=== PATIENT | male | born 1945 | race Caucasian/White ===

== ENCOUNTER → 2019-01-27 08:14 | Outpatient (CLI) | payer MEDICARE, SELFPAY ==
[2019-01-27 09:29] LABS: Hemoglobin A1c 5.3 % (4.2-6.3)
[2019-01-27 09:33] LABS: Anion Gap 7 (5-15); BUN 25 mg/dL (7-18); BUN/Creat Ratio 20.3 RATIO (10-20); Calcium,Total 8.4 mg/dL (8.5-10.1); Chloride 108 mmol/L (98-107); Cholesterol 182 mg/dL (200); Creatinine, Serum 1.23 mg/dL (0.70-1.30); EST Glomerular Filtration Rate 61 mL/min (>60); Est Glom Filt Rate - Afr Amer 74 mL/min (>60); Glucose 118 mg/dL (74-106); High Density Lipoprotein 39 mg/dL; Sodium Level 139 mmol/L (136-145); Triglycerides 91 mg/dL; Very Low Density Lipoprotein 18 mg/dL (5-40)
== END ==
DX: E11.9 Type 2 diabetes mellitus without complications (principal); Z86.39 Personal history of other endocrine, nutritional and metabolic disease
CPT/HCPCS: 36415; 80048; 80061; 83036; 84443

== ENCOUNTER 2020-01-03 05:49 | Day surgery (SDC) | payer MEDICARE, SELFPAY ==
[2019-12-12 13:07] VITALS: BMI 30.9
--- NOTE | 2020-01-02 08:57 | EKG12_ITS ---
Test Reason : PRE OP Blood Pressure : / mmHG Vent. Rate : 052 BPM Atrial Rate : 052 BPM P-R Int : 208 ms QRS Dur : 128 ms QT Int : 418 ms P-R-T Axes : 057 018 035 degrees QTc Int : 388 ms Sinus bradycardia Right bundle branch block Abnormal ECG Confirmed by WILLIAM LAFLEUR, JAJA ([id number]), editor index BETSY FLEMING ([id number]) on 01/03/2020 8:57:03 AM Referred By: Messi Dumont Confirmed By:JAJA THOMAS MD
[2020-01-03] VITALS (24 sets, daily range): BP systolic 62–155; BP diastolic 45–82; PULSE 36–73; RESP 16–18; TEMP 35.8–36.7; O2SAT 94–100; BMI 33.5
[2020-01-03] MEDS: Lactated Ringers 1,000 ML 100 ML IV ×4 (06:38→12:42)
--- NOTE | 2020-01-03 07:07 | PCM.HP.BLA ---
Problem List (1) Bilateral inguinal hernia without obstruction or gangrene Status: Acute Qualifiers: History and Physical Date of Admission: 01/03/20 Intake Visit Reasons: Hernia Chief Complaint: BIH, LT>RT Mud Jack Nozzleman Required: No Is patient in pain?: No Allergies No Known Allergies Allergy (Verified 12/12/19 13:08) Medications NK 12/12/19 [History Confirmed 12/12/19] tamsulosin 0.4 mg capsule 0.4 mg PO DAILY #30 cap 12/12/19 [Rx Confirmed 12/12/19] PFSH Medical History (Updated 12/12/19 @ 13:[address] Messi Dumont MD) Bilateral inguinal hernia without obstruction or gangrene (Acute) Osteoarthritis (Acute) Surgical History (Updated 12/12/19 @ 13:06 by Sharla Ho) History of arthroscopic knee surgery (Acute) History of cholecystectomy (Acute) History of colonoscopy (Acute ~2019) Family History (Updated 12/12/19 @ 13:07 by Sharla Ho) Father Heart disease Social History (Updated 12/12/19 @ 13:[address] Messi Dumont MD) Smoking Status: Former smoker HPI HPI HPI: YARIEL SANCHEZ, is a 74 M who presents to the office today for surgical consultation regarding left greater than right inguinal hernia. The patient is referred by Dr. Samir Quevedo and a written copy my surgical consult recommendations will be referred to him. For several years the patient is known he has had a right inguinal hernia. The left inguinal hernia seems to be more recent. He has been doing still significant bout of work. More recently he had put on some barn siding. His has a degenerative disease. 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 Because of this Dr. Samir Quevedo correctly assessed that the patient should proceed with repair so that he is physically better able to manage his the tasks ahead of him. He otherwise enjoys good health. He is not on any chronic medications. He has not had any abdominal surgery other than a very remote cholecystectomy through a right subcostal incision. He denies exposure to Covid. He does have nocturia 1-2 times nightly. HPI HPI HPI: YARIEL SANCHEZ, is a 74 M who presents to the office today for ROS General General: No weight change, appetite, fatigue, colon cancer, breast cancer or weakness HEENT HEENT: No difficulty swallowing, eye injury, eye surgery, swollen glands or hoarseness Endo Endocrine: No thyroid disease, diabetes mellitus, thyroid cancer, Hair loss, heat intolerance or cold intolerance Musc Musculoskeletal: Yes arthritis; no back problems, rheumatoid arthritis, gout or joint pain Cardio Cardiovascular: No murmur, pacemaker, heart disease, atrial fibrillation, high blood pressure, heart attack, heart stent, palpitations, shortness of breat with exertion or chest pain Psych Psychiatric: No depression, anxiety or hearing voices Resp Respiratory: No shortness of breath, No sleep apnea, No cough, No COPD, No asthma, No emphysema, No wheezing Gastro Gastrointestinal: No abdominal pain, No nausea or vomiting, No diarrhea, No constipation, No blood in stool, No acid reflux, No hemorrhoids, No ulcers, No gallbladder problem, No black,tarry stools Tony Hematologic: No blood thinners, No blood disorders, No bleeding, No anemia, No blood clots Neuro Neurologic: No weakness Exam Const General: cooperative, healthy appearing, comfortable, no acute distress Nutritional Appearance: obese Orientation: alert, awake HENLA Head: normal to inspection Neck Neck: normal visual inspection Chest Chest palpation & inspection: normal inspection of the chest Resp Effort & Inspection: normal respiratory effort Auscultation: clear to auscultation bilaterally Cardio Rate: regular rate Rhythm: regular rhythm Heart Sounds: no murmurs GI Inspection: obesity Palpation: soft, no hepatosplenomegaly Auscultation: normal bowel sounds Other: Large left inguinal hernia with probable sigmoid colon involvement that requires effort for manual reduction, slightly smaller but still significant right inguinal hernia also reducible Atrophic bilateral testicles Musc Cervical Spine: normal cervical lordosis Skin General: no rashes or lesions noted Neuro Cognition: normal cognition Extrem General: no calf tenderness Psych Affect: normal affect Assessment & Plan Problems 1. Non-recurrent bilateral inguinal hernia without obstruction or gangrene K40.20 Plan Bilateral inguinal hernias, left greater than right but both sizable. Nocturia I recommend the patient initiate Flomax 0.4 mg nightly. This should be initiated preoperatively. I recommended the patient a laparoscopic bilateral inguinal hernia repair. I discussed the technique, benefit, risk and alternatives. He is aware that this utilizes mesh. I believe that this is preferable for him based upon his body habitus and based upon the need of expediting his recovery so he can continue with caretaking his . He has had an opportunity to ask and have questions answered. He is aware that there are no guarantees of success and that recurrence is a possibility. He is aware that he will be limited postoperatively during the recovery period. We will schedule and proceed at his discretion. I very much appreciate the kind opportunity of assisting with his surgical care. Copy: Dr. Samir Dumont M.D., F.A.C.S. Medications New: tamsulosin (Flomax) 0.4 mg PO DAILY 30 caps 0RF Coding Level of Care Code 84906 Diagnoses Non-recurrent bilateral inguinal hernia without obstruction or gangrene K40.20 ??Recurrence: non-recurrent I have re-examined the patient. There are no clinical changes since date of exam. Procedure Criteria Procedure Type: Elective COVID Risk Discussion: The surgeon/proceduralist and patient have discussed in detail the risk of exposure to and/or potential harm posed by the COVID-19 virus with having a surgery/procedure at this time versus the risk of delaying the surgery/procedure. It is not possible to know either the risk of delaying the surgery or procedure or chance of getting an infection with perfect accuracy, but a joint decision was made between the patient and the surgeon/proceduralist to proceed at this time with the scheduled surgery/procedure as indicated on the consent form.
--- NOTE | 2020-01-03 07:09 | DCINST_ITS ---
Discharge Diet: Light diet - advance as tolerated - if you have questions about your diet instructions, please talk to you doctor. Discharge Activity: May Not Drive - for 1 week or while taking narcotic pain medicine. May shower in (days): 1 Lifting Restrictions: 10 pounds Call your doctor if your incision/area has: Continuous Slow Oozing, Sudden Increased Bleeding, Increased Pain/ Swelling, Increased Redness, Foul Smelling Discharge Call your doctor if you observe: Fever of 101 or Higher Suture Line Care: Avoid Pulling/Pushing, Avoid Pinching/Bending Additional Dressing/Incision Instructions:: Change or remove dressing in 4 days. Leave steri-strips in place for 1 week. Allergies/Adverse Reactions: Allergies No Known Allergies Allergy (Verified 01/03/20 06:03) Medications to take at Discharge tamsulosin 0.4 mg capsule 0.4 mg PO DAILY #30 cap 12/12/19 Primary Care Physician: Samir Quevedo MD [Primary Care Provider] - Test Results: Test results from this visit will be discussed in further detail at your follow- up appointment, if applicable. Please Follow Up With: Messi Dumont MD - [phone] When: Call to make an appointment to be seen in about 10 days.
[2020-01-03] MEDS: Bupivacaine 0.5% PF 10 ML VIAL (07:30)
[2020-01-03] MEDS: Cefazolin 2 GM in 0.9% Normal Saline 100 ML IV (07:56)
[2020-01-03] MEDS: Bupivacaine Mpf 0.5% 30 ML VIAL (09:00)
--- NOTE | 2020-01-03 09:17 | OP.PCM_ITS ---
Problem List (1) Bilateral inguinal hernia without obstruction or gangrene Status: Acute Qualifiers: Report of Operation Date of Procedure: 01/03/20 Pre-Operative Diagnosis: Recurrent left inguinal hernia. Indirect right inguinal hernia Post-Operative Diagnosis: Same Surgery/Procedure Performed:: Laparoscopic bilateral inguinal herniorrhaphy. Left extra-large reference [id number], lot number [id number], expiry date 04/21/2024. Right extra-large, reference #[id number], lot number [id number], expiry date 03/21/2024 Description of Surgical Findings:: Timeout and informed consent was obtained. 74-year-old gentleman was taken the operating place upon the table underwent general endotracheal intubation esthesia. Ancef 2 g were given intravenously. 0.5% Marcaine was used as a local anesthetic. Throughout the procedure total 30 cc was used. Skin sites were preanesthetized. Clean procedure. A vertical infraumbilical incision was created holding sutures of 0 Vicryl placed varies needle inserted saline drop test performed the abdomen was insufflated with CO2 to a pressure of 10 mmHg pressure. 12 mm trocar inserted. 10 mm laparoscope inserted. Under acqui sition 5 mm ports were placed in the right left lower quadrants. Under laparoscopic visualization bilateral ileal inguinal nerve blocks were performed with a local. There were very large bilateral indirect inguinal hernias identified. This represented a recurrence on the left. The peritoneum superior lateral to the internal ring on the left was incised carried medially tediously the very large sac was bluntly dissected free. Where needed hemostasis was obtained with hemolock clips. The sac was completely inverted and the direct and indirect space completely dissected free. The retropubic area nicely dissected. Subsequently the peritoneum superior lateral to the right indirect inguinal hernia was incised in a similar fashion as on the left the peritoneum was completely dissected free and the sac completely inverted. Access was gained retropubically to the dissection from the left. I then placed extra-large Bard 3D max mesh on the right and subsequently on the left. I placed it so it nicely cover the defect areas. The mesh was secured laterally superiorly and medially with secure strap. The mesh overlapped each other midline. Excellent positioning was achieved. The peritoneum was then approximated to itself bilaterally with secure strap. Complete obliteration to the mesh was achieved. There is been essentially no blood loss during the procedure. The abdomen was allowed to deflate of the CO2 through the antiviral valve. Trochars were removed. The fascia at the umbilicus approximated with interrupted 0 Vicryl [id number] suture. Skin edges approximated opted for Monocryl subdermal stitches. Steri-Strips and Telfa and OpSite dressings applied. Sponge and instrument and needle counts were reported to the surgeon to be correct. Specimens none. Drains none. Blood loss minimal. Messi Dumont M.D., F.A.C.S. Type of Anesthesia:: General Anesthesiologist: Ba Ahmadi
--- NOTE | 2020-01-03 09:51 | EKG12_ITS ---
Test Reason : POST OP Blood Pressure : / mmHG Vent. Rate : 048 BPM Atrial Rate : 048 BPM P-R Int : 204 ms QRS Dur : 128 ms QT Int : 494 ms P-R-T Axes : 067 050 055 degrees QTc Int : 441 ms Sinus bradycardia with sinus arrhythmia Right bundle branch block Abnormal ECG Confirmed by ALDO LAFLEUR, FLORENTIN ([id number]), makeup editor BOSTON HOOKER ([id number]) on 01/08/2020 1:18:15 PM Referred By: Messi Dumont Confirmed By:TATIANNA CARLSON MD
[2020-01-03 11:02] LABS: Absolute Lymphocyte Count 0.94 X10^3/uL (0.83-4.51); Absolute Neutrophil Count 8.4 X10^3/uL (2.0-7.7); Basophil# 0.02 X10^3/uL; Basophil% 0.2 % (0-1); Eosinophil# 0.03 X10^3/uL; Eosinophils% 0.3 % (0-5); Hematocrit 41.9 % (40-54); Hemoglobin 14.3 g/dL (13.0-16.5); Lymphocyte # 0.94 X10^3/ul (4.0); Lymphocyte % 9.8 % (19-41); Mean Corp Hgb Conc 34.1 g/dL (32-36); Mean Corpuscular Hgb 28.9 pg (27.0-32.0); Mean Corpuscular Volume 84.8 fL (80-94); Mean Platelet Vol. 10.4 fl (6.2-12.0); Monocyte# 0.15 X10^3/uL; Monocyte% 1.6 % (0-10); NRBC Flagged by Analyzer 0 % (0-5); Neutrophil # 8.42 X10^3/uL (2.7-7.7); Neutrophil % 87.5 % (47-70); Platelet Count 156 K/mm3 (150-450); RBC Distribution Width CV 13.2 % (11.6-14.6); RBC Distribution Width SD 40.8 fl (35.1-43.9); Red Blood Count 4.94 M/mm3 (4.6-6.2); White Blood Count 9.6 K/mm3 (4.4-11.0)
[2020-01-03] MEDS: HYDROcodone Bitartrate/Apap 5/325 Tablet PO (12:30)
== END 2020-01-03 14:15 | disposition home or self-care (01) ==
LOC: SDC 05:49 → AC 05:51
PROVIDERS: PCP Family Medicine; Referring Provider Surgery; Visit Provider Surgery
PROC: (CPT 49650; principal; 2020-01-03 07:40)
DX: K40.91 Unilateral inguinal hernia, without obstruction or gangrene, recurrent (principal); K40.90 Unilateral inguinal hernia, without obstruction or gangrene, not specified as recurrent; M19.90 Unspecified osteoarthritis, unspecified site; E66.9 Obesity, unspecified; Z68.33 Body mass index [BMI] 33.0-33.9, adult; Z87.891 Personal history of nicotine dependence
CPT/HCPCS: 00840; 49650; 36415; 85025; 87426; 93005; C9803; J7120; C1781; J2405

== ENCOUNTER → 2020-02-19 | Outpatient (CLI) | payer MEDICARE, SELFPAY ==
[2020-01-03 06:32] VITALS: BMI 33.5
== END | disposition home or self-care (01) ==
LOC: LABSPEC 13:23
PROVIDERS: PCP Family Medicine; Referring Provider Family Medicine; Visit Provider Family Medicine
DX: N20.0 Calculus of kidney (principal)
CPT/HCPCS: 82360

== ENCOUNTER → 2020-02-27 15:43 | Outpatient (CLI) | payer MEDICARE, SELFPAY ==
[2020-01-03 06:32] VITALS: BMI 33.5
--- NOTE | 2020-02-27 15:45 | CT_ITS ---
STUDY: CT ABDOMEN AND PELVIS WITHOUT CONTRAST REASON FOR EXAM: Male, 74 years old. KIDNEY STONES. RADIATION DOSAGE (If Supplied By Facility): CTDIvol = ( 17.21 ) mGy, DLP = ( 967.51 ) mGycm TECHNIQUE: Transaxial images were obtained from the dome of the diaphragm to the symphysis pubis without oral contrast, and without intravenous contrast. Sagittal and coronal images were reconstructed. Individualized dose optimization techniques were used for this CT. COMPARISON: None. FINDINGS: The visualized lung bases are unremarkable. The visualized portions of the heart are within normal limits. Normal liver. There are surgical clips in the gallbladder fossa consistent with a prior cholecystectomy. Normal spleen. Normal pancreas. Normal bilateral adrenal glands. Bilateral small nonobstructing renal stones. No hydronephrosis, ureteral stone, or ureteral dilatation. Normal visualized stomach. Normal small intestine. Normal colon. There is non-visualization of the appendix. Normal abdominal aorta. Normal inferior vena cava. Normal retroperitoneum. Normal urinary bladder. There is enlargement of the prostate gland. Small bilateral hernias containing fat and fluid. Normal osseous structures. CT/Abdomen/Pelvis without Cont IMPRESSION: Bilateral small nonobstructing renal stones. Electronically Signed: Reza Crowe MD at 16:39 EST Tel , Service support ,
== END ==
PROVIDERS: PCP Family Medicine; Referring Provider Family Medicine; Visit Provider Family Medicine
DX: N20.0 Calculus of kidney (principal)
CPT/HCPCS: 74176

== ENCOUNTER → 2020-05-20 08:04 | Outpatient (CLI) | payer MEDICARE, SELFPAY ==
[2020-01-03 06:32] VITALS: BMI 33.5
[2020-05-20 10:47] LABS: ALB/GLOB Ratio 1.4 RATIO (0.9-2.4); AST(SGOT) 22 U/L (15-37); Alanine Aminotransfer ALT/SGPT 33 U/L (16-61); Alkaline Phosphatase 58 U/L (45-117); Anion Gap 7 (5-15); BUN 25 mg/dL (7-18); BUN/Creat Ratio 20.8 RATIO (10-20); Calcium,Total 8.6 mg/dL (8.5-10.1); Chloride 106 mmol/L (98-107); Cholesterol 191 mg/dL (200); EST Glomerular Filtration Rate 63 mL/min (>60); Est Glom Filt Rate - Afr Amer 76 mL/min (>60); Globulin 2.9 g/dL (2.2-4.2); Glucose 122 mg/dL (74-106); High Density Lipoprotein 40 mg/dL; PSA,Total- Diagnostic 2.24 ng/mL (0.0-4.0); Potassium 3.9 mmol/L (3.5-5.1); Protein, Total 6.9 g/dL (6.4-8.2); Sodium Level 138 mmol/L (136-145); Triglycerides 108 mg/dL; Very Low Density Lipoprotein 22 mg/dL (5-40)
== END ==
PROVIDERS: PCP Family Medicine; Referring Provider Family Medicine; Visit Provider Family Medicine
DX: N40.0 Benign prostatic hyperplasia without lower urinary tract symptoms (principal); Z13.220 Encounter for screening for lipoid disorders
CPT/HCPCS: 36415; 80053; 80061; 84153

== ENCOUNTER 2021-03-06 08:05 | Outpatient (CLI) | payer MEDICARE, OTHER, SELFPAY ==
[2021-03-06 10:36] LABS: Microalbumin,Random Urine 23.1 mg/L (NO RANGE EST.)
[2021-03-06 10:38] LABS: AST(SGOT) 14 U/L (15-37); Alanine Aminotransfer ALT/SGPT 34 U/L (16-61); Albumin, Serum 3.6 g/dL (3.2-5.0); Alkaline Phosphatase 70 U/L (45-117); Anion Gap 8 (5-15); BUN 29 mg/dL (7-18); BUN/Creat Ratio 25.7 RATIO (10-20); Calcium,Total 8.9 mg/dL (8.5-10.1); Chloride 105 mmol/L (98-107); Cholesterol 158 mg/dL (200); Creatinine, Serum 1.13 mg/dL (0.70-1.30); EST Glomerular Filtration Rate 67 mL/min (>60); Est Glom Filt Rate - Afr Amer 81 mL/min (>60); Globulin 3.6 g/dL (2.2-4.2); Glucose 131 mg/dL (74-106); High Density Lipoprotein 29 mg/dL; Potassium 3.9 mmol/L (3.5-5.1); Protein, Total 7.2 g/dL (6.4-8.2); Sodium Level 139 mmol/L (136-145); Triglycerides 100 mg/dL; Very Low Density Lipoprotein 20 mg/dL (5-40)
== END 2021-03-06 23:59 | disposition short-term general hospital (02) ==
LOC: MFPLAB 08:08
PROVIDERS: PCP Family Medicine; Referring Provider Family Medicine; Visit Provider Family Medicine
DX: I10 Essential (primary) hypertension (principal)
CPT/HCPCS: 36415; 80053; 80061; 82043; 82570

== ENCOUNTER 2021-03-24 08:12 | Outpatient (CLI) | payer MEDICARE, OTHER, SELFPAY ==
[2021-03-24 10:18] LABS: Hemoglobin A1c 5.6 % (3.8-5.6)
== END 2021-03-24 23:59 | disposition short-term general hospital (02) ==
LOC: MFPLAB 08:15
PROVIDERS: PCP Family Medicine; Visit Provider Family Medicine
DX: R73.09 Other abnormal glucose (principal)
CPT/HCPCS: 36415; 83036

== ENCOUNTER 2021-04-08 08:25 | Outpatient (CLI) | payer MEDICARE, OTHER, SELFPAY | END 2021-04-08 23:59 | disposition home or self-care (01) | LOC: LABSPEC 08:30 | PROVIDERS: PCP Family Medicine; Referring Provider Family Medicine; Visit Provider Family Medicine | DX: J32.9 Chronic sinusitis, unspecified (principal) | CPT/HCPCS: 87070; 87077; 87205 ==

== ENCOUNTER 2021-04-09 14:12 | Emergency (ER) | payer MEDICARE, OTHER, SELFPAY ==
[2021-04-09 14:16] VITALS: BP 162/92; PULSE 104; RESP 14; TEMP 35.6; O2SAT 98; BMI 35.3
[2021-04-09 14:48] VITALS: BP 149/96; PULSE 104; RESP 16; O2SAT 99
[2021-04-09 15:14] VITALS: BP 133/91; PULSE 99; RESP 12; O2SAT 98
--- NOTE | 2021-04-09 15:21 | CT_ITS ---
STUDY: CT BRAIN WITHOUT CONTRAST REASON FOR EXAM: Male, 75 years old. Dizziness RADIATION DOSAGE (If Supplied By Facility): CTDIvol = ( 47.06 ) mGy, DLP = ( 872.68 ) mGycm TECHNIQUE: Transaxial CT imaging of the brain was performed without administration of intravenous contrast material. Individualized dose optimization techniques were used for this CT. COMPARISON: No relevant priors. FINDINGS: Normal soft tissue structures. Normal calvarium. Normal size ventricles and extra-axial spaces for the patient''s age. Normal white matter tracts of the cerebral hemispheres. Normal basal ganglia and thalami. Normal brainstem. Normal cerebellum. There is no intracranial hemorrhage. There are no findings of an acute ischemic infarction. 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 No acute hemorrhage Chronic inspissated right maxillary sinusitis Electronically Signed: Armando Cannon MD at 16:40 EST ,
--- NOTE | 2021-04-09 15:21 | EKG12_ITS ---
Test Reason : SYNCOPE Blood Pressure : / mmHG Vent. Rate : 092 BPM Atrial Rate : 092 BPM P-R Int : 160 ms QRS Dur : 128 ms QT Int : 376 ms P-R-T Axes : 000 -18 007 degrees QTc Int : 464 ms Normal sinus rhythm Right bundle branch block Abnormal ECG Confirmed by ALDO LAFLEUR, FLORENTIN ([id number]), society editor BETSY FLEMING ([id number]) on 04/10/2021 10:22:13 A M Referred By: ALEM Confirmed By:TATIANNA CARLSON MD
[2021-04-09] MEDS: Metoclopramide 10 MG/2 ML Vial 5 MG IV (15:26)
[2021-04-09 15:38] LABS: Absolute Lymphocyte Count 1.13 X10^3/uL (0.83-4.51); Basophil# 0.04 X10^3/uL; Basophil% 0.5 % (0-1); Eosinophil# 0.04 X10^3/uL; Eosinophils% 0.5 % (0-5); Hematocrit 42.7 % (40-54); Hemoglobin 15.9 g/dL (13.0-16.5); Lymphocyte # 1.13 X10^3/ul (0.83-4.51); Mean Corp Hgb Conc 37.2 g/dL (32-36); Mean Corpuscular Hgb 29.6 pg (27.0-32.0); Mean Corpuscular Volume 79.4 fL (80-94); Mean Platelet Vol. 10.3 fl (6.2-12.0); Monocyte# 0.48 X10^3/uL; Monocyte% 5.5 % (0-10); NRBC Flagged by Analyzer 0 % (0-5); Neutrophil # 6.95 X10^3/uL (2.7-7.7); Neutrophil % 79.7 % (47-70); Platelet Count 185 K/mm3 (150-450); RBC Distribution Width CV 13.6 % (11.6-14.6); RBC Distribution Width SD 39.1 fl (35.1-43.9); Red Blood Count 5.38 M/mm3 (4.6-6.2); White Blood Count 8.7 K/mm3 (4.4-11.0)
[2021-04-09 15:58] LABS: ALB/GLOB Ratio 1.1 RATIO (0.9-2.4); AST(SGOT) 22 U/L (15-37); Alanine Aminotransfer ALT/SGPT 35 U/L (16-61); Albumin, Serum 3.9 g/dL (3.2-5.0); Alkaline Phosphatase 75 U/L (45-117); Anion Gap 9 (5-15); BUN 28 mg/dL (7-18); BUN/Creat Ratio 15.6 RATIO (10-20); Calcium,Total 9.2 mg/dL (8.5-10.1); Chloride 107 mmol/L (98-107); EST Glomerular Filtration Rate 39 mL/min (>60); Est Glom Filt Rate - Afr Amer 48 mL/min (>60); Estimated Creatinine Clearance 34.83 ml/min; Globulin 3.4 g/dL (2.2-4.2); Glucose 177 mg/dL (74-106); Potassium 4.3 mmol/L (3.5-5.1); Protein, Total 7.3 g/dL (6.4-8.2); Sodium Level 137 mmol/L (136-145); Troponin-I HS 6 pg/mL (3.0-78.0)
[2021-04-09 16:00] LABS: International Normalized Ratio 1.2; Partial Thromboplast Time 26.6 Seconds (24.1-36.2); Prothrombin Time (Protime)PT. 14.4 SECONDS (11.7-14.9)
[2021-04-09] MEDS: 0.9% Normal Saline 1,000 ML 999 ML IV (16:35)
[2021-04-09 17:07] VITALS: BP 153/90; PULSE 99; RESP 20; O2SAT 95
--- NOTE | 2021-04-09 17:15 | EDS_ITS ---
HPI History of Present Illness Chief Complaint: Syncope Informant: patient and spouse/S.O. Narrative Narrative: Patient presenting by private vehicle with her significant other sudden dizziness with room spinning while doing a work-up, dynamic. States nausea with the symptoms. Denies lightheaded symptoms no chest pains or shortness of breath. Patient still with sinus congestion on his third round of antibiotics per his PCP. Starting day 3 currently. No fevers. No visual changes. No tinnitus. Denies vomiting or diarrhea. No urinary symptoms. No stroke history. No history of diabetes. He states due to symptoms he had to crawl to the bathroom when he got home. Symptoms started less than 2 hours ago. Denies any allergies. Prior similar symptoms: No PFSH PFSH Medical History Bilateral inguinal hernia without obstruction or gangrene Osteoarthritis Home Medications tamsulosin 0.4 mg capsule 0.4 mg PO DAILY #30 cap 12/12/19 [Rx Last Taken Unknown] meclizine 25 mg PO TID PRN #20 tab 04/09/21 [Rx Last Taken Unknown] Allergy/AdvReac Type Severity Reaction Status Date / Time No Known Allergies Allergy Verified 04/09/21 14:19 Family History Father Heart disease Surgical History History of arthroscopic knee surgery History of cholecystectomy History of colonoscopy (~2018) Social History Smoking Status: Never smoker ROS ROS ED Constitutional Constitutional ED: Denies chills, fever(s) or sweats Eyes Eyes: Denies change in vision ENT ENT ED: Denies dysphagia or sore throat Cardiovascular Cardiovascular: Denies chest pain, leg edema, palpitations or racing heartbeat Respiratory/Chest Respiratory/Chest: Denies cough, dyspnea or dyspnea on exertion Gastrointestinal Gastrointestinal: Reports nausea; Denies abdominal pain, diarrhea or vomiting Genitourinary Genitourinary ED: Denies dysuria, hematuria or urinary frequency Musculoskeletal Musculoskeletal: Denies back pain, extremity pain or neck pain Integumentary Denies rash or wounds Neurologic Neurologic: Reports other Details: Dizziness ; Denies headache(s), paresthesias or weakness EXAM Physical Exam Const Vital Signs: 04/09/21 14:16 04/09/21 14:20 04/09/21 14:48 Temperature 96.1 F L Temperature Source Temporal Pulse Rate 104 H 104 H Respiratory Rate 14 16 Respiratory Effort Normal Non-Labored Respiratory Pattern Normal Blood Pressure 162/92 H 149/96 H Blood Pressure Mean 115 113 Pulse Ox 98 99 Oxygen Delivery Method Room Air Room Air 04/09/21 15:14 04/09/21 17:07 Temperature Temperature Source Pulse Rate 99 99 Respiratory Rate 12 20 H Respiratory Effort Respiratory Pattern Blood Pressure 133/91 H 153/90 H Blood Pressure Mean 105 111 Pulse Ox 98 95 Oxygen Delivery Method Room Air Room Air Positive well nourished and well developed Constitutional Narrative: Nontoxic General Appearance ED: well developed HEENT Reports moist mucous membranes normocephalic and atraumatic Eyes PERRL, EOMs intact bilaterally and conjunctivae normal Eyes Narrative: No nystagmus General Eye ED: Yes normal appearance of both eyes Neck no lymphadenopathy and supple General: Negative for tenderness Chest Wall Chest: Negative for tenderness Resp normal respiratory effort and normal air movement Effort and Inspection: symmetric chest movement; Negative for respiratory distress Cardio regular rate, regular rhythm and no murmurs Peripheral Pulses: pulses 2+ throughout GI normal to inspection, nondistended, normoactive bowel sounds and non-tender Palpation: Negative for guarding or rebound tenderness present Back/Spine no CVA tenderness and no thoracic nor lumbar tenderness Extremity normal to inspection General Extremety ED: Negative for edema or tenderness General Extremity: Negative for edema Neuro oriented x3, CN's II-XII intact bilaterally and no sensory deficits noted Neuro Narrative: NIH of 0, [place]-Hallpike negative bilaterally, hints test negative. Normal cerebellar testing upper and lower extremities. Sensorium / Orientation: awake and alert Motor Exam: strength 5/5 throughout Skin no rashes or lesions noted and no wounds MDM MDM MDM Narrative Medical decision making narrative: Patient chronic right bundle branch block on EKG. No focal deficit on exam. History concerning for vertigo symptoms. Basic labs obtained noted YVONNE creatinine 1.8. Has not been vomiting diarrhea drinks 2 cups of coffee per day he was treated with fluids IV Reglan. CT brain negative for intracranial process noted chronic right maxillary sinusitis. He was feeli ng better on reevaluation able ambulate to the restroom with no return of symptoms. He will finish his antibiotics for sinusitis, discussed prescription for meclizine to use as needed. He had no focal neurologic deficits. Discussed follow-up with his PCP for reevaluation and to repeat blood work for his renal insufficiency. Trict return precautions discussed. Patient is being discharged under pandemic conditions under declared global, national and state disaster activation, with limited medical resources. Patient and community understands this. Results discussed in layman's terms to the patient satisfaction. All questions answered in layman's terms. Patient understands importance of follow-up care as directed. Patient has been instructed to return to the ED immediately if new symptoms, problems, or questions occur. We mutually agree with the plan of disposition. The patient understand that they may call or return with any questions or concerns at any time. Lab Data Attestation: I reviewed the patient's lab results. Labs: Laboratory Results - last 24 hr 04/09/21 04/09/21 04/09/21 14:40 14:40 14:40 WBC 8.7 RBC 5.38 Hgb 15.9 Hct 42.7 MCV 79.4 L MCH 29.6 MCHC 37.2 H RDW Std Deviation 39.1 RDW Coeff of Guilherme 13.6 Plt Count 185 MPV 10.3 Immature Gran % (Auto) 0.800 Neut % (Auto) 79.7 H Lymph % (Auto) 13.0 L [place] % (Auto) 5.5 Eos % (Auto) 0.5 Baso % (Auto) 0.5 Absolute Neuts (auto) 7.0 Absolute Lymphs (auto) 1.13 Nucleated RBC % 0 PT 14.4 INR 1.2 APTT 26.6 Sodium 137 Potassium 4.3 Chloride 107 Carbon Dioxide 21.0 Anion Gap 9 BUN 28 H Creatinine 1.80 H Estim Creat Clear Calc 34.83 Est GFR (MDRD) Af Amer 48 L Est GFR (MDRD) Non-Af 39 L BUN/Creatinine Ratio 15.6 Glucose 177 H Calcium 9.2 Total Bilirubin 0.80 AST 22 ALT 35 Alkaline Phosphatase 75 Troponin I High Sens 6 Total Protein 7.3 Albumin 3.9 Globulin 3.4 Albumin/Globulin Ratio 1.1 Radiography Diagnostic Testing: Clinical Impression(s) from Imaging Studies Brain CT 04/09/21 15:21 IMPRESSION: Normal unenhanced CT scan of the brain. No acute hemorrhage Chronic inspissated right maxillary sinusitis Electronically Signed: Armando Cannon MD at 16:40 EST , EKG Initial EKG: Attestation: I personally reviewed and interpreted this EKG as follows: Comments: Sinus rate of 92, no ST or T wave changes. Right bundle branch block noted. Similar to EKG back in 2019 Discharge Plan Triage Chief Complaint: Syncope ED Provider: Vince Nguyễn Dx/Rx/DC Orders Clinical Impression: Vertigo, Acute renal insufficiency, Sinusitis, maxillary, chronic Instructions: Chronic Sinusitis, ED Vertigo, Unspecified, ED Renal Insufficiency Prescriptions: New meclizine 25 mg tablet 25 mg PO TID PRN (Reason: dizziness) Qty: 20 RF: 0 No Action tamsulosin [Flomax] 0.4 mg capsule 0.4 mg PO DAILY Qty: 30 RF: 0 Primary Care Provider: Samir Quevedo Referrals: Samir Quevedo MD [Primary Care Provider] - 3-5 Days Activity Restrictions/Additional Instructions: CT brain normal noted chronic right maxillary sinusitis. Finish your antibiotics. Labs notes creatinine 1.8 status post 1 L of fluids continue oral fluids. Recheck labs by your doctor. Use prescription medication as prescribed if needed, return if any worsening symptoms. Disposition Disposition: Home, Self Care
[2021-04-09 18:06] VITALS: BP 169/101; PULSE 97; RESP 18; O2SAT 98
== END 2021-04-09 18:13 | disposition home or self-care (01) ==
PROVIDERS: Emergency Provider Emergency Medicine; PCP Family Medicine; Visit Provider Emergency Medicine
DX: R42 Dizziness and giddiness (principal); N28.9 Disorder of kidney and ureter, unspecified; J32.0 Chronic maxillary sinusitis
CPT/HCPCS: 70450; 80053; 84484; 85025; 85610; 85730; 93005; 96361; 96374; 99285; J7030; A4216

== ENCOUNTER 2021-04-15 10:51 | Observation (INO) | payer MEDICARE, OTHER, SELFPAY ==
[2021-04-15] VITALS (9 sets, daily range): BP systolic 129–157; BP diastolic 88–106; PULSE 93–113; RESP 12–18; TEMP 36.3–36.6; O2SAT 96–97; BMI 35.9; BMI 33.4
--- NOTE | 2021-04-15 11:51 | EKG12_ITS ---
Test Reason : Blood Pressure : / mmHG Vent. Rate : 103 BPM Atrial Rate : 103 BPM P-R Int : 240 ms QRS Dur : 116 ms QT Int : 350 ms P-R-T Axes : 000 -43 000 degrees QTc Int : 458 ms Sinus tachycardia with 1st degree A-V block Left axis deviation Right bundle branch block Inferior infarct , age undetermined , cannot be excluded Abnormal ECG Confirmed by WILLIAM LAFLEUR, JAJA ([id number]), health editor BETSY FLEMING ([id number]) on 04/17/2021 8:11:21 AM Referred By: CARMINE Confirmed By:JAJA THOMAS MD
--- NOTE | 2021-04-15 11:51 | CT_ITS ---
STUDY: CT BRAIN WITHOUT CONTRAST REASON FOR EXAM: Male, 76 years old. Dizziness. History of vertigo. RADIATION DOSAGE (If Supplied By Facility): CTDIvol = ( 44.99 ) mGy, DLP = ( 812.99 ) mGycm TECHNIQUE: Transaxial CT imaging of the brain was performed without administration of intravenous contrast material. Individualized dose optimization techniques were used for this CT. COMPARISON: Comparison is made with prior study dated 12/07/2021. FINDINGS: Normal soft tissue structures. Normal calvarium. Normal size ventricles and extra-axial spaces for the patient''s age. Normal white matter tracts of the cerebral hemispheres. Normal basal ganglia and thalami. Normal brainstem. Normal cerebellum. There is no intracranial hemorrhage. There are no findings of an acute ischemic infarction. There is opacification of the right maxillary sinus as well as partial opacification of the ethmoid sinuses worse on the right side. There is soft tissue fullness in the right nasal cavity suggestive of polyposis. CT/Brain/Head without Contrast IMPRESSION: Sinusitis. Electronically Signed: Shai Hawkins MD at 13:06 EST ,
--- NOTE | 2021-04-15 11:53 | EDS_ITS ---
HPI History of Present Illness Chief Complaint: Dizziness Informant: patient and spouse/S.O. Narrative Narrative: Patient represents with dizziness/vertigo/weakness that is not improving. He was seen here last week. He had relatively sudden onset of what sounds like dizziness and vertigo with a sense of motion. He was fully evaluated including CAT scan of the head and blood work. He was find to have a mild acute kidney injury. His symptoms improved with meds and he went home. He followed up with ENT today. They felt that when they laid him back his pulse was thready and he felt very lightheaded. I do not have reports of blood pressure changes or heart rate changes but I do not think those were monitored acutely. Patient does admit that he has been dizzy ever since the event. He has times where it is better or worse. His states sometimes he has to hold onto the hernandez with both hands. He has an occasional mild headache. He has no chest pain or palpitations. This patient is overall healthy. His only chronic medicine is tamsulosin. This is for BPH as well as high blood pressure. He is on Levaquin for a possible sinus infection. But he is not having nasal congestion. [facility] Medical History (Updated 04/15/21 @ 14:[address] Bonifacio Tompkins MD) Bilateral inguinal hernia without obstruction or gangrene Kidney stones Non-smoker Osteoarthritis Home Medications meclizine 25 mg PO TID PRN #20 tab 04/09/21 [Rx Last Taken 04/15/21] doxazosin 1 mg PO QHS 04/15/21 [History Last Taken Unknown] levofloxacin 500 mg PO DAILY 04/15/21 [History Last Taken 04/14/21] lisinopril 5 mg PO QHS 04/15/21 [History Last Taken Unknown] Allergy/AdvReac Type Severity Reaction Status Date / Time No Known Allergies Allergy Verified 04/09/21 14:19 Family History Father Heart disease Surgical History History of arthroscopic knee surgery History of cholecystectomy History of colonoscopy (~2019) Social History Smoking Status: Never smoker ROS ROS ED Constitutional Constitutional ED: Denies chills or fever(s) Eyes Eyes: Denies blurry vision, change in vision or diplopia ENT ENT ED: Denies rhinorrhea or sore throat Cardiovascular Cardiovascular: Denies chest pain or palpitations Respiratory/Chest Respiratory/Chest: Denies dyspnea Gastrointestinal Gastrointestinal: Denies abdominal pain, nausea or vomiting Genitourinary Genitourinary ED: Denies dysuria Musculoskeletal Musculoskeletal: Denies myalgias Integumentary Denies rash Neurologic Neurologic: Denies headache(s) or paresthesias Endocrine Endocrinology: Denies polyuria Allergic/Immunologic Allergic/Immunologic ED: Denies mouth swelling or urticaria EXAM Physical Exam Const Vital Signs: 04/15/21 10:54 04/15/21 10:57 04/15/21 13:04 Temperature 97.7 F L Temperature Source Oral Pulse Rate 110 H 93 Respiratory Rate 12 14 Respiratory Effort Normal Non-Labored Respiratory Pattern Normal Blood Pressure 142/88 H 151/94 H Blood Pressure Mean 106 113 Pulse Ox 96 97 Oxygen Delivery Method Room Air Room Air Positive well nourished, well developed and obese General Appearance ED: well developed and NAD; Negative for cyanotic or diaphoretic Nutritional Appearance: obese HEENT Reports moist mucous membranes HEENT Narrative: To me the patient has some slight flattening of his left facial area. Nasolabial fold is definitely flatter left than right. I had his look at this and she felt that this looked different than normal. She states he normally has a crease on both sides that looks the same and now it looks different. She is not sure when this happened. Eyes PERRL and EOMs intact bilaterally Neck supple Chest Wall inspection of chest normal Resp normal respiratory effort and clear to auscultation bilaterally Cardio regular rate and regular rhythm GI normal to inspection, nondistended, normoactive bowel sounds and non-tender Back/Spine no CVA tenderness Extremity normal to inspection General Extremety ED: Negative for tenderness Neuro oriented x3 Neuro Narrative: Left facial weakness as above. Remainder of NIH is normal. [id number] is normal. Total NIH of one for left nasolabial flattening Sensorium / Orientation: alert Psych mental status grossly normal Skin no rashes or lesions noted MDM MDM MDM Narrative Medical decision making narrative: Patient's blood work shows normal CBC. Electrolytes show improvement of his creatinine. LFTs show no acute process. Glucose is minimally elevated at 150. CT does not show any acute interval change. Patient saw ENT physician today. He does not feel that this vertigo is coming from the sinus issue. Also, it appears as though the very subtle left facial flattening is new per the . Yet I do not know when this started. With his persistent symptoms, new facial weakness I think bringing him in the hospital at this point is appropriate. He has been taking meclizine without success. Levaquin is not helping. Case was discussed with hospitalist. Lab Data Attestation: I reviewed the patient's lab results. Labs: Laboratory Results - last 24 hr 04/15/21 04/15/21 11:10 11:10 WBC 5.0 RBC 5.53 Hgb 16.2 Hct 45.2 MCV 81.7 MCH 29.3 MCHC 35.8 RDW Std Deviation 40.8 RDW Coeff of Guilherme 13.9 Plt Count 177 MPV 10.4 Immature Gran % (Auto) 0.800 Neut % (Auto) 59.1 Lymph % (Auto) 28.5 Towner % (Auto) 8.8 Eos % (Auto) 2.0 Baso % (Auto) 0.8 Absolute Neuts (auto) 3.0 Absolute Lymphs (auto) 1.43 Nucleated RBC % 0 Sodium 139 Potassium 3.9 Chloride 106 Carbon Dioxide 26.0 Anion Gap 7 BUN 25 H Creatinine 1.49 H Estim Creat Clear Calc 41.44 Est GFR (MDRD) Af Amer 59 L Est GFR (MDRD) Non-Af 49 L BUN/Creatinine Ratio 16.8 Glucose 150 H Calcium 8.8 Total Bilirubin 0.70 AST 17 ALT 36 Alkaline Phosphatase 77 Troponin I High Sens 7 Total Protein 7.3 Albumin 3.9 Globulin 3.4 Albumin/Globulin Ratio 1.1 Radiography Diagnostic Testing: Clinical Impression(s) from Imaging Studies Brain CT 04/15/21 11:51 IMPRESSION: Sinusitis. Electronically Signed: Shai Hawkins MD at 13:06 EST , Discharge Plan Triage Chief Complaint: Dizziness ED Provider: Bonifacio Tompkins Dx/Rx/DC Orders Clinical Impression: Vertigo, Sinusitis, maxillary, chronic, Weakness on left side of face Prescriptions: No Action meclizine 25 mg tablet 25 mg PO TID PRN (Reason: dizziness) Qty: 20 RF: 0 levofloxacin 500 mg tablet 500 mg PO DAILY RF: 0 doxazosin 1 mg tablet 1 mg PO QHS RF: 0 lisinopril 5 mg tablet 5 mg PO QHS RF: 0 Primary Care Provider: Samir Quevedo Referrals: Samir Quevedo MD [Primary Care Provider] - Disposition Disposition: Acute Care Hospital [facility]
[2021-04-15 12:21] LABS: Absolute Lymphocyte Count 1.43 X10^3/uL (0.83-4.51); Basophil# 0.04 X10^3/uL; Basophil% 0.8 % (0-1); Hematocrit 45.2 % (40-54); Hemoglobin 16.2 g/dL (13.0-16.5); Lymphocyte # 1.43 X10^3/ul (0.83-4.51); Lymphocyte % 28.5 % (19-41); Mean Corp Hgb Conc 35.8 g/dL (32-36); Mean Corpuscular Hgb 29.3 pg (27.0-32.0); Mean Corpuscular Volume 81.7 fL (80-94); Mean Platelet Vol. 10.4 fl (6.2-12.0); Monocyte# 0.44 X10^3/uL; Monocyte% 8.8 % (0-10); NRBC Flagged by Analyzer 0 % (0-5); Neutrophil # 2.97 X10^3/uL (2.7-7.7); Neutrophil % 59.1 % (47-70); Platelet Count 177 K/mm3 (150-450); RBC Distribution Width CV 13.9 % (11.6-14.6); RBC Distribution Width SD 40.8 fl (35.1-43.9); Red Blood Count 5.53 M/mm3 (4.6-6.2)
[2021-04-15 12:41] LABS: ALB/GLOB Ratio 1.1 RATIO (0.9-2.4); AST(SGOT) 17 U/L (15-37); Alanine Aminotransfer ALT/SGPT 36 U/L (16-61); Albumin, Serum 3.9 g/dL (3.2-5.0); Alkaline Phosphatase 77 U/L (45-117); Anion Gap 7 (5-15); BUN 25 mg/dL (7-18); BUN/Creat Ratio 16.8 RATIO (10-20); Calcium,Total 8.8 mg/dL (8.5-10.1); Chloride 106 mmol/L (98-107); Creatinine, Serum 1.49 mg/dL (0.70-1.30); EST Glomerular Filtration Rate 49 mL/min (>60); Est Glom Filt Rate - Afr Amer 59 mL/min (>60); Estimated Creatinine Clearance 41.44 ml/min; Globulin 3.4 g/dL (2.2-4.2); Glucose 150 mg/dL (74-106); Potassium 3.9 mmol/L (3.5-5.1); Protein, Total 7.3 g/dL (6.4-8.2); Sodium Level 139 mmol/L (136-145); Troponin-I HS 7 pg/mL (3.0-78.0)
--- NOTE | 2021-04-15 14:28 | PCM.HP.STD ---
HPI - General General Date of Admission: 04/15/21 Date of Service: 04/15/21 Chief Complaint: Recent sinus infection, on levaquin, dizziness and palpitation onset. HPI Narrative The patient is a 76 y/o M w/ PMHx: BPH, HTN, Obesity, recent outpatient evaluation and ongoing treatment for sinus infection currently on levaquin who initially seen on 04/09/21 with vertigo, improved with ED interventions at that time including meclizine, IVFs with unremarkable imaging with discharge to home with ENT evaluation outpatient planned who now re-presents to the [facility] ED on 04/15/21 with episode of worsened dizziness and vertigo following attempted ENT evaluation while walking back into the office which came on more suddenly with room spinning sensation however patient does admit that since his episode 03/1621 he has had ongoing mild generalized headache, dull aching with no marked light or sound sensitivity but significant intermittent vertiginous symptoms and significant imbalance requiring him to even hold onto the hernandez to walk and new onset left nasolabial flattening confirmed per spouse upon evaluation. Patient notes that the meclizine does not seem to help his symptoms much. He denies current sensation of palpitations but did note this occurred with a sudden onset of the worsened vertigo at the ENT office. Work-up in the ED included T 97.7, heart rate 110, BP 142/88, respiratory rate 12, 96% on room air, CBC with WBC 5, hemoglobin 16.2, platelet 177 without marked shift, CMP with BUN/10 and 25/1.49, glucose 150 otherwise not marked appearing, high-sensitivity troponin 7, CT of the head with opacification of the right maxillary sinus as well as partial opacification of the ethmoid sinuses worse on the right side with a soft tissue fullness in the right nasal cavity suggestive of polyposis, EKG with SR with 1 AVB. [facility] Medical History (Updated 04/15/21 @ 16:[address] Janee Deleon MD) HTN (hypertension) Kidney stones Non-smoker Obesity Osteoarthritis Sinusitis, maxillary, chronic Home Medications meclizine 25 mg PO TID PRN #20 tab 04/09/21 [Rx Last Taken 04/15/21] doxazosin 1 mg PO QHS 04/15/21 [History Last Taken Unknown] levofloxacin 500 mg PO DAILY 04/15/21 [History Last Taken 04/14/21] lisinopril 5 mg PO QHS 04/15/21 [History Last Taken Unknown] Allergy/AdvReac Type Severity Reaction Status Date / Time No Known Allergies Allergy Verified 04/09/21 14:19 Family History (Updated 04/15/21 @ 15:[address] Janee Deleon MD) Father Heart disease Mother Cancer Unclear type. Surgical History (Updated 04/15/21 @ 15:[address] Janee Deleon MD) History of arthroscopic knee surgery History of cholecystectomy History of colonoscopy (~2019) S/P bilateral inguinal hernia repair Social History (Updated 04/15/21 @ 15:[address] Janee Deleon MD) household members: spouse Smoking Status: Never smoker alcohol intake: never substance use type: does not use ROS ROS Narrative Admission Review of Systems: CONSTITUTIONAL: No weight loss, fever, chills, + weakness or fatigue. HEENT: + Mild L nasolabial fold flattening, vertiginious symptoms. Eyes: No visual loss, blurred vision, double vision or yellow sclerae. Ears, Nose, Throat: No hearing loss, sneezing, congestion, runny nose or sore throat. SKIN: No rash or itching, lesions, wounds. CARDIOVASCULAR: + Palpitations. No chest pain, chest pressure or chest discomfort, edema, orthopnea, syncopal events. RESPIRATORY: No shortness of breath, cough or sputum, wheezing, hemoptysis. GASTROINTESTINAL: + anorexia, nausea, No vomiting or diarrhea, abdominal pain, melena, BRBPR. GENITOURINARY: No dysuria, frequency, urgency or retention. NEUROLOGICAL: + Vertigo, lightheadedness, dizziness, left facial changes, No syncope, paralysis, ataxia, numbness or tingling in the extremities, change in bowel or bladder control, seizure. MUSCULOSKELETAL: No muscle, back pain, joint pain or stiffness. HEMATOLOGIC: No anemia, bleeding or bruising. LYMPHATICS: No enlarged nodes. No history of splenectomy. PSYCHIATRIC: No history of depression or anxiety. ENDOCRINOLOGIC: No reports of sweating, cold or heat intolerance. No polyuria or polydipsia. ALLERGIES: No history of asthma, hives, eczema or rhinitis. Vital Signs Vital Signs Vital Signs: 04/15/21 10:54 04/15/21 10:57 04/15/21 13:04 Temperature 97.7 F L Temperature Source Oral Pulse Rate 110 H 93 Respiratory Rate 12 14 Respiratory Effort Normal Non-Labored Respiratory Pattern Normal Blood Pressure 142/88 H 151/94 H Blood Pressure Mean 106 113 Pulse Ox 96 97 Oxygen Delivery Method Room Air Room Air Weight Weight: 236 lb 8.896 oz Body Mass Index (BMI) 35.9 Physical Exam Narrative Physical Examination: General: Awake, alert, oriented x 3 and cooperative, seated upright in the ED bed in no apparent distress. Skin: Normal color, normal turgor, no icterus, no cyanosis. HEENT: AT/NC, EOMI, PERRLA, MMM, no carotid bruits or JVD noted, unable to replicate or see any nystagmus. Lungs: Mildly diminished, greater bases, appropriate effort, no rales, ronchi or wheezing. Heart: Regular rate and rhythm; no gallop, rub audible. Abdomen: Soft, obese, NTTP, ND, distant normal BS, no HSM. Extremities: No cyanosis, clubbing, or edema. Neurological: Patient awake, alert, oriented as noted, cognitive function intact; pupils equally reactive to light and accommodation with no evidence of any nystagmus, cranial nerves grossly normal except noted mild left nasolabial fold flattening, improves with smile, moving all 4 extremities, no focal deficits, strength preserved, sensation appropriate, unremarkable [id number] and [id number], negative Babinski. Psychiatric: Affect appears fatigued otherwise normal, no acute evidence of depressive or anxiety feelings. Results Lab / Micro Data Result Diagrams: 04/15/21 11:10 04/15/21 11:10 Labs: Laboratory Results - last 24 hr 04/15/21 11:10: WBC 5.0, RBC 5.53, Hgb 16.2, Hct 45.2, MCV 81.7, MCH 29.3, MCHC 35.8, RDW Std Deviation 40.8, RDW Coeff of Guilherme 13.9, Plt Count 177, MPV 10.4, Immature Gran % (Auto) 0.800, Neut % (Auto) 59.1, Lymph % (Auto) 28.5, Bay % (Auto) 8.8, Eos % (Auto) 2.0, Baso % (Auto) 0.8, Absolute Neuts (auto) 3.0, Absolute Lymphs (auto) 1.43, Nucleated RBC % 0 04/15/21 11:10: Sodium 139, Potassium 3.9, Chloride 106, Carbon Dioxide 26.0, Anion Gap 7, BUN 25 H, Creatinine 1.49 H, Estim Creat Clear Calc 41.44, Est GFR (MDRD) Af Amer 59 L, Est GFR (MDRD) Non-Af 49 L, BUN/Creatinine Ratio 16.8, Glucose 150 H, Calcium 8.8, Total Bilirubin 0.70, AST 17, ALT 36, Alkaline Phosphatase 77, Troponin I High Sens 7, Total Protein 7.3, Albumin 3.9, Globulin 3.4, Albumin/Globulin Ratio 1.[address] 04/15/21 11:51 IMPRESSION: Sinusitis. Electronically Signed: Shai Hawkins MD at 13:06 EST Reading Location ID and State: [facility] / [place] , Service support , Assessment & Plan Assessment/Plan (1) CVA (cerebral vascular accident): QUALIFIERS: CVA mechanism: unspecified Qualified Code(s): I63.9 - Cerebral infarction, unspecified PLAN: The patient is a 76 y/o M w/ PMHx: BPH, HTN, Obesity, recent outpatient evaluation and ongoing treatment for sinus infection currently on levaquin who initially seen on 04/09/21 with vertigo, improved during visit with meclizine, IVFs with unremarkable imaging with discharge to home with ENT evaluation who now re-presents to the [facility] ED on 04/15/21 with ongoing imbalance and intermittent vertiginous symptoms. #1. Vertigo, L nasolabial fold flattening concerning for Posterior CVA: Ongoing symptoms, concern per ENT despite no findings on CT head especially given onset now since at least 04/09/21. Will admit to PCU, will obtain MRI Brain, MRA Head and Neck, ECHO, PT/OT/Speech/Nutrition evaluation per protocol. Will consult Neurology for evaluation. Will allow permissive HTN, maintain on asa/plavix, statin w/ AM FLP, fall precautions. #2. Recent acute sinusitis, FELT CHRONIC per ENT: ENT visit on day of presentation, concern for neurological etiology for vertiginous symptoms and imbalance at home. Will d/c levaquin as ENT felt presentation more likely chronic sinusitis. #3. Mild renal insufficiency, improving from prior: Admission BUN/creatinine 25/1.49, prior to this creatinine had increased on 04/09/2021 up to 1.80 however prior to this patient baseline renal function 1.1-1.2, will judiciously hydrate and repeat CMP in AM. #4. Hyperglycemia: [place] glucose 150, will obtain hemoglobin A1c to be cautious as noted above. #5. Hypertension: Given worsening symptoms on day of presentation we will temporarily hold patient hypertensive regimen for permissive hypertension, will have as needed regimen per stroke order set. #6. Obesity: Weight loss and lifestyle changes encouraged. #7. DVT prophylaxis: SCDs, Lovenox. Charges/Coding Visit Charges OBSV E&M: 26603 Initial observation care L3
--- NOTE | 2021-04-15 15:23 | NURSING ---
102 WHITE OBS VERTIGO, LT FACIAL WEAKNESS
--- NOTE | 2021-04-15 16:00 | CDU_ITS ---
Reason For Study: CVA Rt. Velocities/BP Lt. Velocities/BP Prox CCA 79.8/9.5 cm/sec. Prox CCA 81.8/13.8 cm/sec. Mid CCA 99.5/17.1 cm/sec. Mid CCA 80.9/12.8 cm/sec. Dist CCA 83.1/9.4 cm/sec. Dist CCA 80.9/ cm/sec. Prox ICA 84.6/15.8 cm/sec. Prox ICA 169.1/35.8 cm/sec. Mid ICA 105.1/25.3 cm/sec. Mid ICA 141.7/41.3 cm/sec. Dist ICA 106.4/32.7 cm/sec. Dist ICA 145.4/46.8 cm/sec. Rt. ICA/CCA = 106.4/99.5=1.1. Lt. ICA/CCA = 169.1/80.9=2.1. Prox ECA 136.3/12.1 cm/sec. Prox ECA 255.4/22.3 cm/sec. Rt. Vert. 34.6/9.0 cm/sec. Lt. Vert. 47.1/0.0 cm/sec. Right Extracranial There is homogeneous, smooth atherosclerotic plaque noted in the right common carotid artery. There is homogeneous, smooth atherosclerotic plaque noted in the right internal carotid artery. There is intimal thickening but no significant atherosclerotic plaque noted in the right external carotid artery. The right external carotid artery is tortuous. Antegrade flow is noted in the right vertebral artery. Left Extracranial There is heterogeneous, smooth atherosclerotic plaque noted in the left common carotid artery. There is homogeneous, smooth atherosclerotic plaque noted in the left internal carotid artery. There is homogeneous, irregular atherosclerotic plaque noted in the left external carotid artery. Antegrade flow is noted in the left vertebral artery. Procedure Carotid Duplex 27889. This is a Carotid Duplex examination using B-mode, color flow and specral Doppler. Exam performed portable in patient room. VL/Carotid Duplex Ultrasound Interpretation Summary Smooth plaque of the proximal right internal carotid artery with less than 50% stenosis Less than 50% stenosis right external carotid artery Smooth plaque at the proximal left internal carotid artery with 50 to 69% steno sis. Greater than 50% stenosis left external carotid artery Patent and antegrade vertebral arteries bilaterally Ordering Physician: Janee Deleon Referring Physician: Samir Quevedo Performed By: Theresa Chase, WAYNE, RVT
--- NOTE | 2021-04-15 16:00 | ECHOD_ITS ---
Reason For Study: CVA Procedure This was a 2D Doppler, Color Flow transthoracic echocardiogram. The study was technically difficult. Exam performed portable in patient room. Left Ventricle Normal LV size. Left ventricular systolic function is normal. The estimated ejection fraction is 65 %. No evidence for diastolic dysfunction. No regional wall motion abnormalities noted. Right Ventricle Normal RV size. Normal systolic function. Atria Normal left atrium. Normal right atrium. No doppler evidence for ASD. Bubble contrast study negative for right to left interatrial shunt. Mitral Valve There is no mitral annular calcification. Normal mitral valve. Trivial mitral valve insufficiency. Tricuspid Valve Normal tricuspid valve. Trivial tricuspid valve insufficiency. Unable to estimate RV systolic pressure/pulmonary artery pressure due to technically difficult study. Aortic Valve Trisinus/trileaflet aortic valve. Normal aortic valve. Pulmonic Valve The pulmonic valve is not well visualized. Great Vessels Normal sized aortic root. Pericardium/Pleural No pericardial effusion. Medication Performed a rapid injection of agitated mix of 9 cc saline and 1cc air to assess for atrial septal defect. MMode/2D Measurements & Calculations LVIDd: 3.9 cm IVSd: 1.3 cm Ao root diam: 3.2 cm LVIDs: 1.9 cm LVPWd: 1.0 cm RVDd: 3.7 cm FS: 50.6 % LAV(MOD-bp): 36.8 ml LVAd ap4: 27.4 cm2 LVAd ap2: 24.8 cm2 LAV(MOD-bp) Indexed: 17.1 ml/m2 LVLd ap4: 8.6 cm LVLd ap2: 9.0 cm LAV(MOD-sp2): 39.6 ml EDV(MOD-sp4): 70.5 ml EDV(MOD-sp2): 60.8 ml LAV(MOD-sp4): 30.1 ml EDV(sp4-el): 74.1 ml EDV(sp2-el): 57.7 ml LVAs ap4: 15.7 cm2 LVAs ap2: 14.9 cm2 LVLs ap4: 7.4 cm LVLs ap2: 7.7 cm ESV(MOD-sp4): 28.6 ml ESV(MOD-sp2): 25.9 ml ESV(sp4-el): 28.4 ml ESV(sp2-el): 24.6 ml EF(MOD-sp4): 59.5 % EF(MOD-sp2): 57.3 % EF(sp4-el): 61.6 % SV(MOD-sp4): 41.9 ml SV(MOD-sp2): 34.8 ml SV(sp4-el): 45.7 ml LA A4 area: 13.3 cm2 LA dimension(2D): 3.0 cm RA A4 area: 12.1 cm2 Doppler Measurements & Calculations MV E max artur: 82.1 cm/sec Lat Peak E' Artur: 6.7 cm/sec Med Peak E' Artur: 16.4 cm/sec MV A max artur: 126.1 cm/sec E/E' lat: 12.2 E/E' med: 5.0 MV E/A: 0.65 Ao V2 max: 118.5 cm/sec LV V1 max: 99.6 cm/sec PA V2 max: 93.5 cm/sec Ao max P.6 mmHg LV V1 max P.0 mmHg ECHO/Echo Complete Interpretation Summary The study was technically difficult. Left ventricular systolic function is normal. The estimated ejection fraction is 65 %. Trivial mitral valve insufficiency. Trivial tricuspid valve insufficiency. Unable to estimate RV systolic pressure/pulmonary artery pressure due to techni elena difficult study. No evidence for diastolic dysfunction. Bubble contrast study negative for right to left interatrial shunt. Ordering Physician: Janee Deleon Referring Physician: Samir Quevedo MD Performed By: Etta Hess RDCS
[2021-04-15] MEDS: 0.9% Normal Saline 1,000 ML 100 ML IV (16:32)
[2021-04-15] MEDS: Acetaminophen 325 MG Tablet 650 MG PO (20:43)
[2021-04-15] MEDS: 0.9% Saline Lock 10 ML Syringe IV (21:39)
[2021-04-15] MEDS: Doxazosin 1 MG Tablet PO (21:39)
[2021-04-15] MEDS: Atorvastatin Calcium 80 MG Tablet PO (21:39)
[2021-04-16] VITALS (10 sets, daily range): BP systolic 139–149; BP diastolic 81–97; PULSE 96–112; RESP 16–20; TEMP 36.3–36.6; O2SAT 93–98; BMI 33.4
[2021-04-16] MEDS: 0.9% Normal Saline 1,000 ML 100 ML IV (02:27)
[2021-04-16 06:08] LABS: Absolute Lymphocyte Count 1.35 X10^3/uL (0.83-4.51); Absolute Neutrophil Count 2.9 X10^3/uL (2.0-7.7); Basophil# 0.05 X10^3/uL; Eosinophil# 0.14 X10^3/uL; Eosinophils% 2.9 % (0-5); Hematocrit 41.9 % (40-54); Hemoglobin 14.8 g/dL (13.0-16.5); Lymphocyte # 1.35 X10^3/ul (0.83-4.51); Lymphocyte % 27.5 % (19-41); Mean Corp Hgb Conc 35.3 g/dL (32-36); Mean Corpuscular Hgb 29.3 pg (27.0-32.0); Mean Platelet Vol. 9.9 fl (6.2-12.0); Monocyte# 0.46 X10^3/uL; Monocyte% 9.4 % (0-10); NRBC Flagged by Analyzer 0 % (0-5); Neutrophil # 2.88 X10^3/uL (2.7-7.7); Neutrophil % 58.6 % (47-70); Platelet Count 163 K/mm3 (150-450); RBC Distribution Width CV 13.7 % (11.6-14.6); RBC Distribution Width SD 41.4 fl (35.1-43.9); Red Blood Count 5.05 M/mm3 (4.6-6.2); White Blood Count 4.9 K/mm3 (4.4-11.0)
[2021-04-16 06:43] LABS: AST(SGOT) 18 U/L (15-37); Alanine Aminotransfer ALT/SGPT 29 U/L (16-61); Albumin, Serum 3.2 g/dL (3.2-5.0); Alkaline Phosphatase 66 U/L (45-117); Anion Gap 6 (5-15); BUN 22 mg/dL (7-18); BUN/Creat Ratio 17.6 RATIO (10-20); Chloride 107 mmol/L (98-107); Cholesterol 148 mg/dL (200); Creatinine, Serum 1.25 mg/dL (0.70-1.30); EST Glomerular Filtration Rate 60 mL/min (>60); Est Glom Filt Rate - Afr Amer 72 mL/min (>60); Estimated Creatinine Clearance 51.06 ml/min; Globulin 3.1 g/dL (2.2-4.2); Glucose 126 mg/dL (74-106); High Density Lipoprotein 28 mg/dL; Potassium 3.7 mmol/L (3.5-5.1); Protein, Total 6.3 g/dL (6.4-8.2); Sodium Level 139 mmol/L (136-145); Thyroid Stim Hormone (TSH) 6.06 uIU/mL (0.358-3.74); Triglycerides 125 mg/dL; Very Low Density Lipoprotein 25 mg/dL (5-40)
[2021-04-16 07:32] LABS: Hemoglobin A1c 5.5 % (3.8-5.6)
[2021-04-16] MEDS: LORazepam 2 MG/ML Syringe IV (08:49)
--- NOTE | 2021-04-16 09:00 | MRI_ITS ---
STUDY: MRA OF THE HEAD WITHOUT CONTRAST REASON FOR EXAM: Male, 76 years old. CVA dizziness and vertigo TECHNIQUE: 3-D [id number] (TOF) imaging was performed with MIPs. The study was performed unenhanced. COMPARISON: None. FINDINGS: Bilateral base of skull carotids, bifurcations, anterior and middle cerebral arteries and proximal branches are patent. Posterior communicating arteries are large on the right, probably LINEMARKER, moderately large on the left. Posterior cerebral arteries and superior cerebellar arteries and proximal branches are patent. Vertebral arteries, basilar arteries are patent. Left vertebral is hypoplastic. MRI/MRA Head ONLY without Contrast IMPRESSION: 1. Unremarkable [place] of [place] and proximal branches. Electronically Signed: Anna Marie Mortensen MD at 12:01 EST ,
--- NOTE | 2021-04-16 09:00 | MRI_ITS ---
STUDY: MRI BRAIN WITHOUT CONTRAST REASON FOR EXAM: Male, 76 years old. Stroke dizziness vertigo TECHNIQUE: Standardized multiplanar fat and water weighted pulse sequences were obtained. COMPARISON: 15 April 2021 FINDINGS: Brain parenchyma is intact without focal lesions, mass effect, extra parenchymal fluid collections, hydrocephalus or herniation. Major vascular flow structures are intact. Craniocervical junction is unremarkable. There is mucus and mucosal thickening in the right maxillary sinus and right mastoid effusion. Nasopharynx is clear. MRI/Brain without Contrast IMPRESSION: 1. Normal brain. 2. No acute infarct. Electronically Signed: Anna Marie Mortensen MD at 10:15 EST ,
[2021-04-16] MEDS: Enoxaparin 40 MG/0.4 ML Syringe SC (10:52)
[2021-04-16] MEDS: Aspirin 81 MG TAB.CHEW PO (10:52)
--- NOTE | 2021-04-16 14:51 | DS.PCM_ITS ---
Providers Date of Admission: 04/15/21 Primary Care Physician: Samir Quevedo MD Reason For Visit: VERTIGO, CONCERN CVA Diagnosis Discharge Diagnosis (1) Vertigo: Status: Acute Code(s): R42 - Dizziness and giddiness Medications at Discharge Home Medications meclizine 25 mg PO TID PRN #20 tab 04/09/21 doxazosin 1 mg PO QHS 04/15/21 lisinopril 5 mg PO QHS 04/15/21 aspirin 81 mg PO DAILY #30 cap 04/16/21 atorvastatin 40 mg PO QHS #30 tab 04/16/21 Hospital Course Operations None Procedures 2-D Echocardiogram and - (carotid ultrasound) Summary of Care Provided Minutes Spent on Discharge: 35 Hospital Course: Patient is a 76-year-old male with a past medical history as outlined was admitted through the ED on 03/26/2021 with a complaint of vertigo. Patient had been on Levaquin for sinus infection. He said he had started having vertigo since he started taking the Levaquin. He had been in the ED for similar complaints about a week prior to admission and imaging was unremarkable so he was discharged home. However he came back on 03/26/2021 with a complaint of worsening dizziness and vertigo. He had also been having associated imbalance at home. Spouse noted that he had had left nasolabial flattening. Was admitted to be managed for vertigo to rule out stroke. CT of the head showed opacification of the right maxillary sinus as well as partial opacification of the ethmoid sinus was on the right side so tissue fullness in the right nasal cavity suggestive of polyposis. There was no evidence of stroke. He was admitted to be managed for vertigo to rule out stroke. He was put on aspirin and Plavix and continued on statin. MRI of the brain was negative for any evidence of stroke. He had 2D echo done which showed EF of 65% and trace mitral valve insufficiency as well as unable to assess right ventricular systolic pressure due to technically difficult study and negative bubble study. Patient symptoms have subsequently completely resolved. He did tell me that he had googled and found out that Levaquin could cause dizziness so he was worried this was the culprit as he had had the dizziness started after he started Levaquin. Patient was counseled to stop taking Levaquin. He had a carotid ultrasound which showed a smooth plaque of hte proximal right internal carotid artery with less than 50% stenosis of the right external carotid artery and a smooth plaque at hte proximal left internal carotid artery with 50-69% stenosis, as well as > 50% stenosis of left internal carotid artery and patent antegrade left external carotid artery. Patient was counseled about carotid artery findings and need to follow up with vascular surgery within 1-2 weeks for decision to be made about further workup and management. He remained stable and was discharged home on 04/16/2021. He is to follow-up with his primary care doctor and ENT surgeon in 1 to 2 weeks. Of note, the patient's TSH was noted to be elevated at 6.06. Free T4 was normal at 0.95, so this was likely subclinical hypothyroidism, and he would need to follow up with PCP. He also had aspirin added on, and is to follow up with his PCP and was also referred to vascular surgery- Dr Barahona. Patient was seen and examined prior to discharge. He felt well and had no act shahla complaints. Review systems otherwise negative. Labs and vitals reviewed. Medication reviewed and reconciled. Physical Exam Const alert, oriented x3 and no apparent distress General Appearance: cooperative, comfortable and well kempt Orientation / Consciousness: awake Exam Limitations: no limitations HEENT normocephalic, head/scalp atraumatic, hearing grossly normal bilaterally and moist oral mucous membranes Eyes PERRL, EOMs intact bilaterally and conjunctivae normal Neck no lymphadenopathy Resp normal respiratory effort, no retractions, no use of accessory muscles and clear to auscultation bilaterally Cardio regular rate, regular rhythm, S1 normal heart sound, S2 normal heart sound, no murmurs and no gallops GI normal to inspection, nondistended, normoactive bowel sounds, soft to palpation and non-tender Extremity normal to inspection, full ROM and no clubbing, cyanosis or edema Skin no rashes or lesions noted Neuro oriented x3, CN's II-XII intact bilaterally and moves all extremities Sensorium / Orientation: awake and alert Psych affect normal Weight / BMI Weight Weight: 226 lb 6.636 oz Body Mass Index (BMI) 33.4 ABG / Lab / Microbiology Data Result Diagrams: 04/16/21 05:30 04/16/21 05:30 Laboratory: Laboratory Results - last 24 hr 04/15/21 14:44: Magnesium 2.0 04/16/21 05:30: WBC 4.9, RBC 5.05, Hgb 14.8, Hct 41.9, MCV 83.0, MCH 29.3, MCHC 35.3, RDW Std Deviation 41.4, RDW Coeff of Guilherme 13.7, Plt Count 163, MPV 9.9, Immature Gran % (Auto) 0.600, Neut % (Auto) 58.6, Lymph % (Auto) 27.5, [place] % (Auto) 9.4, Eos % (Auto) 2.9, Baso % (Auto) 1.0, Absolute Neuts (auto) 2.9, Absolute Lymphs (auto) 1.35, Nucleated RBC % 0 04/16/21 05:30: Sodium 139, Potassium 3.7, Chloride 107, Carbon Dioxide 26.0, Anion Gap 6, BUN 22 H, Creatinine 1.25, Estim Creat Clear Calc 51.06, Est GFR (MDRD) Af Amer 72, Est GFR (MDRD) Non-Af 60, BUN/Creatinine Ratio 17.6, Glucose 126 H, Calcium 8.0 L, Total Bilirubin 0.80, AST 18, ALT 29, Alkaline Phosphatase 66, Total Protein 6.3 L, Albumin 3.2, Globulin 3.1, Albumin/Globulin Ratio 1.0, Triglycerides 125, Cholesterol 148, LDL Cholesterol 95, VLDL Cholesterol 25, HDL Cholesterol 28 L, TSH 6.06 H 04/16/21 05:30: Hemoglobin A1c 5.5 Radiography Diagnostic Testing: Radiology Impression Carotid Duplex 04/15/21 16:00 Interpretation Summary Smooth plaque of the proximal right internal carotid artery with less than 50% stenosis Less than 50% stenosis right external carotid artery Smooth plaque at the proximal left internal carotid artery with 50 to 69% stenosis. Greater than 50% stenosis left external carotid artery Patent and antegrade vertebral arteries bilaterally Ordering Physician: Janee Deleon Referring Physician: Samir Quevedo Performed By: Theresa Chase, RDCS, RVT Brain MRI 04/16/21 09:00 IMPRESSION: 1. Normal brain. 2. No acute infarct. Electronically Signed: Anna Marie Mortensen MD at 10:15 EST , Head MRA 04/16/21 09:00 IMPRESSION: 1. Unremarkable chitimacha of [place] and proximal branches. Electronically Signed: Anna Marie Mortensen MD at 12:01 EST , D/C Instructions Discharge Diet: Low fat / Low cholesterol Discharge Activity: Return to Normal Activity Weight Bearing Status: Weight bearing as tolerated Call your doctor if you observe: Fever of 101 or Higher, Shortness of breath, Dizziness, Swelling in the ankles, Chest pain and Increased palpitations (irregular heartbeat) Meaningful Use Info Meaningful Use Diagnoses (Choose all that apply): None applicable Discharge Plan Admission Admit Date/Time: 04/15/21 14:36 Primary Reason for Your Visit: vertigo Attending Provider: Susanna Clark Primary Care Provider: Samir Quevedo Instructions Patient Instructions: Dizziness Fainting Ch Discharge Orders/Prescriptions Prescriptions: New atorvastatin 40 mg tablet 40 mg PO QHS Qty: 30 RF: 2 aspirin 81 mg capsule 81 mg PO DAILY Qty: 30 RF: 1 Continued meclizine 25 mg tablet 25 mg PO TID PRN (Reason: dizziness) Qty: 20 RF: 0 doxazosin 1 mg tablet 1 mg PO QHS RF: 0 lisinopril 5 mg tablet 5 mg PO QHS RF: 0 Discontinued levofloxacin 500 mg tablet 500 mg PO DAILY RF: 0 Referrals / Follow Up: Timmy Barahona MD [STAFF PHYSICIAN] - Within 1 Week Samir Quevedo MD [Primary Care Provider] - Within 2 Weeks Disposition Disposition (needs filled in before D/C Order can be placed): Home, Self Care Charges/Coding Visit Charges OBSV E&M: 75377 Observation care discharge
--- NOTE | 2021-04-16 15:09 | CHAPLAIN ---
Type of Pastoral Visit _x__ Initial Visit ___ Follow-up Visit ___ On-call Visit ___ General Patient Visit ___ Spiritual Assessment ___ Family Conference ___ Bereavement ___ Rapid Response ___ Code Blue ___ Other (describe below) Pastoral Care Referral From _x__ Patient ___ Family ___ Nurse ___ Physician ___ Damage Appraiser ___ Entry Level Electrical Engineer ___ Other (describe below) Sacrament/Intervention _x__ Active listening ___ Anointing ___ Muslim ___ Bereavement ___ Communion _x__ Nicole exploration ___ _x__ Life review _x__ Prayer ___ Reconciliation ___ Sacrament of Sick _x__ Supportive presence ___ Wedding ___ Other (describe below) Pastoral Comments patient very talkative and expresses his nicole and his pastimes; pt welcomes spiritual care and prayer
--- NOTE | 2021-04-16 15:25 | CASEMGMT ---
This RN BERTHA to room with BLACKBURN form, explanation done-pt voices understanding, and signs BLACKBURN form at this time. Original to chart and copy to pt. Pt voices no further questions/concerns/needs. SStaten JESÚS CM
[2021-04-16 18:30] LABS: T4 Free Direct 0.95 ng/dL (0.76-1.46)
== END 2021-04-16 14:59 | disposition home or self-care (01) ==
LOC: ED 14:38 → PCU 14:50
PROVIDERS: Admitting Provider Family Medicine; Emergency Provider Emergency Medicine; PCP Family Medicine; Visit Provider Student in an Organized Health Care Education/Training Program
DX: R42 Dizziness and giddiness (principal); N17.9 Acute kidney failure, unspecified; J32.0 Chronic maxillary sinusitis; R73.9 Hyperglycemia, unspecified; R00.2 Palpitations; R29.810 Facial weakness; I10 Essential (primary) hypertension; M19.90 Unspecified osteoarthritis, unspecified site; N40.0 Benign prostatic hyperplasia without lower urinary tract symptoms; E66.9 Obesity, unspecified; Z68.35 Body mass index [BMI] 35.0-35.9, adult; Z79.899 Other long term (current) drug therapy; I65.22 Occlusion and stenosis of left carotid artery; R29.701 NIHSS score 1
CPT/HCPCS: 36415; 70450; 70544; 70551; 80053; 80061; 83036; 83735; 84439; 84443; 84484; 85025; 92523; 93005; 93306; 93880; 96361; 96372; 96374; 97161; 99218; 99285; J7030; Q9957; A4216; G0378

== ENCOUNTER → 2021-08-01 | Outpatient (CLI) | payer MEDICARE, OTHER, SELFPAY | END | disposition home or self-care (01) | LOC: LABSPEC 15:27 | PROVIDERS: PCP Family Medicine; Referring Provider Otolaryngology; Visit Provider Otolaryngology | DX: J32.9 Chronic sinusitis, unspecified (principal) | CPT/HCPCS: 87070; 87205 ==

== ENCOUNTER → 2021-10-30 | Outpatient (CLI) | payer MEDICARE, OTHER, SELFPAY ==
--- NOTE | 2021-10-30 07:46 | CT_ITS ---
STUDY: CT FACIAL BONES WITHOUT CONTRAST REASON FOR EXAM: Male, 76 years old. Recurrent sinus infection. RADIATION DOSAGE (If Supplied By Facility): CTDIvol = ( 28.14 ) mGy, DLP = ( 732.12 ) mGycm TECHNIQUE: The patient was scanned in a multi detector CT scanner. Sagittal and coronal images were reconstructed. Individualized dose optimization techniques were used for this CT. COMPARISON: None. FINDINGS: Normal soft tissue structures. Normal orbital hernandez and orbital contents. Normal nasal bones and anterior nasal spine. Normal facial bones. There is no demonstrated fracture. There is opacification of the right maxillary sinus. There is obliteration of the right ostiomeatal complex due to soft tissue density. There is a opacification of the right sphenoid sinus. Soft tissue density is seen within the right nasal fossa. Mucosal thickening of the left ethmoid sinuses. Opacification of the frontal sinuses worse on the right side. Mucosal thickening of the left maxillary sinus. CT/Sinus/Facial Bone IMPRESSION: Opacification of the right maxillary sinus with obliteration of the right ostiomeatal complex. Opacification of the right ethmoid sinus and frontal sinuses. Mucosal thickening of the left maxillary and left ethmoid sinuses. Electronically Signed: Shai Hawkins MD at 13:06 EDT ,
--- NOTE | 2021-10-30 07:58 | EKG12_ITS ---
Test Reason : PREOP Blood Pressure : / mmHG Vent. Rate : 083 BPM Atrial Rate : 083 BPM P-R Int : 288 ms QRS Dur : 128 ms QT Int : 378 ms P-R-T Axes : 000 -35 013 degrees QTc Int : 444 ms Sinus rhythm with marked sinus arrhythmia with 1st degree A-V block Non Conducted PAC Left axis deviation Right bundle branch block Abnormal ECG Confirmed by ALDO LAFLEUR, FLORENTIN ([id number]), editor news BETSY FLEMING ([id number]) on 10/31/2021 11:54:05 AM Referred By: Zach Michelle Confirmed By:TATIANNA CARLSON MD
[2021-10-30 10:08] LABS: Hematocrit 42.6 % (40-54); Hemoglobin 14.3 g/dL (13.0-16.5); Mean Corp Hgb Conc 33.6 g/dL (32-36); Mean Corpuscular Hgb 28.1 pg (27.0-32.0); Mean Corpuscular Volume 83.7 fL (80-94); Mean Platelet Vol. 10.1 fl (6.2-12.0); Platelet Count 182 K/mm3 (150-450); RBC Distribution Width CV 13.6 % (11.6-14.6); RBC Distribution Width SD 41.5 fl (35.1-43.9); Red Blood Count 5.09 M/mm3 (4.6-6.2); White Blood Count 4.5 K/mm3 (4.4-11.0)
[2021-10-30 10:57] LABS: Anion Gap 7 (5-15); BUN 22 mg/dL (7-18); BUN/Creat Ratio 15.6 RATIO (10-20); Calcium,Total 8.7 mg/dL (8.5-10.1); Chloride 105 mmol/L (98-107); Creatinine, Serum 1.41 mg/dL (0.70-1.30); EST Glomerular Filtration Rate 52 mL/min (>60); Est Glom Filt Rate - Afr Amer 63 mL/min (>60); Glucose 130 mg/dL (74-106); Potassium 3.7 mmol/L (3.5-5.1); Sodium Level 139 mmol/L (136-145)
== END | disposition home or self-care (01) ==
LOC: CT 07:40
PROVIDERS: PCP Family Medicine; Referring Provider Otolaryngology; Visit Provider Otolaryngology
DX: Z01.818 Encounter for other preprocedural examination (principal); J32.9 Chronic sinusitis, unspecified
CPT/HCPCS: 36415; 70486; 80048; 85027; 93005

== ENCOUNTER → 2021-11-11 | Outpatient (CLI) | payer MEDICARE, OTHER, SELFPAY ==
--- NOTE | 2021-11-11 11:00 | ETH_PTH ---
PATIENT: YARIEL SANCHEZ LOC: [facility] U#:[id number] AGE/SX: 76/M ROOM: RE11/11/[address]: Dr. Saeed Michelle MD : 1945 BED: DIS: 11/11/2021 SPEC #: [id number] RECD: 11/11/21 15:02 STATUS: EH ALCANTAR #: [id number] FAMILIA: 11/11/21 11:[address]: Saeed Michelle DEPT: SURGICAL PATHOLOGY RECD BY: Eben Colon ENTERED: 11/12/21 07:57 SP TYPE: ETH TISS OTHR DR: Samir Quevedo MD [facility] Tissues: A - Ethmoid sinus, NOS B - Ethmoid sinus, NOS C - Ethmoid sinus, NOS Procedures: Surgery Specimen Level III Surgery Specimen Level IV HEADER OPERATION: Functional endoscopic sinus surgery PRE-OP DIAGNOSIS: Chronic sinusitis TISSUE SUBMITTED: A ? Right nasal mass, B ? Right nasal content, C ? Left nasal content MICROSCOPIC DIAGNOSIS A. Right nasal mass, biopsy: Polypoid fragment of respiratory mucosa with chronic inflammation. B. Right nasal contents, curettings: Consistent with chronic sinusitis. Fragments of bone with no pathologic change. C. Left nasal contents, curettings: Consistent with chronic sinusitis. Fragments of bone with no pathologic change. AM:mohit 11/17/2021 MICROSCOPIC DESCRIPTION Slides are reviewed. GROSS DESCRIPTION A - Received in fixative is one container labeled with the patient's name and designated right nasal mass. The specimen consists of multiple irregular fragments of pink hemorrhagic soft tissue that in aggregate measure 1 x 0.3 x 0.1 cm. The specimen is totally submitted in one cassette. B - Received in fixative is one container labeled with the patient's name and designated right nasal contents. The specimen consists of multiple irregular fragments of robledo soft tissue mixed with fragments of bone and turbinate that in aggregate measure 3 x 1.5 x 0.3 cm. The specimen is totally submitted in one cassette after decalcification. C - Received in fixative is one container labeled with the patient's name and designated left nasal contents. The specimen consists of multiple irregular fragments of robledo soft tissue mixed with fragments of bone and turbinate that in aggregate measure 2.5 x 2.5 x 0.4 cm. The specimen is totally submitted in one cassette after decalcification. / SAM:mohit 11/12/2021 TC:3 CPT: 91060 x2, 71651
== END | disposition home or self-care (01) ==
PROVIDERS: PCP Family Medicine; Visit Provider Otolaryngology
DX: J32.9 Chronic sinusitis, unspecified (principal)
CPT/HCPCS: 88304; 88305

== ENCOUNTER → 2022-04-20 | Outpatient (CLI) | payer MEDICARE, OTHER, SELFPAY ==
--- NOTE | 2022-04-20 09:38 | CDU_ITS ---
Reason For Study: Carotid Stenosis Rt. Velocities/BP Lt. Velocities/BP Prox CCA 76.8/18.2 cm/sec. Prox CCA 99.2/32.2 cm/sec. Mid CCA 67.4/22.0 cm/sec. Mid CCA 88.3/30.0 cm/sec. Dist CCA 80.6/29.6 cm/sec. Dist CCA 75.4/27.0 cm/sec. Prox ICA 76.2/29.9 cm/sec. Prox ICA 186.2/44.0 cm/sec. Mid ICA 72.0/30.3 cm/sec. Mid ICA 126.6/49.9 cm/sec. Dist ICA 83.9/36.6 cm/sec. Dist ICA 70.6/28.7 cm/sec. Rt. ICA/CCA = 1.2. Lt. ICA/CCA = 2.1. Prox ECA 90.5/15.7 cm/sec. Prox ECA 228.2/44.0 cm/sec. Rt. Vert. 26.5/9.6 cm/sec. Lt. Vert. 40.1/8.8 cm/sec. Right Extracranial There is heterogeneous, smooth atherosclerotic plaque noted in the right common carotid artery. There is homogeneous, irregular atherosclerotic plaque noted in the right internal carotid artery. There is homogeneous, smooth atherosclerotic plaque noted in the right external carotid artery. Antegrade flow is noted in the right vertebral artery. Left Extracranial There is homogeneous, smooth atherosclerotic plaque noted in the left common carotid artery. There is heterogeneous, smooth atherosclerotic plaque noted in the left internal carotid artery. There is heterogeneous, irregular atherosclerotic plaque noted in the left external carotid artery. Antegrade flow is noted in the left vertebral artery. Procedure Carotid Duplex 72510. This is a Carotid Duplex examination using B-mode, color flow and specral Doppler. The exam was diagnostic. Exam performed in department. VL/Carotid Duplex Ultrasound Interpretation Summary Smooth plaque of the proximal right internal carotid artery with less than 50% stenosis Less than 50% stenosis right external carotid artery Smooth heterogenous plaque at the proximal left internal carotid artery with 50 to 69% stenosis. Greater than 50% stenosis left external carotid artery Patent and antegrade vertebral arteries bilaterally No significant change since 04/16/21 Ordering Physician: Messi Dumont Referring Physician: Samir Quevedo MD Performed By: Salvatore Malloy RVT
== END | disposition home or self-care (01) ==
LOC: CVS 09:34
PROVIDERS: PCP Family Medicine; Referring Provider Surgery; Visit Provider Surgery
DX: I65.23 Occlusion and stenosis of bilateral carotid arteries (principal)
CPT/HCPCS: 93880

== ENCOUNTER → 2022-05-20 | Outpatient (CLI) | payer MEDICARE, OTHER, SELFPAY ==
[2022-05-20 10:44] LABS: Microalbumin,Random Urine 20.5 mg/L (NO RANGE EST.); Microalbumin:Creatinine Ratio 12.7 mg/g CRE (<30 mg/g CRE)
[2022-05-20 11:30] LABS: ALB/GLOB Ratio 1.3 RATIO (0.9-2.4); AST(SGOT) 19 U/L (15-37); Alanine Aminotransfer ALT/SGPT 30 U/L (16-61); Albumin, Serum 3.9 g/dL (3.2-5.0); Alkaline Phosphatase 59 U/L (45-117); Anion Gap 4 (5-15); BUN 25 mg/dL (7-18); BUN/Creat Ratio 22.3 RATIO (10-20); Calcium,Total 8.4 mg/dL (8.5-10.1); Chloride 110 mmol/L (98-107); Creatinine, Serum 1.12 mg/dL (0.70-1.30); EST Glomerular Filtration Rate 68 mL/min (>60); Est Glom Filt Rate - Afr Amer 82 mL/min (>60); Globulin 3.1 g/dL (2.2-4.2); Glucose 114 mg/dL (74-106); Potassium 3.5 mmol/L (3.5-5.1); Sodium Level 138 mmol/L (136-145); T4 Free Direct 0.82 ng/dL (0.76-1.46); Thyroid Stim Hormone (TSH) 5.59 uIU/mL (0.358-3.74)
== END | disposition home or self-care (01) ==
LOC: MFPLAB 08:07
PROVIDERS: PCP Family Medicine; Referring Provider Family Medicine; Visit Provider Family Medicine
DX: I10 Essential (primary) hypertension (principal); R79.89 Other specified abnormal findings of blood chemistry; R73.09 Other abnormal glucose
CPT/HCPCS: 36415; 80053; 82043; 82570; 84439; 84443

== ENCOUNTER → 2022-09-14 | Outpatient (CLI) | payer MEDICARE, OTHER, SELFPAY ==
[2022-09-14 08:19] LABS: Anion Gap 4 (5-15); BUN 22 mg/dL (7-18); BUN/Creat Ratio 16.1 RATIO (10-20); Calcium,Total 8.5 mg/dL (8.5-10.1); Chloride 107 mmol/L (98-107); Creatinine, Serum 1.37 mg/dL (0.70-1.30); EST Glomerular Filtration Rate 54 mL/min (>60); Est Glom Filt Rate - Afr Amer 65 mL/min (>60); Free T3 2.8 pg/mL (2.18-3.98); Glucose 132 mg/dL (74-106); Potassium 3.6 mmol/L (3.5-5.1); Sodium Level 139 mmol/L (136-145); T4 Free Direct 0.85 ng/dL (0.76-1.46); Thyroid Stim Hormone (TSH) 4.88 uIU/mL (0.358-3.74)
== END | disposition home or self-care (01) ==
LOC: LAB 07:00
PROVIDERS: PCP Family Medicine; Referring Provider Family Medicine; Visit Provider Family Medicine
DX: E03.9 Hypothyroidism, unspecified (principal); I10 Essential (primary) hypertension
CPT/HCPCS: 36415; 80048; 84439; 84443; 84481

== ENCOUNTER → 2022-12-28 | Outpatient (CLI) | payer MEDICARE, OTHER, SELFPAY ==
[2022-12-28 15:30] LABS: PSA,Total - Annual Screen 3.19 ng/mL (0.00-4.00)
[2022-12-28 15:37] LABS: Anion Gap 7 (5-15); BUN 23 mg/dL (7-18); BUN/Creat Ratio 18.3 RATIO (10-20); Calcium,Total 8.9 mg/dL (8.5-10.1); Chloride 108 mmol/L (98-107); Creatinine, Serum 1.26 mg/dL (0.70-1.30); EST Glomerular Filtration Rate 59 mL/min (>60); Est Glom Filt Rate - Afr Amer 71 mL/min (>60); Glucose 108 mg/dL (74-106); Sodium Level 138 mmol/L (136-145); Thyroid Stim Hormone (TSH) 3.06 uIU/mL (0.358-3.74)
== END | disposition home or self-care (01) ==
LOC: MFPLAB 11:41
PROVIDERS: Nurse Practitioner Family; PCP Family Medicine; Visit Provider Family Medicine
DX: E03.9 Hypothyroidism, unspecified (principal); Z12.5 Encounter for screening for malignant neoplasm of prostate
CPT/HCPCS: 36415; 80048; 84153; 84439; 84443; G0103

== ENCOUNTER 2023-02-25 19:49 | Inpatient (IN) | payer MEDICARE, OTHER, SELFPAY ==
[2023-02-25 19:51] VITALS: BP 185/91; PULSE 86; RESP 20; TEMP 36.6; O2SAT 95
[2023-02-25] MEDS: 0.9% Normal Saline (1000mL) 1,000 ML 1000 ML IV (20:21)
[2023-02-25] MEDS: Ondansetron 4 MG/2 ML Vial IV (20:21)
--- NOTE | 2023-02-25 20:28 | EDS_ITS ---
HPI History of Present Illness Chief Complaint: Nausea/Vomiting/Diarrhea Informant: patient Narrative Narrative: Patient presents with diarrhea that then went to nausea vomiting and abdominal cramping. Started with diarrhea this morning. At first it was just loose. Then it got watery. It has never been black or blood. He then got nauseated when he was doing some work for his . He did vomit. But no blood. He has not had no fever. No chills. No coughing or URI symptoms. No known exposures. No new medications. He has cramping in different areas of his abdomen. No focal area of pain. Patient had inguinal hernias repair years ago but has not felt any pain or swelling in the area. He had cholecystectomy about 40 years ago. Never had problems since. [facility] Medical History HTN (hypertension) Kidney stones Non-smoker Obesity Osteoarthritis Sinusitis, maxillary, chronic Vertigo Home Medications doxazosin 1 mg tablet 1 mg PO QHS blood pressure 04/15/21 [History Last Taken Unknown] lisinopril 5 mg tablet 5 mg PO QHS blood pressure 04/15/21 [History Last Taken Unknown] aspirin 81 mg capsule 81 mg PO DAILY #30 caps 04/16/21 [Rx Last Taken Unknown] ramipril 1.25 mg capsule mg 02/25/23 [History Last Taken Unknown] Allergy/AdvReac Type Severity Reaction Status Date / Time levofloxacin Allergy Mild Other Verified 02/25/23 19:51 Family History Father Heart disease Mother Cancer Unclear type. Surgical History History of arthroscopic knee surgery History of cholecystectomy History of colonoscopy (~2019) S/P bilateral inguinal hernia repair Social History household members: spouse Smoking Status: Never smoker alcohol intake: never substance use type: does not use ROS ROS ED Constitutional Constitutional ED: Denies chills or fever(s) Eyes Eyes: Denies change in vision ENT ENT ED: Denies ear pain, rhinorrhea or sore throat Cardiovascular Cardiovascular: Denies chest pain, palpitations or racing heartbeat Respiratory/Chest Respiratory/Chest: Denies cough or dyspnea Gastrointestinal Gastrointestinal: Reports abdominal pain, diarrhea, nausea and vomiting; Denies constipation or melena Genitourinary Genitourinary ED: Denies dysuria, hematuria or urinary frequency Musculoskeletal Musculoskeletal: Denies myalgias Integumentary Denies rash Neurologic Neurologic: Denies headache(s) or paresthesias Hematologic/Lymphatic Hematologic/Lymphatic: Denies easy bleeding or easy bruising Allergic/Immunologic Allergic/Immunologic ED: Denies urticaria EXAM Physical Exam Narrative Exam Narrative: CONSTITUTIONAL: Patient is nontoxic in appearance. The patient looks comfortable. HEENT: No notable trauma. Mucous membranes still moist. EYES: No conjunctival injection. No icterus. CARDIOVASCULAR: Regular rate. Regular rhythm. No notable murmur. No JVD. RESPIRATORY: No respiratory distress. Breathing is unlabored. No wheezes. No rhonchi. No rales. No pain with a deep breath. GASTROINTESTINAL: Not distended. Bowel sounds are normal. No tenderness. No guarding. No rebound. No palpable mass. No bruit. Patient is not really tender but he states he gets cramping all over. I am not feeling a mass. GENITOURINARY: No tenderness over the bladder. No CVA tenderness. MUSCULOSKELETAL: Atraumatic. No peripheral edema. No cord. No tenderness along the deep venous system. No asymmetry. NEUROLOGICAL: Patient is alert and appropriate. No focal deficit noted. SKIN: No noted rashes. No diaphoresis. PSYCHIATRIC: Patient is calm. Mood is appropriate. Get a Const Vital Signs: 02/25/23 19:51 02/25/23 20:54 02/25/23 21:44 Temperature 97.8 F 98.1 F 98 F Temperature Source Oral Temporal Temporal Pulse Rate 86 97 90 Respiratory Rate 20 H 16 16 Blood Pressure 185/91 H 146/91 H 151/113 H Blood Pressure Mean 122 109 125 Pulse Ox 95 93 96 Oxygen Delivery Method Room Air Room Air Room Air 02/25/23 22:13 Temperature 97.8 F Temperature Source Oral Pulse Rate 139 H Respiratory Rate 20 H Blood Pressure 139/86 H Blood Pressure Mean 103 Pulse Ox 94 Oxygen Delivery Method Room Air MDM MDM MDM Narrative Medical decision making narrative: My independent interpretation of the patient's CT of the abdomen does show signs of small bowel obstruction. Radiologist can see a area of distal swelling and transition point suspected. Patient's CBC does show elevated white count at 14.8. Hemoglobin is also slightly up. Some of this is due to dehydration. Patient's electrolytes do show a slight rise of his BUN and creatinine. He is given IV fluids here to help with hydration. Glucose is slightly up at 170. This can be trended. Lipase is normal at 29. Patient's liver function test are overall normal other than slight rise of total bilirubin at 1.4. Patient's lactate is normal. Patient got good relief with Zofran. He when he went to CAT scan and they injected the dye he states he got immediately nauseated and vomited after the dye. But he feels much better now. He states his stomach really is not hurting that much. It is just a little upset. It is not really that tender. He is feeling okay now. He is not nauseated. He has not vomited since that episode and CAT scan. I discussed the case with Dr. Mack and the patient will brought in the hospital under observation. Since he is not vomiting at this time we will hold off on NG tube. Lab Data Attestation: I reviewed the patient's lab results. Labs: Laboratory Results - last 24 hr 02/25/23 20:20 WBC 14.8 H RBC 5.69 Hgb 16.6 H Hct 47.2 MCV 83.0 MCH 29.2 MCHC 35.2 RDW Std Deviation 40.1 RDW Coeff of Guilherme 13.4 Plt Count 157 MPV 9.7 Immature Gran % (Auto) 0.300 Neut % (Auto) 92.5 H Lymph % (Auto) 1.8 L [place] % (Auto) 5.0 Eos % (Auto) 0.1 Baso % (Auto) 0.3 Absolute Neuts (auto) 13.7 H Absolute Lymphs (auto) 0.26 L Nucleated RBC % 0 Differential Comment SCANNED Sodium 138 Potassium 4.0 Chloride 106 Carbon Dioxide 25.0 Anion Gap 7 BUN 29 H Creatinine 1.46 H Est GFR (MDRD) Af Amer 60 Est GFR (MDRD) Non-Af 50 L BUN/Creatinine Ratio 19.9 Glucose 170 H Calcium 9.1 Total Bilirubin 1.40 H AST 24 ALT 40 Alkaline Phosphatase 62 Total Protein 7.4 Albumin 4.3 Globulin 3.1 Albumin/Globulin Ratio 1.4 Lipase 29 Radiography Diagnostic Testing: Clinical Impression(s) from Imaging Studies Abdomen/Pelvis CT 02/25/23 21:15 IMPRESSION: Distal small bowel obstruction. Surgical consultation recommended. Electronically Signed: Yasir Mary MD at 22:18 EST , Discharge Plan Triage Chief Complaint: Nausea/Vomiting/Diarrhea ED Provider: Bonifacio Tompkins Dx/Rx/DC Orders Clinical Impression: Nausea vomiting and diarrhea, Leukocytosis, Small bowel obstruction, Dehydration Prescriptions: No Action doxazosin 1 mg tablet 1 mg PO QHS Patient Comments: TAKE 1 TABLET BY MOUTH NIGHTLY WITH SUPPER FOR BLOOD PRESSURE AND FOR PROSTATE lisinopril 5 mg tablet 5 mg PO QHS Patient Comments: TAKE 1 TABLET BY MOUTH ONCE DAILY aspirin 81 mg capsule 81 mg PO DAILY Qty: 30 1RF ramipril 1.25 mg capsule Primary Care Provider: Samir Quevedo Referrals: Samir Quevedo MD [Primary Care Provider] - Disposition Disposition: Acute Care Hospital [facility]
[2023-02-25 20:38] LABS: Absolute Lymphocyte Count 0.26 X10^3/uL (0.83-4.51); Absolute Neutrophil Count 13.7 X10^3/uL (2.0-7.7); Basophil# 0.05 X10^3/uL; Basophil% 0.3 % (0-1); Eosinophil# 0.02 X10^3/uL; Eosinophils% 0.1 % (0-5); Hematocrit 47.2 % (40-54); Hemoglobin 16.6 g/dL (13.0-16.5); Lymphocyte # 0.26 X10^3/ul (0.83-4.51); Lymphocyte % 1.8 % (19-41); Mean Corp Hgb Conc 35.2 g/dL (32-36); Mean Corpuscular Hgb 29.2 pg (27.0-32.0); Mean Platelet Vol. 9.7 fl (6.2-12.0); Monocyte# 0.74 X10^3/uL; NRBC Flagged by Analyzer 0 % (0-5); Neutrophil # 13.65 X10^3/uL (2.7-7.7); Neutrophil % 92.5 % (47-70); POSITIVE DIFFERENTIAL YES; Platelet Count 157 K/mm3 (150-450); RBC Distribution Width CV 13.4 % (11.6-14.6); RBC Distribution Width SD 40.1 fl (35.1-43.9); Red Blood Count 5.69 M/mm3 (4.6-6.2); White Blood Count 14.8 K/mm3 (4.4-11.0)
--- OUTSIDE RECORDS SUMMARY | 2023-02-25 20:40 | XMS RPT_ITS | CCD ---
Author Name Unknown Address [address] [place] [address] Organization [facility] Care Team Providers Care Car Spotter Name Role Phone Syl Eagle Unavailable Unavailable Johana Echols Unavailable Problems Problem Classification Problem Date Documented Da te Episodic/Chronic Immunizations and screening for infectious disease (2 sources) Need for prophylactic vaccination and inoculation against influenza Episodic Residual codes; unclassified (2 sources) Needs influenza immunization; Translations: [Need for prophylactic vaccination and inoculation against influenza (Renamed from Need for immunization against influenza)] 12-14-2018 Episodic Encounters Encounter Date Encounter Type Care Provider Facility Start: 12-14-2018 End: 12-14-2018 Office outpatient visit 5 minutes Syl Eagle [facility] Plan of Treatment Date Care Activity Detail Author [facility] Work Phone: Payers Date Payer Category Payer Policy ID Unknown [employer]/Medicare Additional Source Comments FOR RECORDS PERTAINING TO PATIENTS WHO ARE OR HAVE BEEN ENROLLED IN A CHEMICAL DEPENDENCY/SUBSTANCEABUSE PROGRAM, SOME INFORMATION MAY BE OMITTED. This clinical summary was aggregated from multiple sources. Caution should be exercised in using it in the provision of clinical care. This summary normalizes information from multiple sources, and as a consequence, information in this document may materially change the coding, format and clinical context of patient data. In addition, data may be omitted in some cases. CLINICAL DECISIONS SHOULD BE BASED ON THE PRIMARY CLINICAL RECORDS. [employer] provides no warranty or guarantee of the accuracy or completeness of information in this document.
[2023-02-25 20:47] LABS: Differential Indicated SCAN CRITERIA MET
[2023-02-25 20:54] VITALS: BP 146/91; PULSE 97; RESP 16; TEMP 36.7; O2SAT 93
[2023-02-25 21:01] LABS: ALB/GLOB Ratio 1.4 RATIO (0.9-2.4); AST(SGOT) 24 U/L (15-37); Alanine Aminotransfer ALT/SGPT 40 U/L (16-61); Albumin, Serum 4.3 g/dL (3.2-5.0); Alkaline Phosphatase 62 U/L (45-117); Anion Gap 7 (5-15); BUN 29 mg/dL (7-18); BUN/Creat Ratio 19.9 RATIO (10-20); Calcium,Total 9.1 mg/dL (8.5-10.1); Chloride 106 mmol/L (98-107); Creatinine, Serum 1.46 mg/dL (0.70-1.30); EST Glomerular Filtration Rate 50 mL/min (>60); Est Glom Filt Rate - Afr Amer 60 mL/min (>60); Globulin 3.1 g/dL (2.2-4.2); Glucose 170 mg/dL (74-106); Lipase 29 U/L (13-75); Protein, Total 7.4 g/dL (6.4-8.2); Sodium Level 138 mmol/L (136-145)
--- NOTE | 2023-02-25 21:15 | CT_ITS ---
STUDY: CT CHEST, ABDOMEN T PELVIS WITH CONTRAST REASON FOR EXAM: Male, 77 years old. pain RADIATION DOSAGE (If Supplied By Facility): CTDIvol = ( 20.28 ) mGy, DLP = ( 3307.62 ) mGycm TECHNIQUE: Transaxial imaging was performed following intravenous administration of IV 100mL Isovue-370. Individualized dose optimization techniques were used for this CT. COMPARISON: February 27, 2020 CT abdomen and pelvis FINDINGS: CHEST The lungs are normal. There is no demonstrated pleural abnormality. Cardiomegaly and calcific coronary artery disease. Normal mediastinum. Normal hilar regions. Normal unenhanced pulmonary arteries. Normal aorta arch and descending thoracic aorta. Slight anterior wedging vertebral bodies. There is no demonstrated abnormality of the visualized upper abdomen. ABDOMEN The visualized lung bases are unremarkable. The visualized portions of the heart are within normal limits. Normal liver. Gallbladder surgically absent. Normal spleen. Normal pancreas. Normal bilateral adrenal glands. Normal right kidney. Normal left kidney. Normal visualized stomach. Small bowel is distended with multiple air-fluid levels. There appears to be a possible transition point and small bowel thickening in the distal segment.. Normal colon. The appendix is visualized and appears normal. Calcified plaque along the aorta and its branches. Normal inferior vena cava. Normal retroperitoneum. Fat-containing umbilical hernia. Normal osseous structures. PELVIS Normal urinary bladder. Fat-containing bilateral inguinal hernias. Normal visualized small intestine. Normal visualized colon. There is no pelvic fluid. There is no pelvic lymphadenopathy or mass lesion. Normal visualized pelvic arteries. Normal abdominal wall. Normal osseous structures. CT/Abdomen/Pelvis W IV Cont ONLY IMPRESSION: Distal small bowel obstruction. Surgical consultation recommended. Electronically Signed: Yasir Mary MD at 22:18 EST ,
[2023-02-25 21:32] LABS: Differential Comment SCANNED
[2023-02-25 21:44] VITALS: BP 151/113; PULSE 90; RESP 16; TEMP 36.6; O2SAT 96
[2023-02-25 22:13] VITALS: BP 139/86; PULSE 139; RESP 20; TEMP 36.6; O2SAT 94
[2023-02-25 22:46] LABS: Lactic Acid 1.8 mmol/L (0.4-1.9)
--- OUTSIDE RECORDS SUMMARY | 2023-02-25 22:50 | XMS RPT_ITS | CCD ---
Author Name Unknown Address [address] [place] [address] Organization [facility] Care Team Providers Care Machine Ii Coremaker Name Role Phone Syl Eagle Unavailable Unavailable [...] BE BASED ON THE PRIMARY CLINICAL RECORDS. [employer] provides no warranty or guarantee of the accuracy or completeness of information in this document.
[2023-02-25 23:10] VITALS: BP 145/105; PULSE 114; RESP 20; O2SAT 93
--- NOTE | 2023-02-25 23:13 | ED.RN ---
Pt unable to recall all home medications.
--- NOTE | 2023-02-25 23:26 | HP.PCM.SX_ITS ---
HPI - General General Date of Admission: 02/25/23 HPI Narrative YARIEL SANCHEZ, is a 77 M who presents with nausea and vomiting and abdominal pain. Patient reports he had a normal bowel movement yesterday. He reports that today he has had some diarrhea. He has diffuse abdominal pain. He also has nausea and vomiting. He has never had a bowel obstruction in the past. [facility] Medical History HTN (hypertension) Kidney stones Non-smoker Obesity Osteoarthritis Sinusitis, maxillary, chronic Vertigo Home Medications doxazosin 1 mg tablet 1 mg PO QHS blood pressure 04/15/21 [History Last Taken Unknown] lisinopril 5 mg tablet 5 mg PO QHS blood pressure 04/15/21 [History Last Taken Unknown] aspirin 81 mg capsule 81 mg PO DAILY #30 caps 04/16/21 [Rx Last Taken Unknown] ramipril 1.25 mg capsule mg 02/25/23 [History Last Taken Unknown] Allergy/AdvReac Type Severity Reaction Status Date / Time levofloxacin Allergy Mild Other Verified 02/25/23 19:51 Family History Father Heart disease Mother Cancer Unclear type. Surgical History History of arthroscopic knee surgery History of cholecystectomy History of colonoscopy (~2018) S/P bilateral inguinal hernia repair Social History household members: spouse Smoking Status: Never smoker alcohol intake: never substance use type: does not use ROS Constitutional Constitutional: Reports anorexia; Denies chills, fatigue or fever(s) Eyes Eyes: Denies blurry vision ENT HEENT: Denies abnormal hearing Cardiovascular Cardiovascular: Denies chest pain Respiratory/Chest Respiratory/Chest: Denies cough Gastrointestinal Gastrointestinal: Reports abdominal pain, diarrhea, nausea and vomiting; Denies constipation Genitourinary Genitourinary: Denies flank pain Musculoskeletal Musculoskeletal: Denies back pain Integumentary Integumentary: Denies jaundice Neurologic Neurologic: Denies abnormal gait Psychiatric Psychiatric: Denies anxiety Vital Signs Vital Signs Vital Signs: 02/25/23 19:51 02/25/23 20:54 02/25/23 21:44 Temperature 97.8 F 98.1 F 98 F Temperature Source Oral Temporal Temporal Pulse Rate 86 97 90 Respiratory Rate 20 H 16 16 Blood Pressure 185/91 H 146/91 H 151/113 H Blood Pressure Mean 122 109 125 Pulse Ox 95 93 96 Oxygen Delivery Method Room Air Room Air Room Air 02/25/23 22:13 02/25/23 23:10 Temperature 97.8 F Temperature Source Oral Pulse Rate 139 H 114 H Respiratory Rate 20 H 20 H Blood Pressure 139/86 H 145/105 H Blood Pressure Mean 103 118 Pulse Ox 94 93 Oxygen Delivery Method Room Air Physical Exam Const oriented x3 and no apparent distress Resp normal respiratory effort Cardio regular rhythm Rate: tachycardic GI soft to palpation Inspection: abdominal distention Palpation: tender other (Diffuse) Results Lab / Micro Data 02/25/23 20:20 02/25/23 20:20 Labs: Laboratory Results - last 24 hr 02/25/23 20:20: WBC 14.8 H, RBC 5.69, Hgb 16.6 H, Hct 47.2, MCV 83.0, MCH 29.2, MCHC 35.2, RDW Std Deviation 40.1, RDW Coeff of Guilherme 13.4, Plt Count 157, MPV 9.7, Immature Gran % (Auto) 0.300, Neut % (Auto) 92.5 H, Lymph % (Auto) 1.8 L, [place] % (Auto) 5.0, Eos % (Auto) 0.1, Baso % (Auto) 0.3, Absolute Neuts (auto) 13.7 H, Absolute Lymphs (auto) 0.26 L, Nucleated RBC % 0, Differential Comment SCANNED, Sodium 138, Potassium 4.0, Chloride 106, Carbon Dioxide 25.0, Anion Gap 7, BUN 29 H, Creatinine 1.46 H, Est GFR (MDRD) Af Amer 60, Est GFR (MDRD) Non-Af 50 L, BUN/Creatinine Ratio 19.9, Glucose 170 H, Calcium 9.1, Total Bilirubin 1.40 H, AST 24, ALT 40, Alkaline Phosphatase 62, Total Protein 7.4, Albumin 4.3, Globulin 3.1, Albumin/Globulin Ratio 1.4, Lipase 29 02/25/23 22:09: Lactic Acid 1.8 Micro: Microbiology 02/25/23 20:20 Mucosa - Nose SARS-CoV-2, Influenza & RSV (PCR) - Final Imagaing Radiology Impression Abdomen/Pelvis CT 02/25/23 21:15 IMPRESSION: Distal small bowel obstruction. Surgical consultation recommended. Electronically Signed: Yasir Mary MD at 22:18 EST , Assessment & Plan Assessment/Plan (1) Small bowel obstruction: PLAN: The patient came in with nausea vomiting and abdominal pain. CT scan revealed small bowel obstruction with a possible transition point the right lower quadrant. The patient has had bilateral inguinal hernia repairs in the past. I will place an NG tube and admit the patient for observation and start antibiotics and IV fluids. KUB in the morning. Reilly Mack MD Pager: [facility] [address] [place] [address], [address] [place] [address] Office:
--- NOTE | 2023-02-25 23:45 | RAD_ITS ---
EXAM: XR ABDOMEN, 1 VIEW CLINICAL INDICATION: NG TECHNIQUE: Frontal supine view of the abdomen/pelvis. COMPARISON: No relevant prior studies available. FINDINGS: LOWER THORAX: No acute pathology. GASTROINTESTINAL TRACT: Some prominent small bowel in the left side of the abdomen. ORGANS: Unremarkable as visualized. No organomegaly. No abnormal calcifications. BONES/JOINTS: No acute pathology. SOFT TISSUES: No acute pathology. TUBES, LINES AND DEVICES: Enteric tube with tip in the body of the stomach. RAD/Abdomen Single View IMPRESSION: Enteric tube with tip in the body of the stomach. Electronically Signed: Sandro Maurer MD at 0:42 EST ,
[2023-02-26] VITALS (28 sets, daily range): BP systolic 103–162; BP diastolic 66–93; PULSE 74–97; RESP 16–18; TEMP 36.1–37; O2SAT 90–97; BMI 32.3
[2023-02-26] MEDS: 0.9% Normal Saline (1000mL) 1,000 ML 100 ML IV ×3 (00:52→16:27)
[2023-02-26] MEDS: Piperacil/Tazobactam 3.375 GM in 0.9% Normal Saline (50mL MB+) 50 ML IV ×4 (00:53→22:40)
--- OUTSIDE RECORDS SUMMARY | 2023-02-26 01:52 | XMS RPT_ITS | CCD ---
Author Name Unknown Address [address] [place] [address] Organization [facility] Care Team Providers Care Java User Interface Developer Name Role Phone Syl Eagle Unavailable Unavailable [...] BE BASED ON THE PRIMARY CLINICAL RECORDS. [employer] provides no warranty or guarantee of the accuracy or completeness of information in this document.
--- OUTSIDE RECORDS SUMMARY | 2023-02-26 01:53 | XMS RPT_ITS | CCD ---
Author Name Unknown Address [address] [place] [address] Organization [facility] Care Team Providers Care Surface Plate Finisher Name Role Phone Syl Eagle Unavailable Unavailable [...] BE BASED ON THE PRIMARY CLINICAL RECORDS. [employer] provides no warranty or guarantee of the accuracy or completeness of information in this document.
--- NOTE | 2023-02-26 02:39 | NUR.TO.PHY ---
Patient newly admitted to unit for small bowel obstruction. While on tele, patient with irregular heart beat that jumps from mid 140s to 80s within seconds. Patient remains asymptomatic. Denies any history of A-fib. EKG completed and showed ST with 1st degree AV block, right bundle branch block. Surgery contacted with no further orders, cardiology to be consulted in AM. Will continue to monitor.
--- NOTE | 2023-02-26 06:05 | RAD_ITS ---
EXAM: XR ABDOMEN, 1 VIEW CLINICAL INDICATION: sbo TECHNIQUE: Frontal supine view of the abdomen/pelvis. COMPARISON: No relevant prior studies available. FINDINGS: LOWER THORAX: No acute pathology. GASTROINTESTINAL TRACT: Unremarkable. Non-obstructive. No bowel or stomach distention. ORGANS: Contrast in the bladder from the previous exam. No organomegaly. No abnormal calcifications. BONES/JOINTS: No acute pathology. SOFT TISSUES: No acute pathology. RAD/Abdomen Single View (Portable) IMPRESSION: No acute findings. Electronically Signed: Sandro Maurer MD at 7:14 EST ,
[2023-02-26 06:13] LABS: Absolute Neutrophil Count 13.5 X10^3/uL (2.0-7.7); Basophil# 0.05 X10^3/uL; Basophil% 0.3 % (0-1); Eosinophil# 0.04 X10^3/uL; Eosinophils% 0.2 % (0-5); Hematocrit 47.2 % (40-54); Hemoglobin 16.7 g/dL (13.0-16.5); Lymphocyte % 10.3 % (19-41); Mean Corp Hgb Conc 35.4 g/dL (32-36); Mean Corpuscular Hgb 29.3 pg (27.0-32.0); Mean Platelet Vol. 10.2 fl (6.2-12.0); Monocyte% 6.7 % (0-10); NRBC Flagged by Analyzer 0 % (0-5); Neutrophil # 13.48 X10^3/uL (2.7-7.7); Neutrophil % 82.1 % (47-70); Platelet Count 227 K/mm3 (150-450); RBC Distribution Width CV 13.6 % (11.6-14.6); RBC Distribution Width SD 40.7 fl (35.1-43.9); Red Blood Count 5.69 M/mm3 (4.6-6.2); White Blood Count 16.4 K/mm3 (4.4-11.0)
[2023-02-26 06:37] LABS: Anion Gap 7 (5-15); BUN 29 mg/dL (7-18); BUN/Creat Ratio 19.6 RATIO (10-20); Calcium,Total 8.4 mg/dL (8.5-10.1); Chloride 109 mmol/L (98-107); Creatinine, Serum 1.48 mg/dL (0.70-1.30); EST Glomerular Filtration Rate 49 mL/min (>60); Est Glom Filt Rate - Afr Amer 59 mL/min (>60); Estimated Creatinine Clearance 42.46 ml/min; Glucose 151 mg/dL (74-106); Sodium Level 140 mmol/L (136-145)
[2023-02-26] MEDS: Ondansetron 4 MG/2 ML Vial IV (08:05)
[2023-02-26] MEDS: 0.9% Saline Lock 10 ML Syringe IV ×4 (08:05→23:42)
--- NOTE | 2023-02-26 09:29 | ECHOCS_ITS ---
Reason For Study: Abnormal EKG Procedure This was a 2D Doppler, Color Flow transthoracic echocardiogram. Contrast injection was performed. Exam performed portable in patient room. Left Ventricle Normal size and thickness. The left ventricular ejection fraction is 65 %. Right Ventricle Normal right ventricle. Atria The left and right atria are normal. Mitral Valve The mitral valve is structurally normal. No prolapse or stenosis seen. Tricuspid Valve Trivial tricuspid valve insufficiency. Unable to estimate RV systolic pressure due to insufficient tricuspid regurgitant envelope. Aortic Valve Trisinus/trileaflet aortic valve. Pulmonic Valve The pulmonic valve is not well visualized. Great Vessels Mildly dilated aortic root. Pericardium/Pleural No pericardial effusion. Medication Diluted definity 2ml given slow IV push to enhance endocardial definition. MMode/2D Measurements & Calculations LVIDd: 4.1 cm IVSd: 1.1 cm Ao root diam: 3.7 cm LVIDs: 2.8 cm LVPWd: 0.81 cm LA dimension: 3.7 cm RVDd: 3.6 cm FS: 30.3 % LAV(MOD-bp): 43.1 ml LVAd ap4: 35.7 cm2 SV(MOD-sp4): 70.3 ml LAV(MOD-bp) Indexed: 20.1 ml/m2 LVLd ap4: 9.0 cm LAV(MOD-sp2): 48.9 ml EDV(MOD-sp4): 115.4 ml LAV(MOD-sp4): 36.7 ml EDV(sp4-el): 120.4 ml LVAs ap4: 19.5 cm2 LVLs ap4: 7.3 cm ESV(MOD-sp4): 45.1 ml ESV(sp4-el): 44.2 ml EF(MOD-sp4): 60.9 % EF(sp4-el): 63.3 % SV(sp4-el): 76.3 ml LA A4 area: 16.3 cm2 RA A4 area: 13.1 cm2 TAPSE: 2.0 cm Time Measurements MV dec time: 0.14 sec Doppler Measurements & Calculations MV E max artur: 123.0 cm/sec Lat Peak E' Artur: 8.3 cm/sec Med Peak E' Artur: 19.7 cm/sec MV A max artur: 37.9 cm/sec E/E' lat: 14.9 E/E' med: 6.2 MV E/A: 3.2 MV V2 max: 130.6 cm/sec MV P1/2t max artur: 134.7 cm/sec Ao V2 max: 131.5 cm/sec MV max P.8 mmHg MV P1/2t: 30.5 msec Ao max P.9 mmHg MV V2 mean: 67.0 cm/sec Ao V2 mean: 92.5 cm/sec MV mean P.3 mmHg MV dec slope: 1292 cm/sec2 Ao mean P.9 mmHg MV V2 VTI: 18.4 cm MVA(P1/2t): 7.2 cm2 Ao V2 VTI: 24.9 cm AV (velocity ratio): 0.77 LV V1 max: 109.0 cm/sec PA V2 max: 87.0 cm/sec LV V1 max P.8 mmHg PA V2 mean: 62.5 cm/sec LV V1 mean P.6 mmHg LV V1 mean: 74.5 cm/sec LV V1 VTI: 19.1 cm ECHO/Echo Complete W/ Contrast Interpretation Summary The left ventricular ejection fraction is 65 %. Mildly dilated aortic root. Ordering Physician: Mikhail Olivares Performed By: Jose Alfredo Dumont RCS
[2023-02-26] MEDS: Morphine 2 MG/ML Syringe IV ×3 (09:31→23:42)
--- NOTE | 2023-02-26 10:22 | PN.SURG_ITS ---
Subjective Subjective The patient is still feeling uncomfortable and has not passed any gas. Objective Data Objective Data Vital Signs: Vital Signs Temp Pulse Resp BP Pulse Ox O2 Del Method 97.2 F L 97 18 152/92 H 95 Room Air 02/26/23 08:25 02/26/23 08:25 02/26/23 08:25 02/26/23 08:25 02/26/23 08:25 02/26/23 08:25 Oxygen Delivery Method Room Air Weight: 219 lb 5.759 oz Body Mass Index (BMI) 32.3 Intake & Output: Intake and Output for Last 24 Hours 02/24/23 02/25/23 02/26/23 23:59 23:59 23:59 Intake Total 2038.33 / 2038.33 Output Total 950 / 950 Balance 1088.33 / 1088.33 Lab / Micro Data 02/26/23 05:40 02/26/23 05:40 Labs: Laboratory Results - last 24 hr 02/25/23 20:20: WBC 14.8 H, RBC 5.69, Hgb 16.6 H, Hct 47.2, MCV 83.0, MCH 29.2, MCHC 35.2, RDW Std Deviation 40.1, RDW Coeff of Guilherme 13.4, Plt Count 157, MPV 9.7, Immature Gran % (Auto) 0.300, Neut % (Auto) 92.5 H, Lymph % (Auto) 1.8 L, [place] % (Auto) 5.0, Eos % (Auto) 0.1, Baso % (Auto) 0.3, Absolute Neuts (auto) 13.7 H, Absolute Lymphs (auto) 0.26 L, Nucleated RBC % 0, Differential Comment SCANNED, Sodium 138, Potassium 4.0, Chloride 106, Carbon Dioxide 25.0, Anion Gap 7, BUN 29 H, Creatinine 1.46 H, Est GFR (MDRD) Af Amer 60, Est GFR (MDRD) Non-Af 50 L, BUN/Creatinine Ratio 19.9, Glucose 170 H, Calcium 9.1, Total Bilirubin 1.40 H, AST 24, ALT 40, Alkaline Phosphatase 62, Total Protein 7.4, Albumin 4.3, Globulin 3.1, Albumin/Globulin Ratio 1.4, Lipase 29 02/25/23 22:09: Lactic Acid 1.8 02/26/23 05:40: WBC 16.4 H, RBC 5.69, Hgb 16.7 H, Hct 47.2, MCV 83.0, MCH 29.3, MCHC 35.4, RDW Std Deviation 40.7, RDW Coeff of Guilherme 13.6, Plt Count 227, MPV 10.2, Immature Gran % (Auto) 0.400, Neut % (Auto) 82.1 H, Lymph % (Auto) 10.3 L, [place] % (Auto) 6.7, Eos % (Auto) 0.2, Baso % (Auto) 0.3, Absolute Neuts (auto) 13.5 H, Absolute Lymphs (auto) 1.70, Nucleated RBC % 0, Sodium 140, Potassium 4.0, Chloride 109 H, Carbon Dioxide 24.0, Anion Gap 7, BUN 29 H, Creatinine 1.48 H, Estim Creat Clear Calc 42.46, Est GFR (MDRD) Af Amer 59 L, Est GFR (MDRD) Non-Af 49 L, BUN/Creatinine Ratio 19.6, Glucose 151 H, Calcium 8.4 L 02/26/23 06:09: Magnesium 2.0 Micro: Microbiology 02/25/23 20:20 Mucosa - Nose SARS-CoV-2, Influenza & RSV (PCR) - Final Radiography Diagnostic Testing: Radiology Impression Abdomen/Pelvis CT 02/25/23 21:15 IMPRESSION: Distal small bowel obstruction. Surgical consultation recommended. Electronically Signed: Yasir Mary MD at 22:18 EST , KUB X-Ray 02/25/23 23:45 IMPRESSION: Enteric tube with tip in the body of the stomach. Electronically Signed: Sandro Maurer MD at 0:42 EST , KUB X-Ray 02/26/23 06:05 IMPRESSION: No acute findings. Electronically Signed: Sandro Maurer MD at 7:14 EST , Physical Exam Const oriented x3 and no apparent distress Resp normal respiratory effort Cardio regular rhythm GI soft to palpation Inspection: abdominal distention Palpation: tender Assessment & Plan Assessment/Plan (1) Small bowel obstruction: PLAN: The patient has a small bowel obstruction identified on CT scan. The transition point is in the right lower quadrant. Patient has had inguinal surgery repair in the past and this may be causing the obstruction. The patient's white count increased and his creatinine increased today. He also keeps flipping between tachycardia and normal sinus rhythm. I am consulting cardiology before surgery. I do recommend exploration as it does not. Anything is resolving and he is still significantly tender and his labs seem to be wor sening. I discussed exploratory laparoscopy with him. I discussed the risks including but not limited to bleeding, infection, injury other organs such as the bowel or bladder. I also discussed the possibility of having to convert to open surgery or having to possibly resect bowel. Patient understands all the risks and is willing to proceed. Patient will be scheduled for this afternoon. Reilly Mack MD Pager: [facility] [address] [place] [address], [address] [place] [address] Office:
--- NOTE | 2023-02-26 11:51 | PCM.CONS.C ---
Assessment & Plan Assessment/Plan (1) Paroxysmal supraventricular tachycardia: PLAN: Patient with paroxysms of severe abdominal pain. Likely secondary to hyperadrenergic state. Started on low-dose beta-blockers. Monitor telemetry for VT prolongation as patient has baseline first-degree AV block and right bundle branch block. Recommend 48-hour Holter monitoring after discharge home. (2) First degree AV block: PLAN: Monitor. (3) Preoperative cardiovascular examination: PLAN: Patient has acute small bowel obstruction. No history of heart disease. No history of angina pectoris or dyspnea. I believe patient is an acceptable risk for the proposed procedure given the acuity of his small bowel obstruction. Please avoid major hemodynamic swings during and after anesthesia. Monitor heart rate. HPI Consult Data Date of Consult: 02/26/23 HPI Narrative Reason for Consultation: Paroxysmal tachycardia HPI Narrative: Sushma gentleman has past medical history significant for hypertension. Admitted to the hospital this time with nausea, vomiting and abdominal pain. Diagnosed with small bowel obstruction. He is being contemplated for surgery this afternoon. During his stay in the hospital, telemetry monitoring revealed paroxysmal tachycardia. We are asked to evaluate the same. Patient denies any history of heart disease. Denies any palpitations. No orthopnea. No PND. No ankle edema. Denies any history of chest pains or shortness of breath either at rest or with exertion. No syncope or presyncope. [facility]LY [facility], [facility] Medical History (Updated 02/26/23 @ 11:[address] Mikhail Olivares MD) HTN (hypertension) Kidney stones Non-smoker Obesity Osteoarthritis Sinusitis, maxillary, chronic Vertigo Wears hearing aid in both ears Home Medications doxazosin 1 mg tablet 1 mg PO QHS blood pressure 04/15/21 [History Last Taken Unknown] aspirin 81 mg capsule 81 mg PO DAILY #30 caps 04/16/21 [Rx Last Taken Unknown] ramipril 1.25 mg capsule 1.25 mg PO DAILY blood pressue 02/25/23 [History Last Taken Unknown] levothyroxine 50 mcg tablet 50 mcg PO DAILY thyroid 02/26/23 [History Last Taken Unknown] Allergy/AdvReac Type Severity Reaction Status Date / Time levofloxacin Allergy Mild Other Verified 02/25/23 19:51 Family History Father Heart disease Mother Cancer Unclear type. Surgical History History of arthroscopic knee surgery History of cholecystectomy History of colonoscopy (~2019) S/P bilateral inguinal hernia repair Social History household members: spouse Smoking Status: Never smoker alcohol intake: never substance use type: does not use Physical Exam Narrative Sitting up at bedside. Appears mildly distressed. NG tube to suction. Heart sounds 1 and 2 noted. No murmurs or rubs. Chest clear to auscultation bilaterally. Alert oriented x 3. No ankle edema. Risk Stratification Risk Stratification Applicable: No Objective Data Vital Signs: Vital Signs Temp Pulse Resp BP Pulse Ox O2 Del Method 97.2 F L 97 18 152/92 H 95 Room Air 02/26/23 08:25 02/26/23 08:25 02/26/23 08:25 02/26/23 08:25 02/26/23 08:25 02/26/23 08:25 Oxygen Delivery Method Room Air Weight: 219 lb 5.759 oz Body Mass Index (BMI) 32.3 Intake & Output: Intake and Output for Last 24 Hours 02/24/23 02/25/23 02/26/23 23:59 23:59 23:59 Intake Total 2038.33 / 2038.33 Output Total 950 / 950 Balance 1088.33 / 1088.33 Lab / Micro Data 02/26/23 05:40 02/26/23 05:40 Labs: Laboratory Results - last 24 hr 02/25/23 20:20: WBC 14.8 H, RBC 5.69, Hgb 16.6 H, Hct 47.2, MCV 83.0, MCH 29.2, MCHC 35.2, RDW Std Deviation 40.1, RDW Coeff of Guilherme 13.4, Plt Count 157, MPV 9.7, Immature Gran % (Auto) 0.300, Neut % (Auto) 92.5 H, Lymph % (Auto) 1.8 L, [place] % (Auto) 5.0, Eos % (Auto) 0.1, Baso % (Auto) 0.3, Absolute Neuts (auto) 13.7 H, Absolute Lymphs (auto) 0.26 L, Nucleated RBC % 0, Differential Comment SCANNED, Sodium 138, Potassium 4.0, Chloride 106, Carbon Dioxide 25.0, Anion Gap 7, BUN 29 H, Creatinine 1.46 H, Est GFR (MDRD) Af Amer 60, Est GFR (MDRD) Non-Af 50 L, BUN/Creatinine Ratio 19.9, Glucose 170 H, Calcium 9.1, Total Bilirubin 1.40 H, AST 24, ALT 40, Alkaline Phosphatase 62, Total Protein 7.4, Albumin 4.3, Globulin 3.1, Albumin/Globulin Ratio 1.4, Lipase 29 02/25/23 22:09: Lactic Acid 1.8 02/26/23 05:40: WBC 16.4 H, RBC 5.69, Hgb 16.7 H, Hct 47.2, MCV 83.0, MCH 29.3, MCHC 35.4, RDW Std Deviation 40.7, RDW Coeff of Guilherme 13.6, Plt Count 227, MPV 10.2, Immature Gran % (Auto) 0.400, Neut % (Auto) 82.1 H, Lymph % (Auto) 10.3 L, [place] % (Auto) 6.7, Eos % (Auto) 0.2, Baso % (Auto) 0.3, Absolute Neuts (auto) 13.5 H, Absolute Lymphs (auto) 1.70, Nucleated RBC % 0, Sodium 140, Potassium 4.0, Chloride 109 H, Carbon Dioxide 24.0, Anion Gap 7, BUN 29 H, Creatinine 1.48 H, Estim Creat Clear Calc 42.46, Est GFR (MDRD) Af Amer 59 L, Est GFR (MDRD) Non-Af 49 L, BUN/Creatinine Ratio 19.6, Glucose 151 H, Calcium 8.4 L 02/26/23 06:09: Magnesium 2.0 Micro: Microbiology 02/25/23 20:20 Mucosa - Nose SARS-CoV-2, Influenza & RSV (PCR) - Final Cardiology Labs/Tests 02/25/23 20:20: WBC 14.8 H, RBC 5.69, Hgb 16.6 H, Hct 47.2, MCV 83.0, MCH 29.2, MCHC 35.2, Plt Count 157, MPV 9.7, Immature Gran % (Auto) 0.300, Neut % (Auto) 92.5 H, Lymph % (Auto) 1.8 L, [place] % (Auto) 5.0, Eos % (Auto) 0.1, Baso % (Auto) 0.3, Absolute Neuts (auto) 13.7 H, Nucleated RBC % 0, Sodium 138, Potassium 4.0, Chloride 106, Carbon Dioxide 25.0, Anion Gap 7, BUN 29 H, Creatinine 1.46 H, Est GFR (MDRD) Af Amer 60, Est GFR (MDRD) Non-Af 50 L, BUN/Creatinine Ratio 19.9, Glucose 170 H, Calcium 9.1, Total Bilirubin 1.40 H 02/25/23 22:09: Lactic Acid 1.8 02/26/23 05:40: WBC 16.4 H, RBC 5.69, Hgb 16.7 H, Hct 47.2, MCV 83.0, MCH 29.3, MCHC 35.4, Plt Count 227, MPV 10.2, Immature Gran % (Auto) 0.400, Neut % (Auto) 82.1 H, Lymph % (Auto) 10.3 L, [place] % (Auto) 6.7, Eos % (Auto) 0.2, Baso % (Auto) 0.3, Absolute Neuts (auto) 13.5 H, Nucleated RBC % 0, Sodium 140, Potassium 4.0, Chloride 109 H, Carbon Dioxide 24.0, Anion Gap 7, BUN 29 H, Creatinine 1.48 H, Est GFR (MDRD) Af Amer 59 L, Est GFR (MDRD) Non-Af 49 L, BUN/Creatinine Ratio 19.6, Glucose 151 H, Calcium 8.4 L 02/26/23 06:09: Magnesium 2.0 Rhythm: Sinus rhythm. Review of telemetry recording show paroxysmal supraventricular tachycardia. EKG: Sinus rhythm. First-degree AV block. Right bundle branch block. ECHO: Normal left ventricular systolic function. Stress Test: Cardiac Cath: PCI: CT Surgery: Holter monitor: EPS: PPM: CXR: Chest CT Scan: Radiography Diagnostic Testing: Radiology Impression Abdomen/Pelvis CT 02/25/23 21:15 IMPRESSION: Distal small bowel obstruction. Surgical consultation recommended. Electronically Signed: Yasir Mary MD at 22:18 EST Reading Location ID and State: [facility] / [place] Tel , Service support , KUB X-Ray 02/25/23 23:45 IMPRESSION: Enteric tube with tip in the body of the stomach. Electronically Signed: Sandro Maurer MD at 0:42 EST , KUB X-Ray 02/26/23 06:05 IMPRESSION: No acute findings. Electronically Signed: Sandro Maurer MD at 7:14 EST ,
[2023-02-26] MEDS: Lactated Ringers 1,000 ML 15 ML IV (12:43)
--- NOTE | 2023-02-26 12:45 | COL_PTH ---
PATHOLOGY RESULTS PATIENT: YARIEL SANCHEZ LOC: [facility] U#:[id number] AGE/SX: 77/M ROOM: [facility] RE02/25/[address]: Dr. Reilly Mack MD : 1945 BED: 1 DIS: 03/03/2023 SPEC #: [id number] RECD: 03/01/23 07:27 STATUS: HE ALCANTAR #: [id number] FAMILIA: 02/26/23 12:[address]: Reilly Mack DEPT: SURGICAL PATHOLOGY RECD BY: Celi Kwok ENTERED: 03/01/23 07:28 SP TYPE: COLON OTHR DR: MD Dr. Samir Gutierrez MD Tissues: Colon, NOS Procedures: Surgery Specimen Level III HEADER OPERATION: Exploratory laparoscopy with conversion to laparotomy PRE-OP DIAGNOSIS: Small bowel obstruction TISSUE SUBMITTED: Meckel's diverticulum MICROSCOPIC DIAGNOSIS Meckel's diverticulum, excision: Meckel's diverticulum, mildly inflamed. Note: The epithelium consists primarily of small bowel mucosa with focal gastric mucosa. AM:mohit 03/02/2023 MICROSCOPIC DESCRIPTION Slides are reviewed. GROSS DESCRIPTION Received in fixative is one container labeled with the patient's name and designated Meckel's diverticulum. The specimen consists of a piece of bowel tissue consistent with blind diverticulum with stapled margin measuring 4.5 cm in diameter and 1.8 cm in length. Attached mesenteric tissue measures 3.0 cm in length. The lumen is filled with a small amount of fecal material. The resection margin is inked black. No mass lesion is identified. Junior Recruiter sections are submitted in six cassettes. / SJ:mohit 03/01/2023 TC:3 CPT: 69894
[2023-02-26] MEDS: Bupivacaine 0.25% 30 ML Vial (14:06)
--- NOTE | 2023-02-26 14:32 | OP.PCM_ITS ---
Report of Operation Date of Procedure: 02/26/23 Pre-Operative Diagnosis: Small bowel obstruction Post-Operative Diagnosis: Small bowel obstruction with inflammation of Meckel's diverticulum Surgery/Procedure Performed:: Exploratory laparoscopy converted to laparotomy with resection of Meckel's diverticulum and lysis of adhesions Type of Anesthesia: General/Regional Specimen's removed: Meckel's diverticulum Estimated Blood Loss (mL): 20 Description of Procedure: Patient was brought back to the operating room and general anesthesia was induced. A Muir catheter was placed into the bladder. Next the abdomen was prepped and draped in usual sterile fashion. A midline incision was made superior to the umbilicus and deepened to the fascia which was elevated and in cised. A port was placed into the abdomen. The abdomen was insufflated to 15 mmHg. The patient was placed in Trendelenburg position and a 5 mm port was placed in the left lateral abdominal wall and right lateral abdominal wall. Using atraumatic graspers the terminal ileum was identified and it was decompressed. Proximal to this there were several loops of small bowel adhered to each other and it was apparent that I would be able to do this laparoscopically. Next all the ports were removed and a midline incision was made in the inferior abdomen. The electrocautery was used for hemostasis and the fascia was elevated and incised and the fascia was opened superiorly and inferiorly as well as the peritoneum. Next the inflamed bowel was delivered through the incision. There appeared to be a an inflamed Meckel's diverticulum that was adherent to the antimesenteric side of another loop of bowel. There were also 2 other loops of bowel adherent to this area. Using sharp dissection these loops of small bowel were from each other. There was dense adhesions to the mesentery as well. These were lysed. The diverticulum was removed from the small bowel using a 75 MARLENE stapler and I performed a stapled diverticulectomy. There was a good lumen at the end. The bowel was run from the nondistended terminal ileum backwards past the site of obstruction. Liquid was forced through the small bowel and into the colon easily. The bowel was returned to the abdomen and the abdomen was copiously irrigated and suctioned dry. Next the fascia was closed using running #1 PDS sutures from the top and bottom meeting in the middle. The upper fascia was closed with an 0 Vicryl suture. All the skin incisions were injected with local anesthetic and closed with interrupted 4-0 Monocryl sutures. Steri-Strips and bandages were applied. Patient was awoken and taken to PACU in stable condition. Muir was removed at the end of the case with the NG was left in place. Admit VTE Documentation VTE Mechan Device Prophylaxis: SCD's
--- NOTE | 2023-02-26 15:25 | CHAPLAIN ---
Type of Pastoral Visit ___ Initial Visit ___ Follow-up Visit ___ On-call Visit ___ General Patient Visit ___ Spiritual Assessment ___ Family Conference ___ Bereavement ___ Rapid Response ___ Code Blue ___ Other (describe below) Pastoral Care Referral From ___ Patient ___ Family ___ Nurse ___ Physician ___ Lift Builder Whole ___ Kit Assembler ___ Other (describe below) Sacrament/Intervention ___ Active listening ___ Anointing ___ Jain ___ Bereavement ___ Communion ___ Nicole exploration ___ ___ Life review ___ Prayer ___ Reconciliation ___ Sacrament of Sick ___ Supportive presence ___ Wedding ___ Other (describe below) Pastoral Comments three attempts made to visit this patient but pt and bed are gone from the room; left a calling card
[2023-02-26] MEDS: Metoprolol Tartrate 5 MG/5 ML Vial IV ×2 (16:27→22:41)
[2023-02-26] MEDS: Pantoprazole Sodium 40 MG in 0.9% Normal Saline (100mL MB+) 100 ML 330 MG IV (16:27)
[2023-02-26] MEDS: Phenol/Sodium Phenolate 180ML 3 SPRAY MUCOUS MEM ×2 (16:28→22:41)
--- NOTE | 2023-02-26 17:30 | CASEMGMT ---
RN?CM?DIRECTOR CASE MANAGEMENT?CM?to room to meet with patient for initial transition planning/care coordination?assessment.?RN?CM?introduced self and role at [facility].? Pt voices understanding and consents to?assessment?at this time.? Pt resting in bed in no distress at this time.? Pt is A/O at this time and answers all questions appropriately.?? Care providers, pharmacy, and demographics verified/updated at this time. PCP: Dr Quevedo Specialists: Dr Dumont-surgeon Preferred Pharmacy: [facility] Insurance: [facility] Prescription Benefit:?yes LNOK: , Siobhan. One adult child, Jodee, who lives in [place] Living Arrangements: Lives w/his in a one-story home w/basement and ramp entrance. Pt denies difficulty w/stairs to the basement. 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 's dtr/family is staying w/pt until further arrangements can be made. Transportation:?Pt states drives self and states no transportation concerns at this time.?He states his neighbor will most likely be taking him home @ discharge. DME: ? Denies using any DME and denies needs.? HHC/SNF: No hx of either. Pt denies need for HHC, stating he is very independent and does not anticipate any issues. No needs anticipated at this time by JESÚS STONE. Pt wishes to return home and states has no concerns with going home at time of discharge.? ?CM?to follow for any discharge planning/needs.? Pt voices no further concerns/needs at this time.? Advised pt to ask for?CM?if any further questions/concerns/needs arise.? Voices understanding. PLAN:??Home Alphonso SHORTN?RN?CM
[2023-02-27] VITALS (10 sets, daily range): BP systolic 161–191; BP diastolic 94–111; PULSE 86–104; RESP 16–18; TEMP 36.2–36.7; O2SAT 95–99
[2023-02-27] MEDS: Morphine 2 MG/ML Syringe IV ×3 (02:25→21:45)
[2023-02-27] MEDS: Phenol/Sodium Phenolate 180ML 3 SPRAY MUCOUS MEM ×3 (02:32→14:41)
[2023-02-27] MEDS: 0.9% Normal Saline (1000mL) 1,000 ML 100 ML IV ×2 (06:11→16:49)
[2023-02-27] MEDS: Piperacil/Tazobactam 3.375 GM in 0.9% Normal Saline (50mL MB+) 50 ML IV ×3 (06:13→21:45)
[2023-02-27] MEDS: Metoprolol Tartrate 5 MG/5 ML Vial IV ×3 (06:16→21:45)
[2023-02-27] MEDS: 0.9% Saline Lock 10 ML Syringe IV ×2 (06:24→21:46)
--- NOTE | 2023-02-27 07:31 | PCM.PN.SRG ---
Subjective Subjective NG put out about 270 last night only minimal on the container currently, patient denies any flatus, pain controlled Objective Data Objective Data Vital Signs: Vital Signs Temp Pulse Resp BP Pulse Ox O2 Del Method O2 Flow Rate 97.5 F L 93 16 163/99 H 98 Nasal Cannula 2 02/27/23 03:00 02/27/23 06:16 02/27/23 03:00 02/27/23 06:16 02/27/23 03:00 02/27/23 04:51 02/27/23 04:51 Oxygen Flow Rate (L/min) 2 Oxygen Delivery Method Nasal Cannula Weight: 219 lb 5.759 oz Body Mass Index (BMI) 32.3 Intake & Output: Intake and Output for Last 24 Hours 02/25/23 02/26/23 02/27/23 23:59 23:59 23:59 Intake Total 3318.33 / 3318.33 1120 / 1120 Output Total 1680 / 1680 150 / 150 Balance 1638.33 / 1638.33 970 / 970 Lab / Micro Data 02/26/23 05:40 02/26/23 05:40 Micro: Microbiology 02/25/23 20:20 Mucosa - Nose SARS-CoV-2, Influenza & RSV (PCR) - Final Radiography Diagnostic Testing: Radiology Impression KUB X-Ray 02/26/23 06:05 IMPRESSION: No acute findings. Electronically Signed: Sandro Maurer MD at 7:14 EST , Echocardiogram 02/26/23 09:29 Interpretation Summary The left ventricular ejection fraction is 65 %. Mildly dilated aortic root. Ordering Physician: Mikhail Olivares Performed By: Jose Alfredo Dumont RCS Physical Exam Resp normal respiratory effort Cardio regular rate GI GI Narrative: Abdomen: Soft, nondistended, tender near incision's dressed clean dry and intact, no peritoneal signs Assessment & Plan Assessment/Plan (1) S/P exploratory laparotomy: (2) Meckel's diverticulitis: PLAN: Status post excision (3) Small bowel obstruction: PLAN: Plan Continue NG/n.p.o. until patient has bowel function Continue IV Zosyn Encourage out of bed to chair/ambulation Will hold on DVT prophylaxis until tomorrow Labs pending Continue IV Protonix Ariana Connor M.D. Pager: [phone] [facility] [address] [place] [address], [facility], [address] [place] [address] Office: [phone]
[2023-02-27 08:29] LABS: Absolute Lymphocyte Count 1.14 X10^3/uL (0.83-4.51); Absolute Neutrophil Count 10.5 X10^3/uL (2.0-7.7); Basophil# 0.04 X10^3/uL; Basophil% 0.3 % (0-1); Eosinophil# 0.01 X10^3/uL; Eosinophils% 0.1 % (0-5); Hematocrit 45.6 % (40-54); Hemoglobin 14.8 g/dL (13.0-16.5); Lymphocyte # 1.14 X10^3/ul (0.83-4.51); Lymphocyte % 8.9 % (19-41); Mean Corp Hgb Conc 32.5 g/dL (32-36); Mean Corpuscular Hgb 28.5 pg (27.0-32.0); Mean Corpuscular Volume 87.9 fL (80-94); Mean Platelet Vol. 10.3 fl (6.2-12.0); Monocyte# 1.03 X10^3/uL; Monocyte% 8.1 % (0-10); NRBC Flagged by Analyzer 0 % (0-5); Neutrophil # 10.48 X10^3/uL (2.7-7.7); Platelet Count 168 K/mm3 (150-450); RBC Distribution Width CV 13.9 % (11.6-14.6); RBC Distribution Width SD 44.1 fl (35.1-43.9); Red Blood Count 5.19 M/mm3 (4.6-6.2); White Blood Count 12.8 K/mm3 (4.4-11.0)
[2023-02-27 09:00] LABS: Anion Gap 5 (5-15); BUN 28 mg/dL (7-18); BUN/Creat Ratio 21.2 RATIO (10-20); Calcium,Total 7.9 mg/dL (8.5-10.1); Chloride 113 mmol/L (98-107); Creatinine, Serum 1.32 mg/dL (0.70-1.30); EST Glomerular Filtration Rate 56 mL/min (>60); Est Glom Filt Rate - Afr Amer 68 mL/min (>60); Estimated Creatinine Clearance 47.61 ml/min; Glucose 124 mg/dL (74-106); Potassium 4.1 mmol/L (3.5-5.1); Sodium Level 142 mmol/L (136-145)
[2023-02-27] MEDS: Pantoprazole Sodium 40 MG in 0.9% Normal Saline (100mL MB+) 100 ML 330 MG IV (10:02)
--- NOTE | 2023-02-27 11:04 | PCM.PN.BLA ---
Progress Note Uneventful abdominal surgery for small bowel obstruction. Denies any complaints this morning. Still NPO. Maintaining sinus rhythm. First-degree AV block. No further runs of SVT. Recommend starting on metoprolol 12.5 mg p.o. twice daily when resume p.o. intake. Follow-up as outpatient after discharge home in approximately 4 weeks. Will sign off. Please call if needed.
[2023-02-27 12:26] LABS: Bedside Glucose 142 mg/dL (74-106)
--- NOTE | 2023-02-27 13:38 | NURSING ---
pt sitting in chair on 1 L o2 @ 96@. Put on RA and held at 96% Will continue to monitor
[2023-02-28] VITALS (10 sets, daily range): BP systolic 159–200; BP diastolic 85–104; PULSE 75–101; RESP 16–18; TEMP 36.7–36.9; O2SAT 93–97
[2023-02-28] MEDS: Phenol/Sodium Phenolate 180ML 3 SPRAY MUCOUS MEM (03:20)
[2023-02-28] MEDS: 0.9% Normal Saline (1000mL) 1,000 ML 100 ML IV ×2 (03:23→14:43)
[2023-02-28 05:59] LABS: Absolute Lymphocyte Count 1.96 X10^3/uL (0.83-4.51); Absolute Neutrophil Count 9.5 X10^3/uL (2.0-7.7); Basophil# 0.06 X10^3/uL; Basophil% 0.5 % (0-1); Eosinophil# 0.15 X10^3/uL; Eosinophils% 1.2 % (0-5); Hemoglobin 15.2 g/dL (13.0-16.5); Lymphocyte # 1.96 X10^3/ul (0.83-4.51); Lymphocyte % 15.6 % (19-41); Mean Corp Hgb Conc 33.8 g/dL (32-36); Mean Corpuscular Hgb 28.7 pg (27.0-32.0); Mean Corpuscular Volume 84.9 fL (80-94); Mean Platelet Vol. 10.3 fl (6.2-12.0); Monocyte# 0.79 X10^3/uL; Monocyte% 6.3 % (0-10); NRBC Flagged by Analyzer 0 % (0-5); Neutrophil # 9.51 X10^3/uL (2.7-7.7); Neutrophil % 75.5 % (47-70); Platelet Count 185 K/mm3 (150-450); RBC Distribution Width CV 13.6 % (11.6-14.6); RBC Distribution Width SD 41.9 fl (35.1-43.9); White Blood Count 12.6 K/mm3 (4.4-11.0)
[2023-02-28] MEDS: Metoprolol Tartrate 5 MG/5 ML Vial IV ×3 (06:02→21:02)
[2023-02-28] MEDS: 0.9% Saline Lock 10 ML Syringe IV ×4 (06:03→23:34)
[2023-02-28] MEDS: Piperacil/Tazobactam 3.375 GM in 0.9% Normal Saline (50mL MB+) 50 ML IV ×3 (06:03→21:13)
[2023-02-28 06:24] LABS: Anion Gap 9 (5-15); BUN 23 mg/dL (7-18); BUN/Creat Ratio 20.2 RATIO (10-20); Calcium,Total 8.2 mg/dL (8.5-10.1); Chloride 110 mmol/L (98-107); Creatinine, Serum 1.14 mg/dL (0.70-1.30); EST Glomerular Filtration Rate 66 mL/min (>60); Est Glom Filt Rate - Afr Amer 80 mL/min (>60); Estimated Creatinine Clearance 55.13 ml/min; Glucose 118 mg/dL (74-106); Potassium 3.6 mmol/L (3.5-5.1); Sodium Level 142 mmol/L (136-145)
--- NOTE | 2023-02-28 07:11 | PCM.PN.SRG ---
Subjective Subjective Patient complains of having urinary frequency, patient states abdominal pain is improved, denies any flatus or bowel movement, and NG has about 250 in the container Objective Data Objective Data Vital Signs: Vital Signs Temp Pulse Resp BP Pulse Ox O2 Del Method O2 Flow Rate 98.3 F 98 16 175/97 H 93 Nasal Cannula 1 02/28/23 03:26 02/28/23 06:02 02/28/23 03:26 02/28/23 06:02 02/28/23 03:26 02/28/23 03:40 02/27/23 08:11 Oxygen Flow Rate (L/min) 1 Oxygen Delivery Method Nasal Cannula Weight: 219 lb 5.759 oz Body Mass Index (BMI) 32.3 Intake & Output: Intake and Output for Last 24 Hours 02/26/23 02/27/23 02/28/23 23:59 23:59 23:59 Intake Total 3318.33 / 3318.33 2410 / 2410 1050 / 1050 Output Total 1680 / 1680 750 / 750 450 / 450 Balance 1638.33 / 1638.33 1660 / 1660 600 / 600 Lab / Micro Data 02/28/23 05:18 02/28/23 05:18 Labs: Laboratory Results - last 24 hr 02/27/23 08:04: WBC 12.8 H, RBC 5.19, Hgb 14.8, Hct 45.6, MCV 87.9 D, MCH 28.5, MCHC 32.5 D, RDW Std Deviation 44.1 H, RDW Coeff of Guilherme 13.9, Plt Count 168, MPV 10.3, Immature Gran % (Auto) 0.600, Neut % (Auto) 82.0 H, Lymph % (Auto) 8.9 L, [place] % (Auto) 8.1, Eos % (Auto) 0.1, Baso % (Auto) 0.3, Absolute Neuts (auto) 10.5 H, Absolute Lymphs (auto) 1.14, Nucleated RBC % 0, Sodium 142, Potassium 4.1, Chloride 113 H, Carbon Dioxide 24.0, Anion Gap 5, BUN 28 H, Creatinine 1.32 H, Estim Creat Clear Calc 47.61, Est GFR (MDRD) Af Amer 68, Est GFR (MDRD) Non-Af 56 L, BUN/Creatinine Ratio 21.2 H, Glucose 124 H, Calcium 7.9 L 02/27/23 12:06: POC Glucose 142 H 02/28/23 05:18: WBC 12.6 H, RBC 5.30, Hgb 15.2, Hct 45.0, MCV 84.9, MCH 28.7, MCHC 33.8, RDW Std Deviation 41.9, RDW Coeff of Guilherme 13.6, Plt Count 185, MPV 10.3, Immature Gran % (Auto) 0.900, Neut % (Auto) 75.5 H, Lymph % (Auto) 15.6 L, [place] % (Auto) 6.3, Eos % (Auto) 1.2, Baso % (Auto) 0.5, Absolute Neuts (auto) 9.5 H, Absolute Lymphs (auto) 1.96, Nucleated RBC % 0, Sodium 142, Potassium 3.6, Chloride 110 H, Carbon Dioxide 23.0, Anion Gap 9, BUN 23 H, Creatinine 1.14, Estim Creat Clear Calc 55.13, Est GFR (MDRD) Af Amer 80, Est GFR (MDRD) Non-Af 66, BUN/Creatinine Ratio 20.2 H, Glucose 118 H, Calcium 8.2 L Micro: Microbiology 02/25/23 20:20 Mucosa - Nose SARS-CoV-2, Influenza & RSV (PCR) - Final Physical Exam Resp normal respiratory effort Cardio regular rate GI GI Narrative: Abdomen: Soft, nondistended, tender near incision's dressed clean dry and intact, no peritoneal signs Assessment & Plan Assessment/Plan (1) S/P exploratory laparotomy: (2) Meckel's diverticulitis: PLAN: Status post excision (3) Small bowel obstruction: PLAN: Plan Continue NG/n.p.o. until patient has bowel function Continue IV Zosyn Postvoid bladder ultrasound Ambulation Will start heparin for DVT prophylaxis Continue IV Protonix Ariana Connor M.D. Pager: [phone] [facility] [address] [place] [address], [facility], [address] [place] [address] Office: [phone]
[2023-02-28] MEDS: Morphine 4 MG/ML Syringe IV (08:54)
[2023-02-28 08:58] LABS: Bacteria 0 SEEN /hpf (None Seen); Mucous, Urine 0 SEEN /hpf (<or=2+); Squamous Epithelial Cells - UA 0 SEEN /hpf (0-5)
[2023-02-28 09:03] LABS: Glucose, Dipstick Normal (Normal); Ketone-Dipstick 50 mg/dl (Negative); Leukocyte Esterase-Dipstick Negative /ul (Negative); Nitrite-Dipstick Negative (Negative); Occult Blood-Urine 10 /ul (Negative); Protein-Dipstick 15 mg/dl (Negative); Urine Bilirubin Dipstick Negative (Negative); Urine Urobilinogen Normal (Normal)
[2023-02-28 09:09] LABS: Color, Urine Yellow (Yellow); Urine Clarity Clear (Clear)
[2023-02-28 09:22] LABS: Red Blood Cells-Urine 0-5 SEEN /hpf (0-5); White Blood Cells 0-5 SEEN /hpf (0-5)
[2023-02-28] MEDS: Pantoprazole Sodium 40 MG in 0.9% Normal Saline (100mL MB+) 100 ML 330 MG IV (10:25)
[2023-02-28] MEDS: 0.9% Normal Saline (250mL Bag) 250 ML 15 ML IV (15:01)
[2023-02-28] MEDS: Heparin Injection (Vial) 5,000 UNIT/ML VIAL 5000 UNIT SC ×2 (15:02→21:02)
[2023-02-28] MEDS: Morphine 2 MG/ML Syringe IV ×2 (21:03→23:34)
[2023-03-01] VITALS (14 sets, daily range): BP systolic 145–203; BP diastolic 85–119; PULSE 90–113; RESP 16–18; TEMP 36.4–36.8; O2SAT 94–96
[2023-03-01] MEDS: 0.9% Normal Saline (1000mL) 1,000 ML 80 ML IV ×3 (01:32→23:49)
[2023-03-01] MEDS: 0.9% Saline Lock 10 ML Syringe IV ×3 (03:15→11:52)
[2023-03-01] MEDS: Morphine 4 MG/ML Syringe IV (03:15)
[2023-03-01] MEDS: Metoprolol Tartrate 5 MG/5 ML Vial IV ×3 (05:23→21:59)
[2023-03-01] MEDS: Heparin Injection (Vial) 5,000 UNIT/ML VIAL 5000 UNIT SC ×3 (05:24→21:58)
[2023-03-01] MEDS: Piperacil/Tazobactam 3.375 GM in 0.9% Normal Saline (50mL MB+) 50 ML IV ×3 (05:30→21:58)
[2023-03-01 06:00] LABS: Absolute Lymphocyte Count 1.21 X10^3/uL (0.83-4.51); Absolute Neutrophil Count 8.5 X10^3/uL (2.0-7.7); Basophil# 0.05 X10^3/uL; Basophil% 0.5 % (0-1); Eosinophils% 0.9 % (0-5); Hematocrit 43.3 % (40-54); Hemoglobin 14.9 g/dL (13.0-16.5); Lymphocyte # 1.21 X10^3/ul (0.83-4.51); Lymphocyte % 11.4 % (19-41); Mean Corp Hgb Conc 34.4 g/dL (32-36); Mean Corpuscular Volume 84.2 fL (80-94); Mean Platelet Vol. 9.8 fl (6.2-12.0); Monocyte# 0.72 X10^3/uL; Monocyte% 6.8 % (0-10); NRBC Flagged by Analyzer 0 % (0-5); Neutrophil # 8.45 X10^3/uL (2.7-7.7); Neutrophil % 79.4 % (47-70); Platelet Count 221 K/mm3 (150-450); RBC Distribution Width CV 13.4 % (11.6-14.6); RBC Distribution Width SD 41.5 fl (35.1-43.9); Red Blood Count 5.14 M/mm3 (4.6-6.2); White Blood Count 10.6 K/mm3 (4.4-11.0)
[2023-03-01 06:26] LABS: Anion Gap 10 (5-15); BUN 22 mg/dL (7-18); BUN/Creat Ratio 16.8 RATIO (10-20); Calcium,Total 8.2 mg/dL (8.5-10.1); Chloride 112 mmol/L (98-107); Creatinine, Serum 1.31 mg/dL (0.70-1.30); EST Glomerular Filtration Rate 56 mL/min (>60); Est Glom Filt Rate - Afr Amer 68 mL/min (>60); Estimated Creatinine Clearance 47.97 ml/min; Glucose 126 mg/dL (74-106); Potassium 3.6 mmol/L (3.5-5.1); Sodium Level 142 mmol/L (136-145)
--- NOTE | 2023-03-01 07:32 | CT_ITS ---
EXAM: CT ABDOMEN AND PELVIS WITHOUT INTRAVENOUS CONTRAST CLINICAL INDICATION: right flank pain, postop TECHNIQUE: Helically acquired images were obtained of the abdomen and pelvis without intravenous contrast. This CT exam was performed using one or more of the following dose reduction techniques: automated exposure control, adjustment of the mA and/or kV according to patient size, and/or use of iterative reconstruction technique. This report was created using [employer] report generation technology. COMPARISON: CT abdomen and pelvis 02/25/2023 and 02/27/2020 FINDINGS: LOWER THORAX: Mild bibasilar atelectasis. ABDOMEN: LIVER: Stable mild hepatomegaly and mild hepatic steatosis. GALLBLADDER AND BILE DUCTS: Cholecystectomy clips are in place. PANCREAS: Normal. No focal cystic mass. SPLEEN: Spleen is enlarged measuring 14.5 cm in length. ADRENALS: Normal. No nodules. KIDNEYS AND URETERS: Bilateral hydronephrosis and hydroureter related to the over distended urinary bladder. Small bilateral calyceal renal stones. STOMACH AND BOWEL: Interval decompression of the small bowel obstruction. PELVIS: APPENDIX: No evidence of acute appendicitis. BLADDER: Urinary bladder is quite distended. REPRODUCTIVE: Prostate gland is moderately enlarged. ABDOMEN and PELVIS: INTRAPERITONEAL SPACE: Normal. No ascites or other fluid collection. No free air. BONES/JOINTS: No suspicious lytic or blastic abnormality. SOFT TISSUES: Small collection of gas in minimal fluid noted superior to the umbilicus consistent with postop changes of recent laparoscopic surgery. No discrete abdominal or pelvic wall hernia. VASCULATURE: Normal. Abdominal aorta is non-dilated. LYMPH NODES: Normal. No enlarged lymph nodes. CT/Abdomen/Pelvis without Cont IMPRESSION: 1. Over distended urinary bladder causing bilateral hydronephrosis and hydroureter. 2. No interval surgical decompression of small bowel obstruction. 3. Mild hepatosplenomegaly. 4. Mild hepatic steatosis. Electronically Signed: Rich Cheney MD at 8:47 EST ,
[2023-03-01] MEDS: HYDROmorphone 1 MG/ML Syringe IV (07:50)
--- NOTE | 2023-03-01 09:22 | PCM.PN.SRG ---
Subjective Subjective Patient was having a lot of right flank pain overnight. He also notes that his abdominal pain was worsened and he feels like he has to pee but cannot. Objective Data Objective Data Vital Signs: Vital Signs Temp Pulse Resp BP Pulse Ox O2 Del Method O2 Flow Rate 97.5 F L 94 16 188/108 H 96 Room Air 1 03/01/23 03:35 03/01/23 05:23 03/01/23 03:35 03/01/23 07:53 03/01/23 03:35 03/01/23 08:44 02/27/23 08:11 Oxygen Flow Rate (L/min) 1 Oxygen Delivery Method Room Air Weight: 219 lb 5.759 oz Body Mass Index (BMI) 32.3 Intake & Output: Intake and Output for Last 24 Hours 02/27/23 02/28/23 03/01/23 23:59 23:59 23:59 Intake Total 2410 / 2410 3537.58 / 3537.58 752.67 / 752.67 Output Total 750 / 750 1590 / 1590 400 / 400 Balance 1660 / 1660 1947.58 / 1947.58 352.67 / 352.67 Lab / Micro Data 03/01/23 05:37 03/01/23 05:37 Labs: Laboratory Results - last 24 hr 02/28/23 08:55: Urine RBC 0-5 SEEN, Urine WBC 0-5 SEEN, Ur Squamous Epith Cells 0 SEEN, Urine Bacteria 0 SEEN, Urine Mucus 0 SEEN 03/01/23 05:37: WBC 10.6, RBC 5.14, Hgb 14.9, Hct 43.3, MCV 84.2, MCH 29.0, MCHC 34.4, RDW Std Deviation 41.5, RDW Coeff of Guilherme 13.4, Plt Count 221, MPV 9.8, Immature Gran % (Auto) 1.000 H, Neut % (Auto) 79.4 H, Lymph % (Auto) 11.4 L, [place] % (Auto) 6.8, Eos % (Auto) 0.9, Baso % (Auto) 0.5, Absolute Neuts (auto) 8.5 H, Absolute Lymphs (auto) 1.21, Nucleated RBC % 0, Sodium 142, Potassium 3.6, Chloride 112 H, Carbon Dioxide 20.0 L, Anion Gap 10, BUN 22 H, Creatinine 1.31 H, Estim Creat Clear Calc 47.97, Est GFR (MDRD) Af Amer 68, Est GFR (MDRD) Non-Af 56 L, BUN/Creatinine Ratio 16.8, Glucose 126 H, Calcium 8.2 L Micro: Microbiology 02/25/23 20:20 Mucosa - Nose SARS-CoV-2, Influenza & RSV (PCR) - Final Radiography Diagnostic Testing: Radiology Impression Abdomen/Pelvis CT 03/01/23 07:32 IMPRESSION: 1. Over distended urinary bladder causing bilateral hydronephrosis and hydroureter. 2. No interval surgical decompression of small bowel obstruction. 3. Mild hepatosplenomegaly. 4. Mild hepatic steatosis. Electronically Signed: Rich Cheney MD at 8:47 EST , Physical Exam Const oriented x3 and no apparent distress Resp normal respiratory effort GI soft to palpation Inspection: Negative for abdominal distention Assessment & Plan Assessment/Plan (1) Meckel's diverticulitis: (2) Urinary retention: PLAN: Plan The patient accidentally removed his NG tube this morning. He was complaining of abdominal pain and he was hypertensive. I ordered a CT scan as the patient said they did BladderScan him before and after urinating and there was no urine. The CT scan revealed severe urinary distention causing hydronephrosis bilaterally. I will have a Muir catheter placed and start him on some Flomax. The patient is having urinary retention postoperatively likely due to the surgery. The patient's bowels look very well on CT scan so I will start him on a clear liquid diet. Reilly Mack MD Pager: [facility] [address] [place] [address], [address] [place] [address] Office:
[2023-03-01] MEDS: Tamsulosin HCl 0.4 MG Capsule 0.800000000000000044 MG PO ×2 (10:28→18:16)
[2023-03-01] MEDS: Pantoprazole Sodium 40 MG in 0.9% Normal Saline (100mL MB+) 100 ML 330 MG IV (10:28)
[2023-03-01] MEDS: hydrALAZINE 20 MG/ML Vial 10 MG IV (11:52)
--- NOTE | 2023-03-01 14:27 | CHAPLAIN ---
Type of Pastoral Visit _x__ Initial Visit ___ Follow-up Visit ___ On-call Visit ___ General Patient Visit ___ Spiritual Assessment ___ Family Conference ___ Bereavement ___ Rapid Response ___ Code Blue ___ Other (describe below) Pastoral Care Referral From _x__ Patient ___ Family ___ Nurse ___ Physician ___ Cupola Charger ___ K [employer] Police Officer ___ Other (describe below) Sacrament/Intervention _x__ Active listening ___ Anointing ___ Episcopal ___ Bereavement ___ Communion _x__ Nicole exploration ___ ___ Life review _x__ Prayer ___ Reconciliation ___ Sacrament of Sick ___ Supportive presence ___ Wedding ___ Other (describe below) Pastoral Comments patient is remembered because his spouse was admitted previously here; pt gives updates on their situation; pt speaks of feeling much better, receiving good care, and anticipating discharge; pt spouse is not able to be alone and so she has moved to daughter's which is where pt will go when discharged; pt is accepting of situation, has nicole in God, and receives good support from family and christianity; prayer given
[2023-03-02] VITALS (12 sets, daily range): BP systolic 126–190; BP diastolic 74–106; PULSE 85–110; RESP 16–18; TEMP 36.6–36.7; O2SAT 96–98
[2023-03-02] MEDS: Piperacil/Tazobactam 3.375 GM in 0.9% Normal Saline (50mL MB+) 50 ML IV (06:13)
[2023-03-02] MEDS: Metoprolol Tartrate 5 MG/5 ML Vial IV ×3 (06:13→22:39)
[2023-03-02] MEDS: Heparin Injection (Vial) 5,000 UNIT/ML VIAL 5000 UNIT SC ×3 (06:13→22:39)
--- NOTE | 2023-03-02 08:19 | PCM.PN.SRG ---
Subjective Subjective Patient is feeling much better and more comfortable. He rates his pain at a 2. He says he had 2 bowel movements and he is tolerating liquids. Objective Data Objective Data Vital Signs: Vital Signs Temp Pulse Resp BP Pulse Ox O2 Del Method O2 Flow Rate 98.0 F 109 H 18 170/97 H 96 Room Air 1 03/02/23 06:00 03/02/23 06:13 03/02/23 06:00 03/02/23 06:13 03/02/23 06:00 03/02/23 06:00 02/27/23 08:11 Oxygen Flow Rate (L/min) 1 Oxygen Delivery Method Room Air Weight: 219 lb 5.759 oz Body Mass Index (BMI) 32.3 Intake & Output: Intake and Output for Last 24 Hours 02/28/23 03/01/23 03/02/23 23:59 23:59 23:59 Intake Total 3537.58 / 3537.58 3448.67 / 3798.67 750 / 750 Output Total 1590 / 1590 1375 / 1875 1000 / 1000 Balance 1947.58 / 1947.58 2073.67 / 1923.67 -250 / -250 Lab / Micro Data 03/01/23 05:37 03/01/23 05:37 Micro: Microbiology 02/25/23 20:20 Mucosa - Nose SARS-CoV-2, Influenza & RSV (PCR) - Final Radiography Diagnostic Testing: Radiology Impression Abdomen/Pelvis CT 03/01/23 07:32 IMPRESSION: 1. Over distended urinary bladder causing bilateral hydronephrosis and hydroureter. 2. No interval surgical decompression of small bowel obstruction. 3. Mild hepatosplenomegaly. 4. Mild hepatic steatosis. Electronically Signed: Rich Cheney MD at 8:47 EST , Physical Exam Const oriented x3 and no apparent distress Resp normal respiratory effort GI soft to palpation and non-tender Assessment & Plan Assessment/Plan (1) Urinary retention: (2) Meckel's diverticulitis: PLAN: Plan The patient had urinary retention and a Muir catheter was placed yesterday. He is feeling much better today. He was started on Flomax. I will try a voiding trial today. I will also advance him to a regular diet. If the patient is able to urinate and tolerating regular diet I will discharge him home later today. If he is unable to urinate I will place a Muir and he will follow-up with urology. Reilly Mack MD Pager: [facility] [address] [place] [address] [address] [place] [address] Office:
[2023-03-02] MEDS: Levothyroxine 50 MCG Tablet PO (09:53)
[2023-03-02] MEDS: Aspirin 81 MG TAB.CHEW PO (09:53)
[2023-03-02] MEDS: hydrALAZINE 20 MG/ML Vial 10 MG IV ×2 (12:08→19:29)
[2023-03-02] MEDS: 0.9% Saline Lock 10 ML Syringe IV (12:08)
[2023-03-02] MEDS: Tamsulosin HCl 0.4 MG Capsule 0.800000000000000044 MG PO (16:56)
[2023-03-02] MEDS: Acetaminophen 325 MG Tablet 650 MG PO (23:34)
[2023-03-03] VITALS: BP 174/97; PULSE 96
[2023-03-03 01:40] VITALS: BP 153/89; PULSE 96
[2023-03-03 06:00] VITALS: BP 182/108; PULSE 105; RESP 16; TEMP 36.6; O2SAT 97
[2023-03-03 06:06] LABS: Absolute Lymphocyte Count 1.42 X10^3/uL (0.83-4.51); Absolute Neutrophil Count 4.4 X10^3/uL (2.0-7.7); Basophil# 0.04 X10^3/uL; Basophil% 0.6 % (0-1); Eosinophil# 0.36 X10^3/uL; Eosinophils% 5.2 % (0-5); Hematocrit 38.2 % (40-54); Hemoglobin 13.4 g/dL (13.0-16.5); Lymphocyte # 1.42 X10^3/ul (0.83-4.51); Lymphocyte % 20.4 % (19-41); Mean Corp Hgb Conc 35.1 g/dL (32-36); Mean Corpuscular Hgb 28.6 pg (27.0-32.0); Mean Corpuscular Volume 81.4 fL (80-94); Mean Platelet Vol. 9.9 fl (6.2-12.0); Monocyte# 0.63 X10^3/uL; NRBC Flagged by Analyzer 0 % (0-5); Neutrophil # 4.44 X10^3/uL (2.7-7.7); Neutrophil % 63.7 % (47-70); Platelet Count 202 K/mm3 (150-450); RBC Distribution Width CV 13.4 % (11.6-14.6); RBC Distribution Width SD 39.6 fl (35.1-43.9); Red Blood Count 4.69 M/mm3 (4.6-6.2)
[2023-03-03 06:21] VITALS: BP 182/108; PULSE 105
[2023-03-03] MEDS: Heparin Injection (Vial) 5,000 UNIT/ML VIAL 5000 UNIT SC (06:21)
[2023-03-03] MEDS: Levothyroxine 50 MCG Tablet PO (06:21)
[2023-03-03] MEDS: Metoprolol Tartrate 5 MG/5 ML Vial IV (06:21)
[2023-03-03 06:27] LABS: Anion Gap 7 (5-15); BUN 16 mg/dL (7-18); BUN/Creat Ratio 14.8 RATIO (10-20); Calcium,Total 8.1 mg/dL (8.5-10.1); Chloride 111 mmol/L (98-107); Creatinine, Serum 1.08 mg/dL (0.70-1.30); EST Glomerular Filtration Rate 71 mL/min (>60); Est Glom Filt Rate - Afr Amer 85 mL/min (>60); Estimated Creatinine Clearance 67.67 ml/min; Glucose 125 mg/dL (74-106); Potassium 2.9 mmol/L (3.5-5.1); Sodium Level 141 mmol/L (136-145)
[2023-03-03] MEDS: 0.9% Saline Lock 10 ML Syringe IV ×2 (06:27→08:01)
[2023-03-03 06:59] LABS: Magnesium 1.9 mg/dL (1.6-2.6)
--- NOTE | 2023-03-03 07:22 | PN.SURG_ITS ---
Subjective Subjective The patient had to have his Muir replaced due to urinary retention. On that he is feeling comfortable. He denies nausea or vomiting. He did have a bowel movement. Objective Data Objective Data Vital Signs: Vital Signs Temp Pulse Resp BP Pulse Ox O2 Del Method O2 Flow Rate 97.8 F 105 H 18 182/108 H 98 Room Air 1 03/02/23 22:30 03/03/23 06:21 03/02/23 22:30 03/03/23 06:21 03/02/23 22:30 03/03/23 04:45 02/27/23 08:11 Oxygen Flow Rate (L/min) 1 Oxygen Delivery Method Room Air Weight: 219 lb 5.759 oz Body Mass Index (BMI) 32.3 Intake & Output: Intake and Output for Last 24 Hours 03/01/23 03/02/23 03/03/23 23:59 23:59 23:59 Intake Total 3448.67 / 3798.67 2833.62 / 2833.62 Output Total 1375 / 1875 1700 / 1700 Balance 2073.67 / 1923.67 1133.62 / 1133.62 Lab / Micro Data 03/03/23 05:42 03/03/23 05:42 Labs: Laboratory Results - last 24 hr 03/03/23 05:42: WBC 7.0, RBC 4.69, Hgb 13.4, Hct 38.2 L, MCV 81.4, MCH 28.6, MCHC 35.1, RDW Std Deviation 39.6, RDW Coeff of Guilherme 13.4, Plt Count 202, MPV 9.9, Immature Gran % (Auto) 1.100 H, Neut % (Auto) 63.7, Lymph % (Auto) 20.4, [place] % (Auto) 9.0, Eos % (Auto) 5.2 H, Baso % (Auto) 0.6, Absolute Neuts (auto) 4.4, Absolute Lymphs (auto) 1.42, Nucleated RBC % 0, Sodium 141, Potassium 2.9 L , Chloride 111 H, Carbon Dioxide 23.0, Anion Gap 7, BUN 16, Creatinine 1.08, Estim Creat Clear Calc 67.67, Est GFR (MDRD) Af Amer 85, Est GFR (MDRD) Non-Af 71, BUN/Creatinine Ratio 14.8, Glucose 125 H, Calcium 8.1 L, Magnesium 1.9 Micro: Microbiology 02/25/23 20:20 Mucosa - Nose SARS-CoV-2, Influenza & RSV (PCR) - Final Physical Exam Const oriented x3 and no apparent distress Resp normal respiratory effort GI soft to palpation and non-tender Assessment & Plan Assessment/Plan (1) Urinary retention: (2) Meckel's diverticulitis: PLAN: Plan The patient had Muir replaced. I will have him follow-up with Dr. Jeong. He will go home with Muir in place. Patient is hypokalemic this morning. I will replace his potassium. I will discharge patient home today. Reilly Mack MD Pager: [facility] [address] [place] [address], [address] [place] [address] Office:
--- NOTE | 2023-03-03 07:25 | PCM.DC.SUM ---
Providers Date of Admission: 02/25/23 Primary Care Physician: Dr. Samir Quevedo MD Consultations 02/26/23 07:55 Consult: Cardiology Routine Consulting Provider: Mikhail Olivares Reason for Consult: tachycardia EMERGENT Consult: No MD Notified: Yes Date Notified: 02/26/23 Time Notified: 07:55 Method of Notification: Verbal Reason For Visit: SMALL BOWEL OBSTRUCTION Diagnosis Discharge Diagnosis (1) Urinary retention: Status: Acute Code(s): R33.9 - Retention of urine, unspecified (2) Meckel's diverticulitis: Status: Acute Code(s): Q43.0 - Meckel's diverticulum (displaced) (hypertrophic) Plan The patient had Muir replaced. I will have him follow-up with Dr. Jeong. He will go home with Muir in place. Patient is hypokalemic this morning. I will replace his potassium. I will discharge patient home today. Reilly Mack MD Pager: [facility] [address] [place] [address], [address] [place] [phone] Office: Medications at Discharge Home Medications doxazosin 1 mg tablet 1 mg PO QHS blood pressure 04/15/21 aspirin 81 mg capsule 81 mg PO DAILY #30 caps 04/16/21 ramipril 1.25 mg capsule 1.25 mg PO DAILY blood pressue 02/25/23 levothyroxine 50 mcg tablet 50 mcg PO DAILY thyroid 02/26/23 acetaminophen 325 mg tablet 650 mg (2 x 325 mg) PO Q4H PRN PRN Pain 1-10 Or Fever #0 tabs 03/03/23 Hospital Course Operations - (Laparotomy) Summary of Care Provided Hospital Course: Patient was admitted with a small bowel obstruction. The following day he was taken for surgery and found to have an inflamed Meckel's causing obstruction. The Meckel's was resected and the bowel adhesions were taken down. Afterwards the patient had acute urinary retention requiring Muir placement. The following day after the patient was started on Flomax he had a voiding trial which he failed and the Muir was replaced. Other than that he was doing well and white count was normal and he was tolerating diet he was discharged home with Muir in place and will follow-up with urology. Reilly Mack MD Pager: [facility] [address] [place] [address], [address] [place] [address] Office: Weight / BMI Weight Weight: 219 lb 5.759 oz Body Mass Index (BMI) 32.3 ABG / Lab / Microbiology Data 03/03/23 05:42 03/03/23 05:42 Laboratory: Laboratory Results - last 24 hr 03/03/23 05:42: WBC 7.0, RBC 4.69, Hgb 13.4, Hct 38.2 L, MCV 81.4, MCH 28.6, MCHC 35.1, RDW Std Deviation 39.6, RDW Coeff of Guilherme 13.4, Plt Count 202, MPV 9.9, Immature Gran % (Auto) 1.100 H, Neut % (Auto) 63.7, Lymph % (Auto) 20.4, [place] % (Auto) 9.0, Eos % (Auto) 5.2 H, Baso % (Auto) 0.6, Absolute Neuts (auto) 4.4, Absolute Lymphs (auto) 1.42, Nucleated RBC % 0, Sodium 141, Potassium 2.9 L, Chloride 111 H, Carbon Dioxide 23.0, Anion Gap 7, BUN 16, Creatinine 1.08, Estim Creat Clear Calc 67.67, Est GFR (MDRD) Af Amer 85, Est GFR (MDRD) Non-Af 71, BUN/Creatinine Ratio 14.8, Glucose 125 H, Calcium 8.1 L, Magnesium 1.9 Microbiology: Microbiology 02/25/23 20:20 Mucosa - Nose SARS-CoV-2, Influenza & RSV (PCR) - Final D/C Instructions Discharge Diet: Light diet - advance as tolerated Discharge Activity: May Drive (Once off of narcotics) and May Shower Lifting Restrictions: 15 lbs for 4 weeks Call your doctor if your incision/area has: Continuous Slow Oozing, Sudden Increased Bleeding, Increased Pain/ Swelling, Increased Redness, Foul Smelling Discharge and Swelling at the incision site Call your doctor if you observe: Fever of 101 or Higher Remove Dressing in: 1 day (Change dressings daily) Cleanse incision/area with: Soap & Water Catheter: Muir to leg bag Additional Instructions: Referral has been made to Dr. Jeong for urinary retention follow-up. Please Follow Up With: Reilly Mack MD When: Please call to schedule 1 week follow up appointment. [phone] Meaningful Use Info Meaningful Use Diagnoses (Choose all that apply): None applicable Discharge Plan Admission Admit Date/Time: 02/25/23 23:23 Attending Provider: Reilly Mack Primary Care Provider: Samir Quevedo Consulting Providers: Mikhail Oliavres Discharge Orders/Prescriptions Prescriptions: New acetaminophen 325 mg Tablet 650 mg PO Q4H PRN PRN (Reason: Pain 1-10 Or Fever) Qty: 0 0RF Continued doxazosin 1 mg tablet 1 mg PO QHS Patient Comments: TAKE 1 TABLET BY MOUTH NIGHTLY WITH SUPPER FOR BLOOD PRESSURE AND FOR PROSTATE aspirin 81 mg capsule 81 mg PO DAILY Qty: 30 1RF ramipril 1.25 mg capsule 1.25 mg PO DAILY levothyroxine 50 mcg tablet 50 mcg PO DAILY Referrals / Follow Up: Samir Quevedo MD [Primary Care Provider] - Disposition Disposition (needs filled in before D/C Order can be placed): Home, Self Care
[2023-03-03] MEDS: Potassium Chloride 10mEq/100mL 10 MEQ/100 ML IV.SOLN. 100 MEQ IV BOLUS ×3 (08:00→10:49)
[2023-03-03 09:28] VITALS: BP 162/112; PULSE 106; RESP 16; TEMP 36.7; O2SAT 97
[2023-03-03] MEDS: Aspirin 81 MG TAB.CHEW PO (09:30)
--- NOTE | 2023-03-03 11:10 | CASEMGMT ---
Patient has order for discharge. RN CM in to discuss needs at discharge. Patient denies needs or help at discharge. Patient had no further questions or concerns at this time.
--- NOTE | 2023-03-03 11:16 | PHA.DC.MR.R ---
Pharmacy [place] Med Reconciliation Pharmacy Service has performed discharge medication reconciliation for this patient. The patient's discharge medication list was reviewed for discrepancies and discrepancies were resolved. Medications at Discharge Home Medications doxazosin 1 mg tablet 1 mg PO QHS blood pressure 04/15/21 aspirin 81 mg capsule 81 mg PO DAILY #30 caps 04/16/21 ramipril 1.25 mg capsule 1.25 mg PO DAILY blood pressue 02/25/23 levothyroxine 50 mcg tablet 50 mcg PO DAILY thyroid 02/26/23 acetaminophen 325 mg tablet 650 mg (2 x 325 mg) PO Q4H PRN PRN Pain 1-10 Or Fever #0 tabs 03/03/23
== END 2023-03-03 13:13 | disposition home or self-care (01) | DRG 330 ==
LOC: ED 22:37 → PCU 02-26 01:51
PROVIDERS: Surgery; Admitting Provider Surgery; Emergency Provider Emergency Medicine; PCP Family Medicine; Visit Provider Surgery
PROC: 0DBB0ZZ Excision of Ileum, Open Approach (ICD-10-PCS; CPT 44202; principal; 2023-02-26 12:25)
DX: Q43.0 Meckel's diverticulum (displaced) (hypertrophic) (principal); I47.10 Supraventricular tachycardia, unspecified; N13.30 Unspecified hydronephrosis; I10 Essential (primary) hypertension; E86.0 Dehydration; E87.6 Hypokalemia; N99.89 Other postprocedural complications and disorders of genitourinary system; Z53.31 Laparoscopic surgical procedure converted to open procedure; R33.8 Other retention of urine; Y83.8 Other surgical procedures as the cause of abnormal reaction of the patient, or of later complication, without mention of misadventure at the time of the procedure; Y92.239 Unspecified place in hospital as the place of occurrence of the external cause; Z79.82 Long term (current) use of aspirin; Z79.899 Other long term (current) drug therapy
CPT/HCPCS: 36415; 74018; 74176; 74177; 80048; 80053; 81001; 82962; 83605; 83690; 83735; 85025; 87631; 88304; 88307; 93005; 93306; 97802; 99285; J7030; J7050; J7120; Q9957; Q9967; A4216; C8929; J2405

== ENCOUNTER 2023-03-08 20:50 | Emergency (ER) | payer MEDICARE, OTHER, SELFPAY ==
[2023-03-08 20:51] VITALS: BP 203/171; PULSE 126; RESP 22; TEMP 35.7; O2SAT 97; BMI 34.3
[2023-03-08 21:25] LABS: Bacteria 0 SEEN /hpf (None Seen); Mucous, Urine 0 SEEN /hpf (<or=2+)
[2023-03-08 21:29] LABS: Color, Urine Yellow (Yellow); Glucose, Dipstick Normal (Normal); Ketone-Dipstick Negative (Negative); Leukocyte Esterase-Dipstick 25 /ul (Negative); Nitrite-Dipstick Negative (Negative); Occult Blood-Urine 10 /ul (Negative); Protein-Dipstick 15 mg/dl (Negative); Specific Gravity, Urine 1.015 (1.002-1.030); Urine Bilirubin Dipstick Negative (Negative); Urine Clarity Sl. Cloudy (Clear); Urine Urobilinogen Normal (Normal)
--- NOTE | 2023-03-08 21:36 | EDS_ITS ---
HPI History of Present Illness Chief Complaint: Complaint Informant: patient Narrative Narrative: 77-year-old male presenting to the emergency room with acute urinary retention. Patient was recently admitted for small bowel obstruction secondary to Meckel's. He underwent laparotomy which was complicated by urinary retention postoperatively. He had the Muir catheter removed today states he has been unable to urinate since. No fevers. He notes his abdominal incision is healing appropriately. He states he does have a history of BPH. PFSH PFS Medical History HTN (hypertension) Kidney stones Non-smoker Obesity Osteoarthritis Sinusitis, maxillary, chronic Vertigo Wears hearing aid in both ears Home Medications doxazosin 1 mg tablet 1 mg PO QHS blood pressure 04/15/21 [History Last Taken Unknown] aspirin 81 mg capsule 81 mg PO DAILY #30 caps 04/16/21 [Rx Last Taken Unknown] ramipril 1.25 mg capsule 1.25 mg PO DAILY blood pressue 02/25/23 [History Last Taken Unknown] levothyroxine 50 mcg tablet 50 mcg PO DAILY thyroid 02/26/23 [History Last Taken Unknown] acetaminophen 325 mg tablet 650 mg (2 x 325 mg) PO Q4H PRN PRN Pain 1-10 Or Fever #0 tabs 03/03/23 [Rx Last Taken Unknown] Allergy/AdvReac Type Severity Reaction Status Date / Time levofloxacin Allergy Mild Other Verified 03/08/23 20:51 Family History Father Heart disease Mother Cancer Unclear type. Surgical History History of arthroscopic knee surgery History of cholecystectomy History of colonoscopy (~2018) S/P bilateral inguinal hernia repair S/P exploratory laparotomy Social History household members: spouse Smoking Status: Never smoker alcohol intake: never substance use type: does not use ROS ROS ED Constitutional Constitutional ED: Denies chills, fever(s) or weight loss Eyes Eyes: Denies change in vision or diplopia ENT ENT ED: Denies ear pain, rhinorrhea or sore throat Cardiovascular Cardiovascular: Denies chest pain, orthopnea, palpitations or racing heartbeat Respiratory/Chest Respiratory/Chest: Denies cough, dyspnea or orthopnea Gastrointestinal Gastrointestinal: Denies abdominal pain, diarrhea, nausea or vomiting Genitourinary Genitourinary ED: Reports other Details: Unable to void ; Denies dysuria, hematuria or urinary frequency Musculoskeletal Musculoskeletal: Denies arthralgias or myalgias Integumentary Denies abscess or rash Neurologic Neurologic: Denies headache(s) or weakness Psychiatric Psychiatric: Denies anxiety, depression, suicidal ideation or suicidal thoughts Endocrine Endocrinology: Denies polydipsia, polyphagia or polyuria Allergic/Immunologic Allergic/Immunologic ED: Denies mouth swelling, tongue swelling or urticaria EXAM Physical Exam Const Vital Signs: 03/08/23 20:51 Temperature 96.2 F L Temperature Source Temporal Pulse Rate 126 H Respiratory Rate 22 H Blood Pressure 203/171 H Blood Pressure Mean 181 Pulse Ox 97 Oxygen Delivery Method Room Air Positive well nourished and well developed General Appearance ED: well developed HEENT Reports normocephalic, head/scalp atraumatic and moist mucous membranes Eyes PERRL and EOMs intact bilaterally Neck no lymphadenopathy, supple and no JVD Resp normal respiratory effort and clear to auscultation bilaterally Cardio regular rate, regular rhythm and no murmurs GI normal to inspection, nondistended, normoactive bowel sounds and non-tender Palpation: soft Back/Spine no CVA tenderness and normal ROM Extremity normal to inspection General Extremety ED: Negative for edema General Extremity: Negative for edema Neuro oriented x3 and CN's II-XII intact bilaterally Sensorium / Orientation: alert Motor Exam: strength 5/5 throughout Psych mental status grossly normal Mood & Affect: Negative for depressed or tearful Skin no rashes or lesions noted and no wounds MDM MDM MDM Narrative Medical decision making narrative: Muir catheter was placed by nursing prior to my examination. They had a removed approximately 750 cc before my exam. The urine shows no overt infection. Will transition to a leg bag. He will follow-up with urology. Return if worsening or concerns History & Record Review Discussion w/independent historian: Patient Lab Data Attestation: I reviewed the patient's lab results. Labs: Laboratory Results - last 24 hr 03/08/23 21:19 Urine Color Yellow Urine Clarity Sl. Cloudy Urine pH 6.0 Ur Specific Vincent 1.015 Urine Protein 15 H Urine Glucose (UA) Normal Urine Ketones Negative Urine Occult Blood 10 H Urine Nitrite Negative Urine Bilirubin Negative Urine Urobilinogen Normal Ur Leukocyte Esterase 25 H Urine RBC 0-5 SEEN Urine WBC 0-5 SEEN Ur Squamous Epith Cells 0-5 SEEN Urine Bacteria 0 SEEN Urine Mucus 0 SEEN Discharge Plan Triage Chief Complaint: Complaint ED Provider: Eliseo Dobbins Dx/Rx/DC Orders Clinical Impression: Urinary retention Instructions: ED Muir Catheter, Care, ED Urinary Retention, Male Prescriptions: No Action doxazosin 1 mg tablet 1 mg PO QHS Patient Comments: TAKE 1 TABLET BY MOUTH NIGHTLY WITH SUPPER FOR BLOOD PRESSURE AND FOR PROSTATE aspirin 81 mg capsule 81 mg PO DAILY Qty: 30 1RF ramipril 1.25 mg capsule 1.25 mg PO DAILY levothyroxine 50 mcg tablet 50 mcg PO DAILY acetaminophen 325 mg Tablet 650 mg PO Q4H PRN PRN (Reason: Pain 1-10 Or Fever) Qty: 0 0RF Primary Care Provider: Samir Quevedo Referrals: Samir Quevedo MD [Primary Care Provider] - Golden Jeong MD [Med Staff - Active Staff] - As soon as possible Disposition Disposition: Home, Self Care Discharge Date/Time: 03/08/23 21:54 Capacity Legal 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 Next of kin: [place] law dictates a PRIORITY LIST for identifying legal decision-maker/legal next of kin in the following order (LNOK): 1st: The patient?s legal guardian, if any 2nd: The patient's spouse (if status is questionable, consult Risk Management) 3rd: The patient?s adult child(opal) (majority, if multiple children) 4th: The patient?s parents 5th: The patient?s adult siblings (majority, if multiple children siblings)
--- OUTSIDE RECORDS SUMMARY | 2023-03-08 21:36 | XMS RPT_ITS | CCD ---
Author Name Unknown Address [address] [place] [address] Organization [facility] Care Team Providers Care Supervisor Television Chassis Repair Name Role Phone Syl Eagle Unavailable Unavailable [...] BE BASED ON THE PRIMARY CLINICAL RECORDS. [employer] provides no warranty or guarantee of the accuracy or completeness of information in this document.
[2023-03-08 21:38] LABS: Red Blood Cells-Urine 0-5 SEEN /hpf (0-5); Squamous Epithelial Cells - UA 0-5 SEEN /hpf (0-5); White Blood Cells 0-5 SEEN /hpf (0-5)
== END 2023-03-08 21:54 | disposition home or self-care (01) ==
LOC: ED 21:33
PROVIDERS: Emergency Provider Emergency Medicine; PCP Family Medicine; Referring Provider Emergency Medicine; Visit Provider Emergency Medicine
DX: R33.9 Retention of urine, unspecified (principal); I10 Essential (primary) hypertension; Z79.899 Other long term (current) drug therapy
CPT/HCPCS: 81001; 99282

== ENCOUNTER 2023-03-24 10:09 | Emergency (ER) | payer MEDICARE, OTHER, SELFPAY ==
[2023-03-24 10:10] VITALS: BP 181/101; PULSE 116; RESP 18; TEMP 36.1; O2SAT 97; BMI 35.5
--- NOTE | 2023-03-24 12:22 | EX.ED.GUMALE ---
HPI History of Present Illness Chief Complaint: Complaint Informant: patient Narrative Narrative: 77-year-old male presenting to the emergency room with urinary retention. Patient states that he recently underwent abdominal surgery for small bowel obstruction/adhesions. Postoperatively was complicated with urinary retention. He just had a catheter removed and was unable to urinate. He had some straight cath materials at home that he was given and drained approximately 700 cc this morning around 0500 hrs. Patient states he still unable to urinate. He is following locally with Dr. Jeong. [facility] Medical History First degree AV block HTN (hypertension) Kidney stones Non-smoker Obesity Osteoarthritis Paroxysmal supraventricular tachycardia Sinusitis, maxillary, chronic Vertigo Wears hearing aid in both ears Home Medications doxazosin 1 mg tablet 1 mg PO QHS blood pressure 04/15/21 [History Last Taken Unknown] aspirin 81 mg capsule 81 mg PO DAILY #30 caps 04/16/21 [Rx Last Taken Unknown] ramipril 1.25 mg capsule 1.25 mg PO DAILY blood pressue 02/25/23 [History Last Taken Unknown] levothyroxine 50 mcg tablet 50 mcg PO DAILY thyroid 02/26/23 [History Last Taken Unknown] finasteride 1 mg tablet mg 03/24/23 [History Last Taken Unknown] tamsulosin 0.4 mg capsule mg PO 03/24/23 [History Last Taken Unknown] Allergy/AdvReac Type Severity Reaction Status Date / Time levofloxacin Allergy Mild Other Verified 03/24/23 11:47 Family History Father Heart disease Mother Cancer Unclear type. Surgical History History of arthroscopic knee surgery History of cholecystectomy History of colonoscopy (~2018) S/P bilateral inguinal hernia repair S/P exploratory laparotomy Social History household members: spouse Smoking Status: Never smoker alcohol intake: never substance use type: does not use ROS ROS ED Constitutional Constitutional ED: Denies chills or weight loss Eyes Eyes: Denies change in vision or diplopia ENT ENT ED: Denies ear pain, rhinorrhea or sore throat Cardiovascular Cardiovascular: Denies chest pain, orthopnea, palpitations or racing heartbeat Respiratory/Chest Respiratory/Chest: Denies cough, dyspnea or orthopnea Gastrointestinal Gastrointestinal: Reports other; Denies constipation, diarrhea, nausea or vomiting Genitourinary Genitourinary ED: Reports other Details: Urinary retention suprapubic pain ; Denies dysuria, hematuria or urinary frequency Musculoskeletal Musculoskeletal: Denies arthralgias or myalgias Integumentary Denies abscess or rash Neurologic Neurologic: Denies headache(s) or weakness Psychiatric Psychiatric: Denies anxiety, depression, suicidal ideation or suicidal thoughts Endocrine Endocrinology: Denies polydipsia, polyphagia or polyuria Allergic/Immunologic Allergic/Immunologic ED: Denies mouth swelling, tongue swelling or urticaria EXAM Physical Exam Const Vital Signs: 03/24/23 10:10 Temperature 97 F L Temperature Source Temporal Pulse Rate 116 H Respiratory Rate 18 Blood Pressure 181/101 H Blood Pressure Mean 127 Pulse Ox 97 Oxygen Delivery Method Room Air Positive well nourished and well developed General Appearance ED: well developed HEENT Reports normocephalic, head/scalp atraumatic and moist mucous membranes Eyes PERRL and EOMs intact bilaterally Neck no lymphadenopathy, supple and no JVD Resp normal respiratory effort and clear to auscultation bilaterally Cardio regular rate, regular rhythm and no murmurs GI normal to inspection, nondistended, normoactive bowel sounds and non-tender Palpation: soft Back/Spine no CVA tenderness and normal ROM Extremity normal to inspection General Extremety ED: Negative for edema General Extremity: Negative for edema Neuro oriented x3 and CN's II-XII intact bilaterally Sensorium / Orientation: alert Motor Exam: strength 5/5 throughout Psych mental status grossly normal Mood & Affect: Negative for depressed or tearful Skin no rashes or lesions noted and no wounds MDM MDM MDM Narrative Medical decision making narrative: By the time I was able to evaluate the patient nursing and area placed a Muir catheter with removal of the retention. He is feeling better. Patient is encouraged to drink plenty of fluids as the urine appears dark. He is not experiencing any fevers suprapubic discomfort is better. He will be following up with urology Discharge Plan Triage Chief Complaint: Complaint ED Provider: Eliseo Dobbins Dx/Rx/DC Orders Clinical Impression: Urinary retention Instructions: ED Urinary Retention, Male Prescriptions: No Action doxazosin 1 mg tablet 1 mg PO QHS Patient Comments: TAKE 1 TABLET BY MOUTH NIGHTLY WITH SUPPER FOR BLOOD PRESSURE AND FOR PROSTATE aspirin 81 mg capsule 81 mg PO DAILY Qty: 30 1RF ramipril 1.25 mg capsule 1.25 mg PO DAILY levothyroxine 50 mcg tablet 50 mcg PO DAILY tamsulosin 0.4 mg capsule PO finasteride 1 mg tablet Primary Care Provider: Samir Quevedo Referrals: Samir Quevedo MD [Primary Care Provider] - Golden Jeong MD [Med Staff - Active Staff] - As soon as possible Disposition Disposition: Home, Self Care
== END 2023-03-24 12:52 | disposition home or self-care (01) ==
PROVIDERS: Emergency Provider Emergency Medicine; PCP Family Medicine; Visit Provider Emergency Medicine
DX: R33.9 Retention of urine, unspecified (principal); I10 Essential (primary) hypertension
CPT/HCPCS: 51702; 99283; A4216

== ENCOUNTER 2023-04-09 13:33 | Day surgery (SDC) | payer MEDICARE, OTHER, SELFPAY ==
[2023-03-31 12:16] LABS: Anion Gap 6 (5-15); BUN 26 mg/dL (7-18); BUN/Creat Ratio 18.8 RATIO (10-20); Calcium,Total 8.8 mg/dL (8.5-10.1); Chloride 107 mmol/L (98-107); Creatinine, Serum 1.38 mg/dL (0.70-1.30); EST Glomerular Filtration Rate 53 mL/min (>60); Est Glom Filt Rate - Afr Amer 64 mL/min (>60); Glucose 178 mg/dL (74-106); Potassium 4.1 mmol/L (3.5-5.1); Sodium Level 138 mmol/L (136-145); Thyroid Stim Hormone (TSH) 2.27 uIU/mL (0.358-3.74)
[2023-04-09] VITALS (14 sets, daily range): BP systolic 122–162; BP diastolic 78–96; PULSE 71–104; RESP 16–18; TEMP 35.8–36.6; O2SAT 93–98; BMI 34.4
--- NOTE | 2023-04-09 | PROS_PTH ---
PATHOLOGY RESULTS PATIENT: YARIEL SANCHEZ [place] [facility] [place][id number] AGE/SX: 77/M ROOM: RE04/09/[address]: Dr. Golden Jeong MD : 1945 BED: DIS: 04/10/2023 SPEC #: [id number] RECD: 04/09/23 18:04 STATUS: EH ALCANTAR #: [id number] FAMILIA: 04/09/23 00:[address]: Golden Jeong DEPT: SURGICAL PATHOLOGY RECD BY: Mitchell Wilson ENTERED: 04/12/23 08:06 SP TYPE: TURP OTHR DR: MD Dr. Samir Eason MD Tissues: Prostate, NOS Procedures: Surgery Specimen Level IV HEADER OPERATION: Transurethral resection of prostate with Olympus PRE-OP DIAGNOSIS: BPH with obstruction TISSUE SUBMITTED: Prostate tissue MICROSCOPIC DIAGNOSIS Prostate tissue, transurethral resection: Benign prostatic hyperplasia, glandular and stromal type. Chronic inflammation. SAM:mohit 04/13/2023 MICROSCOPIC DESCRIPTION Slides are reviewed. GROSS DESCRIPTION Received is one container labeled with the patient's name and designated prostate tissue. The specimen consists of multiple irregular fragments of pink-robledo, rubbery, soft tissue that in aggregate weigh 10.7 gm and measure in aggregate 5.0 x 4.5 x 2.0 cm. Certified Alcohol And Drug Counselor tissue is submitted in ten cassettes. / SAM:mohit 04/12/2023 TC:5 CPT: 30049
--- OUTSIDE RECORDS SUMMARY | 2023-04-09 13:53 | XMS RPT_ITS | CCD ---
Author Name Unknown Address [address] [place] [address] Organization [facility] Care Team Providers Care Day Spa Manager Name Role Phone Syl Eagle Unavailable Unavailable [...] BE BASED ON THE PRIMARY CLINICAL RECORDS. [employer] provides no warranty or guarantee of the accuracy or completeness of information in this document.
[2023-04-09] MEDS: Lactated Ringers 1,000 ML 15 ML IV (14:09)
--- NOTE | 2023-04-09 15:41 | HP.PCM_ITS ---
[facility] - General General Date of Service: 04/09/23 Chief Complaint: BPH with obstruction HPI Narrative YARIEL SANCHEZ, is a 77 M who presents for a transurethral resection of the prostate for obstruction of the prostate with enlarged prostate [facility] Medical History (Updated 03/31/23 @ 09:23 by Ayesha Saldana) Cardiology follow-up encounter First degree AV block HTN (hypertension) Kidney stones Non-smoker Obesity Osteoarthritis Paroxysmal supraventricular tachycardia Prostate disease Sinusitis, maxillary, chronic Thyroid disease Vertigo Wears glasses Wears hearing aid in both ears Home Medications aspirin 81 mg capsule 81 mg PO DAILY #30 caps 04/16/21 [Rx Last Taken Unknown] ramipril 1.25 mg capsule 1.25 mg PO QHS blood pressue 02/25/23 [History Last Mike en Unknown] levothyroxine 50 mcg tablet 50 mcg PO QHS thyroid 02/26/23 [History Last Taken Unknown] finasteride 1 mg tablet 1 mg PO DAILY 03/24/23 [History Last Taken Unknown] tamsulosin 0.4 mg capsule 0.4 mg PO DAILY 03/24/23 [History Last Taken Unknown] Allergy/AdvReac Type Severity Reaction Status Date / Time levofloxacin Allergy Mild Other Verified 04/09/23 13:52 Family History Father Heart disease Mother Cancer Unclear type. Surgical History History of arthroscopic knee surgery History of cholecystectomy History of colonoscopy (~2018) S/P bilateral inguinal hernia repair S/P exploratory laparotomy (~02/2023) Social History household members: spouse Smoking Status: Never smoker alcohol intake: never substance use type: does not use Vital Signs Vital Signs Vital Signs: 04/09/23 13:54 04/09/23 13:54 Temperature 96.8 F L Temperature Source Temporal Pulse Rate 104 H Respiratory Rate 16 Respiratory Pattern Normal Blood Pressure 145/81 H Blood Pressure Mean 102 Blood Pressure Source Monitor Blood Pressure Position Semi-Fowlers Blood Pressure Location Right Arm Pulse Ox 96 Oxygen Delivery Method Room Air Weight Weight: 102.965 kg Body Mass Index (BMI) 34.4 Results Lab / Micro Data 03/31/23 10:45
[2023-04-09] MEDS: Cefazolin 2 GM in 0.9% Normal Saline (100mL Bag) 100 ML IV (16:10)
--- NOTE | 2023-04-09 17:05 | PCM.OPRPT ---
Report of Operation Date of Procedure: 04/09/23 Pre-Operative Diagnosis: BPH with retention of urine Post-Operative Diagnosis: The same Surgery/Procedure Performed:: Transurethral resection of prostate Description of Surgical Findings:: In the preoperative setting I discussed with the patient how the surgery would be done with expect afterwards. We discussed how a prostate resection is done and we discussed the risk of the surgery including, bleeding, infection, retrograde ejaculation, changes with ejaculation or intercourse,. We discussed the possibility that the resection of the prostate may not alleviate his urinary symptoms. We discussed the small risk of developing scar tissue along the urethral channel and strictures. We also discussed the chance of the prostate could grow back and he may need further surgery or treatment in the future for prostate problems. Patient was taken back to the operating room, timeout procedure was performed, he was identified and marked and placed on the operating room table. He underwent general anesthesia. He was placed in dorsolithotomy position. Penis and testicles were prepped and draped in usual sterile fashion. Went into the bladder using the visual obturator with a resectoscope. Once inside the bladder identified the right and left ureteral orifice. I then identified the prostate and the anatomy of the prostate. I marked out the area of the sphincter and the verumontanum was identified. I then proceeded with the prostate resection first resected the median lobe. And then resected the right lobe of the prostate. Then to resect the left lobe of the prostate. I then resected the apical tissue of the prostate. This was a complete resection of all obstructive tissue to improve voiding and relieve obstruction. I then made sure that there was no injury to the sphincter or the verumontanum was still intact. At the end of the resection all the chips were Ellik out of the bladder. I then identified the left and right ureteral orifice and these were confirmed to be in good position and effluxing and not injured. The resectoscope was removed, a 22 Ukrainian catheter was placed into the bladder on continuous irrigation. And the urine was fairly light pink color and draining normally. He was taken back to the PACU in good condition. Surgeon: Golden Jeong Type of Anesthesia: General Drains: 22 Ukrainian three-way catheter Estimated Blood Loss (mL): Minimal Admit VTE Documentation VTE Present on Admission: No VTE Mechan Device Prophylaxis: SCD's VTE Pharm Prophylaxis ordered?: No
--- NOTE | 2023-04-09 17:06 | DCINST_ITS ---
Discharge Instructions Diet Discharge Diet: No restrictions Activity Discharge Activity: Return to Normal Activity and May Not Drive (while taking narcotic pain medications.) Dressing / Incision Call your doctor if you observe: Fever of 101 or Higher Follow Up Care Please Follow Up With: Golden Jeong MD When: Call [phone] for an appointment Test Results: Test results from this visit will be discussed in further detail at your follow- up appointment, if applicable. Discharge Plan Admission Attending Provider: Golden Jeong Primary Care Provider: Samir Quevedo Consulting Providers: Aroldo Liu Discharge Orders/Prescriptions Prescriptions: No Action aspirin 81 mg capsule 81 mg PO DAILY Qty: 30 1RF ramipril 1.25 mg capsule 1.25 mg PO QHS levothyroxine 50 mcg tablet 50 mcg PO QHS tamsulosin 0.4 mg capsule 0.4 mg PO DAILY finasteride 1 mg tablet 1 mg PO DAILY Referrals / Follow Up: Samir Quevedo MD [Primary Care Provider] - Disposition Disposition (needs filled in before D/C Order can be placed): Home, Self Care
[2023-04-09] MEDS: Lactated Ringers 1,000 ML 125 ML IV (18:47)
[2023-04-09] MEDS: Docusate Sodium 100 MG Capsule 200 MG PO (21:34)
[2023-04-09] MEDS: Levothyroxine 50 MCG Tablet PO (21:34)
[2023-04-09] MEDS: Ketorolac 15 MG/ML Vial IV (21:36)
[2023-04-09] MEDS: Ondansetron 4 MG/2 ML Vial IV (21:40)
[2023-04-09] MEDS: Cefazolin 1 GM/50 ML BAG IV (23:26)
[2023-04-10 02:42] VITALS: BP 149/85; PULSE 68; RESP 18; TEMP 36.5; O2SAT 96
[2023-04-10] MEDS: Lactated Ringers 1,000 ML 125 ML IV (02:54)
[2023-04-10 04:20] VITALS: BP 139/82; PULSE 73; RESP 20; TEMP 36.5; O2SAT 96
[2023-04-10 07:30] VITALS: BP 127/75; PULSE 85; RESP 16; TEMP 36.6; O2SAT 96
[2023-04-10] MEDS: Cefazolin 1 GM/50 ML BAG IV (07:41)
--- NOTE | 2023-04-10 08:02 | PCM.PN.GU ---
Subjective Subjective Status post TURP DC [place] patient can go home after he urinates Objective Data Objective Data Vital Signs: Vital Signs Temp Pulse Resp BP Pulse Ox O2 Del Method 97.8 F 85 16 127/75 H 96 Room Air 04/10/23 07:30 04/10/23 07:30 04/10/23 07:30 04/10/23 07:30 04/10/23 07:30 04/10/23 07:30 Oxygen Delivery Method Room Air Weight: 102.965 kg Body Mass Index (BMI) 34.4 Intake & Output: Intake and Output for Last 24 Hours 04/08/23 04/09/23 04/10/23 23:59 23:59 23:59 Intake Total 1660 / 1660 1000 / 1000 Output Total 3950 / 3950 600 / 600 Balance -2290 / -2290 400 / 400 Lab / Micro Data 03/31/23 10:45
[2023-04-10] MEDS: Docusate Sodium 100 MG Capsule 200 MG PO (09:54)
[2023-04-10] MEDS: Tamsulosin HCl 0.4 MG Capsule 0.400000000000000022 MG PO (09:54)
== END 2023-04-10 17:07 | disposition home or self-care (01) ==
LOC: SDC 13:34 → AC 13:34 → MS3 16:16
PROVIDERS: Anesthesiology; PCP Family Medicine; Referring Provider Urology; Visit Provider Urology
PROC: 0VT08ZZ Resection of Prostate, Via Natural or Artificial Opening Endoscopic (ICD-10-PCS; CPT 52601; principal; 2023-04-09 15:45)
DX: N40.1 Benign prostatic hyperplasia with lower urinary tract symptoms (principal); Z79.82 Long term (current) use of aspirin; I10 Essential (primary) hypertension; E03.9 Hypothyroidism, unspecified; Z79.890 Hormone replacement therapy; N13.8 Other obstructive and reflux uropathy; R33.8 Other retention of urine; Z79.899 Other long term (current) drug therapy
CPT/HCPCS: 52601; 00914; 36415; 80048; 84443; 88305; J7120; J2405

== ENCOUNTER → 2023-04-23 | Outpatient (CLI) | payer MEDICARE, OTHER, SELFPAY ==
--- NOTE | 2023-04-23 12:53 | CDU_ITS ---
Reason For Study: Carotid stenosis Rt. Velocities/BP Lt. Velocities/BP Prox CCA 76.2/11.3 cm/sec. Prox CCA 76.8/19.2 cm/sec. Mid CCA 109.7/15.1 cm/sec. Mid CCA 63.6/15.4 cm/sec. Dist CCA 106/20 cm/sec. Dist CCA 93.8/21.1 cm/sec. Prox ICA 84.6/22.5 cm/sec. Prox ICA 259.6/81.8 cm/sec. Mid ICA 86.2/21.8 cm/sec. Mid ICA 134.6/33.6 cm/sec. Dist ICA 79/24.2 cm/sec. Dist ICA 85/23.4 cm/sec. Rt. ICA/CCA = 0.81. Lt. ICA/CCA = 3.38. Prox ECA 163.6/8.7 cm/sec. Prox ECA 362.1/28.6 cm/sec. Rt. Vert. 51.3/11.6 cm/sec. Lt. Vert. 51.3/6.9 cm/sec. Right Extracranial There is homogeneous, smooth atherosclerotic plaque noted in the right common carotid artery. There is homogeneous, smooth atherosclerotic plaque noted in the right internal carotid artery. There is homogeneous, smooth atherosclerotic plaque noted in the right external carotid artery. Antegrade flow is noted in the right vertebral artery. Left Extracranial There is homogeneous, smooth atherosclerotic plaque noted in the left common carotid artery. There is heterogeneous, irregular atherosclerotic plaque noted in the left internal carotid artery. There is heterogeneous, irregular atherosclerotic plaque noted in the left external carotid artery. Antegrade flow is noted in the left vertebral artery. Procedure This is a Carotid Duplex examination using B-mode, color flow and specral Doppler. Carotid Duplex [id number]. Exam performed in department. VL/Carotid Duplex Ultrasound Interpretation Summary Smooth plaque at the proximal right internal carotid artery with less than 50% stenosis Less than 50% stenosis right external carotid artery Irregular plaque with shadowing at the proximal left internal carotid artery wi th greater than 70% stenosis Greater than 50% stenosis left external carotid artery Patent and antegrade vertebral arteries bilaterally Findings suggest progression of stenosis of the left internal carotid artery fr om the previous examination of April 20, 2022 Ordering Physician: Messi Dumont Referring Physician: Samir Quevedo MD Performed By: Latonya Sampson RVT
== END | disposition home or self-care (01) ==
PROVIDERS: PCP Family Medicine; Referring Provider Surgery; Visit Provider Surgery
DX: I65.22 Occlusion and stenosis of left carotid artery (principal)
CPT/HCPCS: 93880

== ENCOUNTER → 2023-05-31 | Outpatient (CLI) | payer MEDICARE, OTHER, SELFPAY ==
[2023-05-31 09:36] LABS: Albumin, Serum 4.2 g/dL (3.2-5.0); BUN 26 mg/dL (7-18); BUN/Creat Ratio 18.2 RATIO (10-20); Calcium,Total 8.9 mg/dL (8.5-10.1); Chloride 107 mmol/L (98-107); Creatinine, Serum 1.43 mg/dL (0.70-1.30); EST Glomerular Filtration Rate 51 mL/min (>60); Est Glom Filt Rate - Afr Amer 62 mL/min (>60); Glucose 117 mg/dL (74-106); Phosphorus 2.9 mg/dL (2.5-4.9); Potassium 3.9 mmol/L (3.5-5.1); Sodium Level 139 mmol/L (136-145)
== END | disposition home or self-care (01) ==
LOC: LAB 08:29
PROVIDERS: PCP Family Medicine; Referring Provider Surgery; Visit Provider Surgery
DX: R33.9 Retention of urine, unspecified (principal); I65.22 Occlusion and stenosis of left carotid artery
CPT/HCPCS: 36415; 80069

== ENCOUNTER → 2023-06-14 | Outpatient (CLI) | payer MEDICARE, OTHER, SELFPAY ==
--- NOTE | 2023-06-14 14:02 | CT_ITS ---
STUDY: CTA NECK WITH CONTRAST REASON FOR EXAM: Male, 78 years old. check carotids RADIATION DOSAGE (If Supplied By Facility): CTDIvol = ( 19.62 ) mGy, DLP = ( 594.01 ) mGycm TECHNIQUE: CT angiography with multi-detector data acquisition was performed from the aortic arch to the skull base following intravenous administration of IV 100mL [id number]-300. MIP images were reconstructed from the axial data set. Post-processing of the angiographic images was performed, with multiplanar reformation and 3D reconstruction. Individualized dose optimization techniques were used for this CT. COMPARISON: None. FINDINGS: AORTIC ARCH: Normal visualized aortic arch. Normal origins of the brachiocephalic, left common carotid, and left subclavian arteries. RIGHT CAROTID ARTERIES: There is atherosclerotic plaque formation of the common carotid artery, but without a hemodynamically significant stenosis. Normal right common carotid bulb. Normal origin of the right internal carotid (ICA) artery without a hemodynamically significant stenosis. There is atherosclerotic tortuous elongation of the cervical portion of the right internal carotid artery. Normal origin of the right external carotid artery (ECA). LEFT CAROTID ARTERIES: Normal left common carotid artery (CCA). There is moderate atherosclerotic plaque formation with moderate narrowing of the carotid bulb. There is moderate atherosclerotic plaque formation of the origin of the left internal carotid artery with an estimated stenosis of 50-69% stenosis. There is atherosclerotic tortuous elongation of the cervical portion of the left internal carotid artery. Normal origin of the left external carotid artery (ECA). VERTEBRAL ARTERIES: Normal bilateral vertebral arteries. CT/CTA Neck W/WO Contrast IMPRESSION: Moderate grade, up to 69%, stenosis of the proximal left ICA. No occlusions. No other foci of hemodynamically significant stenoses. Electronically Signed: Tan Moctezuma MD at 16:54 EDT ,
[2023-06-14 14:14] VITALS: BP 160/92; PULSE 92; RESP 16; TEMP 36.3; O2SAT 96; BMI 32.3
[2023-06-14] MEDS: 0.9% Normal Saline (500mL Bag) 500 ML IV (14:18)
[2023-06-14] MEDS: Ondansetron 4 MG/2 ML Vial IV (15:21)
[2023-06-14 15:26] VITALS: BP 157/89; PULSE 85; RESP 16; O2SAT 98
== END | disposition home or self-care (01) ==
LOC: CT 14:00
PROVIDERS: PCP Family Medicine; Referring Provider Surgery; Visit Provider Surgery
DX: I65.22 Occlusion and stenosis of left carotid artery (principal)
CPT/HCPCS: 70498; Q9967; J2405

== ENCOUNTER → 2023-06-30 | Outpatient (CLI) | payer MEDICARE, OTHER, SELFPAY ==
[2023-06-30 11:05] LABS: ALB/GLOB Ratio 1.3 RATIO (0.9-2.4); AST(SGOT) 21 U/L (15-37); Alanine Aminotransfer ALT/SGPT 34 U/L (16-61); Albumin, Serum 3.9 g/dL (3.2-5.0); Alkaline Phosphatase 64 U/L (45-117); Anion Gap 5 (5-15); BUN 24 mg/dL (7-18); BUN/Creat Ratio 17.3 RATIO (10-20); Calcium,Total 8.6 mg/dL (8.5-10.1); Chloride 107 mmol/L (98-107); Cholesterol 181 mg/dL (200); Creatinine, Serum 1.39 mg/dL (0.70-1.30); EST Glomerular Filtration Rate 53 mL/min (>60); Est Glom Filt Rate - Afr Amer 64 mL/min (>60); Globulin 2.9 g/dL (2.2-4.2); Glucose 136 mg/dL (74-106); High Density Lipoprotein 34 mg/dL; Potassium 3.7 mmol/L (3.5-5.1); Protein, Total 6.8 g/dL (6.4-8.2); Sodium Level 138 mmol/L (136-145); Triglycerides 110 mg/dL
[2023-07-01 04:07] LABS: LDL, Direct 120295 123 mg/dL (0-99)
== END | disposition home or self-care (01) ==
LOC: MFPLAB 08:30
PROVIDERS: PCP Family Medicine; Visit Provider Family Medicine
DX: I65.22 Occlusion and stenosis of left carotid artery (principal); I63.9 Cerebral infarction, unspecified
CPT/HCPCS: 36415; 80053; 82465; 83718; 83721; 84478

== ENCOUNTER → 2023-08-24 | Outpatient (CLI) | payer MEDICARE, OTHER, SELFPAY ==
[2023-08-24 07:59] LABS: PSA,Total - Annual Screen 1.01 ng/mL (0.00-4.00)
== END | disposition home or self-care (01) ==
PROVIDERS: PCP Family Medicine; Referring Provider Nurse Practitioner; Visit Provider Nurse Practitioner
DX: Z12.5 Encounter for screening for malignant neoplasm of prostate (principal)
CPT/HCPCS: 36415; 84153; G0103

== ENCOUNTER → 2024-07-10 | Outpatient (CLI) | payer MEDICARE, OTHER, SELFPAY ==
--- NOTE | 2024-07-10 12:45 | CDU_ITS ---
Reason For Study Reason For Study: LT ICA Stenosis Rt. Velocities/BP Lt. Velocities/BP Prox CCA 96.6/14.4 cm/sec. Prox CCA 73.2/16.7 cm/sec. Mid CCA 72.4/21.9 cm/sec. Mid CCA 80.6/22.8 cm/sec. Dist CCA 100.3/29.0 cm/sec. Dist CCA 66.7/19.5 cm/sec. Prox ICA 80.6/22.1 cm/sec. Prox ICA 329.2/87.7 cm/sec. Mid ICA 80.6/29.1 cm/sec. Mid ICA 110.5/29.1 cm/sec. Dist ICA 69.6/17.3 cm/sec. Dist ICA 63.7/20.8 cm/sec. Rt. ICA/CCA = 1.1. Lt. ICA/CCA = 4.1. Prox ECA 128.6/15.6 cm/sec. Prox ECA 329.2/36.7 cm/sec. Rt. Vert. 35.7/13.9 cm/sec. Lt. Vert. 38.9/7.5 cm/sec. Right Extracranial There is intimal thickening but no significant atherosclerotic plaque noted in the right common carotid artery. There is heterogeneous, smooth atherosclerotic plaque noted in the right internal carotid artery. There is intimal thickening but no significant atherosclerotic plaque noted in the right external carotid artery. Antegrade flow is noted in the right vertebral artery. Left Extracranial There is heterogeneous, smooth atherosclerotic plaque noted in the left common carotid artery. There is heterogeneous, smooth atherosclerotic plaque noted in the left internal carotid artery. There is heterogeneous, smooth atherosclerotic plaque noted in the left external carotid artery. Antegrade flow is noted in the left vertebral artery. Procedure Carotid Duplex [id number]. This is a Carotid Duplex examination using B-mode, color flow and specral Doppler. The exam was diagnostic. Exam performed in department. VL/Carotid Duplex Ultrasound Interpretation Summary Mild (<50%) stenosis right extracranial internal carotid. Severe (>70%) stenosis left extracranial internal carotid. Patent and antegrade vertebrals bilaterally. Ordering Physician: Samir Manley Referring Physician: Samir Quevedo MD Performed By: Salvatore Malloy RVT
== END | disposition home or self-care (01) ==
LOC: CVS 12:42
PROVIDERS: PCP Family Medicine; Referring Provider Surgery Trauma Surgery; Visit Provider Surgery Trauma Surgery
DX: I65.22 Occlusion and stenosis of left carotid artery (principal)
CPT/HCPCS: 93880

== ENCOUNTER 2024-10-02 10:18 | Inpatient (IN) | payer MEDICARE, OTHER, SELFPAY ==
--- NOTE | 2024-09-19 07:51 | EKG12_ITS ---
Test Reason : PREOP Blood Pressure : */* mmHG Vent. Rate : 89 BPM Atrial Rate : 89 BPM P-R Int : 264 ms QRS Dur : 130 ms QT Int : 388 ms P-R-T Axes : * -43 1 degrees QTcB Int : 472 ms Sinus rhythm with 1st degree A-V block Left axis deviation Right bundle branch block Abnormal ECG Confirmed by REYNA LAFLEUR, DACIA ([id number]), editorial intern BETSY FLEMING ([id number]) on 09/20/2024 8:39:20 AM Referred By: Samir Manley Confirmed By: DACIA ORELLANA MD
[2024-09-19 08:43] LABS: Hematocrit 42.1 % (40-54); Hemoglobin 14.8 g/dL (13.0-16.5); Mean Corp Hgb Conc 35.2 g/dL (32-36); Mean Corpuscular Volume 83.4 fL (80-94); Mean Platelet Vol. 10.5 fl (6.2-12.0); Platelet Count 173 K/mm3 (150-450); RBC Distribution Width CV 13.6 % (11.6-14.6); RBC Distribution Width SD 41.5 fl (35.1-43.9); Red Blood Count 5.05 M/mm3 (4.6-6.2); White Blood Count 5.9 K/mm3 (4.4-11.0)
[2024-09-19 08:53] LABS: Prothrombin Time (Protime)PT. 14.3 SECONDS (11.7-14.9)
[2024-09-19 08:54] LABS: Partial Thromboplast Time 26.0 Seconds (24.1-36.2)
[2024-09-19 09:36] LABS: Anion Gap 13 (5-15); BUN 23 mg/dL (4-19); BUN/Creat Ratio 18.4 RATIO (10-20); Calcium,Total 8.9 mg/dL (7.6-11.0); Carbon Dioxide 20.9 mmol/L (21.0-32.0); Chloride 105 mmol/L (98-108); Glucose 212 mg/dL (70-99); Potassium 3.8 mmol/L (3.3-5.1)
[2024-09-19 10:10] LABS: AST(SGOT) 23 U/L (<=37); Alanine Aminotransfer ALT/SGPT 22 U/L (<=46); Albumin, Serum 4.4 g/dL (3.4-4.8); Alkaline Phosphatase 63 U/L (40-129); Bilirubin, Direct 0.19 mg/dL (0.00-0.30); Globulin 2.3 g/dL (2.2-4.2)
--- NOTE | 2024-09-19 19:26 | PAT.ANESEVAL ---
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 When Was Last Pacemaker Check QUESTION #4 FULL TEXT: You/Your Family Experience fever (hyperthermia) with Anesthesia Last Oral Intake Last Oral intake: Last Oral Intake NPO since Meds taken in AM with sips of water? Meds patient instructed to take am of surgery PONV PONV - credit and loan collections supervisor: PONV - credit and loan collections supervisor Female No 09/14/24 13:56 HX of Motion Sickness No 09/14/24 13:56 HX of N/V After Surgery No 09/14/24 13:56 Non-Smoker Yes 09/14/24 13:56 Duration of Surgery greater Yes 09/14/24 13:56 than 60 minutes Number of Risk Factors 2 09/14/24 13:56 PONV Score Moderate Risk 09/14/24 13:56 Height & Weight Height & Weight: Anesthesia: Height & Weight Height 5 ft 10 in 07/27/24 09:14 Respiratory Assessment Respiratory Assessment - credit and loan collections supervisor: Respiratory Tract Infection Hx - credit and loan collections supervisor Hx Respiratory Tract Infection No 09/14/24 13:56 STOP Sleep Apnea STOP Sleep Apnea - credit and loan collections supervisor: STOP Sleep Apnea - credit and loan collections supervisor Hx Hypertension Yes: CONTROLLED WITH MED 09/14/24 13:56 Hx Sleep Apnea No 09/14/24 13:56 CPAP BIPAP Do you snore loudly (louder No 09/14/24 13:56 than talking or can be heard Do you often feel tired/ No 09/14/24 13:56 fatigued/ sleepy during daytime? Has anyone observed you stop No 09/14/24 13:56 breathing during sleep? STOP Results Negative 09/14/24 13:56 QUESTION #5 FULL TEXT : Do you snore loudly (louder than talking or can be heard through closed doors)? 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 Tobacco Use Non-smoker 07/27/24 09:14 Smoking Status Never smoker 09/14/24 13:56 Hx Tobacco Use No 09/14/24 13:56 Years Smoking Packs Smoked per Day Smoking Cessation Date was within the last 15 years Hx Smoking Cessation Date Hx Smoking Cessation No 09/14/24 13:56 Counseling Hematologic Medial History Hematologic Hx - credit and loan collections supervisor: Hematologic Medical Hx - documentation consultant Hx of Blood Transfusion No 09/14/24 13:56 Hx of Transfusion in last 3 No 09/14/24 13:56 Months Date of Last Transfusion (if within last 3 months) Ever experience any problems No 09/14/24 13:56 with transfusion(s)? Specify any problems Hx of Preganancy in last 3 N/A 09/14/24 13:56 Months Nurse Filling Out Transfusion DSCHRIBER 09/14/24 13:56 & Questions: Date: 09/14/24 09/14/24 13:56 Time: 13:58 09/14/24 13:56 Patient unable to answer at this time (ie. confused, unrespo /Reproduction History /Reproductive History - credit and loan collections supervisor: /Reproductive Hx- credit and loan collections supervisor Hx Now No 09/14/24 13:56 Gestational Age (in weeks): EDC: Hx Hx Para Hx Section SAB No 09/14/24 13:56 PFSH Medical History (Updated 09/14/24 @ 14:04 by Anastasia Mcbride) Depression Easy bruising Shortness of breath on exertion History of echocardiogram Wears glasses Thyroid disease Prostate disease Cardiology follow-up encounter First degree AV block Paroxysmal supraventricular tachycardia Obesity HTN (hypertension) Non-smoker Sinusitis, maxillary, chronic Osteoarthritis Home Medications ?Medication ?Instructions ?Recorded ?Last Taken ?Type aspirin 81 mg capsule 81 mg PO DAILY [facility] #30 04/16/21 Unknown Rx caps ramipril 1.25 mg capsule 2.5 mg PO QHS blood pressue 02/25/23 Unknown History levothyroxine 50 mcg tablet 50 mcg PO QHS thyroid 02/26/23 Unknown History tadalafil 5 mg tablet 5 mg PO DAILY PROSTATE 05/28/23 Unknown History clopidogrel 75 mg tablet (Plavix) 75 mg PO DAILY PVD #35 tabs 08/23/24 Unknown Rx amlodipine 5 mg tablet 5 mg PO QHS BP 09/14/24 Unknown History diphenhydramine 25 15 ml PO QHS PRN PRN sleep 09/14/24 Unknown History mg-acetaminophen 500 mg/15 mL oral solution mirtazapine 15 mg disintegrating 15 mg PO QHS SLEEP/ANXIETY 09/14/24 Unknown History tablet Allergy/AdvReac Type Severity Reaction Status Date / Time levofloxacin Allergy Mild Other Verified 09/14/24 13:50 Iodinated Contrast Media AdvReac Intermediate Vomiting Verified 09/14/24 13:50 Family History Father Heart disease Mother Cancer Unclear type. Surgical History (Updated 09/14/24 @ 14:04 by Anastasia Mcbride) Hx of transurethral resection of prostate S/P exploratory laparotomy (~02/2023) S/P bilateral inguinal hernia repair History of colonoscopy (~2018) History of arthroscopic knee surgery History of cholecystectomy Social History household members: spouse Smoking Status: Never smoker alcohol intake: never substance use type: does not use Audit: Pertinent Findings Pertinent Findings EKG Perinent findings: September 19, 2024. Sinus rhythm with first-degree AV block. Left axis deviation. Right bundle branch block. Echo (EF%) pertinent findings: February 26, 2023. EF of 65%. No aortic stenosis noted. Consult pertinent findings: February 26, 2023. Dr. Olivares. 1. Paroxysmal supraventricular tachycardia-patient has paroxysms of severe abdominal pain. Likely secondary to hyperadrenergic state. Started on low-dose beta-blockers. Monitor telemetry for [place] prolongation. Recommend 48-hour Holter after discharge to home. 2. First-degree AV block-plan to monitor. 3. Preoperative cardiovascular exam-patient has acute small bowel obstruction. No history of heart disease. No history of angina pectoris or dyspnea. Patient is acceptable risk for proposed relief of small bowel obstruction. Recommendation Anesthesia Recommendation Anesthesia recommendation: OPTIMIZED for anesthesia
[2024-10-02] VITALS (23 sets, daily range): BP systolic 103–162; BP diastolic 53–98; PULSE 77–933; RESP 12–22; TEMP 36.1–36.6; O2SAT 91–98; BMI 35.2; BMI 35.3
--- OUTSIDE RECORDS SUMMARY | 2024-10-02 05:18 | XMS RPT_ITS | CCD ---
Author Organization [facility] Care Team Providers Care Search Engine Marketing Specialist Name Role Phone Syl Eagle Unavailable Unavailable Johana Echols Unavailable MD Sae [facility] Primary Care Provider UnavailDr. Justus Hanna Attending Provider [phone] Dr. Saeed Michelle Referring Provider Sae ENRIQUEZ MD [facility] Primary Care Provider Unavail able Dr. Messi Dumont Attending Provider Dr. Messi Dumont Referring Provider Sae ENRIQUEZ MD Samir Referring Provider Unavailabl Dr. Samir Rea Primary Care Provider Dr. Bonifacio Tompkins Emergency Provider Dr. Reilly Mack Admit Provider Dr. Reilly Mack Attending Provider Dr. Reilly Mack Other Provider Dr. Mikhail Olivares Other Provider Dr. Mikhail Olivares Attending Provider Dr. Ariana Connor Attending Provider JCARLOS Kemp Attending Provider Dr. Reilly Mack Referring Provider Dr. Messi Dumont Attending Provider Dr. Messi Dumont Referring Provider [phone] Samir Quevedo Primary Care Provider Dr. Bonifacio Tompkins Emergency Provider Dr. Reilly Mack Admit Provider Dr. Reilly Mack Attending Provider Dr. Reilly Mack Other Provider Marshall, Dr. Elizondo Other Provider Marshall, Dr. Elizondo Attending Provider 1([facility])[phone] Geeta, Dr. Lane Attending Provider 1([facility])[phone] JCARLOS Kemp Attending Provider Dr. Reilly Mack Referring Provider Dr. Messi Dumont Attending Provider Dr. Messi Dumont Referring Provider Dr. Samir Quevedo Referring Provider 1([facility])[phone] Sae LAFLEUR, Dr. Dawson Primary Care Provider 1([facility])[phone] Sindhu LAFLEUR, Dr. Dawson Attending Provider 1([facility])[phone] Dr. Samir Manley MD Referring Provider 1([facility])[phone] Sae LAFLEUR, Dr. Dawson Referring Provider 1([facility])[phone] Alva Stephens Attending Provider 1([facility])[phone] Quevedo, Samir Primary Care Unavailable [place], Samir Attending Unavailable Quevedo, Samir Referring Unavailable Sindhu, Samir Referring Unavailable Sindhu, Samir Attending Unavailable Quevedo, Samir Primary Care Unavailable Quevedo, Samir Primary Care Unavailable Sindhu, Samir Admitting Unavailable [place], Samir Referring Unavailable Sindhu, Samir Attending Unavailable AdaFer sheridan Consulting Unavailab le [place], Samir Referring Unavailable [place], Samir Attending Unavailable Quevedo, Samir Primary Care Unavailable Quevedo, Samir Primary Care Unavailable Alva Crowe Attending Unavailable Quevedo, Samir Referring Unavailable Allergies Allergy Classification Reported Allergen(s) Allergy Type Date of Onset Reaction(s) Facility (12 sources) levoFLOXacin Drug Allergy 2 Other [facility] Comment on above: light headedness, ra pid heart rate, and feeling of passing out (3 sources) Triiodobenzoic Acids Propensity to adverse reactions 4 Vomiting [facility] Comment on above: Pt has vomiting from CT contrast. Given 4mg IV Zofran prior to most recent CT and had nausea, no vomiting. (1 source) levoFLOXacin Drug Allergy [facility] Repository (1 source) Iodinated Contrast Media Drug allergy (disorder) [facility] Repository Medications Current Medications Medication Drug Class(es) Dates Sig (Normalized) Sig (Original) aspirin 81 mg oral tablet (12 sources) Platelet Aggregation Inhibitor, Nonsteroidal Anti-inflammatory Drug Start: 04-16-2021 take 1 capsule by mouth once daily Aspirin 81 mg capsule Active 81 mg PO DAILY 30 1 April 16, 2021 1:00am clopidogrel 75 mg oral tablet (1 source) P2Y12 Platelet Inhibitor Start: 08-23-2024 take 1 tablet by mouth once daily Clopidogrel (Plavix) 75 mg tablet Active 75 mg PO DAILY 35 0 August 23, 2024 12:00am doxazosin 1 mg oral tablet (6 sources) alpha-Adrenergic Darryn Start: 04-15-2021 take 1 mg by mouth at bedtime Doxazosin Active 1 MG PO AT BEDTIME April 15, 2021 12:00am finasteride 1 mg oral tablet (6 sources) 5-alpha Reductase Inhibitor Start: 03-24-2023 take 1 tablet by mouth once daily Finasteride 1 mg tablet Active 1 mg PO DAILY March 24, 2023 1:00am levothyroxine sodium 0.05 mg oral tablet (8 sources) l-Thyroxine Start: 02-26-2023 take 1 tablet by mouth at bedtime Levothyroxine 50 mcg tablet Active 50 ug PO AT BEDTIME February 26, 2023 1:00am thyroid ramipril 1.25 mg oral capsule (9 sources) Angiotensin Converting Enzyme Inhibitor Start: 02-25-2023 take 2 capsules by mouth at bedtime Ramipril 1.25 mg capsule Active 2.5 mg PO AT BEDTIME February 25, 2023 1:00am blood pressue Start: 02-25-2023 take 2.5 mg by mouth at bedtim e Ramipril Active 2.5 MG PO AT BEDTIME February 25, 2023 1:00am Start: 02-25-2023 take 1.25 mg by mouth at bedti me Ramipril Active 1.25 MG PO AT BEDTIME February 25, 2023 1:00am Start: 02-25-2023 Ramipril Activ e MG February 25, 2023 12:00am tadalafil 5 mg oral tablet (4 sources) Phosphodiesterase 5 Inhibitor Start: 05-28-2023 take 1 tablet by mouth once daily Tadalafil 5 mg tablet Active 5 mg PO DAILY May 28, 2023 12:00am tamsulosin hydrochloride 0.4 mg oral capsule (6 sources) alpha-Adrenergic Darryn Start: 03-24-2023 take 1 capsule by mouth once daily Tamsulosin 0.4 mg capsule Active 0.4 mg PO DAILY March 24, 2023 1:00am Completed/Discontinued Medications Medication Drug Class(es) Dates Sig (Normalized) Sig (Original) acetaminophen 325 mg oral tablet (8 sources) Start: 03-03-2023 End: 03-10-2023 take 1-10 tablets by mouth every four hours as needed for pain Acetaminophen 325 mg Tablet Discontinued 650 mg PO EVERY 4 HOURS NEEDED as needed for Pain 1-10 Or Fever 0 0 March 03, 2023 1:00am March 10, 2023 2:49pm Start: 03-03-2023 End: 03-10-2023 take 650 mg by mouth every four hours as needed Acetaminophen Discontinued 650 MG PO EVERY 4 HOURS NEEDED 0 March 03, 2023 1:00am March 10, 2023 2:49pm acetaminophen 325 mg / HYDROcodone bitartrate 5 mg oral tablet (12 sources) Opioid Agonist Start: 01-03-2020 End: 01-05-2020 Hydrocodone-Acetaminophen 1 TABLET tablet Discontinued 1 {tbl} PO EVERY 6 HOURS NEEDED as needed for Pain 6 2 0 January 03, 2020 January 04, 2020 1:00am January 05, 2020 1:03am Postoperative pain Other acute postprocedural pain Start: 01-03-2020 End: 01-05-2020 take 1 tablet by mouth every six hours as needed Hydrocodone-Acetaminophen Discontinued 1 TABLET PO EVERY 6 HOURS NEEDED 6 2 January 03, 2020 January 05, 2020 1:03am atorvastatin 40 mg oral tablet (12 sources) HMG-CoA Reductase Inhibitor Start: 04-16-2021 End: 04-18-2021 take 1 tablet by mouth at bedtime Atorvastatin 40 mg tablet Discontinued 40 mg PO AT BEDTIME 30 2 April 16, 2021 1:00am April 18, 2021 11:30am cephalexin 500 mg oral capsule (6 sources) Cephalosporin Antibacterial Start: 04-09-2023 End: 05-28-2023 take 1 capsule by mouth three times daily Cephalexin 500 mg capsule Discontinued 500 mg PO THREE TIMES A DAY 15 0 April 09, 2023 1:00am May 28, 2023 12:46pm levoFLOXacin 500 mg oral tablet (12 sources) Quinolone Antimicrobial Start: 04-15-2021 End: 04-16-2021 take 1 tablet by mouth once daily Levofloxacin 500 mg tablet Discontinued 500 mg PO DAILY April 15, 2021 1:00am April 16, 2021 3:57pm lisinopril 5 mg oral tablet (12 sources) Angiotensin Converting Enzyme Inhibitor Start: 04-15-2021 End: 02-26-2023 take 1 tablet by mouth at bedtime Lisinopril 5 mg tablet Discontinued 5 mg PO AT BEDTIME April 15, 2021 1:00am February 26, 2023 8:36am blood pressure meclizine hydrochloride 25 mg oral tablet (12 sources) Antiemetic Start: 04-09-2021 End: 02-25-2023 take 1 tablet by mouth three times daily as needed for dizziness Meclizine 25 mg tablet Discontinued 25 mg PO THREE TIMES A DAY as needed for dizziness 20 0 April 09, 2021 6:00pm February 25, 2023 8:57pm pravastatin sodium 40 mg oral tablet (2 sources) HMG-CoA Reductase Inhibitor Start: 07-05-2023 End: 07-27-2024 take 1 tablet by mouth once daily Pravastatin 40 mg tablet Discontinued 40 mg PO daily July 05, 2023 12:00am July 27, 2024 8:35am Problems Problem Classification Problem Date Documented Date Episodic/Chronic Abdominal hernia (12 sources) Bilateral inguinal hernia; Translations: [Bilateral inguinal hernia, without obstruction or gangrene, not specified as recurrent] 04-15-2021 Episodic Cardiac dysrhythmias (10 sources) Paroxysmal supraventricular tachycardia; Translations: [Paroxysmal supraventricular tachycardia] 02-26-2023 Chronic Conditions associated with dizziness or vertigo (12 sources) Vertigo; Translations: [Dizziness and giddiness] 04-24-2021 Episodic Conduction disorders (10 sources) First degree atrioventricular block; Translations: [Atrioventricular block, first degree] 02-26-2023 Chronic Digestive congenital anomalies (14 sources) Meckel's diverticulitis; Translations: [Meckel's diverticulum (displaced) (hypertrophic)] 02-27-2023 Chronic Diseases of white blood cells (16 sources) Leukocytosis; Translations: [Elevated white blood cell count, unspecified] 02-25-2023 Chronic Fluid and electrolyte disorders (16 sources) Dehydration; Translations: [Dehydration] 02-25-2023 Episodic Genitourinary symptoms and ill-defined conditions (14 sources) Retention of urine; Translations: [Retention of urine, unspecified] 03-01-2023 Episodic Immunizations and screening for infectious disease (2 sources) Need for prophylactic vaccination and inoculation against influenza Episodic Intestinal obstruction without hernia (16 sources) Small bowel obstruction; Translations: [Unspecified intestinal obstruction, unspecified as to partial versus complete obstruction] 02-25-2023 Episodic Nausea and vomiting (16 sources) Nausea, vomiting and diarrhea; Translations: [Nausea with vomiting, unspecified] 02-25-2023 Episodic Occlusion or stenosis of precerebral arteries (17 sources) Left carotid artery stenosis; Translations: [Occlusion and stenosis of left carotid artery] Onset: 07-13-2024 04-28-2021 Chronic Other connective tissue disease (12 sources) Weakness of left facial muscle; Translations: [Facial weakness] 04-17-2021 Episodic Other diseases of kidney and ureters (12 sources) Acute renal insufficiency; Translations: [Disorder of kidney and ureter, unspecified] 04-17-2021 Episodic Other upper respiratory infections (12 sources) Chronic maxillary sinusitis; Translations: [Chronic maxillary sinusitis] 04-15-2021 Chronic Residual codes; unclassified (2 sources) Needs influenza immunization; Translations: [Need for prophylactic vaccination and inoculation against influenza (Renamed from Need for immunization against influenza)] 12-14-2018 Episodic Residual codes; unclassified (2 sources) Other specified postprocedural states; Translations: [Other postprocedural status] 03-03-2023 Episodic Residual codes; unclassified (6 sources) History of excision of small intestine; Translations: [Acquired absence of other specified parts of digestive tract] 03-11-2023 Episodic Comment on above: Meckel's diverticulu m Residual codes; unclassified (4 sources) Acquired absence of other specified parts of digestive tract; Translations: [Other postprocedural status] 03-10-2023 Episodic Results Test Name Value Interpretation Reference Range Facility 12 Lead EKGon 09-19-2024 12 Lead EKG [facility] [address] [place] [address] 12 Lead EKG 09/19/24 0805 MR#: [id number] Acct: [id number] Name: YARIEL SANCHEZ Rep #: [id number] : 1945 79 From: Jose Amaro MD Attending Dr: Dr. Samir Manley MD Status: PRE I N Ordering Dr: Juhi Aguilar MD Date: Location: [facility] Sex: M C Admitted: Test Reason : PREOP Blood Pressure : */* mmHG Vent. Rate : 89 BPM Atrial Rate : 89 BPM P-R Int : 264 ms QRS Dur : 130 ms QT Int : 388 ms P-R-T Axes : * -43 1 degrees QTcB Int : 472 ms Sinus rhythm with 1st degree A-V block Left axis deviation Right bundle branch block Abnormal ECG Confirmed by REYNA LAFLEUR, JOSE ([id number]), marketing editor BETSY FLEMING ([id number]) on 09/20/2024 8:39:20 AM Referred By: Samir Manley Confirmed By: JOSE AMARO MD 09/20/24 0839 Date Jose Amaro MD CC: Dr. Fer Aguilar MD; Dr. Samir Quevedo MD; Dr. Samir Manley MD Signed Normal [facility] Basic Metabolic Profile (BMP )on 09-19-2024 BUN/CRE 18.4 RATIO Normal 10-20 [facility] Comment on above: Performed By: #### L 100.0500, BTSPAT, L500.2500 #### [facility] [address] [place], [address] Calcium [Mass/Vol] 8.9 mg/dL Normal 7.6-11.0 [facility] Comment on above: Performed By: #### L 100.0500, BTSPAT, L500.2500 #### [facility] [address] [place], [address] Chloride [Moles/Vol] 105 mmol/L Normal 98-108 [facility] Comment on above: Performed By: #### L 100.0500, BTSPAT, L500.2500 #### [facility] [address] [place], [address] CO2 [Moles/Vol] 20.9 mmol/L Low 21.0-32.0 [facility] Comment on above: Performed By: #### L 100.0500, BTSPAT, L500.2500 #### [facility] [address] [place], [address] Creatinine [Mass/Vol] 1.25 mg/dL High 0.70-1.20 [facility] Comment on above: Performed By: #### L 100.0500, BTSPAT, L500.2500 #### [facility] [address] [place], [address] GAP 13 Normal 5-15 [facility] Comment on above: Performed By: #### L 100.0500, BTSPAT, L500.2500 #### [facility] [address] [place], [address] GFR/1.73 sq M.predicted among non-blacks MDRD (S/P/Bld) [Vol rate/Area] 59 mL/min/{1.73_m2} Low >60 [facility] Comment on above: Result Comment: mL/m in/1.73m2 CKD-EPI Creatinine Equation (2020) Performed By: #### L 100.0500, BTSPAT, L500.2500 #### [facility] [address] [place], [address] Glucose [Mass/Vol] 212 mg/dL High 70-99 [facility] Comment on above: Performed By: #### L 100.0500, BTSPAT, L500.2500 #### [facility] [address] [place], [address] Potassium [Moles/Vol] 3.8 mmol/L Normal 3.3-5.1 [facility] Comment on above: Result Comment: Hemo lysis present, Results??could be affected. ?? Performed By: #### L 100.0500, BTSPAT, L500.2500 #### [facility] [address] [place], [address] Sodium [Moles/Vol] 139 mmol/L Normal 133-145 [facility] Comment on above: Performed By: #### L 100.0500, BTSPAT, L500.2500 #### [facility] [address] [place], [address] Urea nitrogen [Mass/Vol] 23 mg/dL High 4-19 [facility] Comment on above: Performed By: #### L 100.0500, BTSPAT, L500.2500 #### [facility] [address] [place], [address] CBC-Complete Blood Cnt No Di ffon 09-19-2024 Erythrocyte distribution width (RBC) [Ratio] 13.6 % Normal 11.6-14.6 [facility] Comment on above: Performed By: #### L 100.0500, BTSPAT, L500.2500 #### [facility] [address] [place], [address] Hematocrit (Bld) [Volume fraction] 42.1 % Normal 40-54 [facility] Comment on above: Performed By: #### L 100.0500, BTSPAT, L500.2500 #### [facility] [address] [place], [address] Hemoglobin (Bld) [Mass/Vol] 14.8 g/dL Normal 13.0-16.5 [facility] Comment on above: Performed By: #### L 100.0500, BTSPAT, L500.2500 #### [facility] [address] [place], [address] MCH (RBC) [Entitic mass] 29.3 pg Normal 27.0-32.0 [facility] Comment on above: Performed By: #### L 100.0500, BTSPAT, L500.2500 #### [facility] [address] [place], [address] MCHC (RBC) [Mass/Vol] 35.2 g/dL Normal 32-36 [facility] Comment on above: Performed By: #### L 100.0500, BTSPAT, L500.2500 #### [facility] [address] [place], [address] MCV (RBC) [Entitic vol] 83.4 fL Normal 80-[address] [facility] Comment on above: Performed By: #### L 100.0500, BTSPAT, L500.2500 #### [facility] [address] [place], [address] Platelet mean volume (Bld) [Entitic vol] 10.5 fL Normal 6.2-12.0 [facility] Comment on above: Performed By: #### L 100.0500, BTSPAT, L500.2500 #### [facility] [address] [place], [address] Platelets (Bld) [#/Vol] 173 10*3/uL Normal 150-450 [facility] Comment on above: Performed By: #### L 100.0500, BTSPAT, L500.2500 #### [facility] [address] [place], [address] RBC (Bld) [#/Vol] 5.05 10*6/uL Normal 4.6-6.2 [facility] Comment on above: Performed By: #### L 100.0500, BTSPAT, L500.2500 #### [facility] [address] [place], [address] RDW SD 41.5 fl Normal 35.1-43.9 [facility] Comment on above: Performed By: #### L 100.0500, BTSPAT, L500.2500 #### [facility] [address] [place], [address] WBC (Bld) [#/Vol] 5.9 10*3/uL Normal 4.4-11.0 [facility] Comment on above: Performed By: #### L 100.0500, BTSPAT, L500.2500 #### [facility] [address] [place], [address] Liver Profileon 09-19-2024 Albumin [Mass/Vol] 4.4 g/dL Normal 3.4-4.8 [facility] Comment on above: Performed By: #### L 500.3400, L501.9520, L300.3900, L300.4310 ####[facility] [address] [place], [address] ALK PHOS 63 U/L Normal 40-129 [facility] Comment on above: Performed By: #### L 500.3400, L501.9520, L300.3900, L300.4310 ####[facility] [address] [place], [address] ALT [Catalytic activity/Vol] 22 U/L Normal <=46 [facility] Comment on above: Performed By: #### L 500.3400, L501.9520, L300.3900, L300.4310 ####[facility] [address] [place], [address] AST [Catalytic activity/Vol] 23 U/L Normal <=37 [facility] Comment on above: Result Comment: Hemo lysis present, Results??could be affected. ?? Performed By: #### L 500.3400, L501.9520, L300.3900, L300.4310 ####[facility] [address] [place], [address] Bilirubin [Mass/Vol] 0.61 mg/dL Normal 0.00-1.30 [facility] Comment on above: Performed By: #### L 500.3400, L501.9520, L300.3900, L300.4310 ####[facility] [address] [place], [address] Bilirubin.direct [Mass/Vol] 0.19 mg/dL Normal 0.00-0.30 [facility] Comment on above: Result Comment: Hemo lysis present, Results??could be affected. ?? Performed By: #### L 500.3400, L501.9520, L300.3900, L300.4310 ####[facility] [address] [place], [address] Globulin (S) [Mass/Vol] 2.3 g/dL Normal 2.2-4.2 [facility] Comment on above: Performed By: #### L 500.3400, L501.9520, L300.3900, L300.4310 ####[facility] [address] [place], [address] T PROT 6.7 g/dL Normal 5.9-8.4 [facility] Comment on above: Performed By: #### L 500.3400, L501.9520, L300.3900, L300.4310 ####[facility] [address] [place], [address] MR/PATZeina 09-19-2024 MR/PAT.[facility] Medical Records Department [address] [place] [address] PAT - Anesthesia 09/19/241925 MR#: [id number] Acct: [id number] Name: YARIEL SANCHEZ Rep #: [id number] : 1945 79 From: Aroldo Liu MD PCP: Dr. Samir Quevedo MD Status:PRE IN Y Race: C Location: [facility] Pre-Assessment Diagnosis/Proposed Procedure Planned Operative Procedure(s): LEFT CAROTID ENDARTERECTOMY Anesthesia History Anesthesia History - deboner: Anesthesia History - deboner Hx Hospitalization No 09/14/24 13:56 Any Problems With Anesthesia No 09/14/24 13:56 Cholinesterase deficiency No 09/14/24 13:56 You/Your Family Experience No 09/14/24 13:56 fever (hyperthermia) with Relationship Recent Exposure to Contagious No 07/27/24 09:14 Disease Does patient have nerve No 09/14/24 13:56 stimulator Patient instructed to have device shut off --Does patient have Pacemaker or ICD? When Was Last Pacemaker Check QUESTION #4 FULL TEXT: You/Your Family Experience fever (hyperthermia) with Anesthesia Last Oral Intake Last Oral intake: Last Oral Intake NPO since Meds taken in AM with sips of water? Meds patient instructed to take am of surgery PONV PONV - deboner: PONV - deboner Female No 09/14/24 13:56 HX of Motion Sickness No 09/14/24 13:56 HX of N/V After Surgery No 09/14/24 13:56 Non-Smoker Yes 09/14/24 13:56 Duration of Surgery greater Yes 09/14/24 13:56 than 60 minutes Number of Risk Factors 2 09/14/24 13:56 PONV Score Moderate Risk 09/14/24 13:56 Height Weight Height Weight: Anesthesia: Height Weight Height 5 ft 10 in 07/27/24 09:14 Respiratory Assessment Respiratory Assessment - deboner: Respiratory Tract Infection Hx - deboner Hx Respiratory Tract Infection No 09/14/24 13:56 STOP Sleep Apnea STOP Sleep Apnea - deboner: STOP Sleep Apnea - deboner Hx Hypertension Yes: CONTROLLED WITH MED 09/14/24 13:56 Hx Sleep Apnea No 09/14/24 13:56 CPAP BIPAP Do you snore loudly (louder No 09/14/24 13:56 than talking or can be heard Do you often feel tired/ No 09/14/24 13:56 fatigued/ sleepy during daytime? Has anyone observed you stop No 09/14/24 13:56 breathing during sleep? STOP Results Negative 09/14/24 13:56 QUESTION #5 FULL TEXT : Do you snore loudly (louder than talking or can be heard through closed doors)? Tobacco Use History Tobacco Use History - deboner: Tobacco Use History - deboner Tobacco Use Non-smoker 07/27/24 09:14 Smoking Status Never smoker 09/14/24 13:56 Hx Tobacco Use No 09/14/24 13:56 Years Smoking Packs Smoked per Day Smoking Cessation Date was within the last 15 years Hx Smoking Cessation Date Hx Smoking Cessation No 09/14/24 13:56 Counseling Hematologic Medial History Hematologic Hx - deboner: Hematologic Medical Hx - hot header operator Hx of Blood Transfusion No 09/14/24 13:56 Hx of Transfusion in last 3 No 09/14/24 13:56 Months Date of Last Transfusion (if within last 3 months) Ever experience any problems No 09/14/24 13:56 with transfusion(s)? Specify any problems Hx of Preganancy in last 3 N/A 09/14/24 13:56 Months Nurse Filling Out Transfusion DSCHRIBER 09/14/24 13:56 Questions: Date: 09/14/24 09/14/24 13:56 Time: 13:58 09/14/24 13:56 Patient unable to answer at this time (ie. confused, unrespo /Reproducti on History /Reproducti ve History - deboner: /Reproducti ve Hx- deboner Hx Now No 09/14/24 13:56 Gestational Age (in weeks): EDC: Hx Hx Para Hx Section SAB No 09/14/24 13:56 PFSH Medical History (Updated 09/14/24 @ 14:04 by Anastasia Mcbride) Depression Easy bruising Shortness of breath on exertion History of echocardiogram Wears glasses Thyroid disease Prostate disease Cardiology follow-up encounter First degree AV block Paroxysmal supraventricular tachycardia Obesity HTN (hypertension) Non-smoker Sinusitis, maxillary, chronic Osteoarthritis Home Medications ???Medication ???Instructions ???Recorded ???Last Taken ???Type aspirin 81 mg capsule 81 mg PO DAILY HEART [facility] #30 Unknown Rx caps ramipril 1.25 mg capsule 2.5 mg PO QHS blood pressue Unknown History levothyroxine 50 mcg tablet 50 mcg PO QHS thyroid 02/26/23 Unk nown History tadalafil 5 mg tablet 5 mg PO DAILY PROSTATE 05/28/23 Un known History clopidogrel 75 mg tablet (Plavix) 75 mg PO DAILY PVD #35 tabs 08/23 Unknown Rx amlodipine 5 m (more content not included)... Normal [facility] [facility] Partial Thromboplast Timeon 09-19-2024 aPTT Coag (Bld) [Time] 26.0 s Normal 24.1-36.2 [facility] Comment on above: Performed By: #### L 500.3400, L501.9520, L300.3900, L300.4310 #### [facility] [address] [facility] [address] Prothrombin Time w/INRon INR Coag (PPP) [Relative time] 1.1 {INR} Normal [facility] Comment on above: Performed By: #### L 500.3400, L501.9520, L300.3900, L300.4310 #### [facility] [address] [place], [address] PT Coag (PPP) [Time] 14.3 s Normal 11.7-14.9 [facility] Comment on above: Performed By: #### L 500.3400, L501.9520, L300.3900, L300.4310 #### [facility] [address] [facility] [address] Thyroid Stim Hormone (TSH)on 09-19-2024 TSH 3.730 uIU/mL Normal 0.300-4.200 [facility] Comment on above: Performed By: #### L 500.3400, L501.9520, L300.3900, L300.4310 ####[facility] [address] [facility] [address] Type AND Screen - PAT ONLYon 09-19-2024 ABO and Rh group Nom (Bld) Blood group A Rh(D) positive Normal [facility] Comment on above: Order Comment: Surge ry Date: 10/02/24 Reason for Laboratory Test PREOP 20241002 N/A N N S LEFT CAROTID ENDARTERECTOMY Performed By: #### L 100.0500, BTSPAT, L500.2500 #### [facility] [address] [place], [address] MR/BMS.BVSon 08-23-2024 MR/BMS.BVS [facility] [address] [place] [address] OFFICE VISIT Date of Service: 08/23/24 MR#: [id number] Acct: [id number] Name: YARIEL SANCHEZ CLIFFORD Rep #: [id number] : 1945 Provider: Dr. Samir Manley MD Age/Sex: 79/M Location: [facility] Status: Signed Intake Vital Signs 06/14/23 14:14 07/27/24 09:14 08/23/24 13:38 Height 5 ft 10 in 5 ft 10 in Weight: 236 lb BP 145/90 H Blood Pressure Location Rt brachial Position Sitting Respiration 18 Pulse 100 Pulse Source Monitor Temp 98.6 F Temp Source Temporal Pulse Oximetry (%) 96 Oxygen Delivery Method room air Intake Visit Reasons: Discuss results Chief Complaint: routine carotid Is patient in pain?: No Allergies levofloxacin Allergy (Mild, Verified 08/23/24 13:38) Other Iodinated Contrast Media Adverse Reaction (Intermediate, Verified 08/23/24 13:38) Vomiting Medications ???Medication ???Instructions ???Recorded ???Confirmed ???Type aspirin 81 mg capsule 81 mg PO DAILY #30 caps 04/16/21 0 08/23/24 Rx ramipril 1.25 mg capsule 2.5 mg PO QHS blood pressue 08/23/24 History levothyroxine 50 mcg tablet 50 mcg PO QHS thyroid 02/26/2304/18 History finasteride 1 mg tablet 1 mg PO DAILY 03/24/23 08/23/24 Hi story tamsulosin 0.4 mg capsule 0.4 mg PO DAILY 03/24/23 08/23/24 History tadalafil 5 mg tablet 5 mg PO DAILY 05/28/23 08/23/24 Hi story clopidogrel 75 mg tablet (Plavix) 75 mg PO DAILY #35 tabs 08/23/24 08/23/24 Rx Have you fallen in the past year?: Yes PFSH Medical History Wears glasses Thyroid disease Prostate disease Cardiology follow-up encounter First degree AV block Paroxysmal supraventricular tachycardia Wears hearing aid in both ears Obesity HTN (hypertension) Kidney stones Non-smoker Sinusitis, maxillary, chronic Vertigo Osteoarthritis Surgical History S/P exploratory laparotomy ( 02/2023) S/P bilateral inguinal hernia repair History of colonoscopy ( 2018) History of arthroscopic knee surgery History of cholecystectomy Family History Father Heart disease Mother Cancer Unclear type. Social History household members: spouse Smoking Status: Never smoker alcohol intake: never substance use type: does not use HPI HPI HPI: YARIEL SANCHEZ, is a 79 M who presents to the office today for further discussion of his asymptomatic left carotid stenosis. Had been followed with serial imaging by Dr. Dumont. In 2023 it was noted that he had increased to beyond 70% stenosis and confirmed with a CTA. Surgery was recommended but due to needs caring for his he did not pursue. She earlier this year and he is wanting to potentially proceed with treatment. More recent duplex has revealed further increase in velocities well into the >70% range. ROS General General: No weight change, appetite, fatigue, colon cancer, breast cancer or weakness HEENT HEENT: No difficulty swallowing, eye injury, eye surgery, swollen glands or hoarseness Endo Endocrine: No thyroid disease, diabetes mellitus, thyroid cancer, Hair loss, heat intolerance or cold intolerance Skin Skin: No rash or changing moles Musc Musculoskeletal: No back problems, arthritis, rheumatoid arthritis, gout or joint pain Cardio Cardiovascular: No murmur, pacemaker, heart disease, atrial fibrillation, high blood pressure, heart attack, heart stent, palpitations, shortness of breath with exertion or chest pain Psych Psychiatric: Yes depression and anxiety; No hearing voices Resp Respiratory: No shortness of breath, No sleep apnea, No cough, No COPD, No asthma, No emphysema and No wheezing Gastro Gastrointestinal: No abdominal pain, No nausea or vomiting, No diarrhea, No constipation, No blood in stool, No acid reflux, No hemorrhoids, No ulcers, No gallbladder problem and No black,tarry stools Tony Hematologic: No blood thinners, No blood disorders, No bleeding, No anemia and No blood clots Neuro Neurologic: No system reviewed and no additional complaints, except as documented, No as per HPI, No abnormal gait, No abnormal hearing, No abnormal movements, No abnormal speech, No behavioral changes, No burning sensations, No confusion, No convulsions, No disequilibrium, No dizziness, No localized weakness, No frequent falls, Yes headache(s), No lack of coordination, No loss of vision, No memory loss, No numbness, No other visual disturbances, No radicular pain, No restless legs, No sensory deficit, No syncope, No tingling, No tremor(s), No weakness and No other Exam (more content not included)... Normal [facility] MR/BMS.MARZENASon 07-26-2024 MR/BMS.MARZENAS [facility] Vascular Surgery [address] [place] [address]. [address] [place] [address] OFFICE VISIT Date of Service: 07/27/24 MR#: [id number] Acct: [id number] Name: YARIEL SANCHEZ CLIFFORD Rep #: [id number] : 1945 Provider: ELBA Ball Age/Sex: 79/M Location: [facility] Status: Signed Intake Vital Signs 06/14/23 14:14 07/27/24 08:42 Height 5 ft 10 in Weight: 233 lb BP 144/92 H Blood Pressure Location Lt brachial Position Sitting Respiration 16 Pulse 92 Pulse Source Monitor Temp 97.5 F L Temp Source Temporal Pulse Oximetry (%) 96 Oxygen Delivery Method room air Intake Visit Reasons: Discuss Vascular Studies Is patient in pain?: Yes Allergies levofloxacin Allergy (Mild, Verified 07/27/24 08:47) Other Iodinated Contrast Media Adverse Reaction (Intermediate, Verified 07/27/24 08:47) Vomiting Medications ???Medication ???Instructions ???Recorded ???Confirmed ???Type aspirin 81 mg capsule 81 mg PO DAILY #30 caps 04/16/21 0 07/27/24 Rx ramipril 1.25 mg capsule 2.5 mg PO QHS blood pressue 07/27/24 History levothyroxine 50 mcg tablet 50 mcg PO QHS thyroid 02/26/2307/16 History finasteride 1 mg tablet 1 mg PO DAILY 03/24/23 07/27/24 Hi story tamsulosin 0.4 mg capsule 0.4 mg PO DAILY 03/24/23 07/27/24 History tadalafil 5 mg tablet 5 mg PO DAILY 05/28/23 07/27/24 Hi story Have you fallen in the past year?: No PFSH Medical History Wears glasses Thyroid disease Prostate disease Cardiology follow-up encounter First degree AV block Paroxysmal supraventricular tachycardia Wears hearing aid in both ears Obesity HTN (hypertension) Kidney stones Non-smoker Sinusitis, maxillary, chronic Vertigo Osteoarthritis Surgical History S/P exploratory laparotomy ( 02/2023) S/P bilateral inguinal hernia repair History of colonoscopy ( 2018) History of arthroscopic knee surgery History of cholecystectomy Family History Father Heart disease Mother Cancer Unclear type. Social History household members: spouse Smoking Status: Never smoker alcohol intake: never substance use type: does not use HPI HPI HPI: YARIEL SANCHEZ, is a 79 M who presents to the office today for evaluation of his carotid artery disease. He has previously followed with Dr. Dumont. He had CTA Neck in 2023 which was read as 69% L ICA stenosis by radiology, in his note Dr. Dumont felt it was 70%; at that time carotid duplex velocity in L ICA 259.6/81.8. Most recent carotid duplex showed progressive increase in L ICA velocity to 329.2/87.7 cm/s. He did have poor reaction to IV contrast with last CTA, had vomiting and then persistent nausea. He does not have any history of CVA or TIA by his report. Last year, he reports Dr. 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 Unfortunately, his a few weeks ago; he is grieving, having difficulty sleeping and frequent headaches. He denies any episodes of focal neurologic symptoms such as unilateral weakness, numbness/paresthesia s, facial drooping, dysarthria, monocular vision loss. He does not have any history of coronary artery disease, [place], CHF, arrhythmia, COPD, asthma, CKD. He denies any chest pain, SOB, palpitations. He reports that he can walk up a flight of stairs with groceries or laundry without any chest pains or SOB; recently he built a deck and mulched carrying well over 40 pounds at a time up and down stairs with no symptoms. ROS General General: No weight change, appetite, fatigue, colon cancer, breast cancer or weakness HEENT HEENT: No difficulty swallowing, eye injury, eye surgery, swollen glands or hoarseness Endo Endocrine: No thyroid disease, diabetes mellitus, thyroid cancer, Hair loss, heat intolerance or cold intolerance Skin Skin: No rash or changing moles Musc Musculoskeletal: No back problems, arthritis, rheumatoid arthritis, gout or joint pain Cardio Cardiovascular: No murmur, pacemaker, heart disease, atrial fibrillation, high blood pressure, heart attack, heart stent, palpitations, shortness of breath with exertion or chest pain Psych Psychiatric: Yes depression and anxiety; No hearing voices Resp Respiratory: No shortness of breath, No sleep apnea, No cough, No COPD, No asthma, No emphysema and No wheezing Gastro Gastrointestinal: No abdominal pain, No nausea or vomiting, No diarrhea, No constipation, No blood in stool, No acid reflux, No hemorrhoids, No ulcers, No gallbladder problem and No black,tarry stools Tony (more content not included)... Normal [facility] Carotid Duplex Ultrasoundon 07-10-2024 Carotid Duplex Ultrasound [facility] [address] [place] [address] Carotid Duplex Ultrasound 07/10/24 1249 MR#: [id number] Acct: [id number] Name: YARIEL SANCHEZ Rep #: [id number] : 1945 79 From: Samir Manley MD Attending Dr: Dr. Samir Manley MD Status: MARTIN Nolan LI Ordering Dr: Samir Manley MD Date: 07/10/24 Location: [facility] Sex: M C Admitted: Reason For Study Reason For Study: LT ICA Stenosis Rt. Velocities/BP Lt. Velocities/BP Prox CCA 96.6/14.4 cm/sec. Prox CCA 73.2/16.7 cm/sec. Mid CCA 72.4/21.9 cm/sec. Mid CCA 80.6/22.8 cm/sec. Dist CCA 100.3/29.0 cm/sec. Dist CCA 66.7/19.5 cm/sec. Prox ICA 80.6/22.1 cm/sec. Prox ICA 329.2/87.7 cm/sec. Mid ICA 80.6/29.1 cm/sec. Mid ICA 110.5/29.1 cm/sec. Dist ICA 69.6/17.3 cm/sec. Dist ICA 63.7/20.8 cm/sec. Rt. ICA/CCA = 1.1. Lt. ICA/CCA = 4.1. Prox ECA 128.6/15.6 cm/sec. Prox ECA 329.2/36.7 cm/sec. Rt. Vert. 35.7/13.9 cm/sec. Lt. Vert. 38.9/7.5 cm/sec. Right Extracranial There is intimal thickening but no significant atherosclerotic plaque noted in the right common carotid artery. There is heterogeneous, smooth atherosclerotic plaque noted in the right internal carotid artery. There is intimal thickening but no significant atherosclerotic plaque noted in the right external carotid artery. Antegrade flow is noted in the right vertebral artery. Left Extracranial There is heterogeneous, smooth atherosclerotic plaque noted in the left common carotid artery. There is heterogeneous, smooth atherosclerotic plaque noted in the left internal carotid artery. There is heterogeneous, smooth atherosclerotic plaque noted in the left external carotid artery. Antegrade flow is noted in the left vertebral artery. Procedure Carotid Duplex [address]06[address]. This is a Carotid Duplex examination using B-mode, color flow and specral Doppler. The exam was diagnostic. Exam performed in department. VL/Carotid Duplex Ultrasound Interpretation Summary Mild (<50%) stenosis right extracranial internal carotid. Severe (>70%) stenosis left extracranial internal carotid. Patent and antegrade vertebrals bilaterally. Ordering Physician: Samir Manley Referring Physician: Samir Quevedo MD Performed By: Salvatore Malloy, T 07/11/2421 Date Samir Manley MD CC: Dr. Samir Quevedo MD; Dr. Samir Manley MD Date Dictated: 07/10/24 1249 Date Transcribed: 07/11/24720 [employer] Specialist: Signed Normal [facility] Basophil percentageOrdered B y: Messi Dumont on 05-31-2023 Basophil percentage 2.9 mg/dL 2.5-4.9 [facility] Chloride [Moles/Vol] 107 mmol/L 98-107 [facility] Glucose [Mass/Vol] 117 mg/dL 74-106 [facility] Comment on above: Fasting Glucose resu lt from 100 to 125 mg/dL suggests IMPAIRED HOMEOSTASIS per A.D.A. criteria. Potassium [Moles/Vol] 3.9 mmol/L 3.5-5.1 [facility] Sodium [Moles/Vol] 139 mmol/L 136-145 [facility] - Chemistry and C hemistry - challengeOrdered By: Messi Dumont on 05-31-2023 CO2 [Moles/Vol] 23.0 mmol/L 21.0-32.0 [facility] Urea nitrogen/Creatinine [Mass ratio] 18.2 mg/mg 10-20 [facility] No Panel InformationOrdered By: Messi Dumont on 05-31-2023 Estimated GFR (MDRD) Amer 62 mL/min >60 [facility] Comment on above: GFR Calc Estimated GFR (MDRD) Non-Af Amer 51 mL/min >60 [facility] Comment on above: Non- GFR Calc Serum or plasma calcium arya urement (mass/volume)Ordered By: Messi Dumont on 05-31-2023 Calcium [Mass/Vol] 8.9 mg/dL 8.5-10.1 [facility] Serum or plasma creatinine m easurement (mass/volume)Ordered By: Messi Dumont on 05-31-2023 Creatinine [Mass/Vol] 1.43 mg/dL 0.70-1.30 [facility] Comment on above: The validity of the calculated GFR & GFRAA in patients over 70 years has not been determined. Clinical correlation is essential. Serum or plasma urea nitroge n measurement (mass/volume)Ordered By: Messi Dumont on 05-31-2023 Urea nitrogen [Mass/Vol] 26 mg/dL 7-18 [facility] Thin prep Papanicolaou smear with manual screeningOrdered By: Messi Dumont on 05-31-2023 Thin prep Papanicolaou smear with manual screening 4.2 g/dL 3.2-5.0 [facility] Basophil percentageOrdered B y: Aroldo Liu on 03-31-2023 Chloride [Moles/Vol] 107 mmol/L 98-107 [facility] Glucose [Mass/Vol] 178 mg/dL 74-106 [facility] Comment on above: Fasting Glucose resu lt greater than or equal to 126 mg/dL suggests DIABETES MELLITUS per A.D.A. criteria. Potassium [Moles/Vol] 4.1 mmol/L 3.5-5.1 [facility] Sodium [Moles/Vol] 138 mmol/L 136-145 [facility] - Chemistry and C hemistry - challengeOrdered By: Aroldo Liu on 03-31-2023 CO2 [Moles/Vol] 25.0 mmol/L 21.0-32.0 [facility] Urea nitrogen/Creatinine [Mass ratio] 18.8 mg/mg 10-20 [facility] No Panel InformationOrdered By: Aroldo Liu on 03-31-2023 Estimated GFR (MDRD) Amer 64 mL/min >60 [facility] Comment on above: GFR Calc Estimated GFR (MDRD) Non-Af Amer 53 mL/min >60 [facility] Comment on above: Non- GFR Calc Serum or plasma calcium arya urement (mass/volume)Ordered By: Aroldo Liu on 03-31-2023 Calcium [Mass/Vol] 8.8 mg/dL 8.5-10.1 [facility] Serum or plasma creatinine m easurement (mass/volume)Ordered By: Aroldo Liu on 03-31-2023 Creatinine [Mass/Vol] 1.38 mg/dL 0.70-1.30 [facility] Comment on above: The validity of the calculated GFR & GFRAA in patients over 70 years has not been determined. Clinical correlation is essential. Serum or plasma thyroid stim ulating hormone (TSH) measurement (units/volume)Ordered By: Aroldo Liu on 03-31-2023 TSH Qn 2.27 uIU/mL 0.358-3.74 [facility] Serum or plasma urea nitroge n measurement (mass/volume)Ordered By: Aroldo Liu on 03-31-2023 Urea nitrogen [Mass/Vol] 26 mg/dL 7-18 [facility] Thin prep Papanicolaou smear with manual screeningOrdered By: Aroldo Liu on 03-31-2023 Thin prep Papanicolaou smear with manual screening 6 5-15 [facility] Basophil percentageOrdered B y: Eliseo Dobbins on 03-08-2023 Basophil percentage 0-5 SEEN /hpf 0-5 [facility] Bilirubin Test strip Ql (U)O rdered By: Eliseo Dobbins on 03-08-2023 Bilirubin Ql (U) Negative Negative [facility] Ketones Test strip Ql (U)Ord ered By: Eliseo Dobbins on 03-08-2023 Ketones Ql (U) Negative Negative [facility] Mucus LM Ql (Urine sed)Order ed By: Eliseo Dobbins on 03-08-2023 Mucus Ql (Urine sed) 0 SEEN /hpf [facility] Nitrite Test strip Ql (U)Ord ered By: Eliseo Dobbins on 03-08-2023 Nitrite Ql (U) Negative Negative [facility] Protein Test strip Ql (U)Ord ered By: Eliseo Dobbins on 03-08-2023 Protein Ql (U) 15 mg/dl Negative [facility] Squamous epithelial cells de tection in urine sediment by light microscopyOrdered By: Eliseo Dobbins on 03-08-2023 Epithelial cells.squamous LM Ql (Urine sed) 0-5 SEEN /hpf 0-5 [facility] Urine blood detectionOrdered By: Eliseo Dobbins on 03-08-2023 RBC Ql (U) 10 /ul Negative [facility] RBC Ql (U) 0-5 SEEN /hpf 0-5 [facility] Urine clarityOrdered By: Ran Dobbins on 03-08-2023 Clarity (U) Sl. Cloudy Clear [facility] Urine color determinationOrd ered By: Eliseo Dobbins on 03-08-2023 Color (U) Yellow Yellow [facility] Urine glucose detectionOrder ed By: Eliseo Dobbins on 03-08-2023 Glucose Ql (U) Normal mg/dl Normal [facility] Urine leukocyte esterase det ection by dipstickOrdered By: Eliseo Dobbins on 03-08-2023 Leukocyte esterase Test strip Ql (U) 25 /ul Negative [facility] Urine pHOrdered By: Eliseo vásquez on 03-08-2023 pH (U) 6.0 [pH] 5.0 - 8.0 [facility] Urine sediment bacteria coun t by microscopy (number/high power field)Ordered By: Eliseo Dobbins on 03-08-2023 Bacteria LM.HPF (Urine sed) [#/Area] 0 /[HPF] None Seen [facility] Urine specific gravity measu rementOrdered By: Eliseo Dobbins on 03-08-2023 Specific gravity (U) [Rel density] 1.015 1.002-1.030 [facility] Urobilinogen Auto test strip Ql (U)Ordered By: Eliseo Dobbins on 03-08-2023 Urobilinogen Ql (U) Normal mg/dl Normal [facility] Absolute lymphocyte countOrd ered By: Reilly Mack on 03-03-2023 Lymphocytes Auto (Unsp spec) [#/Vol] 1.42 10*3/uL 0.83-4.51 [facility] Basophil percentageOrdered B y: Reilly Mack on 03-03-2023 Basophils/100 WBC (Bld) 0.6 % 0-[address] [facility] Chloride [Moles/Vol] 111 mmol/L 98-107 [facility] Eosinophils/100 WBC (Bld) 5.2 % 0-5 [facility] Glucose [Mass/Vol] 125 mg/dL 74-106 [facility] Comment on above: Fasting Glucose resu lt from 100 to 125 mg/dL suggests IMPAIRED HOMEOSTASIS per A.D.A. criteria. Neutrophils (Bld) [#/Vol] 4.4 10*3/uL 2.0-7.7 [facility] Neutrophils/100 WBC (Bld) 63.7 % 47-70 [facility] Potassium [Moles/Vol] 2.9 mmol/L 3.5-5.1 [facility] Sodium [Moles/Vol] 141 mmol/L 136-145 [facility] WBC (Bld) [#/Vol] 7.0 10*3/uL 4.4-11.0 [facility] Blood erythrocytes count (nu mber/volume)Ordered By: Reilly Mack on 03-03-2023 RBC (Bld) [#/Vol] 4.69 10*6/uL 4.6-6.2 [facility] Blood hemoglobin measurement (mass/volume)Ordered By: Reilly Mack on 03-03-2023 Hemoglobin (Bld) [Mass/Vol] 13.4 g/dL 13.0-16.5 [facility] Blood lymphocytes/100 leukoc ytesOrdered By: Reilly Mack on 03-03-2023 Lymphocytes/100 WBC (Bld) 20.4 % 19-41 [facility] Blood monocytes/100 leukocyt esOrdered By: Reilly Mack on 03-03-2023 Monocytes/100 WBC (Bld) 9.0 % 0-10 [facility] Blood platelet mean volumeOr dered By: Reilly Mack on 03-03-2023 Platelet mean volume (Bld) [Entitic vol] 9.9 fL 6.2-12.0 [facility] Determination of erythrocyte mean corpuscular volume (MCV)Ordered By: Reilly Mack on 03-03-2023 MCV (RBC) [Entitic vol] 81.4 fL 80-[address] [facility] Hematocrit Auto (Bld) [Volum e fraction]Ordered By: Reilly Mack on 03-03-2023 Hematocrit (Bld) [Volume fraction] 38.2 % 40-54 [facility] - Chemistry and C hemistry - challengeOrdered By: Reilly Mack on 03-03-2023 CO2 [Moles/Vol] 23.0 mmol/L 21.0-32.0 [facility] Magnesium [Mass/Vol] 1.9 mg/dL 1.6-2.6 [facility] Urea nitrogen/Creatinine [Mass ratio] 14.8 mg/mg 10-20 [facility] - Hematology and Cell countsOrdered By: Reilly Mack on 03-03-2023 Erythrocyte distribution width (RBC) [Entitic vol] 39.6 fL 35.1-43.9 [facility] Erythrocyte distribution width (RBC) [Ratio] 13.4 % 11.6-14.6 [facility] Immature granulocytes/100 WBC (Bld) 1.100 % 0.0-0.9 [facility] Comment on above: IG% - Immature Granu locytes (promyelocytes, myelocytes and metamyelocytes) > 1% indicates that a LEFT SHIFT is Present. MCH (RBC) [Entitic mass] 28.6 pg 27.0-32.0 [facility] Nucleated RBC/100 WBC (Bld) [Ratio] 0 % 0-5 [facility] MCHC Auto (RBC) [Mass/Vol]Or dered By: Reilly Mack on 03-03-2023 MCHC (RBC) [Mass/Vol] 35.1 g/dL 32-36 [facility] No Panel InformationOrdered By: Reilly Mack on 03-03-2023 Estimated Creatinine Clearance Calc 67.67 ml/min [facility] Estimated GFR (MDRD) Amer 85 mL/min >60 [facility] Comment on above: GFR Calc Estimated GFR (MDRD) Non-Af Amer 71 mL/min >60 [facility] Comment on above: Non- GFR Calc Platelets bldOrdered By: Emil martin Mack on 03-03-2023 Platelets (Bld) [#/Vol] 202 10*3/uL 150-450 [facility] Serum or plasma calcium arya urement (mass/volume)Ordered By: Reilly Mack on 03-03-2023 Calcium [Mass/Vol] 8.1 mg/dL 8.5-10.1 [facility] Serum or plasma creatinine m easurement (mass/volume)Ordered By: Reilly Mack on 03-03-2023 Creatinine [Mass/Vol] 1.08 mg/dL 0.70-1.30 [facility] Comment on above: The validity of the calculated GFR & GFRAA in patients over 70 years has not been determined. Clinical correlation is essential. Serum or plasma urea nitroge n measurement (mass/volume)Ordered By: Reilly Mack on 03-03-2023 Urea nitrogen [Mass/Vol] 16 mg/dL 7-18 [facility] Thin prep Papanicolaou smear with manual screeningOrdered By: Reilly Mack on 03-03-2023 Thin prep Papanicolaou smear with manual screening 7 5-15 [facility] Basophil percentageOrdered B y: Ariana Connor on 02-28-2023 Basophil percentage 0-5 SEEN /hpf 0-5 [facility] Bilirubin Test strip Ql (U)O rdered By: Ariana Connor on 02-28-2023 Bilirubin Ql (U) Negative Negative [facility] Ketones Test strip Ql (U)Ord ered By: Ariana Connor on 02-28-2023 Ketones Ql (U) 50 mg/dl Negative [facility] Mucus LM Ql (Urine sed)Order ed By: Ariana Connor on 02-28-2023 Mucus Ql (Urine sed) 0 SEEN /hpf [facility] Nitrite Test strip Ql (U)Ord ered By: Ariana Connor on 02-28-2023 Nitrite Ql (U) Negative Negative [facility] Protein Test strip Ql (U)Ord ered By: Ariana Connor on 02-28-2023 Protein Ql (U) 15 mg/dl Negative [facility] Squamous epithelial cells de tection in urine sediment by light microscopyOrdered By: Ariana Connor on 02-28-2023 Epithelial cells.squamous LM Ql (Urine sed) 0 SEEN /hpf 0-5 [facility] Urine blood detectionOrdered By: Ariana Connor on 02-28-2023 RBC Ql (U) 10 /ul Negative [facility] RBC Ql (U) 0-5 SEEN /hpf 0-5 [facility] Urine clarityOrdered By: Marty Connor on 02-28-2023 Clarity (U) Clear Clear [facility] Urine color determinationOrd ered By: Ariana Connor on 02-28-2023 Color (U) Yellow Yellow [facility] Urine glucose detectionOrder ed By: Ariana Connor on 02-28-2023 Glucose Ql (U) Normal mg/dl Normal [facility] Urine leukocyte esterase det ection by dipstickOrdered By: Ariana Connor on 02-28-2023 Leukocyte esterase Test strip Ql (U) Negative Negative [facility] Urine pHOrdered By: Ariana R obotham on 02-28-2023 pH (U) 7.0 [pH] 5.0 - 8.0 [facility] Urine sediment bacteria coun t by microscopy (number/high power field)Ordered By: Ariana Connor on 02-28-2023 Bacteria LM.HPF (Urine sed) [#/Area] 0 /[HPF] None Seen [facility] Urine specific gravity measu rementOrdered By: Ariana Connor on 02-28-2023 Specific gravity (U) [Rel density] 1.010 1.002-1.030 [facility] Urobilinogen Auto test strip Ql (U)Ordered By: Ariana Connor on 02-28-2023 Urobilinogen Ql (U) Normal mg/dl Normal [facility] Glucose Glucometer (BldC) [M ass/Vol]Ordered By: Reilly Mack on 02-27-2023 Glucose [Mass/Vol] 142 mg/dL 74-106 [facility] Comment on above: MANAGEMENT OF PATIEN T CARE PER NURSING PROTOCOL Absolute lymphocyte countOrd ered By: Bonifacio Tompkins on 02-25-2023 Lymphocytes Auto (Unsp spec) [#/Vol] 0.26 10*3/uL 0.83-4.51 [facility] Basophil percentageOrdered B y: Bonifacio Tompkins on 02-25-2023 Lactate [Moles/Vol] 1.8 mmol/L 0.4-2.0 [facility] Basophils/100 WBC (Bld) 0.3 % 0-[address] [facility] Bilirubin [Mass/Vol] 1.40 mg/dL 0.20-1.00 [facility] Comment on above: For patients on eltr ombopag therapy, use of Dimension [place] TBIL is not recommended. Chloride [Moles/Vol] 106 mmol/L 98-107 [facility] Eosinophils/100 WBC (Bld) 0.1 % 0-5 [facility] Glucose [Mass/Vol] 170 mg/dL 74-106 [facility] Comment on above: Fasting Glucose resu lt greater than or equal to 126 mg/dL suggests DIABETES MELLITUS per A.D.A. criteria. Neutrophils (Bld) [#/Vol] 13.7 10*3/uL 2.0-7.7 [facility] Neutrophils/100 WBC (Bld) 92.5 % 47-70 [facility] Potassium [Moles/Vol] 4.0 mmol/L 3.5-5.1 [facility] Protein [Mass/Vol] 7.4 g/dL 6.4-8.2 [facility] Sodium [Moles/Vol] 138 mmol/L 136-145 [facility] WBC (Bld) [#/Vol] 14.8 10*3/uL 4.4-11.0 [facility] Blood erythrocytes count (nu mber/volume)Ordered By: Bonifacio Tompkins on 02-25-2023 RBC (Bld) [#/Vol] 5.69 10*6/uL 4.6-6.2 [facility] Blood hemoglobin measurement (mass/volume)Ordered By: Bonifacio Tompkins on 02-25-2023 Hemoglobin (Bld) [Mass/Vol] 16.6 g/dL 13.0-16.5 [facility] Blood lymphocytes/100 leukoc ytesOrdered By: Bonifacio Tompkins on 02-25-2023 Lymphocytes/100 WBC (Bld) 1.8 % 19-41 [facility] Blood manual differential co mment interpretation (narrative result)Ordered By: Bonifacio Tompkins on 02-25-2023 Manual differential comment Marvin (Bld) [Interp] SCANNED [facility] Comment on above: LYMPHOPENIA NOTED Blood monocytes/100 leukocyt esOrdered By: Bonifacio Tompkins on 02-25-2023 Monocytes/100 WBC (Bld) 5.0 % 0-[address] [facility] Blood platelet mean volumeOr dered By: Bonifacio Tompkins on 02-25-2023 Platelet mean volume (Bld) [Entitic vol] 9.7 fL 6.2-12.0 [facility] Determination of erythrocyte mean corpuscular volume (MCV)Ordered By: Bonifacio Tompkins on 02-25-2023 MCV (RBC) [Entitic vol] 83.0 fL 80-[address] [facility] Hematocrit Auto (Bld) [Volum e fraction]Ordered By: Bonifacio Tompkins on 02-25-2023 Hematocrit (Bld) [Volume fraction] 47.2 % 40-54 [facility] Laboratory - Chemistry and C hemistry - challengeOrdered By: Bonifacio Tompkins on 02-25-2023 ALP [Catalytic activity/Vol] 62 U/L 45-117 [facility] ALT [Catalytic activity/Vol] 40 U/L 16-61 [facility] CO2 [Moles/Vol] 25.0 mmol/L 21.0-32.0 [facility] Globulin (S) [Mass/Vol] 3.1 g/dL 2.2-4.[address] [facility] Lipase [Catalytic activity/Vol] 29 U/L 13-75 [facility] Comment on above: Please note:LIPASE r evised reference range effective 22. New Lipase methodology. Expected to produce lower values than the previous assay method. NEW Reference Range: 13 - 75 U/L Urea nitrogen/Creatinine [Mass ratio] 19.9 mg/mg 10-20 [facility] Laboratory - Hematology and Cell countsOrdered By: Bonifacio Tompkins on 02-25-2023 Erythrocyte distribution width (RBC) [Entitic vol] 40.1 fL 35.1-43.9 [facility] Erythrocyte distribution width (RBC) [Ratio] 13.4 % 11.6-14.6 [facility] Immature granulocytes/100 WBC (Bld) 0.300 % 0.0-0.9 [facility] Comment on above: IG% - Immature Granu locytes (promyelocytes, myelocytes and metamyelocytes) > 1% indicates that a LEFT SHIFT is Present. MCH (RBC) [Entitic mass] 29.2 pg 27.0-32.0 [facility] Nucleated RBC/100 WBC (Bld) [Ratio] 0 % 0-5 [facility] Laboratory - Microbiology an d Antimicrobial susceptibilityOrdered By: Bonifacio Tompkins on 02-25-2023 SARS-CoV-2 (COVID-19) RNA DARRIN+probe Ql (Unsp spec) [facility] SARS-CoV-2 (COVID-19) RNA DARRIN+probe Ql (Unsp spec) [facility] MCHC Auto (RBC) [Mass/Vol]Or dered By: Bonifacio Tompkins on 02-25-2023 MCHC (RBC) [Mass/Vol] 35.2 g/dL 32-36 [facility] No Panel InformationOrdered By: Bonifacio Tompkins on 02-25-2023 Estimated GFR (MDRD) Amer 60 mL/min >60 [facility] Comment on above: GFR Calc Estimated GFR (MDRD) Non-Af Amer 50 mL/min >60 [facility] Comment on above: Non- GFR Calc Platelets bldOrdered By: Jes Tompkins on 02-25-2023 Platelets (Bld) [#/Vol] 157 10*3/uL 150-450 [facility] Serum or plasma albumin arya urement (mass/volume)Ordered By: Bonifacio Tompkins on 02-25-2023 Albumin [Mass/Vol] 4.3 g/dL 3.2-5.0 [facility] Serum or plasma albumin/glob ulin mass ratioOrdered By: Bonifacio Tompkins on 02-25-2023 Albumin/Globulin [Mass ratio] 1.4 {ratio} 0.9-2.4 [facility] Serum or plasma calcium arya urement (mass/volume)Ordered By: Bonifacio Tompkins on 02-25-2023 Calcium [Mass/Vol] 9.1 mg/dL 8.5-10.1 [facility] Serum or plasma creatinine m easurement (mass/volume)Ordered By: Bonifacio Tompkins on 02-25-2023 Creatinine [Mass/Vol] 1.46 mg/dL 0.70-1.30 [facility] Comment on above: The validity of the calculated GFR & GFRAA in patients over 70 years has not been determined. Clinical correlation is essential. Serum or plasma urea nitroge n measurement (mass/volume)Ordered By: Bonifacio Tompkins on 02-25-2023 Urea nitrogen [Mass/Vol] 29 mg/dL 7-18 [facility] Thin prep Papanicolaou smear with manual screeningOrdered By: Bonifacio Tompkins on 02-25-2023 Thin prep Papanicolaou smear with manual screening 24 U/L 15-37 [facility] Thin prep Papanicolaou smear with manual screening 7 5-15 [facility] Basophil percentageOrdered B y: Samir Quevedo on 12-28-2022 Chloride [Moles/Vol] 108 mmol/L 98-107 [facility] Glucose [Mass/Vol] 108 mg/dL 74-106 [facility] Comment on above: Fasting Glucose resu lt from 100 to 125 mg/dL suggests IMPAIRED HOMEOSTASIS per A.D.A. criteria. Potassium [Moles/Vol] 4.0 mmol/L 3.5-5.1 [facility] Sodium [Moles/Vol] 138 mmol/L 136-145 [facility] Laboratory - Chemistry and C hemistry - challengeOrdered By: Samir Quevedo on 12-28-2022 CO2 [Moles/Vol] 23.0 mmol/L 21.0-32.0 [facility] Free T4 [Mass/Vol] 1.00 ng/dL 0.76-1.46 [facility] Urea nitrogen/Creatinine [Mass ratio] 18.3 mg/mg 10-20 [facility] No Panel InformationOrdered By: Samir Quevedo on 12-28-2022 Estimated GFR (MDRD) Amer 71 mL/min >60 [facility] Comment on above: GFR Calc Estimated GFR (MDRD) Non-Af Amer 59 mL/min >60 [facility] Comment on above: Non- GFR Calc Thyroid Stimulating Hormone (TSH) 3.06 uIU/mL 0.358-3.74 [facility] No Panel InformationOrdered By: Sparkle Moreno on 12-28-2022 Prostate Specific Antigen Screen 3.19 ng/mL 0.00-4.00 [facility] Comment on above: This test was perfor med using the TPSA assay method for theLOAG chemistry system. Values obtained with differentassay methods cannot be used interchangably.When changing PSA assays in the course of monitoring apatient, additional sequential testing should be carriedout to confirm baseline values. Serum or plasma calcium arya urement (mass/volume)Ordered By: Samir Quevedo on 12-28-2022 Calcium [Mass/Vol] 8.9 mg/dL 8.5-10.1 [facility] Serum or plasma creatinine m easurement (mass/volume)Ordered By: Samir Quevedo on 12-28-2022 Creatinine [Mass/Vol] 1.26 mg/dL 0.70-1.30 [facility] Comment on above: The validity of the calculated GFR & GFRAA in patients over 70 years has not been determined. Clinical correlation is essential. Serum or plasma urea nitroge n measurement (mass/volume)Ordered By: Samir Quevedo on 12-28-2022 Urea nitrogen [Mass/Vol] 23 mg/dL 7-18 [facility] Thin prep Papanicolaou smear with manual screeningOrdered By: Samir Quevedo on 12-28-2022 Thin prep Papanicolaou smear with manual screening 7 5-15 [facility] Basophil percentageOrdered B y: Dr. Quevedo on 05-20-2022 Bilirubin [Mass/Vol] 0.80 mg/dL 0.20-1.00 [facility] Comment on above: For patients on eltr ombopag therapy, use of Dimension [place] TBIL is not recommended. Chloride [Moles/Vol] 110 mmol/L 98-107 [facility] Glucose [Mass/Vol] 114 mg/dL 74-106 [facility] Comment on above: Fasting Glucose resu lt from 100 to 125 mg/dL suggests IMPAIRED HOMEOSTASIS per A.D.A. criteria. Potassium [Moles/Vol] 3.5 mmol/L 3.5-5.1 [facility] Protein [Mass/Vol] 7.0 g/dL 6.4-8.2 [facility] Sodium [Moles/Vol] 138 mmol/L 136-145 [facility] Laboratory - Chemistry and C hemistry - challengeOrdered By: Dr. Quevedo on 05-20-2022 ALP [Catalytic activity/Vol] 59 U/L 45-117 [facility] ALT [Catalytic activity/Vol] 30 U/L 16-61 [facility] CO2 [Moles/Vol] 24.0 mmol/L 21.0-32.0 [facility] Free T4 [Mass/Vol] 0.82 ng/dL 0.76-1.46 [facility] Globulin (S) [Mass/Vol] 3.1 g/dL 2.2-4.[address] [facility] Urea nitrogen/Creatinine [Mass ratio] 22.3 mg/mg 10-20 [facility] No Panel InformationOrdered By: Dr. Quevedo on 05-20-2022 Estimated GFR (MDRD) Amer 82 mL/min >60 [facility] Comment on above: GFR Calc Estimated GFR (MDRD) Non-Af Amer 68 mL/min >60 [facility] Comment on above: Non- GFR Calc Thyroid Stimulating Hormone (TSH) 5.59 uIU/mL 0.358-3.74 [facility] Urine Microalbumin/Creatinine Ratio 12.7 mg/g CRE <30 [facility] Serum or plasma albumin arya urement (mass/volume)Ordered By: Dr. Quevedo on 05-20-2022 Albumin [Mass/Vol] 3.9 g/dL 3.2-5.0 [facility] Serum or plasma albumin/glob ulin mass ratioOrdered By: Dr. Quevedo on 05-20-2022 Albumin/Globulin [Mass ratio] 1.3 {ratio} 0.9-2.4 [facility] Serum or plasma calcium arya urement (mass/volume)Ordered By: Dr. Quevedo on 05-20-2022 Calcium [Mass/Vol] 8.4 mg/dL 8.5-10.1 [facility] Serum or plasma creatinine m easurement (mass/volume)Ordered By: Dr. Quevedo on 05-20-2022 Creatinine [Mass/Vol] 1.12 mg/dL 0.70-1.30 [facility] Comment on above: The validity of the calculated GFR & GFRAA in patients over 70 years has not been determined. Clinical correlation is essential. Serum or plasma urea nitroge n measurement (mass/volume)Ordered By: Dr. Quevedo on 05-20-2022 Urea nitrogen [Mass/Vol] 25 mg/dL 7-18 [facility] Thin prep Papanicolaou smear with manual screeningOrdered By: Dr. Quevedo on 05-20-2022 Thin prep Papanicolaou smear with manual screening 19 U/L 15-37 [facility] Thin prep Papanicolaou smear with manual screening 4 5-15 [facility] Thin prep Papanicolaou smear with manual screening 20.5 mg/L NO RANGE EST. [facility] Urine creatinine measurement (mass/volume)Ordered By: Dr. Quevedo on 05-20-2022 Creatinine (U) [Mass/Vol] 162.00 mg/dL NO RANGE EST. [facility] Basophil percentageon 2021 Chloride [Moles/Vol] 105 mmol/L 98-107 [facility] Work Phone: Glucose [Mass/Vol] 130 mg/dL 74-106 [facility] Work Phone: Comment on above: Fasting Glucose resu lt greater than or equal to 126 mg/dL suggests DIABETES MELLITUS per A.D.A. criteria. Potassium [Moles/Vol] 3.7 mmol/L 3.5-5.1 [facility] Work Phone: Sodium [Moles/Vol] 139 mmol/L 136-145 [facility] Work Phone: WBC (Bld) [#/Vol] 4.5 10*3/uL 4.4-11.0 [facility] Work Phone: Blood erythrocytes count (nu mber/volume)on 10-30-2021 RBC (Bld) [#/Vol] 5.09 10*6/uL 4.6-6.2 [facility] Work Phone: Blood hemoglobin measurement (mass/volume)on 10-30-2021 Hemoglobin (Bld) [Mass/Vol] 14.3 g/dL 13.0-16.5 [facility] Work Phone: [phone] Blood platelet mean volumeon 10-30-2021 Platelet mean volume (Bld) [Entitic vol] 10.1 fL 6.2-12.0 [facility] Work Phone: [phone] Determination of erythrocyte mean corpuscular volume (MCV)on 10-30-2021 MCV (RBC) [Entitic vol] 83.7 fL 80-[address] [facility] Work Phone: [phone] Hematocrit Auto (Bld) [Volum e fraction]on 10-30-2021 Hematocrit (Bld) [Volume fraction] 42.6 % 40-54 [facility] Work Phone: [phone] Laboratory - Chemistry and C hemistry - challengeon 10-30-2021 CO2 [Moles/Vol] 27.0 mmol/L 21.0-32.0 [facility] Work Phone: [phone] Urea nitrogen/Creatinine [Mass ratio] 15.6 mg/mg 10-20 [facility] Work Phone: [phone] Laboratory - Hematology and Cell countson 10-30-2021 Erythrocyte distribution width (RBC) [Entitic vol] 41.5 fL 35.1-43.9 [facility] Work Phone: [phone] Erythrocyte distribution width (RBC) [Ratio] 13.6 % 11.6-14.6 [facility] Work Phone: [phone] MCH (RBC) [Entitic mass] 28.1 pg 27.0-32.0 [facility] Work Phone: [phone] MCHC Auto (RBC) [Mass/Vol]on 10-30-2021 MCHC (RBC) [Mass/Vol] 33.6 g/dL 32-36 [facility] Work Phone: [phone] No Panel Informationon 10-30 Estimated GFR (MDRD) Amer 63 mL/min >60 [facility] Work Phone: [phone] Comment on above: GFR Calc Estimated GFR (MDRD) Non-Af Amer 52 mL/min >60 [facility] Work Phone: Comment on above: Non- GFR Calc Platelets bldon 10-30-2021 Platelets (Bld) [#/Vol] 182 10*3/uL 150-450 [facility] Work Phone: Serum or plasma calcium arya urement (mass/volume)on 10-30-2021 Calcium [Mass/Vol] 8.7 mg/dL 8.5-10.1 [facility] Work Phone: Serum or plasma creatinine m easurement (mass/volume)on 10-30-2021 Creatinine [Mass/Vol] 1.41 mg/dL 0.70-1.30 [facility] Work Phone: Comment on above: The validity of the calculated GFR & GFRAA in patients over 70 years has not been determined. Clinical correlation is essential. Serum or plasma urea nitroge n measurement (mass/volume)on 10-30-2021 Urea nitrogen [Mass/Vol] 22 mg/dL 7-18 [facility] Work Phone: Thin prep Papanicolaou smear with manual screeningon 10-30-2021 Thin prep Papanicolaou smear with manual screening 7 5-15 [facility] Work Phone: Gram stain for investigation of transfusion reaction Microscopic observation Gram stain Nom (Unsp spec) [facility] Work Phone: No Panel Information Nasopharyngeal Culture No growth in 48 hours. [facility] Work Phone: Vital Signs Date Time Vital Sign Value Performing Clinician Faci lity 08-23-2024 13:38-0400 Body temperature 98.6 [degF] Dr. Samir Quevedo MD Work Phone: [facility] 08-23-2024 13:38-0400 Body weight 107.[address] Samir Quevedo MD Work Phone: [facility] 08-23-2024 13:38-0400 Diastolic blood pressure 90 mm[Hg] Dr. Samir Quevedo MD Work Phone: [facility] 08-23-2024 13:38-0400 Heart rate 100 /min Dr. Samir Quevedo MD Work Phone: [phone])172-493927 [place] [address] 08-23-2024 13:38-0400 Respiratory rate 18 /min Dr. Samir Quevedo MD Work Phone: [phone] [place] [address] 08-23-2024 13:38-0400 SaO2% (BldA) [Mass fraction] 96 % Dr. Samir Quevedo MD Work Phone: [phone])341-672328 [place] [address] 08-23-2024 13:38-0400 Systolic blood pressure 145 mm[Hg] Dr. Samir Quevedo MD Work Phone: [phone])258-631428 [place] [address] 07-27-2024 09:14-0400 Body height 177.[address] Samir Quevedo MD Work Phone: [phone])274-835528 [place] [address] 07-27-2024 08:42-0400 Body temperature 97.5 [degF] Dr. Samir Quevedo MD Work Phone: [phone](872)135-872828 [place] [address] 07-27-2024 08:42-0400 Body weight 105.[address] Samir Quevedo MD Work Phone: [phone])938-959528 [place] [address] 07-27-2024 08:42-0400 Diastolic blood pressure 92 mm[Hg] Dr. Samir Quevedo MD Work Phone: [phone])849-869728 [place] [address] 07-27-2024 08:42-0400 Heart rate 92 /min Dr. Samir Quevedo MD Work Phone: [phone])294-710028 [place] [address] 07-27-2024 08:42-0400 Respiratory rate 16 /min Dr. Samir Quevedo MD Work Phone: [phone] [place] [address] 07-27-2024 08:42-0400 SaO2% (BldA) [Mass fraction] 96 % Dr. Samir Quevedo MD Work Phone: [phone] [place] [address] 07-27-2024 08:42-0400 Systolic blood pressure 144 mm[Hg] Dr. Samir Quevedo MD Work Phone: [phone])361-058428 [place] [address] 06-14-2023 15:26-0400 Diastolic blood pressure 89 mm[Hg] Dr. Samir Quevedo Work Phone: [phone] [place] [address] 06-14-2023 15:26-0400 Heart rate 85 /min Dr. Samir Quevedo Work Phone: [facility] 06-14-2023 15:26-0400 Respiratory rate 16 /min Dr. Samir Quevedo Work Phone: [facility] 06-14-2023 15:26-0400 SaO2% (BldA) [Mass fraction] 98 % Dr. Samir Quevedo Work Phone: [facility] 06-14-2023 15:26-0400 Systolic blood pressure 157 mm[Hg] Dr. Samir Quevedo Work Phone: [phone] [place] [address] 06-14-2023 14:14-0400 Body height 177.[address] Samir Quevedo Work Phone: [phone] [place] [address] 06-14-2023 14:14-0400 Body mass index (BMI) [Ratio] 32.3 kg/m2 Dr. Samir Quevedo Work Phone: [phone])[phone] [place] [address] 06-14-2023 14:14-0400 Body temperature 97.3 [degF] Dr. Samir Quevedo Work Phone: [phone] [place] [address] 06-14-2023 14:14-0400 Body weight 102.[address] Samir Quevedo Work Phone: [phone])843-545628 [place] [address] 05-28-2023 13:22-0400 Diastolic blood pressure 90 mm[Hg] Dr. Samir Quevedo Work Phone: [facility] 05-28-2023 13:22-0400 Systolic blood pressure 163 mm[Hg] Dr. Samir Quevedo Work Phone: [phone] [place] [address] 05-28-2023 12:45-0400 Body height 172.[address] Samir Quevedo Work Phone: [facility] 05-28-2023 12:45-0400 Body mass index (BMI) [Ratio] 34.5 kg/m2 Dr. Samir Quevedo Work Phone: [facility] 05-28-2023 12:45-0400 Body temperature 97.2 [degF] Dr. Samir Quevedo Work Phone: [facility] 05-28-2023 12:45-0400 Body weight 103.[address] Samir Quevedo Work Phone: [facility] 05-28-2023 12:45-0400 Heart rate 83 /min Dr. Samir Quevedo Work Phone: [facility] 05-28-2023 12:45-0400 Respiratory rate 18 /min Dr. Samir Quevedo Work Phone: [facility] 05-28-2023 12:45-0400 SaO2% (BldA) [Mass fraction] 97 % Dr. Samir Quevedo Work Phone: [facility] 04-10-2023 07:30-0500 Body temperature 97.8 [degF] Dr. Samir Quevedo Work Phone: [facility] 04-10-2023 07:30-0500 Diastolic blood pressure 75 mm[Hg] Dr. Samir Quevedo Work Phone: [phone])365-933727 [place] [address] 04-10-2023 07:30-0500 Heart rate 85 /min Dr. Samir Quevedo Work Phone: [facility] 04-10-2023 07:30-0500 Respiratory rate 16 /min Dr. Samir Quevedo Work Phone: [facility] 04-10-2023 07:30-0500 SaO2% (BldA) [Mass fraction] 96 % Dr. Samir Quevedo Work Phone: [facility] 04-10-2023 07:30-0500 Systolic blood pressure 127 mm[Hg] Dr. Samir Quevedo Work Phone: [facility] 04-09-2023 13:54-0500 Body height 172.[address] Samir Quevedo Work Phone: [facility] 04-09-2023 13:54-0500 Body mass index (BMI) [Ratio] 34.4 kg/m2 Dr. Samir Quevedo Work Phone: [facility] 04-09-2023 13:54-0500 Body weight 102.[address] Samir Quevedo Work Phone: [facility] 03-24-2023 10:10-0500 Body mass index (BMI) [Ratio] 35.5 kg/m2 Dr. Samir Quevedo Work Phone: [facility] 03-24-2023 10:10-0500 Body temperature 97 [degF] Dr. Samir Quevedo Work Phone: [facility] 03-24-2023 10:10-0500 Body weight 106.[address] Samir Quevedo Work Phone: [facility] 03-24-2023 10:10-0500 Diastolic blood pressure 101 mm[Hg] Dr. Samir Quevedo Work Phone: [phone] [place] [address] 03-24-2023 10:10-0500 Heart rate 116 /min Dr. Samir Quevedo Work Phone: [facility] 03-24-2023 10:10-0500 Respiratory rate 18 /min Dr. Samir Quevedo Work Phone: [facility] 03-24-2023 10:10-0500 SaO2% (BldA) [Mass fraction] 97 % Dr. Samir Quevedo Work Phone: [facility] 03-24-2023 10:10-0500 Systolic blood pressure 181 mm[Hg] Dr. Samir Quevedo Work Phone: [facility] 03-08-2023 20:51-0500 Body height 175.[address] Samir Quevedo Work Phone: [facility] 03-08-2023 20:51-0500 Body mass index (BMI) [Ratio] 34.3 kg/m2 Dr. Samir Quevedo Work Phone: [facility] 03-08-2023 20:51-0500 Body temperature 96.2 [degF] Dr. Samir Quevedo Work Phone: [facility] 03-08-2023 20:51-0500 Body weight 105.[address] Samir Quevedo Work Phone: [facility] 03-08-2023 20:51-0500 Diastolic blood pressure 171 mm[Hg] Dr. Samir Quevedo Work Phone: [facility] 03-08-2023 20:51-0500 Heart rate 126 /min Dr. Samir Quevedo Work Phone: [facility] 03-08-2023 20:51-0500 Respiratory rate 22 /min Dr. Samir Quevedo Work Phone: 2(604)258-113360 [address] 03-08-2023 20:51-0500 SaO2% (BldA) [Mass fraction] 97 % Dr. Samir Quevedo Work Phone: [facility] 03-08-2023 20:51-0500 Systolic blood pressure 203 mm[Hg] Dr. Samir Quevedo Work Phone: [facility] 03-03-2023 09:28-0500 Body temperature 98.1 [degF] Dr. Samir Quevedo Work Phone: 9(420)[phone] [address] 03-03-2023 09:28-0500 Diastolic blood pressure 112 mm[Hg] Dr. Samir Quevedo Work Phone: 6(350)617-645027 [place] [address] 03-03-2023 09:28-0500 Heart rate 106 /min Dr. Samir Quevedo Work Phone: [facility] 03-03-2023 09:28-0500 Respiratory rate 16 /min Dr. Samir Quevedo Work Phone: [facility] 03-03-2023 09:28-0500 SaO2% (BldA) [Mass fraction] 97 % Dr. Samir Quevedo Work Phone: [facility] 03-03-2023 09:28-0500 Systolic blood pressure 162 mm[Hg] Dr. Samir Quevedo Work Phone: [facility] 03-01-2023 14:50-0500 Body height 175.[address] Samir Quevedo Work Phone: [facility] 03-01-2023 14:50-0500 Body weight 99.[address] Samir Quevedo Work Phone: [facility] 02-27-2023 08:11-0500 Inhaled oxygen flow rate 1 L/min Dr. Samir Quevedo Work Phone: [facility] 02-26-2023 09:33-0500 Body mass index (BMI) [Ratio] 32.3 kg/m2 Dr. Samir Quevedo Work Phone: [facility] 02-25-2023 23:10-0500 Diastolic blood pressure 105 mm[Hg] Dr. Samir Quevedo Work Phone: [facility] 02-25-2023 23:10-0500 Heart rate 114 /min Dr. Samir Quevedo Work Phone: 8(525)[phone] [place] [address] 02-25-2023 23:10-0500 Respiratory rate 20 /min Dr. Samir Quevedo Work Phone: [facility] 02-25-2023 23:10-0500 SaO2% (BldA) [Mass fraction] 93 % Dr. Samir Quevedo Work Phone: [facility] 02-25-2023 23:10-0500 Systolic blood pressure 145 mm[Hg] Dr. Samir Quevedo Work Phone: [facility] 02-25-2023 22:13-0500 Body temperature 97.8 [degF] Dr. Samir Quevedo Work Phone: [facility] 02-25-2023 19:51-0500 Body height 177.[address] Samir Quevedo Work Phone: [facility] 04-30-2022 09:55-0500 Diastolic blood pressure 104 mm[Hg] MD Samir Quevedo [facility] 04-30-2022 09:55-0500 Systolic blood pressure 154 mm[Hg] MD Samir Quevedo [facility] 04-30-2022 09:33-0500 Body height 177.8 cm MD Samir Quevedo OLS [facility] 04-30-2022 09:33-0500 Heart rate 95 /min MD Samir ENRIQUEZ [facility] 04-30-2022 09:33-0500 Respiratory rate 17 /min MD Samir ENRIQUEZ [facility] 04-30-2022 09:33-0500 SaO2% (BldA) [Mass fraction] 98 % MD Samir Quevedo [facility] Encounters Encounter Date Encounter Type Care Provider Facility Start: 10-02-2024 ambulatory [facility] Start: 09-29-2024 Encounter for other preprocedural examination [facility] Start: 08-23-2024 End: 08-23-[address] Samir Manley MD -[facility] Work Phone: Start: 08-23-2024 End: 08-23-[address] Samir Quevedo MD Work Phone: -[facility] Start: 07-27-2024 End: 07-27-2024 Patient encounter procedure Alva ARREOLA -[facility] Work Phone: Start: 07-27-2024 End: 07-27-[address] Samir Quevedo MD Work Phone: [facility] Work Phone: Start: 07-10-2024 ambulatory [facility] Facility:[facility] Start: 07-10-2024 Non-patient / Non-visit Dr. Samir segovia MD -[facility] Start: 07-10-2024 End: 07-10-[address] Samir Manley MD -[facility] Work Phone: Start: 07-10-2024 End: 07-10-2024 ambulatory [facility] Facility:[facility] Start: 06-14-2023 End: 06-14-[address] Samir Quevedo Work Phone: [facility] Work Phone: Start: 06-14-2023 End: 06-14-[address] Samir Quevedo Work Phone: [facility] Work Phone: Start: 05-31-2023 End: 05-31-[address] Samir Quevedo Work Phone: [facility] Work Phone: Start: 05-31-2023 End: 05-31-[address] Samir Quevedo Work Phone: [facility]-Laboratory Work Phone: Start: 05-28-2023 End: 05-28-[address] Samir Quevedo Work Phone: [facility] Work Phone: Start: 04-23-2023 Non-patient / Non-visit Dr. Pedrito Quevedo Work Phone: [facility] Start: 04-23-2023 End: 04-23-[address] Samir Quevedo Work Phone: [facility] Work Phone: Start: 04-23-2023 End: 04-23-[address] Samir Quevedo Work Phone: [facility]-Cardiovascular Services Work Phone: Start: 04-09-2023 End: 04-10-2023 Admission to same day surgery center Dr. Samir Quevedo Work Phone: [facility] Start: 04-09-2023 End: 04-10-[address] Samir Quevedo Work Phone: [facility] Work Phone: Start: 03-24-2023 End: 03-24-2023 Emergency department patient visit Dr. Samir Quevedo Work Phone: [facility]-Emergency Department Work Phone: Start: 03-10-2023 End: 03-10-[address] Samir Quevedo Work Phone: [facility] Work Phone: Start: 03-08-2023 End: 03-08-2023 Emergency department patient visit Dr. Samir Quevedo Work Phone: [facility]-Emergency Department Work Phone: Start: 03-03-2023 Non-patient / Non-visit Dr. Pedrito Quevedo Work Phone: [facility] Start: 03-02-2023 Non-patient / Non-visit Dr. Pedrito Quevedo Work Phone: [facility] Start: 03-01-2023 Non-patient / Non-visit Dr. Pedrito Quevedo Work Phone: [facility] Start: 02-28-2023 Non-patient / Non-visit Dr. Pedrito Quevedo Work Phone: [facility] Start: 02-27-2023 Non-patient / Non-visit Dr. Pedrito Quevedo Work Phone: [facility] Start: 02-27-2023 Non-patient / Non-visit Dr. Pedrito Quevedo Work Phone: [facility] Start: 02-26-[address] Aamir Quevedo Work Phone: [facility] Start: 02-26-2023 Non-patient / Non-visit Dr. Pedrito Quevedo Work Phone: [facility] Start: 02-25-2023 Non-patient / Non-visit Dr. Pedrito Quevedo Work Phone: [facility] Start: 02-25-2023 End: 03-03-2023 Admission to same day surgery center Dr. Samir Quevedo Work Phone: [facility] Start: 02-25-2023 End: 03-03-2023 Evaluation and management of inpatient Dr. Samir Quevedo Work Phone: [facility]-Progressive Care Unit Work Phone: Start: 02-25-[address] Samir Quevedo Work Phone: [facility] Work Phone: Start: 12-28-2022 End: 12-28-[address] Samir Quevedo Work Phone[facility] Start: 05-20-2022 End: 05-20-2022 ambulatory MD Samir ENRQIUEZ [facility] Work Phone: Start: 05-20-2022 End: 05-20-2022 Patient encounter procedure MD Samir ENRIQUEZ [facility] Start: 04-30-2022 End: 04-30-2022 Patient encounter procedure MD Samir ENRIQUEZ [facility] Start: 04-20-2022 Non-patient / Non-visit MD Samir de la torre [facility] Start: 04-20-2022 End: 04-20-2022 Patient encounter procedure MD Samir ENRIQUEZ [facility]Card[facility] Start: 11-11-2021 End: 11-11-2021 ambulatory MD Samir Quevedo [facility] Work Phone: Start: 11-11-2021 End: 11-11-2021 Patient encounter procedure MD Samir Quevedo [facility]-Laboratory, Specimen Start: 10-30-2021 End: 10-30-2021 ambulatory [facility] Work Phone: Start: 10-30-2021 End: 10-30-2021 Patient encounter procedure [facility] Start: 10-30-2021 Non-patient / Non-visit MD Samir de la torre [facility] Start: 08-01-2021 End: 08-01-2021 Patient encounter procedure [facility]-Laboratory, Specimen Start: 12-14-2018 End: 12-14-2018 Office outpatient visit 5 minutes [facility] Internal Medicine Procedures Date Procedure Procedure Detail Performing Clinician Start: 06-14-2023 CT angiography of ne ck vessels Dr. Samir Quevedo Work Phone: Start: 04-09-2023 Cysto,Transurethral Resection Prostate (Not Applicable) Dr. Samir Quevedo Work Phone: Start: 03-01-2023 CT of abdomen and pe lvis without contrast Dr. Samir Quevedo Work Phone: Start: 02-26-2023 Exploratory,Laparosc opy,S NOREEN (Not Applicable) Dr. Samir Quevedo Work Phone: Start: 02-26-[address] Samir vaughan Work Phone: Start: 02-26-2023 Plain X-ray abdomen Dr. Samir Quevedo Work Phone: Start: 02-25-2023 Diagnostic radiograp hy of abdomen Dr. Samir Quevedo Work Phone: Start: 02-25-2023 Computed tomography of abdomen and pelvis with intravenous contrast Dr. Samir Quevedo Work Phone: Start: 02-25-2023 SARS-CoV-2, Influenz a & RSV (PCR) Dr. Samir Quevedo Work Phone: Start: 02-22-2023 H/O: surgery S/P explorator y laparotomy Dr. Samir Quevedo Work Phone: Comment on above: SMALL INTESTINE BLOC KAGE, REMOVED 2 CM OF SMALL INTESTINE Start: 10-30-2021 CT of face H/O: surgery S/P exploratory laparotomy Dr. Samir Quevedo Work Phone: Investigation of transfusion reaction Nasopharyngeal Culture Plan of Treatment Date Care Activity Detail Author Start: 04-10-2023 Patient discharge [facility] Start: 04-10-2023 Removal of urinary catheter [facility] Start: 04-09-2023 Application of intermittent pneumatic compression device [facility] Start: 04-09-2023 Following clinical pathway protocol [facility] Start: 04-09-2023 Deep breathing and coughing exercises [facility] Start: 04-09-2023 Irrigation of urinary bladder [facility] Start: 04-09-2023 Measuring intake and output [facility] Start: 04-09-2023 Patient education [facility] Start: 04-09-2023 Provision of activity privileges [facility] Start: 04-09-2023 Taking patient vital signs [facility] Start: 04-09-[address] [facility] Start: 04-09-2023 [facility] Start: 04-09-2023 Admission procedure [facility] Start: 04-09-2023 Anesthesia transurethral resection of prostate ANESTH REMOVAL OF PROSTATE [facility] Start: 04-09-2023 Trurl electrosurg rescj prostate bleed complete PROSTATECTOMY (TURP) [facility] Start: 03-24-2023 [facility] Start: 03-08-2023 [facility] Start: 03-03-2023 Patient discharge [facility] Start: 03-02-2023 Wound care [facility] Start: 02-26-2023 Oxygen therapy [facility] Start: 02-26-2023 Referral to service [facility] Start: 02-26-2023 Referral to channel marketing manager [facility] Start: 02-26-2023 Blood chemistry [facility] Start: 02-26-2023 Plain X-ray abdomen Abdomen Single View (Portable) [facility] Start: 02-26-2023 Following clinical pathway protocol [facility] Start: 02-26-2023 Application of intermittent pneumatic compression device [facility] Start: 02-26-2023 Consultation [facility] Start: 02-26-2023 Patient referral to dietitian [facility] Start: 02-25-2023 Diagnostic radiography of abdomen Abdomen Single View [facility] Start: 02-25-2023 XR Abdomen Single view [facility] Start: 02-25-2023 Following clinical pathway protocol [facility] Start: 02-25-2023 Taking patient vital signs [facility] Start: 02-25-2023 Ambulation without limitation [facility] Start: 02-25-2023 Measuring intake and output [facility] Start: 02-25-2023 End: 02-25-2023 [facility] Start: 02-25-2023 Admission procedure [facility] Start: 02-25-2023 Hospital admission, emergency, from emergency room, medical nature [facility] Anion gap measurement [facility] BUN/Creatinine ratio [facility] Calcium [Mass/volume ] in Serum or Plasma [facility] Carbon dioxide, tota l [Moles/volume] in Serum or Plasma [facility] Chloride [Moles/volu me] in Serum or Plasma [facility] Creatinine [Moles/volume] in Serum or Plasma [facility] CTA Neck vessels WO and W contrast IV [facility] Glucose [Mass/volume ] in Serum or Plasma [facility] Hematocrit [Volume Fraction] of Blood [facility] Hemoglobin [Mass/vol ume] in Blood [facility] Leukocytes [#/volume ] in Blood [facility] Mean corpuscular hemoglobin concentration determination [facility] Mean corpuscular hemoglobin determination [facility] Measurement of renal function [facility] Neutrophil count [facility] Neutrophil percent differential count [facility] Patient Education [facility] Work Phone: Patient referral [facility] Work Phone: Platelets [#/volume] in Blood [facility] Potassium [Moles/vol ume] in Serum or Plasma [facility] Red blood cell count [facility] Red cell distributio n width determination [facility] Sodium [Moles/volume ] in Serum or Plasma [facility] Urea nitrogen [Mass/volume] in Serum or Plasma [facility] US Carotid arteries [facility] Work Phone: [facility] Immunizations Immunization Date Immunization Notes Care Provider Fa cility 11-22-2020 Influenza virus vaccine [facility] Payers Date Payer Category Payer Self-pay [id number] 2023 Unknown [id number] 2021 Medicare [id number] Private Health Insurance [facility] KBTJY [id number] Unknown [employer] Life Ins/Medicare Unknown [id number] 2 Unknown [id number] 2 Unknown [id number] 2 Unknown [id number] 2 Unknown [id number] 2 Social History Date Type Detail Facility Start: 04-28-2021 End: 05-28-2023 Tobacco smoking status GAIS Unknown if ever smoked [facility] Start: 04-16-2021 Non-smoker [facility] Start: 1945 Sex Assigned At Male [facility] Start: 05-28-2023 End: 07-27-2024 Tobacco smoking status NHIS Never smoked tobacco (finding) [facility] Medical Equipment Procedure Code Equipment Code Equipment Original Text Equipment Identifier Dates CLIP,[facility] FDA St art: 01-03-2020 MESH,3DMAX RIGHT XL [id number] FDA Start: 01-03-2020 MESH,3DMAX XL LE FT [id number] FDA Start: 01-03-2020 TACKER,SECURE STRAP FDA Start : 01-03-2020 [facility] FDA St art: 01-03-2020 MESH,3DMAX RIGHT XL [id number] FDA Start: 01-03-2020 MESH,3DMAX XL LE FT 12.4CMX17.3 FDA Start: 01-03-2020 TACKER,SECURE STRAP FDA Start : 01-03-2020 [facility]IP,[facility] FDA St art: 01-03-2020 MESH,3DMAX RIGHT XL [id number] FDA Start: 01-03-2020 MESH,3DMAX XL LE FT 12.4CMX17.3 FDA Start: 01-03-2020 TACKER,SECURE STRAP FDA Start : 01-03-2020 [facility] FDA St art: 01-03-2020 MESH,3DMAX RIGHT XL [id number] FDA Start: 01-03-2020 MESH,3DMAX XL LE FT 12.4CMX17.3 FDA Start: 01-03-2020 TACKER,SECURE STRAP FDA Start : 01-03-2020 [facility] FDA St art: 01-03-2020 MESH,3DMAX RIGHT XL [id number] FDA Start: 01-03-2020 MESH,3DMAX XL LE FT 12.4CMX17.3 FDA Start: 01-03-2020 TACKER,SECURE STRAP FDA Start : 01-03-2020 HEMOBLAST FDA Start: 02-26-2023 Plant polysaccha ride haemostatic agent, bioabsorbable [id number] FDA Start: 02-26-2023 Surgical staple loading unit, cutting [id number] FDA Start: 02-26-2023 FABIAN,[facility] FDA St art: 01-03-2020 MESH,3DMAX RIGHT XL [id number] FDA Start: 01-03-2020 MESH,3DMAX XL LE FT 12.4CMX17.3 FDA Start: 01-03-2020 TACKER,SECURE STRAP FDA Start : 01-03-2020 HEMOBLAST FDA Start: 02-26-2023 [facility] FDA St art: 01-03-2020 MESH,3DMAX RIGHT XL [id number] FDA Start: 01-03-2020 MESH,3DMAX XL LE FT 12.4CMX17.3 FDA Start: 01-03-2020 TACKER,SECURE STRAP FDA Start : 01-03-2020 HEMOBLAST FDA Start: 02-26-2023 CLIP,[facility] FDA St art: 01-03-2020 MESH,3DMAX RIGHT XL [id number] FDA Start: 01-03-2020 MESH,3DMAX XL LE FT 12.4CMX17.3 FDA Start: 01-03-2020 TACKER,SECURE STRAP FDA Start : 01-03-2020 HEMOBLAST FDA Start: 02-26-[address] art: 01-03-2020 MESH,3DMAX RIGHT XL [id number] FDA Start: 01-03-2020 MESH,3DMAX XL LE FT 12.4CMX17.3 FDA Start: 01-03-2020 TACKER,SECURE STRAP FDA Start : 01-03-2020 HEMOBLAST FDA Start: 02-26-[address] FDA St art: 01-03-2020 MESH,3DMAX RIGHT XL [id number] FDA Start: 01-03-2020 MESH,3DMAX XL LE FT 12.4CMX17.3 FDA Start: 01-03-2020 TACKER,SECURE STRAP FDA Start : 01-03-2020 HEMOBLAST FDA Start: 02-26-[address] art: 01-03-2020 MESH,3DMAX RIGHT XL [id number] FDA Start: 01-03-2020 MESH,3DMAX XL LE FT 12.4CMX17.3 FDA Start: 01-03-2020 TACKER,SECURE STRAP FDA Start : 01-03-2020 HEMOBLAST FDA Start: 02-26-[address] art: 01-03-2020 MESH,3DMAX RIGHT XL [id number] FDA Start: 01-03-2020 MESH,3DMAX XL LE FT 12.4CMX17.3 FDA Start: 01-03-2020 TACKER,SECURE STRAP FDA Start : 01-03-2020 HEMOBLAST FDA Start: 02-26-2023 Goals Date Patient Goal Desired Activity /State Functional Status Date Assessment Result Facility 04-10-2023 Functional status Ambulates [facility] Work Phone: 03-03-2023 Functional status Chair [facility] Work Phone: Mental Status Date Assessment Result Facility 06-14-2023 Cognitive function Voice/Name [facility] Work Phone: 04-09-2023 Cognitive function Voice/Name [facility] Work Phone: 03-03-2023 Cognitive function Voice/Name [facility] Work Phone: Clinical Notes 02-25-2023 to 07-27-2024 Note Date & Type Note Facility 07-27-2024 Evaluation note Diagnosis Onset Date Resolution Carotid stenosis, left acute Ju ne 2024 8:19am [facility] Work Phone: 1(414) 803-877302-17-2024 Progress note Author Golden Jeong [facility] April 10, 2023 8:03am Note Date/Time April 10, 2023 8:03am [facility] Medical Records Department [address] [place] [address] Progress Note - Urology 04/10/23801 MR#: [id number] Acct: [id number] Name: YARIEL SANCHEZ Rep #:[id number] : 1945 77 From: Golden Jeong MD PCP: Dr. Samir Quevedo MD Status:[facility] Location: [address] Subjective Subjective Status post TURP DC [place] patient can go home after he urinates Objective Data Objective Data Vital Signs: Vital Signs Temp Pulse Resp BP Pulse Ox O2 Del Method 97.8 F 85 16 127/75 H 96 Room Air 04/10/23 07:30 04/10/23 07:30 04/10/23 07:30 04/10/23 07:30 04/10/23 07:30 04/10/23 07:30 Oxygen Delivery Method Room Air Weight: 102.965 kg Body Mass Index (BMI) 34.4 Intake & Output: Intake and Output for Last 24 Hours 04/08/23 04/09/23 04/10/23 23:59 23:59 23:59 Intake Total 1660 / 1660 1000 / 1000 Output Total 3950 / 3950 600 / 600 Balance -2290 / -2290 400 / 400 Lab / Micro Data 03/31/23 10:45 04/10/23 0803 <Electronically signed by Golden Jeong MD> Cosigner Signature (if applicable): CC: ~ Signed [facility] Work Phone: 1(585) 716-908202-16-2024 Discharge summary [facility] April 09, 2023 5:06pm Note Date/Time April 09, 2023 5:06pm [facility] Medical Records Department [address] [place] [address] Instructions for Home/Discharge Instructions 04/09/231705 MR#: [id number] Acct: [id number] Name: YARIEL SANCHEZ Rep #:[id number] : 1945 77 From: Golden Jeong MD PCP: Dr. Samir Quevedo MD Status:[facility] Discharge Instructions Diet Discharge Diet: No restrictions Activity Discharge Activity: Return to Normal Activity and May Not Drive (while taking narcotic pain medications.) Dressing / Incision Call your doctor if you observe: Fever of 101 or Higher Follow Up Care Please Follow Up With: Golden Jeong MD When: Call [phone] for an appointment Test Results: Test results from this visit will be discussed in further detail at your follow- up appointment, if applicable. Discharge Plan Admission Attending Provider: Golden Jeong Primary Care Provider: Samir Quevedo Consulting Providers: Aroldo Liu Discharge Orders/Prescriptions Prescriptions: No Action aspirin 81 mg capsule 81 mg PO DAILY Qty: 30 1RF ramipril 1.25 mg capsule 1.25 mg PO QHS levothyroxine 50 mcg tablet 50 mcg PO QHS tamsulosin 0.4 mg capsule 0.4 mg PO DAILY finasteride 1 mg tablet 1 mg PO DAILY Referrals / Follow Up: Samir Quevedo MD [Primary Care Provider] - Disposition Disposition (needs filled in before D/C Order can be placed): Home, Self Care 04/09/231705<Electronically signed by Golden Jeong MD>Golden Jeong MD CC: Dr. Aroldo Liu MD; Dr. Samir Quevedo MD ~ Signed [facility] Work Phone: 1(427) 311-588702-16-2024 History and physical note Author Golden Jeong [facility] April 09, 2023 3:41pm Note Date/Time April 09, 2023 3:41pm [facility] Medical Records Department [address] [place] [address] History & Physical Exam 04/09/23 1541 MR#: [id number] Acct: [id number] Name: YARIEL SANCHEZ Rep #:[id number] : 1945 77 From: Golden Jeong MD PCP: Dr. Samir Quevedo MD Status:REG [facility] Location: [place] [address] HPI - General General Date of Service: 04/09/23 Chief Complaint: BPH with obstruction HPI Narrative YARIEL SANCHEZ, is a 77 M who presents for a transurethral resection of the prostate for obstruction of the prostate with enlarged prostate [facility] Medical History (Updated 03/31/23 @ 09:23 by Ayesha Saldana) Cardiology follow-up encounter First degree AV block HTN (hypertension) Kidney stones Non-smoker Obesity Osteoarthritis Paroxysmal supraventricular tachycardia Prostate disease Sinusitis, maxillary, chronic Thyroid disease Vertigo Wears glasses Wears hearing aid in both ears Home Medications aspirin 81 mg capsule 81 mg PO DAILY #30 caps 04/16/21 [Rx Last Taken Unknown] ramipril 1.25 mg capsule 1.25 mg PO QHS blood pressue 02/25/23 [History Last Taken Unknown] levothyroxine 50 mcg tablet 50 mcg PO QHS thyroid 02/26/23 [History Last Taken Unknown] finasteride 1 mg tablet 1 mg PO DAILY 03/24/23 [History Last Taken Unknown] tamsulosin 0.4 mg capsule 0.4 mg PO DAILY 03/24/23 [History Last Taken Unknown] Allergy/AdvReac Type Severity Reaction Status Date / Time levofloxacin Allergy Mild Other Verified 04/09/23 13:52 Family History Father Heart disease Mother Cancer Unclear type. Surgical History History of arthroscopic knee surgery History of cholecystectomy History of colonoscopy (~2018) S/P bilateral inguinal hernia repair S/P exploratory laparotomy (~02/2023) Social History household members: spouse Smoking Status: Never smoker alcohol intake: never substance use type: does not use Vital Signs Vital Signs Vital Signs: 04/09/23 13:54 04/09/23 13:54 Temperature 96.8 F L Temperature Source Temporal Pulse Rate 104 H Respiratory Rate 16 Respiratory Pattern Normal Blood Pressure 145/81 H Blood Pressure Mean 102 Blood Pressure Source Monitor Blood Pressure Position Semi-Fowlers Blood Pressure Location Right Arm Pulse Ox 96 Oxygen Delivery Method Room Air Weight Weight: 102.965 kg Body Mass Index (BMI) 34.4 Results Lab / Micro Data 03/31/23 10:45 04/09/23 1541 <Electronically signed by Golden Jeong MD> Cosigner Signature (if applicable): CC: Dr. Samir Quevedo MD; Dr. Golden Jeong MD~ Signed [facility] Work Phone: 1(835) 321-223502-16-[address] [facility] 03-03-2023 Discharge summary Author Reilly Mack [facility] March 03, 2023 7:38am Note Date/Time March 03, 2023 7 :33am [facility] Medical Records Department [address] [place] [address] Discharge Summary 03/03/23 0725 MR#: [id number] Acct: [id number] Name: YARIEL SANCHEZ Rep #:[id number] : 1945 77 From: Reilly kemp MD PCP: Dr. Samir Quevedo MD Status:ADM IN Location: [place] [address] Providers Date of Admission: 02/25/23 Primary Care Physician: Dr. Samir Quevedo MD Consultations 02/26/23 07:55 Consult: Cardiology Routine Consulting Provider: Mikhail Olivares Reason for Consult: tachycardia EMERGENT Consult: No MD Notified: Yes Date Notified: 02/26/23 Time Notified: 07:55 Method of Notification: Verbal Reason For Visit: SMALL BOWEL OBSTRUCTION Diagnosis Discharge Diagnosis (1) Urinary retention: Status: Acute Code(s): R33.9 - Retention of urine, unspecified (2) Meckel's diverticulitis: Status: Acute Code(s): Q43.0 - Meckel's diverticulum (displaced) (hypertrophic) Plan The patient had Muir replaced. I will have him follow-up with Dr. Jeong. He will go home with Muir in place. Patient is hypokalemic this morning. I will replace his potassium. I will discharge patient home today. Reilly Mack MD Pager: [facility] [address] [place] [phone] Office: Medications at Discharge Home Medications doxazosin 1 mg tablet 1 mg PO QHS blood pressure 04/15/21 aspirin 81 mg capsule 81 mg PO DAILY #30 caps 04/16/21 ramipril 1.25 mg capsule 1.25 mg PO DAILY blood pressue 02/25/23 levothyroxine 50 mcg tablet 50 mcg PO DAILY thyroid 02/26/23 acetaminophen 325 mg tablet 650 mg (2 x 325 mg) PO Q4H PRN PRN Pain 1-10 Or Fever #0 tabs 03/03/23 Hospital Course Operations - (Laparotomy) Summary of Care Provided Hospital Course: Patient was admitted with a small bowel obstruction. The following day he was taken for surgery and found to have an inflamed Meckel's causing obstruction. The Meckel's was resected and the bowel adhesions were taken down. Afterwards the patient had acute urinary retention requiring Muir placement. The following day after the patient was started on Flomax he had a voiding trial which he failed and the Muir was replaced. Other than that he was doing well and white count was normal and he was tolerating diet he was discharged home with Muir in place and will follow-up with urology. Reilly Mack MD Pager: [facility] [address] [place] [address], [address] [phone] Office: Weight / BMI Weight Weight: 219 lb 5.759 oz Body Mass Index (BMI) 32.3 ABG / Lab / Microbiology Data 03/03/23 05:42 03/03/23 05:42 Laboratory: Laboratory Results - last 24 hr 03/03/23 05:42: WBC 7.0, RBC 4.69, Hgb 13.4, Hct 38.2 L, MCV 81.4, MCH 28.6, MCHC 35.1, RDW Std Deviation 39.6, RDW Coeff of Guilherme 13.4, Plt Count 202, MPV 9.9, Immature Gran % (Auto) 1.100 H, Neut % (Auto) 63.7, Lymph % (Auto) 20.4, St. Martin % (Auto) 9.0, Eos % (Auto) 5.2 H, Baso % (Auto) 0.6, Absolute Neuts (auto) 4.4, Absolute Lymphs (auto) 1.42, Nucleated RBC % 0, Sodium 141, Potassium 2.9 L, Chloride 111 H, Carbon Dioxide 23.0, Anion Gap 7, BUN 16, Creatinine 1.08, Estim Creat Clear Calc 67.67, Est GFR (MDRD) Af Amer 85, Est GFR (MDRD) Non-Af 71, BUN/Creatinine Ratio 14.8, Glucose 125 H, Calcium 8.1 L, Magnesium 1.9 Microbiology: Microbiology 02/25/23 20:20 Mucosa - Nose SARS-CoV-2, Influenza & RSV (PCR) - Final D/C Instructions Discharge Diet: Light diet - advance as tolerated Discharge Activity: May Drive (Once off of narcotics) and May Shower Lifting Restrictions: 15 lbs for 4 weeks Call your doctor if your incision/area has: Continuous Slow Oozing, Sudden Increased Bleeding, Increased Pain/ Swelling, Increased Redness, Foul Smelling Discharge and Swelling at the incision site Call your doctor if you observe: Fever of 101 or Higher Remove Dressing in: 1 day (Change dressings daily) Cleanse incision/area with: Soap & Water Catheter: Muir to leg bag Additional Instructions: Referral has been made to Dr. Jeong for urinary retention follow-up. Please Follow Up With: Reilly Mack MD When: Please call to schedule 1 week follow up appointment. [phone] Meaningful Use Info Meaningful Use Diagnoses (Choose all that apply): None applicable Discharge Plan Admission Admit Date/Time: 02/25/23 23:23 Attending Provider: Reilly Mack Primary Care Provider: Samir Quevedo Consulting Providers: Mikhail Olivares Discharge Orders/Prescriptions Prescriptions: New acetaminophen 325 mg Tablet 650 mg PO Q4H PRN PRN (Reason: Pain 1-10 Or Fever) Qty: 0 0RF Continued doxazosin 1 mg tablet 1 mg PO QHS Patient Comments: TAKE 1 TABLET BY MOUTH NIGHTLY WITH SUPPER FOR BLOOD PRESSURE AND FOR PROSTATE aspirin 81 mg capsule 81 mg PO DAILY Qty: 30 1RF ramipril 1.25 mg capsule 1.25 mg PO DAILY levothyroxine 50 mcg tablet 50 mcg PO DAILY Referrals / Follow Up: Samir Quevedo MD [Primary Care Provider] - Disposition Disposition (needs filled in before D/C Order can be placed): Home, Self Care 03/03/23 0738 <Electronically signed by Reilly Mack MD> Cosigner Signature (if applicable): CC: Dr. Reilly Mack MD; Dr. Samir Quevedo MD~ Signed [facility] Work Phone: 1(557) 225-410301-10-2024 Progress note Author Reilly Mack [facility] March 03, 2023 7:25am Note Date/Time March 03, 2023 7 :25am [facility] Medical Records Department [address] [place] [address] Progress Note - Surgery 03/03/23721 MR#: [id number] Acct: [id number] Name: YARIEL SANCHEZ Rep #:[id number] : 1945 77 From: Reilly kemp MD PCP: Dr. Samir Quevedo MD Status:ADM IN Location: [place] [address] Subjective Subjective The patient had to have his Muir replaced due to urinary retention. On that heis feeling comfortable. He denies nausea or vomiting. He did have a bowel movement. Objective Data Objective Data Vital Signs: Vital Signs Temp Pulse Resp BP Pulse Ox O2 Del Method O2 Flow Rate 97.8 F 105 H 18 182/108 H 98 Room Air 1 03/02/23 22:30 03/03/23 06:21 03/02/23 22:30 03/03/23 06:21 03/02/23 22:30 03/03/23 04:45 02/27/23 08:11 Oxygen Flow Rate (L/min) 1 Oxygen Delivery Method Room Air Weight: 219 lb 5.759 oz Body Mass Index (BMI) 32.3 Intake & Output: Intake and Output for Last 24 Hours 03/01/23 03/02/23 03/03/23 23:59 23:59 23:59 Intake Total 3448.67 / 3798.67 2833.62 / 2833.62 Output Total 1375 / 1875 1700 / 1700 Balance 2073.67 / 1923.67 1133.62 / 1133.62 Lab / Micro Data 03/03/23 05:42 03/03/23 05:42 Labs: Laboratory Results - last 24 hr 03/03/23 05:42: WBC 7.0, RBC 4.69, Hgb 13.4, Hct 38.2 L, MCV 81.4, MCH 28.6, MCHC 35.1, RDW Std Deviation 39.6, RDW Coeff of Guilherme 13.4, Plt Count 202, MPV 9.9, Immature Gran % (Auto) 1.100 H, Neut % (Auto) 63.7, Lymph % (Auto) 20.4, St. Martin % (Auto) 9.0, Eos % (Auto) 5.2 H, Baso % (Auto) 0.6, Absolute Neuts (auto) 4.4, Absolute Lymphs (auto) 1.42, Nucleated RBC % 0, Sodium 141, Potassium 2.9 L, Chloride 111 H, Carbon Dioxide 23.0, Anion Gap 7, BUN 16, Creatinine 1.08, Estim Creat Clear Calc 67.67, Est GFR (MDRD) Af Amer 85, Est GFR (MDRD) Non-Af 71, BUN/Creatinine Ratio 14.8, Glucose 125 H, Calcium 8.1 L, Magnesium 1.9 Micro: Microbiology 02/25/23 20:20 Mucosa - Nose SARS-CoV-2, Influenza & RSV (PCR) - Final Physical Exam Const oriented x3 and no apparent distress Resp normal respiratory effort GI soft to palpation and non-tender Assessment & Plan Assessment/Plan (1) Urinary retention: (2) Meckel's diverticulitis: PLAN: Plan The patient had Muir replaced. I will have him follow-up with Dr. Jeong. He will go home with Muir in place. Patient is hypokalemic this morning. I will replace his potassium. I will discharge patient home today. Reilly Mack MD Pager: [facility] [address] [place] [address], [address] [place] [address] Office: 03/03/23 6588 <Electronically signed by Reilly Mack MD> Cosigner Signature (if applicable): CC: ~ Signed [facility] Work Phone: 1(594) 812-249901-09-2024 Progress note Author Reilly Mack [facility] March 02, 2023 8:20am Note Date/Time March 02, 2023 8: 20am [facility] Medical Records Department [address] [place] [address] Progress Note - Surgery 03/02/23818 MR#: [id number] Acct: [id number] Name: YARIEL SANCHEZ Rep #:[id number] : 1945 77 From: Reilly kemp MD PCP: Dr. Samir Quevedo MD Status:ADM IN Location: [place] [address] 1 Subjective Subjective Patient is feeling much better and more comfortable. He rates his pain at a 2. He says he had 2 bowel movements and he is tolerating liquids. Objective Data Objective Data Vital Signs: Vital Signs Temp Pulse Resp BP Pulse Ox O2 Del Method O2 Flow Rate 98.0 F 109 H 18 170/97 H 96 Room Air 1 03/02/23 06:00 03/02/23 06:13 03/02/23 06:00 03/02/23 06:13 03/02/23 06:00 03/02/23 06:00 02/27/23 08:11 Oxygen Flow Rate (L/min) 1 Oxygen Delivery Method Room Air Weight: 219 lb 5.759 oz Body Mass Index (BMI) 32.3 Intake & Output: Intake and Output for Last 24 Hours 02/28/23 03/01/23 03/02/23 23:59 23:59 23:59 Intake Total 3537.58 / 3537.58 3448.67 / 3798.67 750 / 750 Output Total 1590 / 1590 1375 / 1875 1000 / 1000 Balance 1947.58 / 1947.58 2073.67 / 1923.67 -250 / -250 Lab / Micro Data 03/01/23 05:37 03/01/23 05:37 Micro: Microbiology 02/25/23 20:20 Mucosa - Nose SARS-CoV-2, Influenza & RSV (PCR) - Final Radiography Diagnostic Testing: Radiology Impression Abdomen/Pelvis CT 03/01/23 07:32 IMPRESSION: 1. Over distended urinary bladder causing bilateral hydronephrosis and hydroureter. 2. No interval surgical decompression of small bowel obstruction. 3. Mild hepatosplenomegaly. 4. Mild hepatic steatosis. Electronically Signed: Rich Cheney MD at 8:47 EST Reading Location ID and State: [address] [place] [address] Tel , Service support , Physical Exam Const oriented x3 and no apparent distress Resp normal respiratory effort GI soft to palpation and non-tender Assessment & Plan Assessment/Plan (1) Urinary retention: (2) Meckel's diverticulitis: PLAN: Plan The patient had urinary retention and a Muir catheter was placed yesterday. Heis feeling much better today. He was started on Flomax. I will try a voiding trial today. I will also advance him to a regular diet. If the patient is ableto urinate and tolerating regular diet I will discharge him home later today. If he is unable to urinate I will place a Muir and he will follow-up with urology. Reilly Mack MD Pager: [facility] [address] [place] [address], [address] [place] [address] Office: 03/02/23 0820 <Electronically signed by Reilly Mack MD> Cosigner Signature (if applicable): CC: ~ Signed [facility] Work Phone: 1(870) 551-208301-08-2024 Progress note Author Reilly Mack [facility] March 01, 2023 9:25am Note Date/Time March 01, 2023 9: 25am [facility] Medical Records Department [address] [place] [address] Progress Note - Surgery 03/01/23921 MR#: [id number] Acct: [id number] Name: YARIEL SANCHEZ Rep #:[id number] : 1945 77 From: Reilly kemp MD PCP: Dr. Samir Quevedo MD Status:ADM IN Location: [place] [address]- Subjective Subjective Patient was having a lot of right flank pain overnight. He also notes that his abdominal pain was worsened and he feels like he has to pee but cannot. Objective Data Objective Data Vital Signs: Vital Signs Temp Pulse Resp BP Pulse Ox O2 Del Method O2 Flow Rate 97.5 F L 94 16 188/108 H 96 Room Air 1 03/01/23 03:35 03/01/23 05:23 03/01/23 03:35 03/01/23 07:53 03/01/23 03:35 03/01/23 08:44 02/27/23 08:11 Oxygen Flow Rate (L/min) 1 Oxygen Delivery Method Room Air Weight: 219 lb 5.759 oz Body Mass Index (BMI) 32.3 Intake & Output: Intake and Output for Last 24 Hours 02/27/23 02/28/23 03/01/23 23:59 23:59 23:59 Intake Total 2410 / 2410 3537.58 / 3537.58 752.67 / 752.67 Output Total 750 / 750 1590 / 1590 400 / 400 Balance 1660 / 1660 1947.58 / 1947.58 352.67 / 352.67 Lab / Micro Data 03/01/23 05:37 03/01/23 05:37 Labs: Laboratory Results - last 24 hr 02/28/23 08:55: Urine RBC 0-5 SEEN, Urine WBC 0-5 SEEN, Ur Squamous Epith Cells 0 SEEN, Urine Bacteria 0 SEEN, Urine Mucus 0 SEEN 03/01/23 05:37: WBC 10.6, RBC 5.14, Hgb 14.9, Hct 43.3, MCV 84.2, MCH 29.0, MCHC34.4, RDW Std Deviation 41.5, RDW Coeff of Guilherme 13.4, Plt Count 221, MPV 9.8, Immature Gran % (Auto) 1.000 H, Neut % (Auto) 79.4 H, Lymph % (Auto) 11.4 L, St. Martin % (Auto) 6.8, Eos % (Auto) 0.9, Baso % (Auto) 0.5, Absolute Neuts (auto) 8.5 H, Absolute Lymphs (auto) 1.21, Nucleated RBC % 0, Sodium 142, Potassium 3.6, Chloride 112 H, Carbon Dioxide 20.0 L, Anion Gap 10, BUN 22 H, Creatinine 1.31 H, Estim Creat Clear Calc 47.97, Est GFR (MDRD) Af Amer 68, Est GFR (MDRD) Non-Af 56 L, BUN/Creatinine Ratio 16.8, Glucose 126 H, Calcium 8.2 L Micro: Microbiology 02/25/23 20:20 Mucosa - Nose SARS-CoV-2, Influenza & RSV (PCR) - Final Radiography Diagnostic Testing: Radiology Impression Abdomen/Pelvis CT 03/01/23 07:32 IMPRESSION: 1. Over distended urinary bladder causing bilateral hydronephrosis and hydroureter. 2. No interval surgical decompression of small bowel obstruction. 3. Mild hepatosplenomegaly. 4. Mild hepatic steatosis. Electronically Signed: Rich Cheney MD at 8:47 EST , Physical Exam Const oriented x3 and no apparent distress Resp normal respiratory effort GI soft to palpation Inspection: Negative for abdominal distention Assessment & Plan Assessment/Plan (1) Meckel's diverticulitis: (2) Urinary retention: PLAN: Plan The patient accidentally removed his NG tube this morning. He was complaining of abdominal pain and he was hypertensive. I ordered a CT scan as the patient said they did BladderScan him before and after urinating and there was no urine. The CT scan revealed severe urinary distention causing hydronephrosis bilaterally. I will have a Muir catheter placed and start him on some Flomax. The patient is having urinary retention postoperatively likely due to the surgery. The patient's bowels look very well on CT scan so I will start him on a clear liquid diet. Reilly Mack MD Pager: [facility] [address] [place] [address], [address] [place] [phone] Office: 03/01/23 6252 <Electronically signed by Reilly Mack MD> Cosigner Signature (if applicable): CC: ~ Signed [facility] Work Phone: 1(601) 644-209201-07-2024 Progress note Author Ariana Connor [facility] February 28, 2023 7:12am Note Date/Time February 28, 2023 7: 12am [facility] Medical Records Department [address] [place] [address] Progress Note - Surgery 02/28/23710 MR#: [id number] Acct: [id number] Name: YARIEL SANCHEZ Rep #:[id number] : 1945 77 From: Ariana Connor MD PCP: Dr. Samir Quevedo MD Status:ADM IN Location: [place] [address] Subjective Subjective Patient complains of having urinary frequency, patient states abdominal pain is improved, denies any flatus or bowel movement, and NG has about 250 in the container Objective Data Objective Data Vital Signs: Vital Signs Temp Pulse Resp BP Pulse Ox O2 Del Method O2 Flow Rate 98.3 F 98 16 175/97 H 93 Nasal Cannula 1 02/28/23 03:26 02/28/23 06:02 02/28/23 03:26 02/28/23 06:02 02/28/23 03:26 02/28/23 03:40 02/27/23 08:11 Oxygen Flow Rate (L/min) 1 Oxygen Delivery Method Nasal Cannula Weight: 219 lb 5.759 oz Body Mass Index (BMI) 32.3 Intake & Output: Intake and Output for Last 24 Hours 02/26/23 02/27/23 02/28/23 23:59 23:59 23:59 Intake Total 3318.33 / 3318.33 2410 / 2410 1050 / 1050 Output Total 1680 / 1680 750 / 750 450 / 450 Balance 1638.33 / 1638.33 1660 / 1660 600 / 600 Lab / Micro Data 02/28/23 05:18 02/28/23 05:18 Labs: Laboratory Results - last 24 hr 02/27/23 08:04: WBC 12.8 H, RBC 5.19, Hgb 14.8, Hct 45.6, MCV 87.9 D, MCH 28.5,MCHC 32.5 D, RDW Std Deviation 44.1 H, RDW Coeff of Guilherme 13.9, Plt Count 168, MPV 10.3, Immature Gran % (Auto) 0.600, Neut % (Auto) 82.0 H, Lymph % (Auto) 8.9L, St. Martin % (Auto) 8.1, Eos % (Auto) 0.1, Baso % (Auto) 0.3, Absolute Neuts (auto)10.5 H, Absolute Lymphs (auto) 1.14, Nucleated RBC % 0, Sodium 142, Potassium 4.1, Chloride 113 H, Carbon Dioxide 24.0, Anion Gap 5, BUN 28 H, Creatinine 1.32H, Estim Creat Clear Calc 47.61, Est GFR (MDRD) Af Amer 68, Est GFR (MDRD) Non-Af 56 L, BUN/Creatinine Ratio 21.2 H, Glucose 124 H, Calcium 7.9 L 02/27/23 12:06: POC Glucose 142 H 02/28/23 05:18: WBC 12.6 H, RBC 5.30, Hgb 15.2, Hct 45.0, MCV 84.9, MCH 28.7, MCHC 33.8, RDW Std Deviation 41.9, RDW Coeff of Guilherme 13.6, Plt Count 185, MPV 10.3, Immature Gran % (Auto) 0.900, Neut % (Auto) 75.5 H, Lymph % (Auto) 15.6 L,[address] Martin % (Auto) 6.3, Eos % (Auto) 1.2, Baso % (Auto) 0.5, Absolute Neuts (auto) 9.5 H, Absolute Lymphs (auto) 1.96, Nucleated RBC % 0, Sodium 142, Potassium 3.6, Chloride 110 H, Carbon Dioxide 23.0, Anion Gap 9, BUN 23 H, Creatinine 1.14, Estim Creat Clear Calc 55.13, Est GFR (MDRD) Af Amer 80, Est GFR (MDRD) Non-Af 66, BUN/Creatinine Ratio 20.2 H, Glucose 118 H, Calcium 8.2 L Micro: Microbiology 02/25/23 20:20 Mucosa - Nose SARS-CoV-2, Influenza & RSV (PCR) - Final Physical Exam Resp normal respiratory effort Cardio regular rate GI GI Narrative: Abdomen: Soft, nondistended, tender near incision's dressed clean dry and intact, no peritoneal signs Assessment & Plan Assessment/Plan (1) S/P exploratory laparotomy: (2) Meckel's diverticulitis: PLAN: Status post excision (3) Small bowel obstruction: PLAN: Plan Continue NG/n.p.o. until patient has bowel function Continue IV Zosyn Postvoid bladder ultrasound Ambulation Will start heparin for DVT prophylaxis Continue IV Protonix Ariana Connor M.D. Pager: [phone] [facility] [address] [place] [address], [facility], [address] [place] [address] Office: [phone] 02/28/23 0712 <Electronically signed by Ariana Connor MD> Cosigner Signature (if applicable): CC: ~ Signed [facility] Work Phone: 1(483) 478-314301-06-2024 Progress note Author Mikhail Olivraes [facility] February 27, 2023 11:06am Note Date/Time February 27, 2023 11 :07am [facility] Medical Records Department [address] [place] [address] Progress Note 02/27/231103 MR#: [id number] Acct: [id number] Name: YARIEL SANCHEZ Rep #:[id number] : 1945 77 From: Mikhail Olivares MD PCP: Dr. Samir Quevedo MD Status:ADM IN Location: [place] [address] Progress Note Uneventful abdominal surgery for small bowel obstruction. Denies any complaintsthis morning. Still NPO. Maintaining sinus rhythm. First-degree AV block. No further runs of SVT. Recommend starting on metoprolol 12.5 mg p.o. twice daily when resume p.o. intake. Follow-up as outpatient after discharge home in approximately 4 weeks. Will sign off. Please call if needed. 02/27/23 1106 <Electronically signed by Mikhail Olivares MD> Mikhail Olivares MD Cosigner Signature (if applicable): CC: ~ Signed [facility] Work Phone: 1(180) 584-547501-06-2024 Progress note Author Ariana Connor [facility] February 27, 2023 7:35am Note Date/Time February 27, 2023 7: 35am [facility] Medical Records Department [address] [place] [address] Progress Note - Surgery 02/27/23 0731 MR#: [id number] Acct: [id number] Name: YARIEL SANCHEZ Rep #:[id number] : 1945 77 From: Ariana Connor MD PCP: Dr. Samir Quevedo MD Status:ADM IN Location: [place] [address] Subjective Subjective NG put out about 270 last night only minimal on the container currently, patientdenies any flatus, pain controlled Objective Data Objective Data Vital Signs: Vital Signs Temp Pulse Resp BP Pulse Ox O2 Del Method O2 Flow Rate 97.5 F L 93 16 163/99 H 98 Nasal Cannula 2 02/27/23 03:00 02/27/23 06:16 02/27/23 03:00 02/27/23 06:16 02/27/23 03:00 02/27/23 04:51 02/27/23 04:51 Oxygen Flow Rate (L/min) 2 Oxygen Delivery Method Nasal Cannula Weight: 219 lb 5.759 oz Body Mass Index (BMI) 32.3 Intake & Output: Intake and Output for Last 24 Hours 02/25/23 02/26/23 02/27/23 23:59 23:59 23:59 Intake Total 3318.33 / 3318.33 1120 / 1120 Output Total 1680 / 1680 150 / 150 Balance 1638.33 / 1638.33 970 / 970 Lab / Micro Data 02/26/23 05:40 02/26/23 05:40 Micro: Microbiology 02/25/23 20:20 Mucosa - Nose SARS-CoV-2, Influenza & RSV (PCR) - Final Radiography Diagnostic Testing: Radiology Impression KUB X-Ray 02/26/23 06:05 IMPRESSION: No acute findings. Electronically Signed: Sandro Maurer MD at 7:14 EST , Echocardiogram 02/26/23 09:29 Interpretation Summary The left ventricular ejection fraction is 65 %. Mildly dilated aortic root. Ordering Physician: Mikhail Olivares Performed By: Jose Alfredo Dumont RCS Physical Exam Resp normal respiratory effort Cardio regular rate GI GI Narrative: Abdomen: Soft, nondistended, tender near incision's dressed clean dry and intact, no peritoneal signs Assessment & Plan Assessment/Plan (1) S/P exploratory laparotomy: (2) Meckel's diverticulitis: PLAN: Status post excision (3) Small bowel obstruction: PLAN: Plan Continue NG/n.p.o. until patient has bowel function Continue IV Zosyn Encourage out of bed to chair/ambulation Will hold on DVT prophylaxis until tomorrow Labs pending Continue IV Protonix Ariana Connor M.D. Pager: [phone] [facility] [address] [place] [address], [address] [place] [address] Office: [phone] 02/27/23 0735 <Electronically signed by Ariana Connor MD> Cosigner Signature (if applicable): CC: ~ Signed [facility] Work Phone: 1(199) 178-969101-05-[address] [facility] 02-26-2023 Consult note Author Mikhail Olivares [facility] February 26, 2023 11:58am Note Date/Time February 26, 2023 11 :58am [facility] Medical Records Department [address] [place] [address] Consultation - Cardiology 02/26/23 1151 MR#: [id number] Acct: [id number] Name: YARIEL SANCHEZ Rep #:[id number] : 1945 77 From: Mikhail Olivares MD PCP: Dr. Samir Quevedo MD Status:ADM IN Location: [place] [address] Assessment & Plan Assessment/Plan (1) Paroxysmal supraventricular tachycardia: PLAN: Patient with paroxysms of severe abdominal pain. Likely secondary to hyperadrenergic state. Started on low-dose beta-blockers. Monitor telemetry for HI prolongation as patient has baseline first-degree AV block and right bundle branch block. Recommend 48-hour Holter monitoring after discharge home. (2) First degree AV block: PLAN: Monitor. (3) Preoperative cardiovascular examination: PLAN: Patient has acute small bowel obstruction. No history of heart disease. No history of angina pectoris or dyspnea. I believe patient is an acceptable risk for the proposed procedure given the acuity of his small bowel obstruction. Please avoid major hemodynamic swings during and after anesthesia. Monitor heart rate. HPI Consult Data Date of Consult: 02/26/23 HPI Narrative Reason for Consultation: Paroxysmal tachycardia HPI Narrative: Sushma gentleman has past medical history significant for hypertension. Admitted to the hospital this time with nausea, vomiting and abdominal pain. Diagnosed with small bowel obstruction. He is being contemplated for surgery this afternoon. During his stay in the hospital, telemetry monitoring revealed paroxysmal tachycardia. We are asked to evaluate the same. Patient denies any history of heart disease. Denies any palpitations. No orthopnea. No PND. No ankle edema. Denies any history of chest pains or shortness of breath either at rest or with exertion. No syncope or presyncope. [facility] Medical History (Updated 02/26/23 @ 11:[address] Mikhail Olivares MD) HTN (hypertension) Kidney stones Non-smoker Obesity Osteoarthritis Sinusitis, maxillary, chronic Vertigo Wears hearing aid in both ears Home Medications doxazosin 1 mg tablet 1 mg PO QHS blood pressure 04/15/21 [History Last Taken Unknown] aspirin 81 mg capsule 81 mg PO DAILY #30 caps 04/16/21 [Rx Last Taken Unknown] ramipril 1.25 mg capsule 1.25 mg PO DAILY blood pressue 02/25/23 [History Last Taken Unknown] levothyroxine 50 mcg tablet 50 mcg PO DAILY thyroid 02/26/23 [History Last Taken Unknown] Allergy/AdvReac Type Severity Reaction Status Date / Time levofloxacin Allergy Mild Other Verified 02/25/23 19:51 Family History Father Heart disease Mother Cancer Unclear type. Surgical History History of arthroscopic knee surgery History of cholecystectomy History of colonoscopy (~2019) S/P bilateral inguinal hernia repair Social History household members: spouse Smoking Status: Never smoker alcohol intake: never substance use type: does not use Physical Exam Narrative Sitting up at bedside. Appears mildly distressed. NG tube to suction. Heart sounds 1 and 2 noted. No murmurs or rubs. Chest clear to auscultation bilaterally. Alert oriented x 3. No ankle edema. Risk Stratification Risk Stratification Applicable: No Objective Data Vital Signs: Vital Signs Temp Pulse Resp BP Pulse Ox O2 Del Method 97.2 F L 97 18 152/92 H 95 Room Air 02/26/23 08:25 02/26/23 08:25 02/26/23 08:25 02/26/23 08:25 02/26/23 08:25 02/26/23 08:25 Oxygen Delivery Method Room Air Weight: 219 lb 5.759 oz Body Mass Index (BMI) 32.3 Intake & Output: Intake and Output for Last 24 Hours 02/24/23 02/25/23 02/26/23 23:59 23:59 23:59 Intake Total 2038.33 / 2038.33 Output Total 950 / 950 Balance 1088.33 / 1088.33 Lab / Micro Data 02/26/23 05:40 02/26/23 05:40 Labs: Laboratory Results - last 24 hr 02/25/23 20:20: WBC 14.8 H, RBC 5.69, Hgb 16.6 H, Hct 47.2, MCV 83.0, MCH 29.2, MCHC 35.2, RDW Std Deviation 40.1, RDW Coeff of Guilherme 13.4, Plt Count 157, MPV 9.7, Immature Gran % (Auto) 0.300, Neut % (Auto) 92.5 H, Lymph % (Auto) 1.8 L, [place] % (Auto) 5.0, Eos % (Auto) 0.1, Baso % (Auto) 0.3, Absolute Neuts (auto) 13.7 H, Absolute Lymphs (auto) 0.26 L, Nucleated RBC % 0, Differential Comment SCANNED, Sodium 138, Potassium 4.0, Chloride 106, Carbon Dioxide 25.0, Anion Gap7, BUN 29 H, Creatinine 1.46 H, Est GFR (MDRD) Af Amer 60, Est GFR (MDRD) Non-Af50 L, BUN/Creatinine Ratio 19.9, Glucose 170 H, Calcium 9.1, Total Bilirubin 1.40 H, AST 24, ALT 40, Alkaline Phosphatase 62, Total Protein 7.4, Albumin 4.3,Globulin 3.1, Albumin/Globulin Ratio 1.4, Lipase 29 02/25/23 22:09: Lactic Acid 1.8 02/26/23 05:40: WBC 16.4 H, RBC 5.69, Hgb 16.7 H, Hct 47.2, MCV 83.0, MCH 29.3, MCHC 35.4, RDW Std Deviation 40.7, RDW Coeff of Guilherme 13.6, Plt Count 227, MPV 10.2, Immature Gran % (Auto) 0.400, Neut % (Auto) 82.1 H, Lymph % (Auto) 10.3 L,[place] % (Auto) 6.7, Eos % (Auto) 0.2, Baso % (Auto) 0.3, Absolute Neuts (auto) 13.5 H, Absolute Lymphs (auto) 1.70, Nucleated RBC % 0, Sodium 140, Potassium 4.0, Chloride 109 H, Carbon Dioxide 24.0, Anion Gap 7, BUN 29 H, Creatinine 1.48H, Estim Creat Clear Calc 42.46, Est GFR (MDRD) Af Amer 59 L, Est GFR (MDRD) Non-Af 49 L, BUN/Creatinine Ratio 19.6, Glucose 151 H, Calcium 8.4 L 02/26/23 06:09: Magnesium 2.0 Micro: Microbiology 02/25/23 20:20 Mucosa - Nose SARS-CoV-2, Influenza & RSV (PCR) - Final Cardiology Labs/Tests 02/25/23 20:20: WBC 14.8 H, RBC 5.69, Hgb 16.6 H, Hct 47.2, MCV 83.0, MCH 29.2, MCHC 35.2, Plt Count 157, MPV 9.7, Immature Gran % (Auto) 0.300, Neut % (Auto) 92.5 H, Lymph % (Auto) 1.8 L, [place] % (Auto) 5.0, Eos % (Auto) 0.1, Baso % (Auto)0.3, Absolute Neuts (auto) 13.7 H, Nucleated RBC % 0, Sodium 138, Potassium 4.0,Chloride 106, Carbon Dioxide 25.0, Anion Gap 7, BUN 29 H, Creatinine 1.46 H, EstGFR (MDRD) Af Amer 60, Est GFR (MDRD) Non-Af 50 L, BUN/Creatinine Ratio 19.9, Glucose 170 H, Calcium 9.1, Total Bilirubin 1.40 H 02/25/23 22:09: Lactic Acid 1.8 02/26/23 05:40: WBC 16.4 H, RBC 5.69, Hgb 16.7 H, Hct 47.2, MCV 83.0, MCH 29.3, MCHC 35.4, Plt Count 227, MPV 10.2, Immature Gran % (Auto) 0.400, Neut % (Auto) 82.1 H, Lymph % (Auto) 10.[address] L, [place] % (Auto) 6.7, Eos % (Auto) 0.2, Baso % (Auto) 0.3, Absolute Neuts (auto) 13.5 H, Nucleated RBC % 0, Sodium 140, Potassium 4.0, Chloride 109 H, Carbon Dioxide 24.0, Anion Gap 7, BUN 29 H, Creatinine 1.48 H, Est GFR (MDRD) Af Amer 59 L, Est GFR (MDRD) Non-Af 49 L, BUN/Creatinine Ratio 19.6, Glucose 151 H, Calcium 8.4 L 02/26/23 06:09: Magnesium 2.0 Rhythm: Sinus rhythm. Review of telemetry recording show paroxysmal supraventricular tachycardia. EKG: Sinus rhythm. First-degree AV block. Right bundle branch block. ECHO: Normal left ventricular systolic function. Stress Test: Cardiac Cath: PCI: CT Surgery: Holter monitor: EPS: PPM: CXR: Chest CT Scan: Radiography Diagnostic Testing: Radiology Impression Abdomen/Pelvis CT 02/25/23 21:15 IMPRESSION: Distal small bowel obstruction. Surgical consultation recommended. Electronically Signed: Yasir Mary MD at 22:18 EST Reading Location ID and State: [address] [place] [address] Tel , Service support , KUB X-Ray 02/25/23 23:45 IMPRESSION: Enteric tube with tip in the body of the stomach. Electronically Signed: Sandro Maurer MD at 0:42 EST , KUB X-Ray 02/26/23 06:05 IMPRESSION: No acute findings. Electronically Signed: Sandro Maurer MD at 7:14 EST , 02/26/23 1158 <Electronically signed by Mikhail Olivares MD> Cosigner Signature (if applicable): CC: Dr. Mikhail Olivares MD; Dr. Samir Quevedo MD~ Signed [facility] Work Phone: 1(783) 695-257701-05-2024 Progress note Author Reilly Mack [facility] February 26, 2023 10:24am Note Date/Time February 26, 2023 10 :24am [facility] Medical Records Department [address] [place] [id number] Progress Note - Surgery 02/26/23 1022 MR#: [id number] Acct: [id number] Name: YARIEL SANCHEZ Rep #:[id number] : 1945 77 From: Reilly kemp MD PCP: Dr. Samir Quevedo MD Status:ADM IN Location: [place] [address]- Subjective Subjective The patient is still feeling uncomfortable and has not passed any gas. Objective Data Objective Data Vital Signs: Vital Signs Temp Pulse Resp BP Pulse Ox O2 Del Method 97.2 F L 97 18 152/92 H 95 Room Air 02/26/23 08:25 02/26/23 08:25 02/26/23 08:25 02/26/23 08:25 02/26/23 08:25 02/26/23 08:25 Oxygen Delivery Method Room Air Weight: 219 lb 5.759 oz Body Mass Index (BMI) 32.3 Intake & Output: Intake and Output for Last 24 Hours 02/24/23 02/25/23 02/26/23 23:59 23:59 23:59 Intake Total 2038.33 / 2038.33 Output Total 950 / 950 Balance 1088.33 / 1088.33 Lab / Micro Data 02/26/23 05:40 02/26/23 05:40 Labs: Laboratory Results - last 24 hr 02/25/23 20:20: WBC 14.8 H, RBC 5.69, Hgb 16.6 H, Hct 47.2, MCV 83.0, MCH 29.2, MCHC 35.2, RDW Std Deviation 40.1, RDW Coeff of Guilherme 13.4, Plt Count 157, MPV 9.7, Immature Gran % (Auto) 0.300, Neut % (Auto) 92.5 H, Lymph % (Auto) 1.8 L, [address] % (Auto) 5.0, Eos % (Auto) 0.1, Baso % (Auto) 0.3, Absolute Neuts (auto) 13.7 H, Absolute Lymphs (auto) 0.26 L, Nucleated RBC % 0, Differential Comment SCANNED, Sodium 138, Potassium 4.0, Chloride 106, Carbon Dioxide 25.0, Anion Gap7, BUN 29 H, Creatinine 1.46 H, Est GFR (MDRD) Af Amer 60, Est GFR (MDRD) Non-Af50 L, BUN/Creatinine Ratio 19.9, Glucose 170 H, Calcium 9.1, Total Bilirubin 1.40 H, AST 24, ALT 40, Alkaline Phosphatase 62, Total Protein 7.4, Albumin 4.3,Globulin 3.1, Albumin/Globulin Ratio 1.4, Lipase 29 02/25/23 22:09: Lactic Acid 1.8 02/26/23 05:40: WBC 16.4 H, RBC 5.69, Hgb 16.7 H, Hct 47.2, MCV 83.0, MCH 29.3, MCHC 35.4, RDW Std Deviation 40.7, RDW Coeff of Guilherme 13.6, Plt Count 227, MPV 10.2, Immature Gran % (Auto) 0.400, Neut % (Auto) 82.1 H, Lymph % (Auto) 10.3 L,[place] % (Auto) 6.7, Eos % (Auto) 0.2, Baso % (Auto) 0.3, Absolute Neuts (auto) 13.5 H, Absolute Lymphs (auto) 1.70, Nucleated RBC % 0, Sodium 140, Potassium 4.0, Chloride 109 H, Carbon Dioxide 24.0, Anion Gap 7, BUN 29 H, Creatinine 1.48H, Estim Creat Clear Calc 42.46, Est GFR (MDRD) Af Amer 59 L, Est GFR (MDRD) Non-Af 49 L, BUN/Creatinine Ratio 19.6, Glucose 151 H, Calcium 8.4 L 02/26/23 06:09: Magnesium 2.0 Micro: Microbiology 02/25/23 20:20 Mucosa - Nose SARS-CoV-2, Influenza & RSV (PCR) - Final Radiography Diagnostic Testing: Radiology Impression Abdomen/Pelvis CT 02/25/23 21:15 IMPRESSION: Distal small bowel obstruction. Surgical consultation recommended. Electronically Signed: Yasir Mary MD at 22:18 EST , KUB X-Ray 02/25/23 23:45 IMPRESSION: Enteric tube with tip in the body of the stomach. Electronically Signed: Sandro Maurer MD at 0:42 EST , KUB X-Ray 02/26/23 06:05 IMPRESSION: No acute findings. Electronically Signed: Sandro Maurer MD at 7:14 EST , Physical Exam Const oriented x3 and no apparent distress Resp normal respiratory effort Cardio regular rhythm GI soft to palpation Inspection: abdominal distention Palpation: tender Assessment & Plan Assessment/Plan (1) Small bowel obstruction: PLAN: The patient has a small bowel obstruction identified on CT scan. The transition point is in the right lower quadrant. Patient has had inguinal surgery repair in the past and this may be causing the obstruction. The patient's white count increased and his creatinine increased today. He also keeps flipping between tachycardia and normal sinus rhythm. I am consulting cardiology before surgery. I do recommend exploration as it does not. Anythingis resolving and he is still significantly tender and his labs seem to be worsening. I discussed exploratory laparoscopy with him. I discussed the risks including but not limited to bleeding, infection, injury other organs such as the bowel or bladder. I also discussed the possibility of having to convert to open surgery or having to possibly resect bowel. Patient understands all the risks and is willing to proceed. Patient will be scheduled for this afternoon. Reilly Mack MD Pager: [facility] [address] [place] [address], [address] [place] [address] Office: 02/26/23 1024 <Electronically signed by Reilly Mack MD> Cosigner Signature (if applicable): CC: ~ Signed [facility] Work Phone: 1([phone]) 548-839401-05-2024 History and physical note Author Reilly Mack [facility] February 25, 2023 11:28pm Note Date/Time February 25, 2023 11 :29pm [facility] Medical Records Department [address] [place] [id number] H&P Exam - Surgical 02/25/23 2326 MR#: [id number] Acct: [id number] Name: YARIEL SANCHEZ Rep #:[id number] : 1945 77 From: Reilly kemp MD PCP: Dr. Samir Quevedo MD Status:ADM RENE Location: [place] [address] HPI - General General Date of Admission: 02/25/23 HPI Narrative YARIEL SANCHEZ, is a 77 M who presents with nausea and vomiting and abdominal pain. Patient reports he had a normal bowel movement yesterday. He reports that today he has had some diarrhea. He has diffuse abdominal pain. He also has nausea and vomiting. He has never had a bowel obstruction in the past. [facility] Medical History HTN (hypertension) Kidney stones Non-smoker Obesity Osteoarthritis Sinusitis, maxillary, chronic Vertigo Home Medications doxazosin 1 mg tablet 1 mg PO QHS blood pressure 04/15/21 [History Last Taken Unknown] lisinopril 5 mg tablet 5 mg PO QHS blood pressure 04/15/21 [History Last Taken Unknown] aspirin 81 mg capsule 81 mg PO DAILY #30 caps 04/16/21 [Rx Last Taken Unknown] ramipril 1.25 mg capsule mg 02/25/23 [History Last Taken Unknown] Allergy/AdvReac Type Severity Reaction Status Date / Time levofloxacin Allergy Mild Other Verified 02/25/23 19:51 Family History Father Heart disease Mother Cancer Unclear type. Surgical History History of arthroscopic knee surgery History of cholecystectomy History of colonoscopy (~2018) S/P bilateral inguinal hernia repair Social History household members: spouse Smoking Status: Never smoker alcohol intake: never substance use type: does not use ROS Constitutional Constitutional: Reports anorexia; Denies chills, fatigue or fever(s) Eyes Eyes: Denies blurry vision ENT HEENT: Denies abnormal hearing Cardiovascular Cardiovascular: Denies chest pain Respiratory/Chest Respiratory/Chest: Denies cough Gastrointestinal Gastrointestinal: Reports abdominal pain, diarrhea, nausea and vomiting; Denies constipation Genitourinary Genitourinary: Denies flank pain Musculoskeletal Musculoskeletal: Denies back pain Integumentary Integumentary: Denies jaundice Neurologic Neurologic: Denies abnormal gait Psychiatric Psychiatric: Denies anxiety Vital Signs Vital Signs Vital Signs: 02/25/23 19:51 02/25/23 20:54 02/25/23 21:44 Temperature 97.8 F 98.1 F 98 F Temperature Source Oral Temporal Temporal Pulse Rate 86 97 90 Respiratory Rate 20 H 16 16 Blood Pressure 185/91 H 146/91 H 151/113 H Blood Pressure Mean 122 109 125 Pulse Ox 95 93 96 Oxygen Delivery Method Room Air Room Air Room Air 02/25/23 22:13 02/25/23 23:10 Temperature 97.8 F Temperature Source Oral Pulse Rate 139 H 114 H Respiratory Rate 20 H 20 H Blood Pressure 139/86 H 145/105 H Blood Pressure Mean 103 118 Pulse Ox 94 93 Oxygen Delivery Method Room Air Physical Exam Const oriented x3 and no apparent distress Resp normal respiratory effort Cardio regular rhythm Rate: tachycardic GI soft to palpation Inspection: abdominal distention Palpation: tender other (Diffuse) Results Lab / Micro Data 02/25/23 20:20 02/25/23 20:20 Labs: Laboratory Results - last 24 hr 02/25/23 20:20: WBC 14.8 H, RBC 5.69, Hgb 16.6 H, Hct 47.2, MCV 83.0, MCH 29.2, MCHC 35.2, RDW Std Deviation 40.1, RDW Coeff of Guilherme 13.4, Plt Count 157, MPV 9.7, Immature Gran % (Auto) 0.300, Neut % (Auto) 92.5 H, Lymph % (Auto) 1.8 L, [place] % (Auto) 5.0, Eos % (Auto) 0.1, Baso % (Auto) 0.3, Absolute Neuts (auto) 13.7 H, Absolute Lymphs (auto) 0.26 L, Nucleated RBC % 0, Differential Comment SCANNED, Sodium 138, Potassium 4.0, Chloride 106, Carbon Dioxide 25.0, Anion Gap7, BUN 29 H, Creatinine 1.46 H, Est GFR (MDRD) Af Amer 60, Est GFR (MDRD) Non-Af50 L, BUN/Creatinine Ratio 19.9, Glucose 170 H, Calcium 9.1, Total Bilirubin 1.40 H, AST 24, ALT 40, Alkaline Phosphatase 62, Total Protein 7.4, Albumin 4.3,Globulin 3.1, Albumin/Globulin Ratio 1.4, Lipase 29 02/25/23 22:09: Lactic Acid 1.8 Micro: Microbiology 02/25/23 20:20 Mucosa - Nose SARS-CoV-2, Influenza & RSV (PCR) - Final Imagaing Radiology Impression Abdomen/Pelvis CT 02/25/23 21:15 IMPRESSION: Distal small bowel obstruction. Surgical consultation recommended. Electronically Signed: Yasir Mary MD at 22:18 EST Reading Location ID and State: [address] [place] [address] Tel , Service support , Assessment & Plan Assessment/Plan (1) Small bowel obstruction: PLAN: The patient came in with nausea vomiting and abdominal pain. CT scan revealed small bowel obstruction with a possible transition point the right lower quadrant. The patient has had bilateral inguinal hernia repairs in the past. I will place an NG tube and admit the patient for observation and start antibiotics and IV fluids. KUB in the morning. Reilly Mack MD Pager: [facility] [address] [place] [address], [address] [place] [address] Office: 02/25/232327 <Electronically signed by Reilly Mack MD> Cosigner Signature (if applicable): CC: Dr. Reilly Mack MD; Dr. Samir Quevedo MD~ Signed [facility] Work Phone: [phone]) 181-828801-05-2024 Discharge summary Author Bonifacio Tompkins [facility] February 25, 2023 10:37pm Note Date/Time February 25, 2023 8: 31pm [facility] Medical Records Department [address] [place] [address] Emergency Department Summary 02/25/23 MR#: [id number] Acct: [id number] Name: YARIEL SANCHEZ Rep #:[id number] : 1945 77 From: Bonifacio Tompkins MD PCP: Dr. Samir Quevedo MD Status:[facility] ER Location: ED HPI History of Present Illness Chief Complaint: Nausea/Vomiting/Diarrhea Informant: patient Narrative Narrative: Patient presents with diarrhea that then went to nausea vomiting and abdominal cramping. Started with diarrhea this morning. At first it was just loose. Then it got watery. It has never been black or blood. He then got nauseated when he was doing some work for his . He did vomit. But no blood. He has not had no fever. No chills. No coughing or URI symptoms. No known exposures. No new medications. He has cramping in different areas of his abdomen. No focal area of pain. Patient had inguinal hernias repair years ago but has not felt any pain or swelling in the area. He had cholecystectomy about 40 years ago. Never had problems since. [facility] Medical History HTN (hypertension) Kidney stones Non-smoker Obesity Osteoarthritis Sinusitis, maxillary, chronic Vertigo Home Medications doxazosin 1 mg tablet 1 mg PO QHS blood pressure 04/15/21 [History Last Taken Unknown] lisinopril 5 mg tablet 5 mg PO QHS blood pressure 04/15/21 [History Last Taken Unknown] aspirin 81 mg capsule 81 mg PO DAILY #30 caps 04/16/21 [Rx Last Taken Unknown] ramipril 1.25 mg capsule mg 02/25/23 [History Last Taken Unknown] Allergy/AdvReac Type Severity Reaction Status Date / Time levofloxacin Allergy Mild Other Verified 02/25/23 19:51 Family History Father Heart disease Mother Cancer Unclear type. Surgical History History of arthroscopic knee surgery History of cholecystectomy History of colonoscopy (~2018) S/P bilateral inguinal hernia repair Social History household members: spouse Smoking Status: Never smoker alcohol intake: never substance use type: does not use ROS ROS ED Constitutional Constitutional ED: Denies chills or fever(s) Eyes Eyes: Denies change in vision ENT ENT ED: Denies ear pain, rhinorrhea or sore throat Cardiovascular Cardiovascular: Denies chest pain, palpitations or racing heartbeat Respiratory/Chest Respiratory/Chest: Denies cough or dyspnea Gastrointestinal Gastrointestinal: Reports abdominal pain, diarrhea, nausea and vomiting; Denies constipation or melena Genitourinary Genitourinary ED: Denies dysuria, hematuria or urinary frequency Musculoskeletal Musculoskeletal: Denies myalgias Integumentary Denies rash Neurologic Neurologic: Denies headache(s) or paresthesias Hematologic/Lymphatic Hematologic/Lymphatic: Denies easy bleeding or easy bruising Allergic/Immunologic Allergic/Immunologic ED: Denies urticaria EXAM Physical Exam Narrative Exam Narrative: CONSTITUTIONAL: Patient is nontoxic in appearance. The patient looks comfortable. HEENT: No notable trauma. Mucous membranes still moist. EYES: No conjunctival injection. No icterus. CARDIOVASCULAR: Regular rate. Regular rhythm. No notable murmur. No JVD. RESPIRATORY: No respiratory distress. Breathing is unlabored. No wheezes. No rhonchi. No rales. No pain with a deep breath. GASTROINTESTINAL: Not distended. Bowel sounds are normal. No tenderness. No guarding. No rebound. No palpable mass. No bruit. Patient is not really tender but he states he gets cramping all over. I am not feeling a mass. GENITOURINARY: No tenderness over the bladder. No CVA tenderness. MUSCULOSKELETAL: Atraumatic. No peripheral edema. No cord. No tenderness along the deep venous system. No asymmetry. NEUROLOGICAL: Patient is alert and appropriate. No focal deficit noted. SKIN: No noted rashes. No diaphoresis. PSYCHIATRIC: Patient is calm. Mood is appropriate. Get a Const Vital Signs: 02/25/23 19:51 02/25/23 20:54 02/25/23 21:44 Temperature 97.8 F 98.1 F 98 F Temperature Source Oral Temporal Temporal Pulse Rate 86 97 90 Respiratory Rate 20 H 16 16 Blood Pressure 185/91 H 146/91 H 151/113 H Blood Pressure Mean 122 109 125 Pulse Ox 95 93 96 Oxygen Delivery Method Room Air Room Air Room Air 02/25/23 22:13 Temperature 97.8 F Temperature Source Oral Pulse Rate 139 H Respiratory Rate 20 H Blood Pressure 139/86 H Blood Pressure Mean 103 Pulse Ox 94 Oxygen Delivery Method Room Air MDM MDM MDM Narrative Medical decision making narrative: My independent interpretation of the patient's CT of the abdomen does show signsof small bowel obstruction. Radiologist can see a area of distal swelling and transition point suspected. Patient's CBC does show elevated white count at 14.8. Hemoglobin is also slightly up. Some of this is due to dehydration. Patient's electrolytes do show a slight rise of his BUN and creatinine. He is given IV fluids here to help with hydration. Glucose is slightly up at 170. This can be trended. Lipase is normal at 29. Patient's liver function test are overall normal other than slight rise of totalbilirubin at 1.4. Patient's lactate is normal. Patient got good relief with Zofran. He when he went to CAT scan and they injected the dye he states he got immediately nauseated and vomited after the dye. But he feels much better now. He states his stomach really is not hurtingthat much. It is just a little upset. It is not really that tender. He is feeling okay now. He is not nauseated. He has not vomited since that episode and CAT scan. I discussed the case with Dr. Mack and the patient will brought in the hospital under observation. Since he is not vomiting at this time we will hold off on NG tube. Lab Data Attestation: I reviewed the patient's lab results. Labs: Laboratory Results - last 24 hr 02/25/23 20:20 WBC 14.8 H RBC 5.69 Hgb 16.6 H Hct 47.2 MCV 83.0 MCH 29.2 MCHC 35.2 RDW Std Deviation 40.1 RDW Coeff of Guilherme 13.4 Plt Count 157 MPV 9.7 Immature Gran % (Auto) 0.300 Neut % (Auto) 92.5 H Lymph % (Auto) 1.[address] [place] % (Auto) 5.0 Eos % (Auto) 0.1 Baso % (Auto) 0.3 Absolute Neuts (auto) 13.7 H Absolute Lymphs (auto) 0.26 L Nucleated RBC % 0 Differential Comment SCANNED Sodium 138 Potassium 4.0 Chloride 106 Carbon Dioxide 25.0 Anion Gap 7 BUN 29 H Creatinine 1.46 H Est GFR (MDRD) Af Amer 60 Est GFR (MDRD) Non-Af 50 L BUN/Creatinine Ratio 19.9 Glucose 170 H Calcium 9.1 Total Bilirubin 1.40 H AST 24 ALT 40 Alkaline Phosphatase 62 Total Protein 7.4 Albumin 4.3 Globulin 3.1 Albumin/Globulin Ratio 1.4 Lipase 29 Radiography Diagnostic Testing: Clinical Impression(s) from Imaging Studies Abdomen/Pelvis CT 02/25/23 21:15 IMPRESSION: Distal small bowel obstruction. Surgical consultation recommended. Electronically Signed: Yasir Mary MD at 22:18 EST , Discharge Plan Triage Chief Complaint: Nausea/Vomiting/Diarrhea ED Provider: Bonifacio Tompkins Dx/Rx/DC Orders Clinical Impression: Nausea vomiting and diarrhea, Leukocytosis, Small bowel obstruction, Dehydration Prescriptions: No Action doxazosin 1 mg tablet 1 mg PO QHS Patient Comments: TAKE 1 TABLET BY MOUTH NIGHTLY WITH SUPPER FOR BLOOD PRESSURE AND FOR PROSTATE lisinopril 5 mg tablet 5 mg PO QHS Patient Comments: TAKE 1 TABLET BY MOUTH ONCE DAILY aspirin 81 mg capsule 81 mg PO DAILY Qty: 30 1RF ramipril 1.25 mg capsule Primary Care Provider: Samir Quevedo Referrals: Samir Quevedo MD [Primary Care Provider] - Disposition Disposition: Acute Care Hospital [facility] What to do if you have Problems For any increased pain, shortness of breath, bleeding, nausea or vomiting, chestpain, or any unexpected problems, contact your Primary Care Provider. Call [facility] ([phone]) or report to the closest Emergency Room. Call 911 if necessary. 02/25/232236 <Electronically signed by Bonifacio Tompkins MD> Cosigner Signature (if applicable): CC: Dr. Samir Quevedo MD ~ Signed [facility] Work Phone: [phone] 306-225601-04-2024 Discharge summary Author Bonifacio [facility] February 25, 2023 10:37pm Note Date/Time February 25, 2023 8: 31pm [facility] Medical Records Department [address] [place] [address] Emergency Department Summary 02/25/23 MR#: [id number] Acct: [id number] Name: YARIEL SANCHEZ Rep #:[id number] : 1945 77 From: Bonifacio Tompkins MD PCP: Dr. Samir Quevedo MD Status:[facility] ER Location: ED HPI History of Present Illness Chief Complaint: Nausea/Vomiting/Diarrhea Informant: patient Narrative Narrative: Patient presents with diarrhea that then went to nausea vomiting and abdominal cramping. Started with diarrhea this morning. At first it was just loose. Then it got watery. It has never been black or blood. He then got nauseated when he was doing some work for his . He did vomit. But no blood. He has not had no fever. No chills. No coughing or URI symptoms. No known exposures. No new medications. He has cramping in different areas of his abdomen. No focal area of pain. Patient had inguinal hernias repair years ago but has not felt any pain or swelling in the area. He had cholecystectomy about 40 years ago. Never had problems since. [facility] Medical History HTN (hypertension) Kidney stones Non-smoker Obesity Osteoarthritis Sinusitis, maxillary, chronic Vertigo Home Medications doxazosin 1 mg tablet 1 mg PO QHS blood pressure 04/15/21 [History Last Taken Unknown] lisinopril 5 mg tablet 5 mg PO QHS blood pressure 04/15/21 [History Last Taken Unknown] aspirin 81 mg capsule 81 mg PO DAILY #30 caps 04/16/21 [Rx Last Taken Unknown] ramipril 1.25 mg capsule mg 02/25/23 [History Last Taken Unknown] Allergy/AdvReac Type Severity Reaction Status Date / Time levofloxacin Allergy Mild Other Verified 02/25/23 19:51 Family History Father Heart disease Mother Cancer Unclear type. Surgical History History of arthroscopic knee surgery History of cholecystectomy History of colonoscopy (~2018) S/P bilateral inguinal hernia repair Social History household members: spouse Smoking Status: Never smoker alcohol intake: never substance use type: does not use ROS ROS ED Constitutional Constitutional ED: Denies chills or fever(s) Eyes Eyes: Denies change in vision ENT ENT ED: Denies ear pain, rhinorrhea or sore throat Cardiovascular Cardiovascular: Denies chest pain, palpitations or racing heartbeat Respiratory/Chest Respiratory/Chest: Denies cough or dyspnea Gastrointestinal Gastrointestinal: Reports abdominal pain, diarrhea, nausea and vomiting; Denies constipation or melena Genitourinary Genitourinary ED: Denies dysuria, hematuria or urinary frequency Musculoskeletal Musculoskeletal: Denies myalgias Integumentary Denies rash Neurologic Neurologic: Denies headache(s) or paresthesias Hematologic/Lymphatic Hematologic/Lymphatic: Denies easy bleeding or easy bruising Allergic/Immunologic Allergic/Immunologic ED: Denies urticaria EXAM Physical Exam Narrative Exam Narrative: CONSTITUTIONAL: Patient is nontoxic in appearance. The patient looks comfortable. HEENT: No notable trauma. Mucous membranes still moist. EYES: No conjunctival injection. No icterus. CARDIOVASCULAR: Regular rate. Regular rhythm. No notable murmur. No JVD. RESPIRATORY: No respiratory distress. Breathing is unlabored. No wheezes. No rhonchi. No rales. No pain with a deep breath. GASTROINTESTINAL: Not distended. Bowel sounds are normal. No tenderness. No guarding. No rebound. No palpable mass. No bruit. Patient is not really tender but he states he gets cramping all over. I am not feeling a mass. GENITOURINARY: No tenderness over the bladder. No CVA tenderness. MUSCULOSKELETAL: Atraumatic. No peripheral edema. No cord. No tenderness along the deep venous system. No asymmetry. NEUROLOGICAL: Patient is alert and appropriate. No focal deficit noted. SKIN: No noted rashes. No diaphoresis. PSYCHIATRIC: Patient is calm. Mood is appropriate. Get a Const Vital Signs: 02/25/23 19:51 02/25/23 20:54 02/25/23 21:44 Temperature 97.8 F 98.1 F 98 F Temperature Source Oral Temporal Temporal Pulse Rate 86 97 90 Respiratory Rate 20 H 16 16 Blood Pressure 185/91 H 146/91 H 151/113 H Blood Pressure Mean 122 109 125 Pulse Ox 95 93 96 Oxygen Delivery Method Room Air Room Air Room Air 02/25/23 22:13 Temperature 97.8 F Temperature Source Oral Pulse Rate 139 H Respiratory Rate 20 H Blood Pressure 139/86 H Blood Pressure Mean 103 Pulse Ox 94 Oxygen Delivery Method Room Air MDM MDM MDM Narrative Medical decision making narrative: My independent interpretation of the patient's CT of the abdomen does show signsof small bowel obstruction. Radiologist can see a area of distal swelling and transition point suspected. Patient's CBC does show elevated white count at 14.8. Hemoglobin is also slightly up. Some of this is due to dehydration. Patient's electrolytes do show a slight rise of his BUN and creatinine. He is given IV fluids here to help with hydration. Glucose is slightly up at 170. This can be trended. Lipase is normal at 29. Patient's liver function test are overall normal other than slight rise of totalbilirubin at 1.4. Patient's lactate is normal. Patient got good relief with Zofran. He when he went to CAT scan and they injected the dye he states he got immediately nauseated and vomited after the dye. But he feels much better now. He states his stomach really is not hurtingthat much. It is just a little upset. It is not really that tender. He is feeling okay now. He is not nauseated. He has not vomited since that episode and CAT scan. I discussed the case with Dr. Mack and the patient will brought in the hospital under observation. Since he is not vomiting at this time we will hold off on NG tube. Lab Data Attestation: I reviewed the patient's lab results. Labs: Laboratory Results - last 24 hr 02/25/23 20:20 WBC 14.8 H RBC 5.69 Hgb 16.6 H Hct 47.2 MCV 83.0 MCH 29.2 MCHC 35.2 RDW Std Deviation 40.1 RDW Coeff of Guilherme 13.4 Plt Count 157 MPV 9.7 Immature Gran % (Auto) 0.300 Neut % (Auto) 92.5 H Lymph % (Auto) 1.[address] [place] % (Auto) 5.0 Eos % (Auto) 0.1 Baso % (Auto) 0.3 Absolute Neuts (auto) 13.7 H Absolute Lymphs (auto) 0.26 L Nucleated RBC % 0 Differential Comment SCANNED Sodium 138 Potassium 4.0 Chloride 106 Carbon Dioxide 25.0 Anion Gap 7 BUN 29 H Creatinine 1.46 H Est GFR (MDRD) Af Amer 60 Est GFR (MDRD) Non-Af 50 L BUN/Creatinine Ratio 19.9 Glucose 170 H Calcium 9.1 Total Bilirubin 1.40 H AST 24 ALT 40 Alkaline Phosphatase 62 Total Protein 7.4 Albumin 4.3 Globulin 3.1 Albumin/Globulin Ratio 1.4 Lipase 29 Radiography Diagnostic Testing: Clinical Impression(s) from Imaging Studies Abdomen/Pelvis CT 02/25/23 21:15 IMPRESSION: Distal small bowel obstruction. Surgical consultation recommended. Electronically Signed: Yasir Mary MD at 22:18 EST , Discharge Plan Triage Chief Complaint: Nausea/Vomiting/Diarrhea ED Provider: Bonifacio Tompkins Dx/Rx/DC Orders Clinical Impression: Nausea vomiting and diarrhea, Leukocytosis, Small bowel obstruction, Dehydration Prescriptions: No Action doxazosin 1 mg tablet 1 mg PO QHS Patient Comments: TAKE 1 TABLET BY MOUTH NIGHTLY WITH SUPPER FOR BLOOD PRESSURE AND FOR PROSTATE lisinopril 5 mg tablet 5 mg PO QHS Patient Comments: TAKE 1 TABLET BY MOUTH ONCE DAILY aspirin 81 mg capsule 81 mg PO DAILY Qty: 30 1RF ramipril 1.25 mg capsule Primary Care Provider: Samir Quevedo Referrals: Samir Quevedo MD [Primary Care Provider] - Disposition Disposition: Acute Care Hospital [facility] What to do if you have Problems For any increased pain, shortness of breath, bleeding, nausea or vomiting, chestpain, or any unexpected problems, contact your Primary Care Provider. Call [facility] ([phone]) or report to the closest Emergency Room. Call 911 if necessary. 02/25/232236 <Electronically signed by Bonifacio Tompkins MD> Cosigner Signature (if applicable): CC: Dr. Samir Quevedo MD ~ Signed [facility] Work Phone: Consult note Author Jessica Borden [facility] March 03, 2023 11:16am Note Date/Time March 03, 2023 1 1:17am [facility] Medical Records Department [address] [place] [address] Counseling Note - Pharmacy 03/03/23 1116 MR#: [id number] Acct: [id number] Name: AYRIEL SANCHEZ Rep #:[id number] : 1945 77 From: Jessica Borden PCP: Dr. Samir Quevedo MD Status:ADM IN Location: [place] [address] Pharmacy [place] Med Reconciliation Pharmacy Service has performed discharge medication reconciliation for this patient. The patient's discharge medication list was reviewed for discrepancies and discrepancies were resolved. Medications at Discharge Home Medications doxazosin 1 mg tablet 1 mg PO QHS blood pressure 04/15/21 aspirin 81 mg capsule 81 mg PO DAILY #30 caps 04/16/21 ramipril 1.25 mg capsule 1.25 mg PO DAILY blood pressue 02/25/23 levothyroxine 50 mcg tablet 50 mcg PO DAILY thyroid 02/26/23 acetaminophen 325 mg tablet 650 mg (2 x 325 mg) PO Q4H PRN PRN Pain 1-10 Or Fever #0 tabs 03/03/23 03/03/23 1116 <Electronically signed by Jessica Borden> Date _ Jessica Borden Cosigner Signature (if applicable): Date CC: ~ Signed [facility] Work Phone: Evaluation noteNo assessment information available [facility] Work Phone: evaluation note* Diagnosis Onset Date Resolution Status Carotid stenosis, left acute [facility] Work Phone: Evaluation note* Diagnosis Onset Date Resolution Status Dehydration acute Leukocytosis acute Nausea vomiting and diarrhea acute Small bowel obstruction acut e [facility] Work Phone: Evaluation note* Diagnosis Onset Date Resolution Status Dehydration acute First degree AV block acute Leukocytosis acute Meckel's diverticulitis acut e Nausea vomiting and diarrhea acute Paroxysmal supraventricular tachycardia acute Preoperative cardiovascular examination acute S/P exploratory laparotomy a cute Small bowel obstruction acut e Urinary retention acute [facility] Work Phone: evaluation note* Diagnosis Onset Date Resolution Status Urinary retention acute Dehydration resolved Leukocytosis resolved Meckel's diverticulitis reso lved Nausea vomiting and diarrhea resolved Small bowel obstruction reso lved S/P small bowel resection [place] [facility] Work Phone: Evaluation note* Diagnosis Onset Date Resolution Status Urinary retention acute Dehydration resolved Leukocytosis resolved Meckel's diverticulitis reso lved Nausea vomiting and diarrhea resolved Small bowel obstruction reso lved S/P small bowel resection [place] Carotid stenosis, left acute [facility] Work Phone: History and physical note Author Reilly Mack [facility] February 25, 2023 11:28pm Note Date/Time February 25, 2023 11 :29pm [facility] Medical Records Department [address] [place] [address] H&P Exam - Surgical 02/25/23 2326 MR#: [id number] Acct: [id number] Name: YARIEL SANCHEZ Rep #:[id number] : 1945 77 From: Reilly kemp MD PCP: Dr. Samir Quevedo MD Status:ADM RENE Location: [place] [address] HPI - General General Date of Admission: 02/25/23 HPI Narrative YARIEL SANCHEZ, is a 77 M who presents with nausea and vomiting and abdominal pain. Patient reports he had a normal bowel movement yesterday. He reports that today he has had some diarrhea. He has diffuse abdominal pain. He also has nausea and vomiting. He has never had a bowel obstruction in the past. [facility] Medical History HTN (hypertension) Kidney stones Non-smoker Obesity Osteoarthritis Sinusitis, maxillary, chronic Vertigo Home Medications doxazosin 1 mg tablet 1 mg PO QHS blood pressure 04/15/21 [History Last Taken Unknown] lisinopril 5 mg tablet 5 mg PO QHS blood pressure 04/15/21 [History Last Taken Unknown] aspirin 81 mg capsule 81 mg PO DAILY #30 caps 04/16/21 [Rx Last Taken Unknown] ramipril 1.25 mg capsule mg 02/25/23 [History Last Taken Unknown] Allergy/AdvReac Type Severity Reaction Status Date / Time levofloxacin Allergy Mild Other Verified 02/25/23 19:51 Family History Father Heart disease Mother Cancer Unclear type. Surgical History History of arthroscopic knee surgery History of cholecystectomy History of colonoscopy (~2018) S/P bilateral inguinal hernia repair Social History household members: spouse Smoking Status: Never smoker alcohol intake: never substance use type: does not use ROS Constitutional Constitutional: Reports anorexia; Denies chills, fatigue or fever(s) Eyes Eyes: Denies blurry vision ENT HEENT: Denies abnormal hearing Cardiovascular Cardiovascular: Denies chest pain Respiratory/Chest Respiratory/Chest: Denies cough Gastrointestinal Gastrointestinal: Reports abdominal pain, diarrhea, nausea and vomiting; Denies constipation Genitourinary Genitourinary: Denies flank pain Musculoskeletal Musculoskeletal: Denies back pain Integumentary Integumentary: Denies jaundice Neurologic Neurologic: Denies abnormal gait Psychiatric Psychiatric: Denies anxiety Vital Signs Vital Signs Vital Signs: 02/25/23 19:51 02/25/23 20:54 02/25/23 21:44 Temperature 97.8 F 98.1 F 98 F Temperature Source Oral Temporal Temporal Pulse Rate 86 97 90 Respiratory Rate 20 H 16 16 Blood Pressure 185/91 H 146/91 H 151/113 H Blood Pressure Mean 122 109 125 Pulse Ox 95 93 96 Oxygen Delivery Method Room Air Room Air Room Air 02/25/23 22:13 02/25/23 23:10 Temperature 97.8 F Temperature Source Oral Pulse Rate 139 H 114 H Respiratory Rate 20 H 20 H Blood Pressure 139/86 H 145/105 H Blood Pressure Mean 103 118 Pulse Ox 94 93 Oxygen Delivery Method Room Air Physical Exam Const oriented x3 and no apparent distress Resp normal respiratory effort Cardio regular rhythm Rate: tachycardic GI soft to palpation Inspection: abdominal distention Palpation: tender other (Diffuse) Results Lab / Micro Data 02/25/23 20:20 02/25/23 20:20 Labs: Laboratory Results - last 24 hr 02/25/23 20:20: WBC 14.8 H, RBC 5.69, Hgb 16.6 H, Hct 47.2, MCV 83.0, MCH 29.2, MCHC 35.2, RDW Std Deviation 40.1, RDW Coeff of Guilherme 13.4, Plt Count 157, MPV 9.7, Immature Gran % (Auto) 0.300, Neut % (Auto) 92.5 H, Lymph % (Auto) 1.8 L, [place] % (Auto) 5.0, Eos % (Auto) 0.1, Baso % (Auto) 0.3, Absolute Neuts (auto) 13.7 H, Absolute Lymphs (auto) 0.26 L, Nucleated RBC % 0, Differential Comment SCANNED, Sodium 138, Potassium 4.0, Chloride 106, Carbon Dioxide 25.0, Anion Gap7, BUN 29 H, Creatinine 1.46 H, Est GFR (MDRD) Af Amer 60, Est GFR (MDRD) Non-Af50 L, BUN/Creatinine Ratio 19.9, Glucose 170 H, Calcium 9.1, Total Bilirubin 1.40 H, AST 24, ALT 40, Alkaline Phosphatase 62, Total Protein 7.4, Albumin 4.3,Globulin 3.1, Albumin/Globulin Ratio 1.4, Lipase 29 02/25/23 22:09: Lactic Acid 1.8 Micro: Microbiology 02/25/23 20:20 Mucosa - Nose SARS-CoV-2, Influenza & RSV (PCR) - Final Imagaing Radiology Impression Abdomen/Pelvis CT 02/25/23 21:15 IMPRESSION: Distal small bowel obstruction. Surgical consultation recommended. Electronically Signed: Yasir Mary MD at 22:18 EST , Assessment & Plan Assessment/Plan (1) Small bowel obstruction: PLAN: The patient came in with nausea vomiting and abdominal pain. CT scan revealed small bowel obstruction with a possible transition point the right lower quadrant. The patient has had bilateral inguinal hernia repairs in the past. I will place an NG tube and admit the patient for observation and start antibiotics and IV fluids. KUB in the morning. Reilly Mack MD Pager: [facility] [address] [place] [address], [address] [place] [address] Office: 02/25/233 <Electronically signed by Reilly Mack MD> Cosigner Signature (if applicable): CC: Dr. Reilly Mack MD; Dr. Samir Quevedo MD~ Signed [facility] Work Phone: Hospital Discharge instructions Additional Instructions Implant Used?: [facility] Work Phone: Reason for referral (narrative)No reason for referral [facility] Work Phone: Chief Complaint and Reason for Visit Chief Complaint CHRONIC SINUSITUS Other chronic sinusitis/PRE OP Chief Complaint Other chronic sinusi tis/PRE OP Other chronic sinusitis/PRE OP CHRONIC SINUSITIS Chief Complaint CAROTID STENOSIS RECALL LETTER- CAROTID Reason for Visit Carotid stenosis, le ft Chief Complaint SMALL BOWEL OBSTRUCT ION SMALL BOWEL OBSTRUCTION Reason for Visit Dehydration Leukocytosis Nausea vomiting and diarrhea Small bowel obstruction Chief Complaint SMALL BOWEL OBSTRUCT ION SMALL BOWEL OBSTRUCTION SMALL BOWEL OBSTRUCTION SMALL BOWEL OBSTRUCTION SMALL BOWEL OBSTRUCTION SMALL BOWEL OBSTRUCTION SMALL BOWEL OBSTRUCTION SMALL BOWEL OBSTRUCTION SMALL BOWEL OBSTRUCTION Reason for Visit Dehydration First degree AV block Leukocytosis Meckel's diverticulitis Nausea vomiting and diarrhea Paroxysmal supraventricular tachycardia Preoperative cardiovascular examination S/P exploratory laparotomy Small bowel obstruction Urinary retention Chief Complaint SMALL BOWEL OBSTRUCT ION SMALL BOWEL OBSTRUCTION SMALL BOWEL OBSTRUCTION SMALL BOWEL OBSTRUCTION SMALL BOWEL OBSTRUCTION SMALL BOWEL OBSTRUCTION SMALL BOWEL OBSTRUCTION SMALL BOWEL OBSTRUCTION SMALL BOWEL OBSTRUCTION gu complaint Reason for Visit Dehydration First degree AV block Leukocytosis Meckel's diverticulitis Nausea vomiting and diarrhea Paroxysmal supraventricular tachycardia Preoperative cardiovascular examination S/P exploratory laparotomy Small bowel obstruction Urinary retention Chief Complaint SMALL BOWEL OBSTRUCT ION SMALL BOWEL OBSTRUCTION SMALL BOWEL OBSTRUCTION SMALL BOWEL OBSTRUCTION SMALL BOWEL OBSTRUCTION SMALL BOWEL OBSTRUCTION SMALL BOWEL OBSTRUCTION SMALL BOWEL OBSTRUCTION SMALL BOWEL OBSTRUCTION gu complaint Small Bowel Obstruction UNABLE TO URINATE pattele Reason for Visit Urinary retention Dehydration Leukocytosis Meckel's diverticulitis Nausea vomiting and diarrhea Small bowel obstruction S/P small bowel resection Chief Complaint SMALL BOWEL OBSTRUCT ION SMALL BOWEL OBSTRUCTION SMALL BOWEL OBSTRUCTION SMALL BOWEL OBSTRUCTION SMALL BOWEL OBSTRUCTION SMALL BOWEL OBSTRUCTION SMALL BOWEL OBSTRUCTION SMALL BOWEL OBSTRUCTION SMALL BOWEL OBSTRUCTION gu complaint Small Bowel Obstruction UNABLE TO URINATE pattele LEFT CAROTID STENOSIS Reason for Visit Urinary retention Dehydration Leukocytosis Meckel's diverticulitis Nausea vomiting and diarrhea Small bowel obstruction S/P small bowel resection Chief Complaint SMALL BOWEL OBSTRUCT ION SMALL BOWEL OBSTRUCTION SMALL BOWEL OBSTRUCTION SMALL BOWEL OBSTRUCTION SMALL BOWEL OBSTRUCTION SMALL BOWEL OBSTRUCTION SMALL BOWEL OBSTRUCTION SMALL BOWEL OBSTRUCTION SMALL BOWEL OBSTRUCTION gu complaint Small Bowel Obstruction UNABLE TO URINATE pattele LEFT CAROTID STENOSIS ROUTINE CAROTID E ORDERS Reason for Visit Urinary retention Dehydration Leukocytosis Meckel's diverticulitis Nausea vomiting and diarrhea Small bowel obstruction S/P small bowel resection Carotid stenosis, left Chief Complaint SMALL BOWEL OBSTRUCT ION SMALL BOWEL OBSTRUCTION SMALL BOWEL OBSTRUCTION SMALL BOWEL OBSTRUCTION SMALL BOWEL OBSTRUCTION SMALL BOWEL OBSTRUCTION SMALL BOWEL OBSTRUCTION SMALL BOWEL OBSTRUCTION SMALL BOWEL OBSTRUCTION gu complaint Small Bowel Obstruction UNABLE TO URINATE pattele LEFT CAROTID STENOSIS ROUTINE CAROTID E ORDERS CHECK CAROTIDS Reason for Visit Urinary retention Dehydration Leukocytosis Meckel's diverticulitis Nausea vomiting and diarrhea Small bowel obstruction S/P small bowel resection Carotid stenosis, left Chief Complaint Admit Date OCCLUSION AND STENOSIS OF ARTERY June 12:40pm Discuss Vascular Studies July 27, 2024 8:19am Chief Complaint Admit Date OCCLUSION AND STENOSIS OF ARTERY June 12:40pm Discuss Vascular Studies July 27, 2024 8:19am Discuss results August 23, 2024 1:13p m Reason for Visit Admit Date Carotid stenosis, left July 27, 2024 8: 19am Family History No Family History Records Found Relationship Condition Age at Onset Recorded Date/T won father Cardiac disease Unknown mother Malignant neoplasm Unknown Advance Directives No Advanced Directives Records Found Advance Directive Response Recorded Date/ Time Living Will No April 15 4:01pm Power of Carpenter Helper Maintenance No April 15, 2021 4:01pm Advance Directive Response Recorded Date/ Time Living Will No April 15 3:01pm Power of Carpenter Helper Maintenance No April 15, 2021 3:01pm Advance Directive Response Recorded Date/ Time Living Will No February 25 7:55pm Power of Carpenter Helper Maintenance No February 25 7:55pm Advance Directive Response Recorded Date/ Time Living Will No February 26 12:47am Power of Carpenter Helper Maintenance No February 26 12:47am Advance Directive Response Recorded Date/ Time Living Will No March 08 9:33pm Power of Carpenter Helper Maintenance No March 08, 2023 9:33pm Advance Directive Response Recorded Date/ Time Name of Medical Power of Carpenter Helper Maintenance MANOJ April 09, 2023 6:25pm Living Will Yes April 09 6:25pm Power of Carpenter Helper Maintenance Yes April 09, 2023 6:25pm Advance Directive Response Recorded Date/ Time Name of Medical Power of Carpenter Helper Maintenance MANOJ April 09, 2023 7:25pm Living Will Yes April 09 7:25pm Power of Carpenter Helper Maintenance Yes April 09, 2023 7:25pm Advance Directive Response Recorded Date/ Time Living Will Yes April 09 7:25pm Do you have a Healthcare Power of Carpenter Helper Maintenance? Yes April 09, 2023 7:25pm Summary Purpose Additional Source Comments Goals (unrecognized section and content) Goals may be documented in a n alternate sectionGoals may be documented in an alternate sectionGoals may be documented in an alternate sectionGoals may be documented in an alternate sectionGoals may be documented in an alternate sectionGoals may be documented in an alternate section Care Teams (unrecognized sec tion and content) Team Status: Active Member Role Status Dates Dr. Taj Back MD Family Provider Active Samir ENRIQUEZ MD Primary Care Provider Active Team Status: Active Member Role Status Dates Samir ENRIQUEZ MD Primary Care Provider Active Dr. Messi Dumont MD Attending Provider, Referring Provider Active Team Status: Inactive Member Role Status Dates Samir ENRIQUEZ MD Primary Care Provider, Referring Pr ovider Active Dr. Messi Dumont MD Attending Provider Active Team Status: Inactive Member Role Status Dates Samir ENRIQUEZ MD Primary Care Provider Active Dr. Messi Dumont MD Attending Provider, Referring Provider Active Team Status: Inactive Member Role Status Dates Samir ENRIQUEZ MD Primary Care Provider Active Dr. Samir Quevedo MD Attending Provider, Referring Prov ider Active Team Status: Active Member Role Status Dates Dr. Taj Back MD Family Provider Active Dr. Samir Quevedo MD Primary Care Provider Active Team Status: Active Member Role Status Dates Dr. Samir Quevedo MD Primary Care Provider Active Dr. Bonifacio Tompkins MD Emergency Provider Active Dr. Reilly Mack MD Admit Provid er, Attending Provider, Other Provider Active Team Status: Inactive Member Role Status Dates Dr. Samir Quevedo MD Primary Care Provider, Attending P gustavo Active Team Status: Active Member Role Status Dates Dr. Samir Quevedo MD Primary Care Provider Active Dr. Bonifacio Tompkins MD Emergency Provider Active Dr. Reilly Mack MD Admit Provider, Attending Provider Active Team Status: Active Member Role Status Dates Dr. Samir Quevedo MD Primary Care Provider Active Dr. Bonifacio Tompkins MD Emergency Provider Active Dr. Reilly Mack MD Admit Provid er, Attending Provider, Other Provider Active Dr. Mikhail Olivares MD Other Provider Active Team Status: Active Member Role Status Dates Dr. Samir Quevedo MD Primary Care Provider Active Dr. Mikhail Olivares MD Attending Provider Active Team Status: Active Member Role Status Dates Dr. Samir Quevedo MD Primary Care Provider Active Dr. Bonifacio Tompkins MD Emergency Provider Active Dr. Reilly Mack MD Admit Provider, Other Prov ider Active Dr. Mikhail Olivares MD Other Provider Active Dr. Ariana Connor MD Attending Provider Active Team Status: Active Member Role Status Dates Dr. Samir Quevedo MD Primary Care Provider Active Dr. Bonifacio Tompkins MD Emergency Provider Active Dr. Reilly Mack MD Admit Provider, Other Prov ider Active Dr. Mikhail Olivares MD Attending Provider, Other Provid er Active Team Status: Inactive Member Role Status Dates Dr. Samir Quevedo MD Primary Care Provider Active Dr. Bonifacio Tompkins MD Emergency Provider Active Dr. Reilly Mack MD Admit Provider, Attending Provider Active Dr. Mikhail Olivares MD Other Provider Active Team Status: Inactive Member Role Status Dates Dr. Samir Quevedo MD Primary Care Provider Active Dr. Eliseo Dobbins DO Referring Provider, Emergency P rovider Active Team Status: Inactive Member Role Status Dates Dr. Samir Quevedo MD Primary Care Provider Active Betsy Peralta PA, PA-C Attending Provider Active Dr. Reilly Mack MD Referring Provider Active Team Status: Inactive Member Role Status Dates Dr. Samir Quevedo MD Primary Care Provider Active Dr. Eliseo Dobbins DO Attending Provide r, Referring Provider, Emergency Provider Active Team Status: Inactive Member Role Status Dates Dr. Samir Quevedo MD Primary Care Provider Active Dr. Golden Jeong MD Attending Provider, Referr ing Provider Active Dr. Aroldo Liu MD Other Provider Active Team Status: Inactive Member Role Status Dates Dr. Samir Quevedo MD Primary Care Provider Active Dr. Eliseo Dobbins DO Attending Provider, Emergency P rovider Active Team Status: Active Member Role Status Dates Dr. Samir Quevedo MD Primary Care Provider Active Dr. Messi Dumont MD Attending Provider, Referring Provider Active Team Status: Inactive Member Role Status Dates Dr. Samir Quevedo MD Primary Care Provider, Referring P rovider Active Dr. Messi Dumont MD Attending Provider Active Team Status: Inactive Member Role Status Dates Dr. Samir Quevedo MD Primary Care Provider Active Dr. Messi Dumont MD Attending Provider, Referring Provider Active Team Status: Active Member Role Status Dates Dr. Samir Quevedo MD Primary Care Provider Active Team Status: Inactive Member Role Status Dates Dr. Samir Quevedo MD Primary Care Provider Active Start: July 10, 2024 End: July 10, 2024 Dr. Samir Manley MD Attending Provider Active S tart: July 10, 2024 End: July 10, 2024 Dr. Samir Manley MD Referring Provider Active S tart: July 10, 2024 End: July 10, 2024 Team Status: Active Member Role Status Dates Dr. Samir Quevedo MD Primary Care Provider Active Start: July 10, 2024 Dr. Samir Manley MD Attending Provider Active S tart: July 10, 2024 Dr. Samir Manley MD Referring Provider Active S tart: July 10, 2024 Team Status: Inactive Member Role Status Dates Dr. Samir Quevedo MD Primary Care Provider Active Start: July 27, 2024 End: July 27, 2024 Dr. Samir Quevedo MD Referring Provider Active St art: July 27, 2024 End: July 27, 2024 ELBA Ball Attending Provider Active Star t: July 27, 2024 End: July 27, 2024 Team Status: Active Member Role/Relationship Status Dates Dr. Samir Quevedo MD Primary Care Provider Active Team Status: Inactive Member Role/Relationship Status Dates Dr. Samir Quevedo MD Primary Care Provider Active Start: July 10, 2024 End: July 10, 2024 Dr. Samir Manley MD Attending Provider Active S tart: July 10, 2024 End: July 10, 2024 Dr. Samir Manley MD Referring Provider Active S tart: July 10, 2024 End: July 10, 2024 Team Status: Active Member Role/Relationship Status Dates Dr. Samir Quevedo MD Primary Care Provider Active Start: July 10, 2024 Dr. Samir Manley MD Attending Provider Active S tart: July 10, 2024 Dr. Samir Manley MD Referring Provider Active S tart: July 10, 2024 Team Status: Inactive Member Role/Relationship Status Dates Dr. Samir Quevedo MD Primary Care Provider Active Start: July 27, 2024 End: July 27, 2024 Dr. Samir Quevedo MD Referring Provider Active St art: July 27, 2024 End: July 27, 2024 ELBA Ball Attending Provider Active Star t: July 27, 2024 End: July 27, 2024 Team Status: Inactive Member Role/Relationship Status Dates Dr. Samir Quevedo MD Primary Care Provider Active Start: August 23, 2024 End: August 23, 2024 Dr. Samir Quevedo MD Referring Provider Active St art: August 23, 2024 End: August 23, 2024 Dr. Samir Manley MD Attending Provider Active S tart: August 23, 2024 End: August 23, 2024 (unrecognized sect ion and content) No Status Records Found INFORMATION SOURCE (unrecogn ized section and content) DATE CREATED AUTHOR 10/01/2024 [facility] FOR RECORDS PERTAINING TO PATIENTS WHO ARE [...] BE BASED ON THE PRIMARY CLINICAL RECORDS. [employer] provides no warranty or guarantee of the accuracy or completeness of information in this document.
[2024-10-02] MEDS: Lactated Ringers 1,000 ML 15 ML IV (06:31)
--- NOTE | 2024-10-02 06:55 | PRE.ANES_ITS ---
ASA Classification* ASA Classification ASA Classification: 3 Assessment & Plan Anesthesia* Anesthesia Assessment Anesthesia Assessment: Discussed sedation and/or anesthesia options, risks, benefits, and alternatives with patient/parents/legal guardian/POA. Questions invited. The patient/parents/legal guardian/POA seems to understand and agrees to proceed with anesthesia plan. Reviewed the physical assessment, medical history, allergy history and patient home medications list prior to surgery/procedure/anesthetic and documented any changes. Performed airway and anesthesia risk assessments. Anesthesia Type Anesthesia Type: General History Source History Obtained from:: Patient and Chart Anesthesia Focused Assessment* Temperature: 97.0 F Pulse Rate: 102 Blood Pressure: 153/98 Respiratory Rate: 20 Pulse Ox: 97 Oxygen Delivery Method: Room Air Airway Assessment Mouth opens: >3 cm Mallampati Score: III Teeth Condition: Missing (1 right upper arm missing molar.) and Partial (Left upper permanent bridge. It is tight.) Neck Range of motion (ROM): Limited ROM (Somewhat Decreased) Labs Anesthesia Preop lab: CBC WBC 5.9 K/mm3 (4.4-11.0) 09/19/24 07:50 09/19/24 RBC 5.05 M/mm3 (4.6-6.2) 09/19/24 07:50 09/19/24 Hgb 14.8 g/dL (13.0-16.5) 09/19/24 07:50 09/19/24 Hct 42.1 % (40-54) 09/19/24 07:50 09/19/24 Plt Count 173 K/mm3 (150-450) 09/19/24 07:50 09/19/24 CHEMISTRY Potassium 3.8 mmol/L (3.3-5.1) 09/19/24 07:50 09/19/24 Sodium 139 mmol/L (133-145) 09/19/24 07:50 09/19/24 Magnesium 1.9 mg/dL (1.6-2.6) 03/03/23 05:42 03/03/23 Phosphorus 2.9 mg/dL (2.5-4.9) 05/31/23 08:31 05/31/23 BUN 23 mg/dL (4-19) H 09/19/24 07:50 09/19/24 Creatinine 1.25 mg/dL (0.70-1.20) H 09/19/24 07:50 Glucose 212 mg/dL (70-99) H 09/19/24 07:50 09/19/24 POC Glucose 142 mg/dL (74-106) H 02/27/23 12:06 02/27/23 TSH 3.730 uIU/mL (0.300-4.200) 09/19/24 07:50 0711/16 COAG PT 14.3 SECONDS (11.7-14.9) 09/19/24 07:50 Pre-Assessment Diagnosis/Proposed Procedure Planned Operative Procedure(s): LEFT CAROTID ENDARTERECTOMY Anesthesia History Anesthesia History - commercial lines underwriter: Anesthesia History - commercial lines underwriter Hx Hospitalization No 09/14/24 13:56 Any Problems With Anesthesia No 09/14/24 13:56 Cholinesterase deficiency No 09/14/24 13:56 You/Your Family Experience No 09/14/24 13:56 fever (hyperthermia) with Relationship Recent Exposure to Contagious No 10/02/24 06:08 Disease Does patient have nerve No 09/14/24 13:56 stimulator Patient instructed to have device shut off --Does patient have Pacemaker No 10/02/24 06:08 or ICD? When Was Last Pacemaker Check QUESTION #4 FULL TEXT: You/Your Family Experience fever (hyperthermia) with Anesthesia Last Oral Intake Last Oral intake: Last Oral Intake NPO since 21:30 10/02/24 06:08 Meds taken in AM with sips of Yes 10/02/24 06:08 water? Meds patient instructed to take am of surgery PONV PONV - commercial lines underwriter: PONV - commercial lines underwriter Female No 09/14/24 13:56 HX of Motion Sickness No 09/14/24 13:56 HX of N/V After Surgery No 09/14/24 13:56 Non-Smoker Yes 09/14/24 13:56 Duration of Surgery greater Yes 09/14/24 13:56 than 60 minutes Number of Risk Factors 2 09/14/24 13:56 PONV Score Moderate Risk 09/14/24 13:56 Height & Weight Height & Weight: Anesthesia: Height & Weight Height 5 ft 9 in 10/02/24 06:08 Weight: 108.3 kg 10/02/24 06:08 Body Mass Index (BMI) 35.2 10/02/24 06:08 Respiratory Assessment Respiratory Assessment - commercial lines underwriter: Respiratory Tract Infection Hx - commercial lines underwriter Hx Respiratory Tract Infection No 09/14/24 13:56 STOP Sleep Apnea STOP Sleep Apnea - commercial lines underwriter: STOP Sleep Apnea - commercial lines underwriter Hx Hypertension Yes: CONTROLLED WITH MED 09/14/24 13:56 Hx Sleep Apnea No 09/14/24 13:56 CPAP BIPAP Do you snore loudly (louder No 09/14/24 13:56 than talking or can be heard Do you often feel tired/ No 09/14/24 13:56 fatigued/ sleepy during daytime? Has anyone observed you stop No 09/14/24 13:56 breathing during sleep? STOP Results Negative 09/14/24 13:56 QUESTION #5 FULL TEXT : Do you snore loudly (louder than talking or can be heard through closed doors)? Tobacco Use History Tobacco Use History - commercial lines underwriter: Tobacco Use History - commercial lines underwriter Tobacco Use Non-smoker 07/27/24 09:14 Smoking Status Never smoker 09/14/24 13:56 Hx Tobacco Use No 09/14/24 13:56 Years Smoking Packs Smoked per Day Smoking Cessation Date was within the last 15 years Hx Smoking Cessation Date Hx Smoking Cessation No 09/14/24 13:56 Counseling Hematologic Medial History Hematologic Hx - commercial lines underwriter: Hematologic Medical Hx - clinical practitioner Hx of Blood Transfusion No 09/14/24 13:56 Hx of Transfusion in last 3 No 09/14/24 13:56 Months Date of Last Transfusion (if within last 3 months) Ever experience any problems No 09/14/24 13:56 with transfusion(s)? Specify any problems Hx of Preganancy in last 3 N/A 09/14/24 13:56 Months Nurse Filling Out Transfusion DSCHRIBER 09/14/24 13:56 & Questions: Date: 09/14/24 09/14/24 13:56 Time: 13:58 09/14/24 13:56 Patient unable to answer at this time (ie. confused, unrespo /Reproduction History /Reproductive History - commercial lines underwriter: /Reproductive Hx- commercial lines underwriter Hx Now No 09/14/24 13:56 Gestational Age (in weeks): EDC: Hx Hx Para Hx Section SAB No 09/14/24 13:56 Active Medications Active Medications: Current Medications Generic Name Dose Route Start Last Admin Trade Name Freq PRN Reason Stop Dose Admin Cefazolin Sodium 2 gm/ Sodium 110 mls @ 200 mls/hr 10/02/24 13:15 Chloride IV 10/02/24 13:47 INTRAOP ONE Lactated Ringer's 1,000 mls @ 15 mls/hr 10/02/24 06:00 10/02/24 06:31 IV 15 mls/hr .Q48H TOMASZ Administration PFSH Medical History Depression Easy bruising Shortness of breath on exertion History of echocardiogram Wears glasses Thyroid disease Prostate disease Cardiology follow-up encounter First degree AV block Paroxysmal supraventricular tachycardia Obesity HTN (hypertension) Non-smoker Sinusitis, maxillary, chronic Osteoarthritis Home Medications ?Medication ?Instructions ?Recorded ?Last Taken ?Type aspirin 81 mg capsule 81 mg PO DAILY HEART HEALTH #30 04/16/21 09/25/24 Rx caps ramipril 1.25 mg capsule 2.5 mg PO QHS blood pressue 02/25/23 10/01/24 History levothyroxine 50 mcg tablet 50 mcg PO QHS thyroid 07/1510/01/24 History tadalafil 5 mg tablet 5 mg PO DAILY PROSTATE 05/2710/01/24 History clopidogrel 75 mg tablet (Plavix) 75 mg PO DAILY PVD # 35 tabs 08/23/24 10/02/24 Rx amlodipine 5 mg tablet 5 mg PO QHS BP 09/14/2409/22 History diphenhydramine 25 15 ml PO QHS PRN PRN sleep 0 09/14/24 10/01/24 History mg-acetaminophen 500 mg/15 mL oral solution mirtazapine 15 mg disintegrating 15 mg PO QHS SLEEP/AN XIETY 09/14/24 10/01/24 History tablet Allergy/AdvReac Type Severity Reaction Status Date / Time levofloxacin Allergy Mild Other Verified 10/02/24 06:06 Iodinated Contrast Media AdvReac Intermediate Vomiting Verified 10/02/24 06:06 Family History Father Heart disease Mother Cancer Unclear type. Surgical History Hx of transurethral resection of prostate S/P exploratory laparotomy (~02/2023) S/P bilateral inguinal hernia repair History of colonoscopy (~2018) History of arthroscopic knee surgery History of cholecystectomy Social History household members: spouse Smoking Status: Never smoker alcohol intake: never substance use type: does not use Review of Systems (Anesthesia) ROS Narrative System reviewed and no additional complaints, except as documented.
--- NOTE | 2024-10-02 07:15 | PCM.HP.STD ---
HPI - General General Date of Admission: 10/02/24 HPI Narrative YARIEL SANCHEZ, is a 79 M who presents with asymptomatic left carotid stenosis. Had been followed with serial imaging by Dr. Dumont. In 2023 it was noted that he had increased to beyond 70% stenosis and confirmed with a CTA. Surgery was recommended but due to needs caring for his he did not pursue. She earlier this year and he is wanting to potentially proceed with treatment. More recent duplex has revealed further increase in velocities well into the >70% range. [facility] Medical History Depression Easy bruising Shortness of breath on exertion History of echocardiogram Wears glasses Thyroid disease Prostate disease Cardiology follow-up encounter First degree AV block Paroxysmal supraventricular tachycardia Obesity HTN (hypertension) Non-smoker Sinusitis, maxillary, chronic Osteoarthritis Home Medications ?Medication ?Instructions ?Recorded ?Last Taken ?Type aspirin 81 mg capsule 81 mg PO DAILY HEART HEALTH #30 04/16/21 09/25/24 Rx caps ramipril 1.25 mg capsule 2.5 mg PO QHS blood pressue 02/25/23 10/01/24 History levothyroxine 50 mcg tablet 50 mcg PO QHS thyroid 02/26/23 10/01/24 History tadalafil 5 mg tablet 5 mg PO DAILY PROSTATE 05/28/23 10/01/24 History clopidogrel 75 mg tablet (Plavix) 75 mg PO DAILY PVD #35 tabs 08/23/24 10/02/24 Rx amlodipine 5 mg tablet 5 mg PO QHS BP 09/14/24 10/02/24 History diphenhydramine 25 15 ml PO QHS PRN PRN sleep 09/14/24 10/01/24 History mg-acetaminophen 500 mg/15 mL oral solution mirtazapine 15 mg disintegrating 15 mg PO QHS SLEEP/ANXIETY 09/14/24 10/01/24 History tablet Allergy/AdvReac Type Severity Reaction Status Date / Time levofloxacin Allergy Mild Other Verified 10/02/24 06:06 Iodinated Contrast Media AdvReac Intermediate Vomiting Verified 10/02/24 06:06 Family History Father Heart disease Mother Cancer Unclear type. Surgical History Hx of transurethral resection of prostate S/P exploratory laparotomy (~02/2023) S/P bilateral inguinal hernia repair History of colonoscopy (~2018) History of arthroscopic knee surgery History of cholecystectomy Social History household members: spouse Smoking Status: Never smoker alcohol intake: never substance use type: does not use ROS Constitutional Constitutional: Denies chills, fever(s), frequent falls, lethargy or weakness Eyes Eyes: Denies blind spots, change in vision or loss of vision ENT HEENT: Denies bleeding gums, hoarseness or sore throat Cardiovascular Cardiovascular: Denies abdominal pain, bluish discoloration of hand/feet, chest pain with activity, claudication, cold extremities, cyanosis, dyspnea on exertion, erythema on extremities, irregular heart rhythm, leg edema, leg ulcers, numbness in extremities or weakness in extremities Respiratory/Chest Respiratory/Chest: Denies cough, excessive phlegm production, shortness of breath at rest, shortness of breath with exertion or wheezing Gastrointestinal Gastrointestinal: Denies anorexia, change in stool character, constipation, diarrhea, melena or rectal bleeding Genitourinary Genitourinary: Denies dysuria or hematuria Musculoskeletal Musculoskeletal: Denies abnormal gait Integumentary Integumentary: Reports other Details: ; Denies erythema, non-healing lesions or wounds Neurologic Neurologic: Denies abnormal speech, focal weakness, headache(s), loss of vision, numbness, paresthesias or sensory deficit Hematologic/Lymphatic Hematologic/Lymphatic: Denies easy bleeding, easy bruising or lymphadenopathy Vital Signs Vital Signs Vital Signs: 10/02/24 06:08 10/02/24 06:08 10/02/24 07:03 Temperature 97.0 F L 97.0 F L Temperature Source Temporal Pulse Rate 102 H 102 H Respiratory Rate 20 H 20 H Respiratory Pattern Normal Blood Pressure 153/98 H 153/98 H Blood Pressure Mean 116 Blood Pressure Source Monitor Blood Pressure Position Semi-Fowlers Blood Pressure Location Left Arm Pulse Ox 97 97 Oxygen Delivery Method Room Air Room Air Weight Weight: 238 lb 12.17 oz Body Mass Index (BMI) 35.2 Physical Exam Const alert, oriented x3, no apparent distress and healthy appearing General Appearance: cooperative; Negative for combative or lethargic Orientation / Consciousness: awake Exam Limitations: no limitations HEENT Head and Scalp: normocephalic and atraumatic Eyes EOMs intact bilaterally General Eye: normal appearance of both eyes Neck full ROM General: trachea midline Resp normal respiratory effort and no use of accessory muscles Effort and Inspection: Negative for labored, stridor or audible wheezes Cardio regular rate and regular rhythm Back/Spine Cervical Spine: cervical ROM normal Extremity full ROM, normal capillary refill and no clubbing, cyanosis or edema Skin no rashes or lesions noted and no wounds Neuro oriented x3, CN's II-XII intact bilaterally, no focal motor deficits and no sensory deficits noted Psych thought process normal, cooperative, affect normal, speech normal and activity/motor behavior normal Results Lab / Micro Data 09/19/24 07:50 09/19/24 07:50 Assessment & Plan Assessment/Plan (1) Carotid stenosis, left: PLAN: -left CEA
[2024-10-02] MEDS: Midazolam 2 MG/2 ML Syringe 1.5 MG IV (07:25)
--- NOTE | 2024-10-02 07:30 | PLAQ_PTH ---
PATIENT: YARIEL SANCHEZ LOC: ICU U#:[id number] AGE/SX: 79/M ROOM: ICU04 RE10/02/[address]: Dr. Samir Manley MD : 1945 BED: 1 DIS: 10/03/2024 SPEC #: [id number] RECD: 10/02/24 11:55 STATUS: EH REQ #: [id number] FAMILIA: 10/02/24 07:[address]: Samir Manley DEPT: SURGICAL PATHOLOGY RECD BY: aMti Gaitan ENTERED: 10/02/24 13:43 SP TYPE: PLAQUE OTHR DR: Dr. Samir Quevedo MD Tissues: A - PLAQUE Procedures: Decalcification bone/plaque Surgery Specimen Level III HEADER OPERATION: Left carotid endarterectomy PRE-OP DIAGNOSIS: Carotid stenosis, left TISSUE SUBMITTED: A- Left carotid plaque MICROSCOPIC DIAGNOSIS A. left carotid artery, endarterectomy: * Partially calcified atheromatous plaque GROSS DESCRIPTION A. Received in formalin labeled with the patient's name and date of . Designated as left carotid plaque is a robledo-yellow firm and fragmented plaque, collectively measuring4.4 x 1.0 x 0.6 cm. Electronic Assembly sections are submitted in 1 cassette, following brief decalcification. [place] 10/02/2024 CPT:81474,43292
[2024-10-02] MEDS: Lidocaine 1% (5 ml sdv) 5 ML Vial IV (07:48)
[2024-10-02] MEDS: Lidocaine 2% (5ml sdv) 5 ML VIAL.MPF IV (07:50)
[2024-10-02] MEDS: Cefazolin 1 GM/5 ML Vial 2 GM IV (08:00)
[2024-10-02] MEDS: SUFentanil 50 MCG/ML Ampul 15 MCG IV (08:12)
[2024-10-02] MEDS: Lactated Ringers 2,000 ML 2000 ML IV (09:15)
[2024-10-02] MEDS: Heparin Injection (Vial) 5,000 UNIT/ML VIAL 13000 UNIT IV (09:23)
[2024-10-02] MEDS: Lidocaine 1% (2ml-nursery) 2 ML VIAL (10:22)
--- NOTE | 2024-10-02 10:27 | PCM.OPRPT ---
Operative Report (Standard) Operative Information Date of Procedure: 10/02/24 Pre-Operative Diagnosis: left carotid stenosis Post-Operative Diagnosis: same Surgery/Procedure Performed: left carotid endarterectomy duplicating machine mechanic: Yes Manager Bakery: Luz Yadav Tasks completed by first aid attendant: Opening, Closing, Opening & closing, Hemostasis: Tie and Retracting Type of Anesthesia: General RN Documented Start/Stop Times: Operation Date: 10/02/24 07:30 Case Time Into Pre-Op 10/02/24 05:51 Anesthesia Start 10/02/24 07:40 Into Room 10/02/24 07:40 Procedure Start 10/02/24 08:11 Procedure End 10/02/24 10:43 Anesthesia End 10/02/24 10:50 Out of Room 10/02/24 10:50 Into Recovery 10/02/24 10:52 Out of Recovery 10/02/24 12:26 Procedure Start Time: 08:10 Procedure Stop Time: 10:30 Select all DRAINS/GRAFTS/IMPLANTS that apply: Drains Drain details: 19 Fr LUIS and Tissue Tissue details: bovine pericardial patch Estimated Blood Loss: 22 Specimen collected: Yes Description of specimen(s) removed: plaque Description of surgery: HPI: Patient is a 79-year-old male with severe asymptomatic left carotid artery stenosis. He has an admit is amenable to open techniques so he presents now for left carotid endarterectomy for stroke risk reduction. Description of procedure: Upon obtaining informed consent and verification correct patient procedure and site the patient was taken to the operating was placed in general anesthesia. He was then positioned prepped and draped in usual sterile fashion time was performed. Oblique incision was made along the anterior border of the sternocleidomastoid and Bovie used to dissect through the subcutaneous tissue to the level of the platysma. This was then incised and self-retaining retractors put in the position along further dissection down to the sternocleidomastoid. The muscle was then mobilized along its anterior border and retracted posterior laterally exposing the carotid sheath. Sharp dissection was then used to dissect free the anterior border the jugular vein with the facial vein identified, ligated with silk ties, and divided. The jugular vein was then retracted laterally exposing the carotid vessels. Of note the vagus nerve was an anterior position with superior laryngeal branch running anterior to the artery. Given this anatomic variant of the vagus nerve was then mobilized along its lateral edge with sharp dissection and displaced anteriorly. Sharp dissection was then used to dissect free the proximal common carotid artery and right angle used to place a vessel loop. The patient was then heparinized allowed to circulate for 3 minutes with subsequent heparin dosing based on ACT results. Next sharp dissection was used to dissect free the distal internal carotid artery beyond the palpable and visible plaque and a right angle was used to place a vessel loop at this location with care taken to identify protect the hypoglossal nerve. Finally sharp dissection was used to dissect free the external carotid artery on arrival used to place a vessel loop. Vessels were then clamped first the internal followed by the common of the external. A longitudinal arteriotomy was created with 11 blade on the common carotid artery extended with Singer scissors onto the internal carotid artery beyond the plaque. A 10 Vietnamese [place] shunt was then placed first distally into the internal carotid artery allowed to backbleed for placing proximally in the common carotid artery. The shunt was interrogated Doppler found to be patent with low resistance signal. We then performed her endarterectomy with a freer elevator with satisfactory endpoint distally on the internal carotid artery and eversion endarterectomy of the external carotid artery. The lumen was flushed with heparinized saline to clear debris and the distal endpoint tacked with 7-0 Prolene interrupted sutures. A bovine pericardial patch was then secured in position using a 6-0 Prolene in a running fashion. Prior to completing the suture line the shunt was removed and the vessels backbled. After completing the suture line the internal carotid artery was allowed to backbleed into the bifurcation and then reoccluded at its origin. Clamps were then released from the external and then common carotid arteries allowing 10 heartbeats of antegrade flow to flush into the external carotid artery before reestablishing flow into the internal carotid artery. After releasing the clamp satisfactory hemostasis was observed and heparin was reversed with protamine. Vistaseal topical hemostatic was then applied after which a 19 Vietnamese channel LUIS was placed via separate stab incision. The incision was then closed with 2-0 Vicryl, 3-0 Vicryl, 4-0 Monocryl and Dermabond for the skin. The patient was then awake from anesthesia moving all extremities to command with cranial nerves intact. He was taken to the recovery room with anticipated admission to the intensive care and for hemodynamic and neurologic monitoring. Surgical Findings: see above Complications Complications: No
[2024-10-02 10:41] LABS: ACT Activated Clotting Time 124 sec (74-137)
[2024-10-02 10:41] LABS: ACT Activated Clotting Time 233 sec (74-137)
[2024-10-02 10:41] LABS: ACT Activated Clotting Time 291 sec (74-137)
--- NOTE | 2024-10-02 11:06 | PCM.POST.ANE ---
Anesthesia: Postop Eval I Current Vital Signs Temperature: 97.0 F Pulse Rate: 86 Blood Pressure: 121/73 Respiratory Rate: 20 Pulse Ox: 95 Oxygen Delivery Method: Nasal Cannula Oxygen Flow Rate (L/min): 4 Assessment Airway patent: Yes Spontaneous unlabored respirations: Yes Mental status: Awake and Calm nausea: No Vomiting: No Anesthesia Complication: No Fluid Hydration Crystalloid volume administer (ml): 1,800 Total IV fluid infused: 1,800 Progress Note Anesthesia document: Postop Eval 1 completed: Yes
[2024-10-02] MEDS: Cefazolin 1 GM/50 ML BAG IV ×2 (14:17→20:58)
--- NOTE | 2024-10-02 14:21 | POSTOPAN2_ITS ---
Anesthesia Postop Eval I Sum Postop Eval Completion status Anesthesia document: Postop Eval 1 completed: Yes Anesthesia Postop Eval I Summary Anesthesia Postop Eval I Summary: Anesthesia Postop Eval I: Assessment Summary Airway patent Yes 10/02/24 11:07 [email or web address] [email or web address] Spontaneous unlabored Yes 10/02/24 11:07 [email or web address] [email or web address] respirations Mental status Awake,Calm 10/02/24 11:07 [email or web address] [email or web address] nausea No 10/02/24 11:07 [email or web address] Vomiting No 10/02/24 11:07 [email or web address] [email or web address] Anesthesia Postop Eval I: Fluid Summary Crystalloid volume administer 1,800 10/02/24 11:07 [email or web address] [email or web address] [email or web address] (ml) Colloids volume administered ( ml) Blood Product volume administered (ml) Total IV fluid infused 1,800 10/02/24 11:07 [email or web address] [email or web address] Anesthesia Postop Eval I: Summary Notes Anesthesia Complication No 10/02/24 11:07 [email or web address] Anesthesia Complication Comment: Post-operative progress note Anesthesia: Postop Eval II Evaluation Mental status: Awake and Calm Pain Level: 0 nausea: No Vomiting: No Complications Anesthesia Complication: No
--- NOTE | 2024-10-02 14:21 | PCM.POSTANE2 ---
Anesthesia Postop Eval I Sum Postop Eval Completion status Anesthesia document: Postop Eval 1 completed: Yes Anesthesia Postop Eval I Summary Anesthesia Postop Eval I Summary: Anesthesia Postop Eval I: Assessment Summary Airway patent Yes 10/02/24 11:07 [email or web address] Spontaneous unlabored Yes 10/02/24 11:07 [email or web address] respirations Mental status Awake,Calm 10/02/24 11:07 [email or web address] nausea No 10/02/24 11:07 [email or web address] Vomiting No 10/02/24 11:07 [email or web address] Anesthesia Postop Eval I: Fluid Summary Crystalloid volume administer 1,800 10/02/24 11:07 [email or web address] (ml) Colloids volume administered ( ml) Blood Product volume administered (ml) Total IV fluid infused 1,800 10/02/24 11:07 [email or web address] Anesthesia Postop Eval I: Summary Notes Anesthesia Complication No 10/02/24 11:07 [email or web address] Anesthesia Complication Comment: Post-operative progress note Anesthesia: Postop Eval II Evaluation Mental status: Awake and Calm Pain Level: 0 nausea: No Vomiting: No Complications Anesthesia Complication: No
[2024-10-02] MEDS: 0.9% Saline Lock 10 ML Syringe IV (20:58)
[2024-10-03] VITALS (11 sets, daily range): BP systolic 105–144; BP diastolic 71–97; PULSE 84–93; RESP 10–20; TEMP 36.3–36.6; O2SAT 93–99; BMI 35.6
[2024-10-03 04:35] LABS: Hematocrit 39.4 % (40-54); Hemoglobin 13.9 g/dL (13.0-16.5); Immature Granulocytes Count 0.090 X10^3/uL (0.0-0.0); Mean Corp Hgb Conc 35.3 g/dL (32-36); Mean Corpuscular Volume 84.0 fL (80-94); Mean Platelet Vol. 10.3 fl (6.2-12.0); NRBC Flagged by Analyzer 0 % (0-5); Platelet Count 173 K/mm3 (150-450); RBC Distribution Width CV 13.7 % (11.6-14.6); RBC Distribution Width SD 41.7 fl (35.1-43.9); Red Blood Count 4.69 M/mm3 (4.6-6.2); White Blood Count 12.4 K/mm3 (4.4-11.0)
--- NOTE | 2024-10-03 07:47 | PCM.PN.SRG ---
Subjective Subjective Mr. Galarza was sitting up in the bedside chair this morning. He reports to feeling good overall. He reports minimal pain at the incision site. He has been ambulating since last night and tolerating this very well. He denies any headache, vision changes, new numbness/weakness, or other concerns. He has tolerated a normal diet and been voiding without issue. He has had small output from the LUIS drain. Objective Data Objective Data Vital Signs: Vital Signs Temp Pulse Resp BP Pulse Ox O2 Del Method O2 Flow Rate 97.5 F L 89 18 137/73 H 99 Room Air 2 10/03/24 04:00 10/03/24 07:00 10/03/24 07:00 10/03/24 07:00 10/03/24 07:05 10/03/24 07:05 10/02/24 11:40 Oxygen Flow Rate (L/min) 2 Oxygen Delivery Method Room Air Weight: 240 lb 15.444 oz Body Mass Index (BMI) 35.6 Intake & Output: Intake and Output for Last 24 Hours 10/01/24 10/02/24 10/03/24 23:59 23:59 23:59 Intake Total 1189.25 / 1189.25 Output Total 1207 / 1222 Balance -17.75 / -32.75 -15 / -15 Lab / Micro Data 10/03/24 04:30 09/19/24 07:50 Labs: Laboratory Results - last 24 hr 10/02/24 08:07: Activated Clotting Time 124 10/02/24 08:46: Activated Clotting Time 291 H 10/02/24 09:20: Activated Clotting Time 233 H 10/03/24 04:30: WBC 12.4 H, RBC 4.69, Hgb 13.9, Hct 39.4 L, MCV 84.0, MCH 29.6, MCHC 35.3, RDW Std Deviation 41.7, RDW Coeff of Guilherme 13.7, Plt Count 173, MPV 10.3, Immature Gran % (Auto) 0.700, Neut % (Auto) 82.4 H, Lymph % (Auto) 10.8 L, [place] % (Auto) 5.8, Eos % (Auto) 0.1, Baso % (Auto) 0.2, Absolute Neuts (auto) 10.2 H, Absolute Lymphs (auto) 1.34, Nucleated RBC % 0 Physical Exam Const alert, oriented x3 and no apparent distress General Appearance: cooperative and comfortable HEENT normocephalic, head/scalp atraumatic, hearing grossly normal bilaterally, external ears normal and external nose normal Eyes EOMs intact bilaterally General Eye: normal appearance of both eyes Neck Neck Narrative: L CEA incision site with skin glue intact, no dehiscence/erythema/ecchymosis. There is mild edema, soft to palpation. There is ~5-10cc serosanguineous output in the LUIS drain. Resp normal respiratory effort, no retractions and no use of accessory muscles Effort and Inspection: able to speak in complete sentences; Negative for labored, grunting, stridor or actively coughing Cardio regular rate and regular rhythm Extremity normal to inspection and no clubbing, cyanosis or edema Skin no rashes or lesions noted General Skin Exam: no breakdown Trauma: no lacerations or abrasions Neuro oriented x3, CN's II-XII intact bilaterally, moves all extremities and no focal motor deficits Speech: speech normal Psych mental status grossly normal Appearance: grossly normal Attitude: calm and engaged Activity / Motor Behavior: appropriate eye contact Speech: normal speech Mood & Affect: euthymic mood Assessment & Plan Assessment/Plan (1) Carotid stenosis, left: PLAN: Plan He is POD#1 from L CEA. I removed the LUIS drain this morning without issue and he tolerated this well. The incision site is satisfactory in appearance without evidence of hematoma. He has remained neurologically and hemodynamically stable. Plan for discharge to home this morning. Patient reports he feels comfortable going home alone but that his step-daughter is supposed to be coming for a couple days to stay with him as well. Charges/Coding Procedures Integumentary [id number]: [id number] Global Visit
--- NOTE | 2024-10-03 07:52 | PCM.DC.SUM ---
Providers Date of Admission: 10/02/24 Primary Care Physician: Dr. Samir Quevedo MD Reason For Visit: Left Carotid Endarterectomy Diagnosis Discharge Diagnosis (1) Carotid stenosis, left: Status: Chronic Code(s): I65.22 - Occlusion and stenosis of left carotid artery Plan He is POD#1 from L CEA. I removed the LUIS drain this morning without issue and he tolerated this well. The incision site is satisfactory in appearance without evidence of hematoma. He has remained neurologically and hemodynamically stable. Plan for discharge to home this morning. Patient reports he feels comfortable going home alone but that his step-daughter is supposed to be coming for a couple days to stay with him as well. Medications at Discharge Home Medications aspirin 81 mg capsule 81 mg PO DAILY HEART HEALTH #30 caps 04/16/21 ramipril 1.25 mg capsule 2.5 mg PO QHS blood pressue 02/25/23 levothyroxine 50 mcg tablet 50 mcg PO QHS thyroid 02/26/23 tadalafil 5 mg tablet 5 mg PO DAILY PROSTATE 05/28/23 clopidogrel 75 mg tablet (Plavix) 75 mg PO DAILY PVD #35 tabs 08/23/24 amlodipine 5 mg tablet 5 mg PO QHS BP 09/14/24 diphenhydramine 25 mg-acetaminophen 500 mg/15 mL oral solution 15 ml PO QHS PRN PRN sleep 09/14/24 mirtazapine 15 mg disintegrating tablet 15 mg PO QHS SLEEP/ANXIETY 09/14/24 acetaminophen 500 mg tablet 1,000 mg (2 x 500 mg) PO Q8 7 days #0 tabs 10/03/24 oxycodone 5 mg tablet 5 mg PO Q8H PRN PRN Pain Score 4-10 3 days #9 tabs 10/03/24 Hospital Course Operations - (L CEA) Summary of Care Provided Hospital Course: Mr. Thiago Galarza is a 79 y/o male who underwent L CEA to address asymptomatic severe L ICA stenosis on 10/02/2024. The surgery was without complication and he tolerated it well. Postoperatively, he was routinely admitted to the ICU for ongoing hemodynamic and neurologic monitoring; he remained both hemodynamically and neurologically stable throughout his admission. He had mild output from his LUIS drain and this was removed without issue POD#1. He tolerated a normal diet, voided without difficulty, and ambulated to his baseline without concern postoperatively. He is stable for discharge to home and feels comfortable discharging to home. He has outpatient follow-up scheduled in the office 10/18/24. Physical Exam Const alert, oriented x3 and no apparent distress General Appearance: cooperative and comfortable HEENT normocephalic, head/scalp atraumatic, hearing grossly normal bilaterally, external ears normal and external nose normal Eyes EOMs intact bilaterally General Eye: normal appearance of both eyes Neck Neck Narrative: L CEA incision site with skin glue intact, no dehiscence/erythema/ecchymosis. There is mild edema, soft to palpation. There is ~5-10cc serosanguineous output in the LUIS drain. Resp normal respiratory effort, no retractions and no use of accessory muscles Effort and Inspection: able to speak in complete sentences; Negative for labored, grunting, stridor or actively coughing Cardio regular rate and regular rhythm Extremity normal to inspection and no clubbing, cyanosis or edema Skin no rashes or lesions noted General Skin Exam: no breakdown Trauma: no lacerations or abrasions Neuro oriented x3, CN's II-XII intact bilaterally, moves all extremities and no focal motor deficits Speech: speech normal Psych mental status grossly normal Appearance: grossly normal Attitude: calm and engaged Activity / Motor Behavior: appropriate eye contact Speech: normal speech Mood & Affect: euthymic mood Weight / BMI Weight Weight: 240 lb 15.444 oz Body Mass Index (BMI) 35.6 ABG / Lab / Microbiology Data 10/03/24 04:30 09/19/24 07:50 Laboratory: Laboratory Results - last 24 hr 10/02/24 08:07: Activated Clotting Time 124 10/02/24 08:46: Activated Clotting Time 291 H 10/02/24 09:20: Activated Clotting Time 233 H 10/03/24 04:30: WBC 12.4 H, RBC 4.69, Hgb 13.9, Hct 39.4 L, MCV 84.0, MCH 29.6, MCHC 35.3, RDW Std Deviation 41.7, RDW Coeff of Guilherme 13.7, Plt Count 173, MPV 10.3, Immature Gran % (Auto) 0.700, Neut % (Auto) 82.4 H, Lymph % (Auto) 10.8 L, [place] % (Auto) 5.8, Eos % (Auto) 0.1, Baso % (Auto) 0.2, Absolute Neuts (auto) 10.2 H, Absolute Lymphs (auto) 1.34, Nucleated RBC % 0 D/C Instructions May shower in (days): 1 Weight Bearing Status: Weight bearing as tolerated Lifting Restricted to (Lbs): 20 Lifting Restrictions: Do not lift >20 pounds for 3 weeks Call your doctor if your incision/area has: Sudden Increased Bleeding, Increased Pain/ Swelling and Foul Smelling Discharge Call your doctor if you observe: Fever of 101 or Higher and Uncontrolled pain Remove Dressing in: 1 day (You may remove the small bandage over the prior drain site after your first shower tomorrow; then you may leave this open to air or re-cover it with a bandaid per your preference.) DC O2, CPAP, BIPAP Needs Home O2 Discharge instructions: No Additional Instructions: INCISION CARE: You have a small bandage on your neck over the site from which the surgical drain was removed. You may remove this bandage tomorrow. As long as there is no residual drainage, you may leave this open to air. If you do notice some continued drainage, you may re-cover with a Band-Aid. Your neck incision site is covered with skin glue which will continue to protect it. The skin glue will peel/flake off on its own over the next few weeks. Please do not pick at it. You may shower tomorrow. It is okay for soap and water to rinse over the incision site, pat to dry. Do not submerge the incision site in water such as to take a bath or go swimming etc. for 3 weeks. MEDICATION INSTRUCTIONS You have been prescribed oxycodone 5mg tablet to be taken by mouth every 8 hours as needed for pain. You may take this in addition to Tylenol as needed. You should not drive or operate machinery while taking this medication. Do not take this medication in combination with any other prescription pain medications. Call the office at [phone] with any questions about your medications ACTIVITY INSTRUCTIONS Do not lift greater than 20 pounds for 3 weeks. Otherwise, please continue with activity as tolerated. Do not drive until you can turn your head well enough to safely check your blind spots. FOLLOW-UP INSTRUCTIONS You are scheduled for follow-up in the office on 10/18/2024. If you need to change this appointment or have any other questions/concerns, please call the office at [phone]. Please Follow Up With: Alva Crowe PA When: 10/18/24 Meaningful Use Info Meaningful Use Meaningful Use Diagnoses (Choose all that apply): None applicable Discharge Plan Admission Admit Date/Time: 10/02/24 10:18 Attending Provider: Samir Manley Primary Care Provider: Samir Quevedo Consulting Providers: Fer Aguilar Instructions Additional Instructions / Restrictions: INCISION CARE: You have a small bandage on your neck over the site from which the surgical drain was removed. You may remove this bandage tomorrow. As long as there is no residual drainage, you may leave this open to air. If you do notice some continued drainage, you may re-cover with a Band-Aid. Your neck incision site is covered with skin glue which will continue to protect it. The skin glue will peel/flake off on its own over the next few weeks. Please do not pick at it. You may shower tomorrow. It is okay for soap and water to rinse over the incision site, pat to dry. Do not submerge the incision site in water such as to take a bath or go swimming etc. for 3 weeks. MEDICATION INSTRUCTIONS You have been prescribed oxycodone 5mg tablet to be taken by mouth every 8 hours as needed for pain. You may take this in addition to Tylenol as needed. You should not drive or operate machinery while taking this medication. Do not take this medication in combination with any other prescription pain medications. Call the office at [phone] with any questions about your medications ACTIVITY INSTRUCTIONS Do not lift greater than 20 pounds for 3 weeks. Otherwise, please continue with activity as tolerated. Do not drive until you can turn your head well enough to safely check your blind spots. FOLLOW-UP INSTRUCTIONS You are scheduled for follow-up in the office on 10/18/2024. If you need to change this appointment or have any other questions/concerns, please call the office at [phone]. Discharge Orders/Prescriptions Prescriptions: New acetaminophen 500 mg Tablet 1,000 mg PO Q8 7 Days Qty: 0 0RF oxycodone 5 mg Tablet 5 mg PO Q8H PRN PRN (Reason: Pain Score 4-10) 3 Days Qty: 9 0RF Continued tadalafil 5 mg tablet 5 mg PO DAILY clopidogrel [Plavix] 75 mg tablet 75 mg PO DAILY Qty: 35 0RF aspirin 81 mg capsule 81 mg PO DAILY Qty: 30 1RF ramipril 1.25 mg capsule 2.5 mg PO QHS levothyroxine 50 mcg tablet 50 mcg PO QHS amlodipine 5 mg tablet 5 mg PO QHS mirtazapine 15 mg tablet,disintegrating 15 mg PO QHS diphenhydramine-acetaminophen 25-500 mg-mg/mL solution 15 ml PO QHS PRN PRN (Reason: sleep) Referrals / Follow Up: Samir Quevedo MD [Primary Care Provider] - Disposition Disposition (needs filled in before D/C Order can be placed): Home, Self Care Charges/Coding Procedures Integumentary [id number]: [id number] Global Visit
--- NOTE | 2024-10-03 09:26 | CASEMGMT ---
JESÚS STONE Assessment Face to Face with patient for initial transition planning/care coordination assessment. JESÚS STONE introduced self and role at [facility], pt voices understanding. Pt is A&Ox4 and is resting comfortably in the chair and is calm. Care providers, pharmacy, and demographics verified. Admitting dx: Lft Carotid Endarterectomy LACE Strata: 1 PCP: Samir Quevedo Specialists: Sindhu (Vascular) Preferred Pharmacy: [facility] Insurance: MCR A/B, MMO Prescription Benefit: Yes LNOK: Jodee Burnette (DIL) Living Arrangements: Pt lives alone in a single story home with a ramp to enter ADLs/IADLs: Indep Transportation: Self, DIL, neighbor DME: Denies all DME uses or needs HHC/SNF: Denies hx or needs Pt?s goal: Home Plan: Home, no additional needs identified. Pt states that he feels safe returning home today and plans to follow up with vascular as an OP on the . Pt denies further questions, concerns, or needs at this time. Georgina Mccall RN, CM
--- NOTE | 2024-10-03 10:05 | CASEMGMT ---
Social Work- SW met with pt to provide education on advanced directives. Pt spoke regarding recent loss of , hobbies, processing loss and adjusting to life alone. SW offered support via active and empathetic listening. Pt was involved with hospice services for ; SW encouraged utilization of grief support services through hospice. Pt has numerous friend, uatsdin, and family supports with frequent, near daily contact. Pt reports no additional community supports needed at this time. MONIQUE Clifton
--- NOTE | 2024-10-03 10:12 | PHA.DC_ITS ---
Pharmacy [facility] Counseling Pharmacy Service has performed discharge medication reconciliation and counseling for this patient. Oxycodone 5 mg PO Q8H PRN Acetaminophen 1000 mg PO Q8H The patient's discharge medication list was reviewed for discrepancies and discrepancies were resolved. The patient was counseled on the following discharge medications and changes in medications for homegoing were reviewed. The Reason for Use, instructions for use, and potential side effects were reviewed for all new medications. The patient's questions regarding all of their medications were answered. The patient was able to verbally demonstrate an understanding of their discharge medications. Medications at Discharge Home Medications aspirin 81 mg capsule 81 mg PO DAILY HEART HEALTH #30 caps 04/16/21 ramipril 1.25 mg capsule 2.5 mg PO QHS blood pressue 02/25/23 levothyroxine 50 mcg tablet 50 mcg PO QHS thyroid 02/26/23 tadalafil 5 mg tablet 5 mg PO DAILY PROSTATE 05/28/23 clopidogrel 75 mg tablet (Plavix) 75 mg PO DAILY PVD #35 tabs 08/23/24 amlodipine 5 mg tablet 5 mg PO QHS BP 09/14/24 diphenhydramine 25 mg-acetaminophen 500 mg/15 mL oral solution 15 ml PO QHS PRN PRN sleep 09/14/24 mirtazapine 15 mg disintegrating tablet 15 mg PO QHS SLEEP/ANXIETY 09/14/24 acetaminophen 500 mg tablet 1,000 mg (2 x 500 mg) PO Q8 7 days #0 tabs 10/03/24 oxycodone 5 mg tablet 5 mg PO Q8H PRN PRN Pain Score 4-10 3 days #9 tabs 10/03/24
--- NOTE | 2024-10-03 11:32 | NURSING ---
Patient has been discharged and is awaiting a ride at this time.
--- NOTE | 2024-10-03 14:47 | CHAPLAIN ---
Type of Pastoral Visit _x__ Initial Visit ___ Follow-up Visit ___ On-call Visit ___ General Patient Visit ___ Spiritual Assessment ___ Family Conference ___ Bereavement ___ Rapid Response ___ Code Blue ___ Other (describe below) Pastoral Care Referral From _x__ Patient ___ Family ___ Nurse ___ Physician ___ Education Managers ___ Brand Development Manager ___ Other (describe below) Sacrament/Intervention _x__ Active listening ___ Anointing ___ Amish _x__ Bereavement ___ Communion ___ Nicole exploration ___ _x__ Life review ___ Prayer ___ Reconciliation ___ Sacrament of Sick ___ Supportive presence ___ Wedding ___ Other (describe below) Pastoral Comments patient is to be discharged; pt is able to talk as he waits for transportation from family; pt updates this fermenter wine on his life which included the of his in June; pt is asked about his coping and transition to this phase of life; pt is detailed about his activities and plans for his future; pt expresses gratitude for the care given for his surgery; pt is appropriate and realistic
== END 2024-10-03 13:15 | disposition home or self-care (01) | DRG 39 ==
PROVIDERS: Student in an Organized Health Care Education/Training Program; Admitting Provider Surgery Trauma Surgery; PCP Family Medicine; Referring Provider Surgery Trauma Surgery; Visit Provider Surgery Trauma Surgery
PROC: 03CL0ZZ Extirpation of Matter from Left Internal Carotid Artery, Open Approach (ICD-10-PCS; CPT 35301; principal; 2024-10-02 07:10)
DX: I65.22 Occlusion and stenosis of left carotid artery (principal); I10 Essential (primary) hypertension; Z79.82 Long term (current) use of aspirin; Z79.02 Long term (current) use of antithrombotics/antiplatelets; Z79.890 Hormone replacement therapy; Z79.899 Other long term (current) drug therapy
CPT/HCPCS: 36415; 80048; 80076; 84443; 85025; 85027; 85347; 85610; 85730; 86850; 86900; 86901; 88304; 88311; 93005; 94668; 94762; 99252; A4648; A4216; G0463; J2405